=== PATIENT | female | born 1940 | race Caucasian/White ===

== ENCOUNTER 2024-10-04 10:43 | Emergency (ER) | payer MEDICARE, OTHER, SELFPAY ==
--- NOTE | 2024-10-04 10:44 | ED_ITS ---
HPI - Ear Problem General Chief complaint: Ear Stated complaint: Ears clogged Time Seen by Provider: 10/04/24 11:00 Source: patient, RN notes reviewed and old records reviewed Mode of arrival: ambulatory Limitations: no limitations History of Present Illness HPI Narrative: 84-year-old female was or referred to the [facility] for cerumen impaction or loss pieces of hearing aids in the right ear. Has had decreased hearing for long periods of time. Patient is not a very good historian. Unable to obtain medical history. Has been reports that they went to the hearing aid store and she was told she needed her right ear cleaned out. Related Data Home Medications ?Medication ?Instructions ?Recorded ?Confirmed ?Last Taken ?Type Unable to Obtain Home Medications 10/04/24 10/04/24 Unknown History Allergies Allergy/AdvReac Type Severity Reaction Status Date / Time No Known Allergies Allergy Verified 10/04/24 11:18 Review of Systems Review of Systems: All systems reviewed & are unremarkable except as noted in HPI and below Constitutional: Constitutional: Reports no additional constitutional complaints ENT: Reports as per HPI Cardiovascular: Cardiovascular: Reports no additional cardiovascular complaints, Denies chest pain and Denies dyspnea Respiratory: Respiratory: Reports no additional respiratory complaints, Denies chest congestion, Denies cough and Denies dyspnea Musculoskeletal: Musculoskeletal: Reports no additional musculoskeletal complaints Integumentary/Breasts: Skin/Breast: Reports system reviewed and no additional complaints, except as docu PMFSH Comments At the time of my signature, I reviewed and agree with the nursing past medical, surgical, social, and family history. There is no relevant family history pertinent to the patient complaint. Exam Const: General: cooperative, no acute distress, well developed, alert, anxious, ill appearing chronically and well nourished Nutritional Appearance: well nourished Orientation/consciousness: patient oriented x3 Limitations: no limitations HENMT: Head: normal to inspection Ears: external ears normal, TM normal on the left, Abnormal EAC present foreign body on the right; no otic discharge and unable to visualize TM on the right Mouth: Yes Normal oral and palatal mucosa present, Yes lip normal, Yes tongue normal and Yes moist mucous membranes Throat: posterior oropharynx normal, uvula midline and no uvular edema Eyes: General: appearance normal, both eyes and all related structures Alignment and Position: alignment normal Neck: Neck: normal visual inspection, full ROM, no lymphadenopathy and no meningeal signs Chest: Chest palpation & inspection: normal inspection of the chest Resp: Effort & Inspection: normal respiratory effort and able to speak in complete sentences Auscultation: clear to auscultation bilaterally, no crackles, no rales, no rhonchi and no wheezes Cardio: Rate: regular rate Skin: General skin exam: normal color and no rashes or lesions noted Neuro: General: patient oriented x3, moves all extremities and no meningeal signs Cognition (Neuro): normal cognition Speech: normal speech Extrem: General: normal to inspection, full ROM and capillary refill normal Psych: Appearance: grossly normal and well kempt Mental Status: mental status grossly normal Speech and movement: Normal speech and movement present and Clear speech present Affect: normal affect Attitude: cooperative Course Course Emergency Course: Procedure explained to patient in her has been. Verbal consent obtained. Area irrigated, used alligator forceps as well as a lighted curette to remove to rubber ends of a hearing aid as well as significant amount ear wax. Attempted additional irrigation, patient was not tolerating procedure well. Was unable to sit still Unable to remove the 3rd rubber and the hearing aid due to its location and unable to flush it out. Explained this to patient and . Discussed the importance of following up with ENT for further evaluation, Dr. Bedoya's name and number given. Patient appropriate for outpatient treatment with close follow Discharge instructions reviewed with patient, as well as provided in writing per nursing staff. The instructions also include specific and strict return/GO TO THE ER as well as f/u information. All questions have been answered, and the patient deny any further questions with discharge and discharge plan. Some parts of this dictation were generated by voice recognition software and may contain typographical and/or grammatical inaccuracies. Level of Care: Express Care Visit Vital Signs Vital signs: Vital Signs Temperature 98.0 F 10/04/24 10:58 Pulse Rate 65 10/04/24 10:58 Respiratory Rate 18 10/04/24 10:58 Blood Pressure 154/65 H 10/04/24 10:58 Pulse Oximetry 99 10/04/24 10:58 Oxygen Delivery Room Air 10/04/24 10:58 Temperature 98.0 F 10/04/24 10:58 Pulse Rate 65 10/04/24 10:58 Respiratory Rate 18 10/04/24 10:58 Blood Pressure 154/65 H 10/04/24 10:58 Pulse Oximetry 99 10/04/24 10:58 Oxygen Delivery Room Air 10/04/24 10:58 Reviewed Procedures FB Removal Ear Foreign Body #1: Foreign Body Removal Date: 10/04/24 Foreign Body Removal Time: 11:05 Location: ear canal (R) Foreign Body Suspected: other plastic TM intact pre-procedure: unable to visualize If Insect Suspected: ear canal instilled with other Foreign Body Removed: yes (2 of 3 removed) Foreign Body Removal Technique: forceps Patient Tolerated Procedure: other Complications: unable to tolerate Medical Decision Making MDM Narrative Medical decision making narrative: Patient presents for decreased hearing right ear. Three to have foreign body, irrigated, used alligator forceps and rated care it. Removed to piece of hearing aid, 3rd still in ear canal. Also removed a substantial amount of ear wax Patient appropriate for outpatient treatment with close follow-up Discharge instructions reviewed with patient, as well as provided in writing per nursing staff. The instructions also include specific and strict return/GO TO THE ER as well as f/u information. All questions have been answered, and the patient deny any further questions with discharge and discharge plan. Some parts of this dictation were generated by voice recognition software and may contain typographical and/or grammatical inaccuracies. Differential Diagnosis Differential Diagnosis: Foreign body, decreased hearing cerumen impaction Medical Records Medical records reviewed: Yes I reviewed the external patient's medical records. Vital Signs Vital Signs: Vital Signs Temperature 98.0 F 10/04/24 10:58 Pulse Rate 65 10/04/24 10:58 Respiratory Rate 18 10/04/24 10:58 Blood Pressure 154/65 H 10/04/24 10:58 Pulse Oximetry 99 10/04/24 10:58 Oxygen Delivery Room Air 10/04/24 10:58 Temperature 98.0 F 10/04/24 10:58 Pulse Rate 65 10/04/24 10:58 Respiratory Rate 18 10/04/24 10:58 Blood Pressure 154/65 H 10/04/24 10:58 Pulse Oximetry 99 10/04/24 10:58 Oxygen Delivery Room Air 10/04/24 10:58 Reviewed Lab Data Lab results reviewed: Yes I reviewed the patient's lab results. Labs: Reviewed Critical Care Time Critical Care Time Critical Care Time: No Discharge Plan Discharge Clinical Impression: Acute foreign body of right ear canal Patient Disposition: Home Condition: Stable Instructions: Antibiotic Form, Earache (ED) Additional Instructions: Please follow-up with your primary care provider for referral to ENT for removal of the 3rd piece of hearing aid from the right ear. We were unable to remove it in clinic today due to where it is located in the ear 2 of the parts were removed successfully Today your blood pressure was 154/65. Please follow-up with primary care provider within 2 weeks to have this rechecked Patient Language: Albanian Prescriptions: No Action Unable to Obtain Home Medications Follow-up/Referrals: Yayo Bedoya MD [Physician] - UNKNOWN,DOCTOR [Non-Staff] - Time of Disposition: 11:24
--- OUTSIDE RECORDS SUMMARY | 2024-10-04 10:54 | XMS_ITS | Data Portability ---
Author Organization [facility], Main Office Address [address] [place] [address] Care Team Providers Care Saw Operator Name Role Phone TATIANA MOSLEY Primary Care Provider Assessment Encounter Date Assessment Date Assessment LastModified by Organization Details LastModified Time 03/20/2019 03/20/2019 Ms. Cano is a 78-year-old female presents for neurosurgical clinic complaining of low back pain since 2013 after experiencing a fall with no lower extremity radicular pain, numbness or tingling. Dynamic flexion-extension film showed L4 on L5 grade 1 anterolisthesis however no signs of segmental instability with motion. MRI of the lumbar spine showed levoscoliosis with multilevel degenerative disc disease and disc protrusion extending into the canal worse at the level of L2-L3 ; however no signs of severe lumbar stenosis. Patient's main complaint is mechanical low back pain . Due to patient's extensive degenerative findings , patient would involve corrective spinal deformity surgery which would be invasive and high risk for patient based on her age. Patient should consider continuing conservative treatment including strengthening her core, physical therapy and pain management prior to considering any surgical intervention . Patient replied that at this time she is not interested in any invasive surgery . Patient will be continued be followed on a as needed basis. [email or web address] Not available 03/20/2019 21:15:58 Plan of Treatment Reminders Order Date Submit Date Provider Last Modified By Organization Details Last Modified Time Details Appointments None record ed. Lab None record ed. Referral None record ed. Procedures None record ed. Surgeries None record ed. Imaging None record ed. Medication Orders None record ed. Patient TargetsNo targets recorded. Patient Instructions Encounter Date Encounter Id Patient Instructions Last Modified By Organization Details Last Modified Time 03/20/2019 [id number] back care and preventing injuries: care instructions [email or web address] Not available 04/15/2019 11:22:02 getting back to normal after low back pain: care instructions [email or web address] Not available 04/15/2019 11:22:02 learning about relief for back pain [email or web address] Not available 04/15/2019 11:22:02 Reason for Referral None Reported. Results Created Date Observation Date Name Description Value Unit Range Abnormal Flag Note LastModifiedBy Organization Detail LastModifiedTime 03/06/20 19 02/24/2019 MRI, lumba r spine , w/o contr ast No observ ation record ed. BARCODE Not Available 2018 18:40:20 Result Notes None recorded. Problems Name Problem SNOMED Code Status Onset Date Resolution Date Notes Provider Name and Address Organization Details Recorded Time Hypertensive disorder 86886624 Active 2018 [facility] Gamez MD 9 15:13:04 Pain 31024531 Active 2018 [facility] Gamez MD 9 15:13:08 Scoliosis deformity of spine 983495101 Active 2018 [facility] Gamez MD 9 15:14:49 Osteoporosis 48499277 Active 2018 [facility] Gamez MD 9 15:16:12 Problem Notes None recorded. Procedures Surgical History Date Name Laterality Status Provider Name and Address Organization Details Recorded Time Hysterectomy completed Arpita Banks MD 03/20/2019 15:13:35 Imaging Results Imaging Date Name Status LastModified by Organiz ation Details LastModified Time 02/24/2019 MRI, lumbar spine, w/o contrast completed BARCODE Information not available 03/06/2019 18:40:20 Procedure Notes None recorded. Medical Equipment None Reported. Allergies No known drug allergies Medications Name Sig Start Date Stop Date Status Note LastModified by Organization Details LastModified Time triamcinolone acetonide 0.5 % topical cream active Not Available Not Availabl e Not Available lisinopril 20 mg tablet active Not Available Not Available Not Available hydrocodone 10 mg-acetaminophen 325 mg tablet active Not Available Not Availabl e Not Available tramadol 50 mg tablet active Not Available Not Available Not Available hydrochlorothiazide 25 mg tablet active Not Available Not Available Not Available duloxetine 20 mg capsule,delayed release active Not Available Not Available Not Available diclofenac 1 % topical gel active Not Available Not Available Not Available Prolia 60 mg/mL subcutaneous syringe active Not Available Not Available Not Available Fluzone High-Dose (PF) 180 mcg/0.5 mL intramuscular syringe active Not Available Not Available Not Available Fluzone High-Dose (PF) 180 mcg/0.5 mL intramuscular syringe active Not Available Not Available Not Available Vitals Date Recorded Body height Respiratory rate Body temperature Oxygen saturation Oxygen saturation in Arterial blood by Pulse oximetry Heart rate Body mass index (BMI) Body weight Systolic blood pressure Diastolic blood pressure Provider Name and Address Organization Details Last Updated DateTime 9 162.56 cm 20 /min 97.1 [degF] 98 % 98 % 91 /min 22.7 kg/m2 57887.1 9 g 145 mm[Hg] 95 mm[Hg] Arpita Banks MD 9 15:12:25 Social History Question Answer Notes LastModified by Organizat ion Details LastModified Time Tobacco Smoking Status Never Smoker [facility] Gamez MD 03/20/2019 15:11:06 What Is Your Level Of Alcohol Consumption? Occasional Information not available 03/20/2019 Are You Currently Employed? No Information not available 03/20/2019 Drugs Abused 0 Information not available 03/20/2019 Do You Or Have You Ever Used E-cigarettes Or Vape? Never Used Electronic Cigarettes Information not available 03/20/2019 What Is Your Occupation? Retired Information not available 03/20/2019 Live Alone Or With Others? With Others Information not available 03/20/2019 Primary Provider Tatiana Mosley Information not available 03/20/2019 Referring Provider Tatiana Mosley Information not available 03/20/2019 Pain Management Doctor Blair Salguero Information not available 03/20/2019 Do You Or Have You Ever Used Smokeless Tobacco? Never Used Smokeless Tobacco Information not available 03/20/2019 How Much Tobacco Do You Smoke? No Information not available 03/20/2019 Do You Use Any Illicit Or Recreational Drugs? No Information not available 03/20/2019 How Many Years Have You Smoked Tobacco? 0 Information not available 03/20/2019 Sex: Unknown Functional Status None recorded. Mental Status None recorded. Family History Nothing Reported. Medical History Condition Response Diabetes N Autoimmune disease N Bleeding Disorder N Arthritis Y Head Trauma/Injury N Cancer N Stroke N Asthma N COPD N Pacemaker N Epilepsy/Seizures N Hepatitis N Aneurysm N Liver Disease N Heart Disease N Heart Attack ([place]) N Ulcers N Fibromyalgia N Hypertension Y Problems with Anesthesia N Obstructive Sleep Apnea N Osteoporosis N Kidney Disease N Gynecological HistoryNo gynecological history recorded. Obstetrics History GPAL:G 0 P 0 0 0 0 Past Encounters Encounter ID Performer Location Encounter Start Date Encounter Closed Date Diagnosis/Indication Diagnosis SNOMED-CT Code Diagnosis ICD10 Code Diagnosis Note [id number] [address] [place] [address] [address] [place] [address] 03/20/2019 14:50:42 03/20/2019 16:42:54 Lumbar spondylolisthesis 4065658290 75508 M43.16 Lumbar spondylosis 33441 0009 M47.896 Low back pain 319606010 M54.5 Health Concerns Section Related Observation LastModified by Organization Detai ls LastModified Time None Recorded Concern Status LastModified by Organization Details LastModified Time None Recorded Advance Directives Directive None Recorded Payers Encounter Date Sequence Insurance Name Policy Number Policy Smith Covered Member ID Smith Member ID Guarantor Name 03/20/2019 1 [place]ICARE [place]: [employer] Joyce Cano [id number] Joyce Cano 03/20/2019 2 [employer] - FOR LIFE (SECONDARY TO MEDICARE) [id number] Joyce Cano [id number] Joyce Cano Notes Date Note Type Note Provider Name and Address Organization Details Recorded Time 9 text/html Jocelyn HPIReported bypatient.Location:lower back Onset:3 year(s) ago TraumaFall; fell in 2013 Neck:pain level 0/10 Armpain level 0/10 Low Backpain level 7/10; Dull/Aching Legpain level 0/10 Exacerbated By:Bending/Twisting/Lifting ; Prolonged Standing/Sitting (>30 minutes); Walking Past TreatmentsBed Rest; Home Excercise; NSAIDS (ie Ibuprofen, Naproxen); Muscle Relaxant Medications; Narcotic Medication (ie [place], Percocet, Codeine); Pain Cream; Spinal Injections; no recent pt Hand Dominance:Right Do you have any difficulty with:walkin - mildly limited 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 Shecomplainsof low back pain which [id number] after experiencing a fall. Patient was originally diagnosed with right hipbursitiswhich was treated withsteroid injection.Patientsubsequent ly developed low back painwhich has wax and waneand recently worsened in severity.On today's visitation she complainedof sharpconstant low back pain with no radicularnumbness tingling or pain in her extremities.Aggravating factors includewalking more than half a block.Alleviating factors include heat.Patient has attempted conservative treatmentwith Dr. Manzanohere she received 3 epiduralsteroid injections. Patient denies any alleviation of her discomfort.Patient also denies any physical therapytreatmentpatient denies any other associated symptoms including no numbness, tingling or bowel bladder dysfunction. Ndea Jenkins NP [address], [place], [address], [place] - Aureliano Banks MD 04/15/2019 11:22:05 OBGyn Episode No OBEpisode recorded.
--- OUTSIDE RECORDS SUMMARY | 2024-10-04 10:54 | XMS_ITS | Data Portability ---
Author Organization [facility] Address [address] [place] [address] Assessment No assessment recorded. Plan of Treatment Reminders Order Date Submit Date Provider Last Modified By Organization Details Last Modified Time Details Appointments None recorded. Lab None recorded. Referral None recorded. Procedures None recorded. Surgeries None recorded. Imaging US, kidney 2020 022 [facility], [address] [address], [place], [address], 2 12:17:23 CT, abdomen, w/wo contrast 2020 021 SHANNON [facility], [address] [address], [place], [address], 1 14:20:07 Medication Orders None recorded. Patient TargetsNo targets recorded. Patient InstructionsNo instructions recorded. Reason for Referral None Reported. Results Created Date Observation Date Name Description Value Unit Range Abnormal Flag Note LastModifiedBy Organization Detail LastModifiedTime 08/21/19 21 08/16/2020 CT, abdom en + pelvi s, w/ contr ast No observ ation record ed. BARCODE Not Available 2020 13:13:23 02/24/20 21 02/23/2021 CT, abdom en, w/wo contr ast [facility] [address] [facility], [address] [phone] PATIEN T: KIMBERLEY RIVERA 272 : 1940 Age: 80 yrs Dept: [id number] Sex: F ACC: [id number]: Verona Gross Pat Status : O Exam: CT Abdome n wo/w Contra st DATE: 2020 11:49 AM Acct No: Reason : Neopla sm of uncert ain behavi or of left kidney ___ FINAL REPORT CT ABDOME N WITH AND WITHOU T IV CONTRA ST DATE: 02/24/20 11:49 AM HISTOR Y: Neopla sm of uncert ain behavi or of left kidney TECHNI QUE: A CT scan of the abdome n is obtain ed prior to and after the uncomp licate d intrav enous inject ion of nonion ic contra st. COMPAR MARIAH: CT abdome n and pelvis 021 and 020. FINDIN GS: Visual ized heart size is normal . There is no pleura l effusi on. The visual ized lung bases are clear. The liver is normal in contou r. No suspic ious hepati c mass. Howeve r, the inferi or tip of segmen t of liver is not includ ed in the field- of-vie w of this scan. There is no calcif ied gallst one. No intrah epatic biliar y ductal dilata tion. Portal vein, superi or mesent kassy vein, and spleni c vein are patent . Spleen is normal in size and enhanc ement. Adrena l glands are normal . Pancre as is normal in enhanc ement. No duct dilata tion. The kidney s enhanc e normal ly symmet ricall y bilate rally. No renal calcul us or hydron ephros is. 8 mm high attenu ation suspec peyton cyst with hemorr nisreen at the upper pole of the left kidney at table positi on 104.5. There are severa l additi onal high attenu ation cysts with hemorr nisreen at the lower pole of the left kidney includ ing the 6 mm lesion at table is 174.5 which was identi fied on the prior CT as suspic ious for a solid mass. 1.1 cm cyst with hemorr nisreen at the lower pole left kidney at table positi on 169.5. Simple cyst at the latera l interp olar region of left kidney measur es 1.3 cm at table positi on 144.5. The visual ized bowel is nondil ated. No free air. Abdomi nal aorta is nonane urysma l. No adenop athy. There is no ascite s. The visual ized bony skelet on demons trates degene rative change s with slight listhe ses in the lumbar spine. Levosc oliosi s. Left flank batter y pack with spinal stimul ator wires enteri ng the thorac ic spinal canal. No suspic ious destru ctive osseou s lesion . No acute compre ssion fractu re. IMPRES SHELBY: 1. High attenu ation nonenh ancing cysts with hemorr nisreen at the left kidney . A 6 mm lesion corres ponds to the findin g on the prior CT abdome n and pelvis 021. Signed on 02/24/20 21 1:16 PM by Karol Meade M.D Report ed by:: KAROL MEADE M.D. Sept2020 13:16 [facility] [address] [facility] [address], [place], [address], 02/23/2021 17:57:31 03/08/20 22 03/08/2022 , [facility] [address] [facility], [address] [phone] PATIEN T: KIMBERLEY RIVERA 272 : 1940 Age: 81 yrs Dept: [id number] Sex: F ACC: [id number]: Verona Gross Pat Status : O Exam: US Renal Bilate ral DATE: 2021 04:43 PM Acct No: Reason : Cyst of kidney , acquir ed; Comple x renal cyst ___ FINAL REPORT ULTRAS OUND RETROP ERITON EUM KIDNEY S DATE: 022 HISTOR Y: Cyst of kidney , acquir ed; Comple x renal cyst TECHNI QUE: Ultras ound of the retrop eriton eum perfor med per the renal protoc ol. COMPAR MARIAH: None availa ble. FINDIN GS: RIGHT KIDNEY : Length : 9.1 cm Cortic al thickn ess: 1.1 cm Echoge nicity : Normal Mass: None Hydron ephros is: None Cysts: Stone: None LEFT KIDNEY : Length : 8.6 cm Cortic al thickn ess: 1.2 cm Echoge nicity : Normal Mass: None Hydron ephros is: None Cysts: 1.1 cm and 0.9 cm simple cyst involv ing the mid and lower portio n of the left kidney . Stone: None Bladde r: Normal IMPRES SHELBY: 1. Simple cysts in the left kidney otherw ise unrema rkable exam. Signed on 9:45 AM by Madison Patterson M.D. Report ed by:: MADISON PATTERSON M.D. [facility] 2021 09:45 [facility] [address] [facility] [address], [place], [address], 03/15/2022 13:50:23 Result Notes None recorded. Problems Name Problem SNOMED Code Status Onset Date Resolution Date Notes Provider Name and Address Organization Details Recorded Time Neoplasm of uncertain behavior of left kidney 23346170718639 5 Active 2020 Omar Gross MD [address] [facility],[address], [address] [place] [address] 09:56:35 Complex renal cyst Active 2020 Omar Gross MD [address] [place] [address],[address], [place], [address], [facility] 15:39:56 Problem Notes None recorded. Procedures Surgical History Date Name Laterality Status Provider Name and Address Organization Details Recorded Time 06/19/19 Most Recent Mammogram completed Loren Mayo [facility] 08/20/2020 09:18:49 total abdominal hysterectomy with bilateral salpingo-oophore ctomy completed Omar Gross MD [address] [place] [address],[address], [place], [address], [facility] 08/20/2020 09:33:38 Breast Implants completed Omar Gross MD [address] [place] [address],[address], [place], [place], [address] [place] [address] 08/20/2020 09:33:52 implantation of electronic stimulator of spine completed Omar Gross MD [address] [place] [address],[address], [place], [address] [place] [address], [facility] 08/20/2020 09:34:03 Breast Surgery (Lumpectomy, Biopsy, Implants) completed Marcelalevy Gann [facility] 03/18/2021 15:10:01 Hysterectomy completed Marcela Sanju[place] [facility] 03/18/2021 15:10:01 Back Surgery completed Marcela [place] [facility] 03/18/2021 15:10:01 Imaging Results Imaging Date Name Status LastModified by Organiz ation Details LastModified Time 08/16/2020 CT, abdomen + pelvis, w/ contrast completed BARCODE Information not available 08/20/2020 13:13:23 02/23/2021 CT, abdomen, w/wo contrast completed [facility] [address], [place], [address], 02/23/2021 17:57:31 03/08/2022 US, kidney completed [facility] [address], [place], [address], 03/15/2022 13:50:23 Procedure Notes None recorded. Medical Equipment None Reported. Allergies Allergen ID Allergen Name Allergen Category Reaction Reaction Severity Criticality Documentation Date Start Date Code Code System Note Provider Name and Address Organization Details Recorded Time 633631 fire ant environme nt itching Not available Not available 03/17/2022 79114 UNK Marcela Gann [facility] 2 15:27:55 089927 POLLEN EXTRACTS environme nt,medica tion Not available Not available Not available 03/17/2022 65932 6 RxNorm Marcela Gann [facility] 2 15:27:55 Medications Name Sig Start Date Stop Date Status Note LastModified by Organization Details LastModified Time compound drug active Not Available Not Available Not Available amoxicillin 500 mg capsule 08/20 completed Not Available Not Available Not Available methocarbam ol 500 mg tablet active Not Available Not Available Not Available acetic acid 2 % ear solution active Not Available Not Available Not Available triamcinolo ne acetonide 0.5 % topical cream 08/20 completed Not Available Not Available Not Available azithromyci n 250 mg tablet TAKE 2 TABLETS BY MOUTH ON DAY 1, THEN 1 TABLET DAILY ON DAYS 2 TO 5. active Not Available Not Available No t Available acetaminoph en 300 mg-codeine 30 mg tablet TAKE ONE (1) TABLET(S) BY MOUTH EVERY 6 HOURS NEEDED FOR PAIN. active Not Available Not Available No t Available chlorthalid one 25 mg tablet active Not Available Not Available Not Available hydrocodone 10 mg-acetamin ophen 325 mg tablet 08/20 completed Not Available Not Available Not Available tramadol 50 mg tablet active Not Available Not Available No t Available triamcinolo ne acetonide 0.1 % topical cream active Not Available Not Available Not Available oxycodone-a cetaminophe n 5 mg-325 mg tablet 03/18 completed Not Available Not Available Not Available metoclopram sang 5 mg tablet active Not Available Not Available Not Available dicyclomine 20 mg tablet TAKE ONE (1) TABLET(S) BY MOUTH TWICE A DAY FOR ABDOMINAL CRAMPING. 03/18 completed Not Available Not Available Not Available dexamethaso ne 4 mg tablet 03/18 completed Not Available Not Available Not Available lidocaine 5 % topical patch 08/20 completed Not Available Not Available Not Available gabapentin 300 mg capsule 03/17 completed Not Available Not Available Not Available methylpredn isolone 4 mg tablets in a dose pack 03/17 completed Not Available Not Available Not Available dexamethaso ne 0.5 mg tablet 03/18 completed Not Available Not Available Not Available celecoxib 100 mg capsule active Not Available Not Available Not Available ondansetron 4 mg disintegrat ing tablet DISSOLVE ONE (1) TABLET(S) BY MOUTH EVERY SIX HOURS NEEDED FOR NAUSEA/VO MITING. active Not Available Not Available No t Available escitalopra m 10 mg tablet active Not Available Not Available Not Available escitalopra m 20 mg tablet active Not Available Not Available Not Available cyclobenzap rine 5 mg tablet 08/20 completed Not Available Not Available Not Available rosuvastati n 20 mg tablet active Not Available Not Available Not Available rosuvastati n 25mg 08/20 completed Not Available Not Available Not Available Mintox Maximum Strength 400 mg-400 mg-40 mg/5 mL oral suspension active Not Available Not Available N ot Available diclofenac 1 % topical gel active Not Available Not Available Not Available Prolia 60 mg/mL subcutaneou s syringe active Not Available Not Available No t Available Narcan 4 mg/actuatio n nasal spray 03/17 completed Not Available Not Available Not Available Lagevrio 200 mg capsule (EUA) TAKE 2 BY MOUTH EVERY 12 HOURS FOR 5 DAYS active Not Available Not Available No t Available Vitals Date Recorded Body temperature Body height Body mass index (BMI) Body weight Heart rate Oxygen saturation Oxygen saturation in Arterial blood by Pulse oximetry Systolic blood pressure Diastolic blood pressure Provider Name and Address Organization Details Last Updated DateTime 1 97.7 [degF] 160.02 cm 23.9 kg/m2 79904.9 7 g 67 /min 99 % 99 % 144 mm[Hg] 72 mm[Hg] Loren Mayo [facility] 1 09:26:28 Date Recorded Body height Body mass index (BMI) Body weight Heart rate Oxygen saturation Oxygen saturation in Arterial blood by Pulse oximetry Systolic blood pressure Diastolic blood pressure Provider Name and Address Organization Details Last Updated DateTime 1 160.02 cm 23.7 kg/m2 24025.3 8 g 81 /min 98 % 98 % 134 mm[Hg] 70 mm[Hg] Marcela Gann [facility] 1 15:14:10 Date Recorded Body height Body mass index (BMI) Body weight Systolic blood pressure Diastolic blood pressure Provider Name and Address Organization Details Last Updated DateTime 03/17/2022 160.02 cm 22.7 kg/m2 06661.82 g 120 mm[Hg] 64 mm[Hg] Marcela Gann [facility] 2 15:30:27 Social History Question Answer Notes LastModified by Organizat ion Details LastModified Time Tobacco Smoking Status Former Smoker Loren [facility]aggie [facility]The [facility] 08/20/2020 09:19:40 Do You Have An Advance Directive? Yes Information not available 08/20/2020 What Is Your Level Of Alcohol Consumption? Occasional Information not available 08/20/2020 What Is Your Level Of Caffeine Consumption? Occasional Information not available 08/20/2020 How Much Tobacco Do You Chew? None Information not available 08/20/2020 Do You Or Have You Ever Used E-cigarettes Or Vape? Never Used Electronic Cigarettes Information not available 08/20/2020 When Did You Quit Smoking? 16+yearssincel tamy Information not available 03/18/2021 Does The Patient Have Fever OR Cough OR Shortness Of Breath? No Information not available 08/20/2020 In The Last 14 Days, Has The Patient Had Contact With A COVID-19 Positive Patient Or A COVID-19 Suspect Patient Awaiting Test Results? No Information not available 08/20/2020 If Pulse Oximetry Was Done: Is The Patient's Sp02 Less Than 93% On Room Air? No Information not available 08/20/2020 Does The Patient Have At Least TWO Of These Symptoms? Diarrhea, Chills, Muscle Pain, Repeated Shaking & Chills, Headache, Sore Throat, Or New Loss Of Taste/Smell No Information not available 08/20/2020 What Was The Date Of Your Most Recent Tobacco Screening? 03/17/2022 [email or web address] Information not available 03/17/2022 What Is Your Current Pack Years? 30ormorepackye ars [email or web address] Information not available 03/17/2022 What Is Your Relationship Status? Information not available 03/18/2021 At What Age Did You Start Smoking Tobacco? 20 [email or web address] Information not available 03/17/2022 Do You Or Have You Ever Used Smokeless Tobacco? Never Used Smokeless Tobacco Information not available 08/20/2020 How Much Tobacco Do You Smoke? 0.5 PPD [email or web address] Information not available 03/17/2022 Has Tobacco Cessation Counseling Been Provided? No [email or web address] Information not available 03/17/2022 How Many Years Have You Smoked Tobacco? 40 Information not available 08/20/2020 Do You Or Have You Ever Used Any Other Forms Of Tobacco Or Nicotine? No Information not available 03/18/2021 Sex: Unknown Functional Status Question Answer Note LastModified by Organizat ion Details LastModified Time Urinary incontinence assessment performed? Yes [email or web address] Information not available 03/17/2022 What is your exercise level? Occasional Information not available 08/20/2020 Mental Status None recorded. Family History Relationship Description Onset Age of this Age Resolved Age Notes LastModified by Organization Details LastModified Time Father Diabetes mellitus Not available 2020 09:32:11 Father Hypertensive disorder Not available 2020 09:32:23 Father Malignant neoplasm of skin [email or web address] Not available 2021 14:54:49 Mother Arthritis [email or web address] Not available 03/17/2022 14:54:50 Medical History Condition Response Urinary Problem Y High Blood Pressure (Hypertension) Y Arthritis Y Anxiety Y Back/Neck Pain Y Cancer (If yes, specify type) Y Gynecological History Statement/Question Response Most Recent Mammogram 06/19/2019 Date of LMP 06/19/1972 Obstetrics History GPAL:G 0 P 0 0 0 0 Past Encounters Encounter ID Performer Location Encounter Start Date Encounter Closed Date Diagnosis/Indication Diagnosis SNOMED-CT Code Diagnosis ICD10 Code Diagnosis Note [id number] Omar Gross MD [facility] [place] [address] [facility] [address] [place] [address] 08/20/2020 08:53:25 08/20/2020 10:05:05 Neoplasm of uncertain behavior of left kidney 7004352214 43593 D41.02 It is a very small lesion. 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 We discussed the options. Those options include observatio n versus partial nephrectom y versus ablation. Due to its tiny size, I would recommend observatio n for a little while. [id number] [facility] [address] [place] [address] 03/18/2021 15:08:23 03/18/2021 15:40:47 Complex renal cyst 9981475281 0760804 N28.1 The lesions appear to be more cystic. I believe we can do an ultrasound in a year. [id number] MD NANCY [facility] [place] [address],[facility] [address] [place] [address] 03/17/2022 14:54:48 03/17/2022 15:50:43 Complex renal cyst 7728728285 5471144 N28.1 Lesions appear to be cystic on the most recent ultrasound . These are benign. I think we can safely stop routine imaging Health Concerns Section Related Observation LastModified by Organization Detai ls LastModified Time None Recorded Concern Status LastModified by Organization Details LastModified Time None Recorded Advance Directives Directive Y: Payers Encounter Date Sequence Insurance Name Policy Number Policy Smith Covered Member ID Smith Member ID Guarantor Name 08/20/2020 1 [place] [employer] Joyce E Jerome [id number] Joyce Jerome 03/18/2021 1 [place] [employer] Joyce E Jerome [id number] Joyce Jerome 03/17/2022 1 [place] [employer] Joyce E Jerome [id number] Joyce Jerome 03/17/2022 2 [employer] - FOR LIFE (MEDICARE SUPPLEMENT) Joyce Cano [id number] Joyce Cano Notes Date Note Type Note Provider Name and Address Organization Details Recorded Time 08/20/2020 text/html She received her Covid vaccination. She developed abdominal pain and nausea. She went to the emergency room. A CT scan was performed. This showed a very small lesion on the left lower pole. CT scan was reviewed. There is an 8 mm mass on the left lower pole. She had a CT scan in February that is reported to be normal. Upon review of that study, the lesion appears to be present there. It is more difficult to see due to the contrast timing. Omar Gross MD [address] [place] [address],[address], [place], [address], [facility] 08/20/2020 09:57:52 03/18/2021 text/html Is a follow-up visit for renal lesion. She recently had a CT scan. The study was reviewed. She has multiple cysts. They appear to be hemorrhagic type cyst. She has not had flank pain or hematuria. Omar Gross MD [address] [place] [address],[address], [place], [address], [facility] 03/18/2021 15:41:03 03/17/2022 text/html Follow-up visit for renal cyst. She has been doing well. No flank pain or hematuria. No urinary tract infections. No incontinence. Ultrasound was reviewed. Benign cysts in the left kidney Omar Gross MD [address] [place] [address],[address], [place], [address], [facility] 03/17/2022 15:54:29 OBGyn Episode No OBEpisode recorded.
--- OUTSIDE RECORDS SUMMARY | 2024-10-04 10:55 | XMS_ITS | Clinical Summary ---
Author Organization [facility] Address [address] [place] [address] Care Team Providers Care Coffee Host Name Role Phone Jose Vergara MD Primary Care Provider [phone] Allergies No known active allergies Medications chlorthalidone (HYGROTEN) 25 MG tablet Take 1 tablet (25 mg total) by mouth daily. Active escitalopram (LEXAPRO) 20 MG tablet Take 1 tablet (20 mg total) by mouth daily. Active Kvpn-Yhoiemxmb-C en-Methyl Donaldo (MWRU-YYPND-XJLY JOE) 0.5-0.035-5-20 % Patch Active methocarbamol (ROBAXIN) 500 MG tablet Take 1 tablet (500 mg total) by mouth 4 (four) times daily. Active buPROPion XL (WELLBUTRIN XL) 150 MG 24 hr tablet Take 1 tablet (150 mg total) by mouth daily. Active Active Problems Problem Noted Date Diagnosed Date Myelopathy ([facility]) 07/18/2024 Depressive disorder 07/16/2024 Mixed hyperlipidemia 07/16/2024 Abnormal gait 07/08/2024 Degeneration of lumbar intervertebral disc 07/08 Impairment of balance 07/08/2024 Minimal cognitive impairment 07/08/2024 Recurrent falls 07/08/2024 Scoliosis deformity of spine 07/08/2024 Urinary incontinence 07/08/2024 Vertigo 07/08/2024 Encounters Date Type Department Care Team Description 08/29/2024 9:40 AM CDT Office Visit [facility] - [address], [address] [place] [address] Bebeto Osorio MD Follow Up (Discuss surgical options ) 08/29/2024 Travel 08/27/2024 [facility] [address] [facility], [address] [place] [address] Marilyn Knight, MARINE FISHERIES TECHNICIAN Radiology Results 08/21/2024 9:19 AM MILLINERY DEPARTMENT MANAGER - 08/21/2024 1:20 PM MILLINERY DEPARTMENT MANAGER Hospital Encounter [facility] [place] [address] Marilyn Knight, MARINE FISHERIES TECHNICIAN Discharge Disposition: Home or Self Care (Routine Discharge) 08/21/2024 Travel 08/16/2024 [facility] [address], [address] [place] [address] Marilyn Knight, MARINE FISHERIES TECHNICIAN Radiology Results (I called patient and spoke with her and herself. I relayed this information to them. Understanding was verbalized. ) 08/13/2024 8:11 AM MILLINERY DEPARTMENT MANAGER - 08/13/2024 11:59 PM MILLINERY DEPARTMENT MANAGER Hospital Encounter [facility] [address] Juaquin De Dios MD Discharge Disposition: Home or Self Care (Routine Discharge) 08/13/2024 8:11 AM MILLINERY DEPARTMENT MANAGER - 08/13/2024 3:00 PM MILLINERY DEPARTMENT MANAGER Hospital Encounter [facility] [place] [address] Marilyn Knight, MARINE FISHERIES TECHNICIAN Discharge Disposition: Home or Self Care (Routine Discharge) 08/13/2024 Travel 08/09/2024 Orders Only [facility] [place] [place] [address] Juaquin De Dios MD 07/30/2024 Pre-Procedure Call [facility] [place] [address] Juaquin De Dios MD Preprocedure Call 07/26/2024 [facility] [address], [address] [place] [address] Marilyn Knight, MARINE FISHERIES TECHNICIAN 07/18/2024 2:00 PM MILLINERY DEPARTMENT MANAGER [facility] [address], [address] [place] [address] Marilyn Knight, MARINE FISHERIES TECHNICIAN New Patient (Recurrent Falls ) 07/18/2024 Travel 07/16/2024 2:15 PM MILLINERY DEPARTMENT MANAGER Office Visit [facility] [address] [place] [address] Jose Vergara MD GrangerNicole barahona, PT Initial Evaluation 07/16/2024 Travel from Last 3 Months Social History Tobacco Use Types Packs/Day Years Used Date Smoking Tobacco: Never Smokeless Tobacco: Never Tobacco Cessation:Counseling Given: No Alcohol Use Standard Drinks/Week Comments Yes 0 (1 standard drink = 0.6 oz pur e alcohol) occasional PHQ-2 Answer Date Recorded Patient Health Questionnaire-2 Score 0 07/18/2024 Comments Unknown Sex and Gender Information Value Date Recorded Sex Assigned at Female 08/13/2024 8:06 AM MILLINERY DEPARTMENT MANAGER Legal Sex Female 9:13 AM MILLINERY DEPARTMENT MANAGER Gender Identity Not on file Sexual Orientation Not on file Last Filed Vital Signs Vital Sign Reading Time Taken Comments Blood Pressure 129/82 08/29/2024 9:38 AM CDT Pulse 66 08/29/2024 9:38 AM CDT Temperature 36.3 C (97.3 F) 08/29/2024 9:38 AM CDT Respiratory Rate 16 08/21/2024 11:3 0 AM MILLINERY DEPARTMENT MANAGER Oxygen Saturation 100% 08/29/2024 9:38 AM CDT Inhaled Oxygen Concentration - - Weight 50.2 kg (110 lb 11.2 oz) 08/29/2024 9:38 AM CDT Height 160 cm (5' 3 ) 08/29/2024 9:38 AM CDT Body Mass Index 19.61 08/29/2024 9:38 AM CDT Plan of Treatment Health Maintenance Due Date Last Done Comments DTaP, Tdap and Td Vaccines ( 1 - Tdap) 1961 Pneumococcal Vaccine: 50+ Ye ars (1 of 1 - PCV) 1992 Zoster Vaccines (1 of 2) 1992 Annual Medicare Wellness Visit 09/03/2007 Dexa Scan (General) 09/03/2007 RSV Immunization or 60+ Years (1 - 1-dose 75+ series) 2017 COVID-19 Vaccine ( - 2023-2 5 season) 2024 PHQ-2 (Physician [place]) Completed 07/18/2024 Meningococcal B Vaccine Aged Out No l onger eligible based on patient's age to complete this topic Meningococcal Vaccine Aged Out No shavon oracio eligible based on patient's age to complete this topic RSV Immunizations Under 20 Months Aged Out No longer eligible based on patient's age to complete this topic Medical Devices Implanted Type Area Payroll Accounting Specialist Device Identifier Shelf Expiration Date Model / Serial / Lot 2 Stimulator Lead Implant Implanted:Qty: 2 Lead Implant Spine Thoracic [employer] Description:LEAD MODELS MEDT KAYE SAHU DOES NOT KNOW LEAD INFO Stimulator Implant-07/21/19 Implanted:07/2022 (Quantity not on file) Stimulator Implant Back NEVRO MODEL [id number] / [id number] / Description:NO MRI DUE TO LE AD ADAPTERS- [facility] VERIFIED WITH ADELINA 07/22/24 2 Stim Ulator Lead Adapters Implanted:Qty: 2 Spine Thoracic SINDYRO [id number] / / Description:LEAD ADAPTERS AR E NOT MR CONDITIONAL - NO MRI Procedures Procedure Name Priority Date/Time Associated Diagnosis Comments CT CERV SPINE POST MYELO Routine 08/21/2024 10:56 AM MILLINERY DEPARTMENT MANAGER Myelopathy ([facility]) CT LUMB SPINE POST MYELO Routine 08/21/2024 10:56 AM MILLINERY DEPARTMENT MANAGER Myelopathy (CMS/HCC HHS/HCC) CT THOR SPINE POST MYELO Routine 08/21/2024 10:56 AM MILLINERY DEPARTMENT MANAGER Myelopathy (CMS/HCC HHS/HCC) IR MYELOGRAM ENTIRE SPINE Routine 08/21/2024 10:44 AM MILLINERY DEPARTMENT MANAGER Myelopathy (CMS/HCC HHS/HCC) IR LUMB PUNCTURE DIAGNOSTIC Routine 08/13/2024 11:06 AM MILLINERY DEPARTMENT MANAGER NPH (normal pressure hydrocephalus) (CMS/HCC HHS/HCC) PLATELET COUNT, AUTO Routine 08/13/2024 8:19 AM MILLINERY DEPARTMENT MANAGER Myelopathy (CMS/HCC HHS/HCC) PARTIAL THROMBOPLASTIN TIME,PTT Routine 08/13/2024 8:19 AM MILLINERY DEPARTMENT MANAGER Myelopathy (CMS/HCC HHS/HCC) PROTHROMBIN TIME, VENOUS Routine 08/13/2024 8:19 AM MILLINERY DEPARTMENT MANAGER Myelopathy (CMS/HCC HHS/HCC) from Last 3 Months Results * CT CERV SPINE POST MYELO (08/21/2024 10:56 AM MILLINERY DEPARTMENT MANAGER) Anatomical Region Laterality Modality Spine Computed Tomogra phy 08/26/2024 8:42 AM CDT Impressions 08/26/2024 8:47 AM CDT IMPRESSION: 1. Severe bilateral foraminal stenosis at C3/C4, C4/C5, C5/C6 and C6/C7. Moderate bilateral foraminal stenosis at C7/T1. 2. Mild central canal stenosis at C3/C4, C4/C5, C5/C6 and C6/C7. 3. Bilateral carotid artery calcification. Referred By: MARILYN KNIGHT Interpreted By: Alberto Miranda MD, 08/26/2024 8:42 AM Narrative 08/26/2024 8:47 AM CDT [facility] [address] [place], [place] [address] EXAMINATION:CT cervical myelogram with intrathecal contrast 08/21/2024 INDICATION:Myelopathy TECHNIQUE: Axial CT images of the cervical spine were acquired following the administration of 10 mL Isovue 300 contrast intrathecally. Sagittal coronal reformats were constructed. Radiation dose reduction techniques were used. COMPARISON: Head CT 06/29/2024 FINDINGS:There is contrast opacification of the cervical thecal sac. Cervical spine is in anatomic alignment with preservation of the vertebral body heights and disc spaces. The lateral masses of C1 and C2 are well aligned. The dens is intact. Axial condyles are intact. No acute fracture or dislocation. No focal lytic or blastic lesion. There is a 2 mm anterolisthesis at C4/C5. Moderate degenerative changes are noted at the anterior atlantoaxial joint space C2/C3: Negative C3/C4: Disc space narrowing, disc bulging, uncovertebral arthropathy and facet arthropathy causing mild central canal stenosis and severe bilateral neural foraminal stenosis. The thecal sac measures 7 mm C4/C5: Disc space narrowing, disc bulging, uncovertebral arthropathy and facet arthropathy causing mild central canal stenosis and severe bilateral neural foraminal stenosis. Thecal sac measures 8 mm. C5/C6: Disc space narrowing with small posterior disc/osteophyte complex, uncovertebral arthropathy and facet arthropathy causing mild central canal stenosis and severe bilateral foraminal stenosis. Thecal sac measures 8 mm. C6/C7: Disc space narrowing with small posterior disc/osteophyte complex, uncovertebral arthropathy and facet arthropathy causing mild central canal stenosis and severe bilateral foraminal stenosis. Thecal sac measures 8 mm C7/T1: Disc space narrowing, disc bulging, uncovertebral arthropathy and facet arthropathy causing slight effacement of ventral thecal sac and moderate bilateral foraminal stenosis. No prevertebral edema. No paraspinal mass or fluid collection. Calcification is noted near the carotid bifurcations. The thyroid gland is unremarkable. No acute abnormality within the visualized lung apices. Partially visualized intracranial contents are unremarkable. The visualized paranasal sinuses and mastoid air cells are clear. Procedure Note Alberto Miranda MD - 08/26/2024 [facility] [address] [place], [place] [address] EXAMINATION:CT cervical myelogram with intrathecal contrast 08/21/2024 INDICATION:Myelopathy TECHNIQUE: Axial CT images of the cervical spine were acquired followingthe administration of 10 mL Isovue 300 contrast intrathecally. Sagittalcoronal reformats were constructed. Radiation dose reduction techniqueswere used. COMPARISON: Head CT 06/29/2024 FINDINGS:There is contrast opacification of the cervical thecal sac.Cervical spine is in anatomic alignment with preservation of the vertebralbody heights and disc spaces. The lateral masses of C1 and C2 are wellaligned. The dens is intact. Axial condyles are intact. No acute fracture or dislocation. No focal lytic or blastic lesion.There is a 2 mm anterolisthesis at C4/C5. Moderate degenerative changes are noted at the anterior atlantoaxial jointspace C2/C3: Negative C3/C4: Disc space narrowing, disc bulging, uncovertebral arthropathy andfacet arthropathy causing mild central canal stenosis and severe bilateralneural foraminal stenosis. The thecal sac measures 7 mm C4/C5: Disc space narrowing, disc bulging, uncovertebral arthropathy andfacet arthropathy causing mild central canal stenosis and severe bilateralneural foraminal stenosis. Thecal sac measures 8 mm. C5/C6: Disc space narrowing with small posterior disc/osteophyte complex,uncovertebral arthropathy and facet arthropathy causing mild central canalstenosis and severe bilateral foraminal stenosis. Thecal sac measures 8mm. C6/C7: Disc space narrowing with small posterior disc/osteophyte complex,uncovertebral arthropathy and facet arthropathy causing mild central canalstenosis and severe bilateral foraminal stenosis. Thecal sac measures 8mm C7/T1: Disc space narrowing, disc bulging, uncovertebral arthropathy andfacet arthropathy causing slight effacement of ventral thecal sac andmoderate bilateral foraminal stenosis. No prevertebral edema. No paraspinal mass or fluid collection.Calcification is noted near the carotid bifurcations. The thyroid glandis unremarkable. No acute abnormality within the visualized lung apices.Partially visualized intracranial contents are unremarkable. Thevisualized paranasal sinuses and mastoid air cells are clear. IMPRESSION: 1. Severe bilateral foraminal stenosis at C3/C4, C4/C5, C5/C6 and C6/C7.Moderate bilateral foraminal stenosis at C7/T1. 2. Mild central canal stenosis at C3/C4, C4/C5, C5/C6 and C6/C7. 3. Bilateral carotid artery calcification. Referred By: MARILYN KNIGHT Interpreted By: Alberto Miranda MD, 08/26/2024 8:42 AM us Marilyn Knight MARINE FISHERIES TECHNICIAN CT Final Resu lt * CT LUMB SPINE POST MYELO (08/21/2024 10:56 AM MILLINERY DEPARTMENT MANAGER) Anatomical Region Laterality Modality Spine Computed Tomogra phy 08/26/2024 8:13 AM CDT Impressions 08/26/2024 8:47 AM CDT IMPRESSION: 1. 38 degrees of lumbar levoscoliosis. No acute osseous abnormality. 2. Severe neuroforaminal stenosis on the right at L1/L2, L2/L3 L3/L4. Moderate neural foraminal stenosis on the right at T12/L1. 3. Severe neuroforaminal stenosis on the left at L4/L5. Moderate neuroforaminal stenosis on the left at T12/L1 and L3/L4. 4. Mild central canal stenosis at T12/L1, L1/L2, L2/L3 and L3/L4. 5. Multiple indeterminate to hyperdense renal lesions, compatible with hemorrhagic or proteinaceous cysts. Complete characterization with a nonemergent renal ultrasound is recommended. Referred By: MARILYN KNIGHT Interpreted By: Alberto Miranda MD, 08/26/2024 8:13 AM Narrative 08/26/2024 8:47 AM CDT [facility] [address] [place], [place] [address] EXAMINATION:Lum[address] myelogram with intrathecal contrast 08/21/2024 INDICATION:Myelopathy TECHNIQUE: Axial CT images of the lumbar spine were acquired following the administration of 10 mL of Isovue-300 contrast intravenously. Sagittal and coronal reformats were constructed. Radiation dose reduction techniques were used. COMPARISON: None FINDINGS:Mineralization appears within lower limits of normal. There is 38 degrees of lumbar levoscoliosis. There is preservation of vertebral body heights and disc spaces. There is grade 1 anterolisthesis at L4/L5 measuring 4 mm Spinal stimulator leads enter the dorsal central canal at T10/T11 and T11/T12 and tracks cephalad. Conus terminates at the T12/L1 and is unremarkable contour and signal. Sacroiliac joint spaces are unremarkable. Calcification is noted throughout the abdominal aorta. There are multiple hyperdense renal lesions, largest of which is noted within the T12/L1: Disc space narrowing with the calcified the right paracentral disc extrusion causing mild central canal stenosis and effacement right lateral recess. The thecal sac measures 10 mm. Moderate bilateral foraminal stenosis due to disc space narrowing and foraminal disc/osteophyte complexes L1/L2: Disc space narrowing with calcified right paracentral disc extrusion causing mild central canal stenosis and effacement right lateral recess. The thecal sac measures 8 mm. There is severe right neural foraminal stenosis due to disc space narrowing, facet arthropathy and foraminal disc/osteophyte complex L2/L3: Disc space narrowing, disc bulging, facet arthropathy and foraminal disc/osteophyte complex causing mild central canal stenosis and severe right neural foraminal stenosis. The thecal sac measures 9 mm L3/4, disc space narrowing, disc bulging and facet arthropathy causing mild central canal stenosis, severe right neural foraminal stenosis and moderate left neural foraminal stenosis. The thecal sac measures 7 mm L4/L5: Disc space narrowing with grade 1 anterolisthesis, disc bulging, left foraminal disc extrusion and facet arthropathy causing slight effacement of ventral thecal sac, severe left neural foraminal stenosis and mild right neural foraminal stenosis. L5/S1: Disc space narrowing disc bulging and facet arthropathy causing mild central canal stenosis and mild bilateral foraminal stenosis Procedure Note Alberto Miranda MD - 08/26/2024 [facility] [place] [address] EXAMINATION:Lumbar CT myelogram with intrathecal contrast 08/21/2024 INDICATION:Myelopathy TECHNIQUE: Axial CT images of the lumbar spine were acquired following theadministration of 10 mL of Isovue-300 contrast intravenously. [place]itt[place] coronal reformats were constructed. Radiation dose reductiontechniques were used. COMPARISON: None FINDINGS:Mineralization appears within lower limits of normal. There is38 degrees of lumbar levoscoliosis. There is preservation of vertebralbody heights and disc spaces. There is grade 1 anterolisthesis at L4/W8dvatyxlyv 4 mm Spinal stimulator leads enter the dorsal central canal at T10/T11 andT11/T12 and tracks cephalad. Conus terminates at the T12/L1 and is unremarkable contour and signal.Sacroiliac joint spaces are unremarkable. Calcification is notedthroughout the abdominal aorta. There are multiple hyperdense renallesions, largest of which is noted within the T12/L1: Disc space narrowing with the calcified the right paracentral discextrusion causing mild central canal stenosis and effacement right lateralrecess. The thecal sac measures 10 mm. Moderate bilateral foraminalstenosis due to disc space narrowing and foraminal disc/osteophytecomplexes L1/L2: Disc space narrowing with calcified right paracentral discextrusion causing mild central canal stenosis and effacement right lateralrecess. The thecal sac measures 8 mm. There is severe right neuralforaminal stenosis due to disc space narrowing, facet arthropathy andforaminal disc/osteophyte complex L2/L3: Disc space narrowing, disc bulging, facet arthropathy and foraminaldisc/osteophyte complex causing mild central canal stenosis and severeright neural foraminal stenosis. The thecal sac measures 9 mm L3/4, disc space narrowing, disc bulging and facet arthropathy causingmild central canal stenosis, severe right neural foraminal stenosis andmoderate left neural foraminal stenosis. The thecal sac measures 7 mm L4/L5: Disc space narrowing with grade 1 anterolisthesis, disc bulging,left foraminal disc extrusion and facet arthropathy causing slighteffacement of ventral thecal sac, severe left neural foraminal stenosisand mild right neural foraminal stenosis. L5/S1: Disc space narrowing disc bulging and facet arthropathy causingmild central canal stenosis and mild bilateral foraminal stenosis IMPRESSION: 1. 38 degrees of lumbar levoscoliosis. No acute osseous abnormality. 2. Severe neuroforaminal stenosis on the right at L1/L2, L2/L3 L3/L4.Moderate neural foraminal stenosis on the right at T12/L1. 3. Severe neuroforaminal stenosis on the left at L4/L5. Moderateneuroforaminal stenosis on the left at T12/L1 and L3/L4. 4. Mild central canal stenosis at T12/L1, L1/L2, L2/L3 and L3/L4. 5. Multiple indeterminate to hyperdense renal lesions, compatible withhemorrhagic or proteinaceous cysts. Complete characterization with anonemergent renal ultrasound is recommended. Referred By: MARILYN KNIGHT Interpreted By: Alberto Miranda MD, 08/26/2024 8:13 AM us Marilyn Knight MARINE FISHERIES TECHNICIAN CT Final Resu lt * CT THOR SPINE POST MYELO (08/21/2024 10:56 AM MILLINERY DEPARTMENT MANAGER) Anatomical Region Laterality Modality Spine Computed Tomogra phy 08/26/2024 8:05 AM CDT Impressions 08/26/2024 8:47 AM CDT IMPRESSION: 1. 18 degrees of lower thoracic dextroscoliosis with moderate multilevel disc space narrowing. 2. Mild central canal stenosis at T2/3 and T12/L1 due to disc extrusions. 3. Spinal stimulator leads entering the dorsal central canal and traveling cephalad at the T10/T11 and T11/T12 levels. The leads terminate at the T7/T8 level. 4. Indeterminate hyperdense left renal lesions, compatible with the proteinaceous or hemorrhagic cyst. Further evaluation with nonemergent renal ultrasound is recommended. Referred By: MARILYN KNIGHT Interpreted By: Alberto Miranda MD, 08/26/2024 8:05 AM Narrative 08/26/2024 8:47 AM CDT [facility] [address] [place], [place] [address] EXAMINATION:Thoracic [address] myelogram with intrathecal contrast 08/21/2024 INDICATION: Myelopathy TECHNIQUE: Axial CT images of the thoracic spine were acquired in following the administration of 10 mL of Isovue-300 contrast intrathecally. Sagittal coronal reformats were constructed. Radiation dose reduction techniques were used. COMPARISON: None FINDINGS:There is 18 degrees of lower thoracic dextroscoliosis. There is preservation of vertebral body heights and disc spaces. No acute fracture or dislocation. There is a moderate multilevel disc space narrowing and endplate degenerative change. Spinal stimulator leads enter the dorsal central canal at the T10/T11 and T11/T12 level and travel cephalad to terminate at the T7/T8 level. There is contrast opacification of the thoracic thecal sac. The conus terminates at the T12/L1 level. The thoracic spinal cord is unremarkable in course caliber and contour. C7/T1: Disc space narrowing and facet arthropathy causing mild bilateral foraminal stenosis T1/T2: Disc space narrowing T2/T3: Disc space narrowing with the small midline disc extrusion causing mild central canal stenosis. The thecal sac measures 8 mm T3/T4: Disc space narrowing and facet arthropathy T4/T5: Disc space narrowing facet arthropathy T5/T6: Disc space narrowing T6/T7: Disc space narrowing and facet arthropathy T7/T8: Disc space narrowing and facet arthropathy causing mild bilateral neural foraminal stenosis. T8/T9: Disc space narrowing facet arthropathy causing mild bilateral foraminal stenosis. T9/T10: Disc space narrowing and facet arthropathy T10/T11: Disc space narrowing and facet nephropathy T11/T12: Disc space narrowing facet arthropathy T12/L1: Disc space narrowing with the mild central canal stenosis. The thecal sac measures 10 mm No paraspinal mass or fluid collection. Thoracic aorta is unremarkable in contour. There are few hypodense lesions noted within the left renal cortex, the largest of which measures up to 1.2 cm. Procedure Note Alberto Miranda MD - 08/26/2024 [facility] [address] [place], [place] [address] EXAMINATION:Thoracic [address] myelogram with intrathecal contrast 08/21/2024 INDICATION: Myelopathy TECHNIQUE: Axial CT images of the thoracic spine were acquired infollowing the administration of 10 mL of Isovue-300 contrastintrathecally. Sagittal coronal reformats were constructed. Radiationdose reduction techniques were used. COMPARISON: None FINDINGS:There is 18 degrees of lower thoracic dextroscoliosis. There ispreservation of vertebral body heights and disc spaces. No acute fractureor dislocation. There is a moderate multilevel disc space narrowing andendplate degenerative change. Spinal stimulator leads enter the dorsalcentral canal at the T10/T11 and T11/T12 level and travel cephalad toterminate at the T7/T8 level. There is contrast opacification of the thoracic thecal sac. The conusterminates at the T12/L1 level. The thoracic spinal cord is unremarkablein course caliber and contour. C7/T1: Disc space narrowing and facet arthropathy causing mild bilateralforaminal stenosis T1/T2: Disc space narrowing T2/T3: Disc space narrowing with the small midline disc extrusion causingmild central canal stenosis. The thecal sac measures 8 mm T3/T4: Disc space narrowing and facet arthropathy T4/T5: Disc space narrowing facet arthropathy T5/T6: Disc space narrowing T6/T7: Disc space narrowing and facet arthropathy T7/T8: Disc space narrowing and facet arthropathy causing mild bilateralneural foraminal stenosis. T8/T9: Disc space narrowing facet arthropathy causing mild bilateralforaminal stenosis. T9/T10: Disc space narrowing and facet arthropathy T10/T11: Disc space narrowing and facet nephropathy T11/T12: Disc space narrowing facet arthropathy T12/L1: Disc space narrowing with the mild central canal stenosis. Thethecal sac measures 10 mm No paraspinal mass or fluid collection. Thoracic aorta is unremarkable incontour. There are few hypodense lesions noted within the left renalcortex, the largest of which measures up to 1.2 cm. IMPRESSION: 1. 18 degrees of lower thoracic dextroscoliosis with moderate multileveldisc space narrowing. 2. Mild central canal stenosis at T2/3 and T12/L1 due to discextrusions. 3. Spinal stimulator leads entering the dorsal central canal andtraveling cephalad at the T10/T11 and T11/T12 levels. The leads terminateat the T7/T8 level. 4. Indeterminate hyperdense left renal lesions, compatible with theproteinaceous or hemorrhagic cyst. Further evaluation with nonemergentrenal ultrasound is recommended. Referred By: MARILYN KNIGHT Interpreted By: Alberto Miranda MD, 08/26/2024 8:05 AM us Marilyn Knight MARINE FISHERIES TECHNICIAN CT Final Resu lt * IR MYELOGRAM ENTIRE SPINE (08/21/2024 10:44 AM MILLINERY DEPARTMENT MANAGER) Anatomical Region Laterality Modality Spine Interventional R adiology, Radiographic Imaging 08/21/2024 10:3 4 AM MILLINERY DEPARTMENT MANAGER Impressions 08/21/2024 10:41 AM MILLINERY DEPARTMENT MANAGER IMPRESSION: 1. Technically successful, fluoroscopic guided whole spine myelogram with thecal sac access at the L3-4 level. 2. Post myelogram CT of the cervical, thoracic and lumbar spine to follow. Ordered By: MARILYN KNIGHT Interpreted By: Caleb Jones MD, 08/21/2024 10:34 AM Narrative 08/21/2024 10:41 AM MILLINERY DEPARTMENT MANAGER [address] [address] Procedure: IR cervical, thoracic and lumbar spine myelogram Indication: 83 female presenting for whole spine spine myelogram assessment of chronic back pain status post DCS 8 years ago x2 without improvement. Progressive gait disturbance and fall since January 2024. Negative workup for normal pressure hydrocephalus.. Comparison: Image guided lumbar puncture at 08/13/2024 Procedure technique: Informed verbal and written consent was obtained. The risks, alternatives, benefits to the procedure were explained to the patient. Patient expressed understanding and wished to proceed. Timeout was performed. Patient was placed prone on the fluoroscopy table. Initial fluoroscopy performed to identify the target level for needle access. The L3-4 interlaminar space was targeted. The skin was marked and the area prepped and draped in the usual sterile fashion. 1% lidocaine was administered for local anesthesia. A 22-gauge spinal needle was then advanced under fluoroscopic guidance into the thecal sac at the L2-L3 level. There was returned of clear CSF fluid. 10 mL Isovue-300 contrast was then injected and seen to flow away from the needle. The needle was removed and a Band-Aid placed. Table was tilted to allow contrast to diffuse throughout the spinal canal. The patient was positioned in a lateral decubitus position to assist with cephalad flow of contrast. The table was then returned to a level position and the patient was transported to CT for imaging. Patient tolerated procedure well. There were no immediate competitions. Barrel Roller: Dr. Jones Radiation dose air Kerma: 31.77 mGy; 6 fluoroscopy images recorded Procedure Note Caleb Jones MD - 08/21/[address] [address] Procedure: IR cervical, thoracic and lumbar spine myelogram Indication: 83 female presenting for whole spine spine myelogramassessment of chronic back pain status post DCS 8 years ago x2 withoutimprovement. Progressive gait disturbance and fall since January 2024.Negative workup for normal pressure hydrocephalus.. Comparison: Image guided lumbar puncture at 08/13/2024 Procedure technique: Informed verbal and written consent was obtained. Therisks, alternatives, benefits to the procedure were explained to thepatient. Patient expressed understanding and wished to proceed. Timeout was performed. Patient was placed prone on the fluoroscopy table.Initial fluoroscopy performed to identify the target level for needleaccess. The L3-4 interlaminar space was targeted. The skin was marked andthe area prepped and draped in the usual sterile fashion. 1% lidocaine was administered for local anesthesia. A 22-gauge spinalneedle was then advanced under fluoroscopic guidance into the thecal sacat the L2-L3 level. There was returned of clear CSF fluid. 10 mLIsovue-300 contrast was then injected and seen to flow away from theneedle. The needle was removed and a Band-Aid placed. Table was tilted toallow contrast to diffuse throughout the spinal canal. The patient was positioned in a lateral decubitus position to assist withcephalad flow of contrast. The table was then returned to a level positionand the patient was transported to CT for imaging. Patient tolerated procedure well. There were no immediate competitions. Barrel Roller: Dr. Jones Radiation dose air Kerma: 31.77 mGy; 6 fluoroscopy images recorded IMPRESSION: 1. Technically successful, fluoroscopic guided whole spine myelogram withthecal sac access at the L3-4 level. 2. Post myelogram CT of the cervical, thoracic and lumbar spine tofollow. Ordered By: MARILYN KNIGHT Interpreted By: Caleb Jones MD, 08/21/2024 10:34 AM Marilyn Knight MARINE FISHERIES TECHNICIAN INTERVENTIONAL RADIOLOGY F inal Result * IR LUMB PUNCTURE DIAGNOSTIC (08/13/2024 11:06 AM MILLINERY DEPARTMENT MANAGER) Anatomical Region Laterality Modality Spine Interventional R adiology, Radiographic Imaging, Radiographic Imaging 08/13/2024 3:37 PM MILLINERY DEPARTMENT MANAGER Impressions 08/13/2024 3:50 PM MILLINERY DEPARTMENT MANAGER =====IMPRESSION:===== 1. Successful lumbar puncture with removal of 25 mL of clear CSF. 2. Opening pressure 15 mmH2O. Ordered By: MARILYN KNIGHT Interpreted By: Andres Barrett MD, 08/13/2024 3:37 PM Narrative 08/13/2024 3:50 PM MILLINERY DEPARTMENT MANAGER [address] [address] EXAMINATION: Lumbar puncture EXAM DATE/TIME: 08/13/2024 9:54 AM REASON FOR EXAM: NPH, large volume drain with pre and post PT COMPARISON: CT head 06/29/2024. TECHNIQUE/FINDINGS: The procedure was explained to the patient in detail. Risks and benefits of the procedure were explained including but not limited to the risks of headache, bleeding, infection, and injury to surrounding structures. The patient agreed to the procedure and expressed verbal understanding of the risks. Under fluoroscopic guidance, the L3-L4 interlaminar space was localized, with the overlying skin prepped in the usual sterile fashion. Once local analgesia has been achieved by infiltration of 1% lidocaine solution, an 18 -gauge 3-1/2 inch spinal needle was advanced without difficulty into the thecal sac with prompt return of clear colorless CSF. A total of 25 mL cerebrospinal fluid were collected and distributed amongst several vials. Opening pressure was 15 mmH2O. The patient tolerated the procedure well. There were no immediate postprocedural complications. The patient's radiation exposure time was 0.7 minutes. Radiation dose 8.29 mGy. DAP 1.08 Gycm2. Procedure Note Andres Barrett MD - 08/13/[address] [address] EXAMINATION: Lumbar puncture EXAM DATE/TIME: 08/13/2024 9:54 AM REASON FOR EXAM: NPH, large volume drain with pre and post PT COMPARISON: CT head 06/29/2024. TECHNIQUE/FINDINGS: The procedure was explained to the patient in detail.Risks and benefits of the procedure were explained including but notlimited to the risks of headache, bleeding, infection, and injury tosurrounding structures. The patient agreed to the procedure and expressedverbal understanding of the risks. Under fluoroscopic guidance, the L3-L4 interlaminar space was localized,with the overlying skin prepped in the usual sterile fashion. Once localanalgesia has been achieved by infiltration of 1% lidocaine solution, an18 -gauge 3-1/2 inch spinal needle was advanced without difficulty intothe thecal sac with prompt return of clear colorless CSF. A total of 25 mLcerebrospinal fluid were collected and distributed amongst several vials.Opening pressure was 15 mmH2O. The patient tolerated the procedure well.There were no immediate postprocedural complications. The patient's radiation exposure time was 0.7 minutes. Radiation dose 8.29mGy. DAP 1.08 Gycm2. =====IMPRESSION:===== 1. Successful lumbar puncture with removal of 25 mL of clear CSF. 2. Opening pressure 15 mmH2O. Ordered By: MARILYN KNIGHT Interpreted By: Andres Barrett MD, 08/13/2024 3:37 PM Marilyn Knight MARINE FISHERIES TECHNICIAN INTERVENTIONAL RADIOLOGY F inal Result * PLATELET COUNT, AUTO (08/13/2024 8:19 AM MILLINERY DEPARTMENT MANAGER) PLT 328 130 - 400 x10'3/uL 08/13/2024 8:28 AM MILLINERY DEPARTMENT MANAGER [facility] MPV 10.0 9.3 - 12.2 FL 08/13/2024 8:28 AM MILLINERY DEPARTMENT MANAGER [facility] 08/13/2024 8:19 AM MILLINERY DEPARTMENT MANAGER Juaquin De Dios MD LABORATORY Final Res ult Performing Organization Address [facility]/ZIP Co de Phone Number [facility] [address] [place] [address], [place] [phone] * PTT, PARTIAL THROMBOPLASTIN TIME (08/13/2024 8:19 AM MILLINERY DEPARTMENT MANAGER) Pathologist [facility] PTT 28.8 25.1 - 36.5 SEC 08/13/2024 8:46 AM MILLINERY DEPARTMENT MANAGER [facility] 08/13/2024 8:19 AM MILLINERY DEPARTMENT MANAGER Juaquin De Dios MD LABORATORY Final Res ult [facility] [address] [place] [address], [place] [phone] * PROTIME/INR, VENOUS (08/13/2024 8:19 AM MILLINERY DEPARTMENT MANAGER) Pathologist [facility] PROTIME 10.5 10.2 - 12.9 SEC 08/13/2024 8:46 AM MILLINERY DEPARTMENT MANAGER [facility] INR 0.9 08/13/2024 8:46 AM MILLINERY DEPARTMENT MANAGER [facility] Comment: Recommended INR Therapeutic Goals: 2.0-3.0 Routine Therapy 2.5-3.5 Mechanical Prosthetic Valves (High Risk) 08/13/2024 8:19 AM MILLINERY DEPARTMENT MANAGER us Juaquin De Dios MD LABORATORY Final Res ult [facility] [address] [place] [address], from Last 3 Months Insurance [facility] MEDIC[facility] Care Teams Coffee Host Relationship Specialty Start Date End Date Jose Vergara MD [address] [facility] [address] [place] [address] PCP - General INTERNAL MEDICINE 08/13/24
--- OUTSIDE RECORDS SUMMARY | 2024-10-04 10:55 | XMS_ITS | Data Portability ---
Author Organization [place] - [facility], Diana RYAN Office Address [address] [facility] [address] [place] [address] Care Team Providers Care Open Hearth Furnace Laborer Name Role Phone LEVAR SALGUERO Referring Provider [phone] HIRA MOSLEY Primary Care Provider Assessment Encounter Date Assessment Date Assessment LastModified by Organization Details LastModified Time 10/11/2017 10/11/2017 1. Chronic low back pain 2. Lumbosacral spondylosis without myelopathy 3. Scoliosis X-rays are reviewed, showing scoliosis deformity, maintained sagittal balance, and no lytic or erosive changes. Bone density is reasonable. There is significant spondylosis in several areas. She is already doing yoga. I greatly endorsed this. She says Dr. Salguero wondered if I could create a little space for him to get in to do an injection. I explained that I would likely destabilize the spine, and this is not serving her well. In short, I do not have a good surgical option. This is in consideration of chronic illnesses, comorbidities, age, bone quality, and the extent of surgery that would be needed for a structural solution. Creating a little space for Dr. Salguero is also a reasonable question but not realistic or feasible. Alternatively, may be he could get an effective injection done through a transforaminal or caudal technique. Otherwise, neuro modulation may be an option. I have given her information about a community resource who is a therapeutic yoga expert. I left the follow-up open-ended, but can see her back at any time. All questions were answered and she voiced understanding and agreement with the plan. Not available 10/20/2017 10:24:15 Plan of Treatment Reminders Order Date Submit [...] Modified By Organization Details Last Modified Time 10/11/2017 [id number] low back arthritis: exercises farrukh Not available 10/16/2017 10:55:11 patient case to s/w John Yeh card to her farrukh Not available 10/11/2017 12:43:17 Reason for Referral None Reported. Results Created Date Observation Date Name Description Value Unit Range Abnormal Flag Note LastModifiedBy Organization Detail LastModifiedTime 10/12/19 18 bench assembly inspector [email or web address]? CMD=OP ENSTUD Y&SUID =1.3.6 .1.4.1 .94207 .2018. 4.25.7 .54.33 .01664 [email or web address] [employer] [address], [address], 10/11/2017 13:52:17 Result Notes None recorded. Problems No Known Problems Procedures Surgical History Date Name Laterality Status Provider Name and Address Organization Details Recorded Time Hysterectomy [place] [address] [facility],[address], [place], [address], [place] 10/11/2017 12:27:12 Imaging Results Imaging Date Name Status LastModified by Organizatio n Details LastModified Time 10/11/2017 bench assembly inspector completed [email or web address] [address] [place], [address], 10/11/2017 13:52:17 Procedure Notes None recorded. Medical Equipment None Reported. Allergies No known drug allergies Medications Name Sig Start Date Stop Date Status Note LastModified by Organization Details LastModified Time compound drug active Not Available Not Available Not Available lisinopril 20 mg tablet active Not Available Not Available No t Available tramadol 50 mg tablet active Not Available Not Available Not Available Mapap (acetaminophen ) 325 mg tablet active Not Available Not Available Not Available omeprazole 20 mg capsule,delaye d release active Not Available Not Available No t Available Restasis 0.05 % eye drops in a dropperette active Not Available Not Availabl e Not Available Prolia 60 mg/mL subcutaneous syringe active Not Available Not Available Not Available Triderm 0.5 % topical cream active Not Available Not Availabl e Not Available Vitals Date Recorded Body height Body mass index (BMI) Body weight Provider Name and Address Organization Details Last Updated DateTime 10/11/2017 162.56 cm 22.7 kg/m2 10329.19 [place] [address] [address], [place], [address], [facility], [place] 10/11/2017 12:24:15 Date Recorded Heart rate Systolic blood pressure Diastolic blood pressure Provider Name and Address Organization Details Last Updated DateTime 10/11/2017 90 /min 128 mm[Hg] 74 mm[Hg] Yessy Tracey [facility], [place] 10/11/2017 12:32:09 Social History Question Answer Notes LastModified by Organizat ion Details LastModified Time Tobacco Smoking [place] [address], [address], [place] 10/11/2017 12:26:54 What Is Your Level Of Alcohol Consumption? Occasional Information not available 10/11/2017 Marital Status Informatio n not available 10/11/2017 What Was The Date Of Your Most Recent Tobacco Screening? 10/11/2017 Information n ot available 01/10/2019 Sex: Unknown Functional Status None recorded. Mental Status None recorded. Family History Relationship Description Onset Age of this Age Resolved Age Notes LastModified by Organization Details LastModified Time Father Diabetes mellitus Not available 2017 12:24:40 Father Hypertensive disorder Not available 2017 12:24:47 Medical History Condition Response HIV or AIDS N Gout N High Blood Pressure Y Loss of bowel control N Bleeding Disorders N Glaucoma N Lung Disease N Depression N COPD N Thyroid Disorders N Pacemaker N Prostate Problems N Vascular Disease N Congestive Heart Failure N Gastrointestinal Disease N Alcoholism N Obesity N Arthritis N Cancer N Chemical Dependency N Stroke N Gynelogical Problems N Deaf / Hearing-Impaired N Orthopaedic Problems N High Cholesterol N Liver Disease N Fibromyalgia N Headaches N Ulcer N Kidney Disease N Hiatal Hernia N Malignant Hyperthermia N Claustrophobia N Scoliosis N Anxiety N Loss of bladder control N Irregular Heart Rhythm N Angina N Migraines N Reaction to Anesthetic N Anemia N Multiple Sclerosis N Urinary Problems N Osteopenia N Diabetes N Metal Implant/ Metallic Fragment(s) N Muscular Disorder N Seizures/Epilepsy N Heart Attack N Asthma N Lupus N Sleep Apnea N Hepatitis N Heart Disease N Respiratory Infections N Pulmonary Embolism N Osteoporosis N Gynecological HistoryNo gynecological history recorded. Obstetrics History GPAL:G 0 P 0 0 0 0 Past Encounters Encounter ID Performer Location Encounter Start Date Encounter Closed Date Diagnosis/Indication Diagnosis SNOMED-CT Code Diagnosis ICD10 Code Diagnosis Note [id number] Bria Dyson MD [facility] Office [address] [facility] [address] [place] [address] 10/11/2017 11:45:50 10/11/2017 13:18:41 Scoliosis deformity of spine 501296665 M41.9 Lumbosacra l spondylosis without myelopathy 83382195 M47.817 Chronic low back pain 27 4096157 M54.5 Health Concerns Section Related Observation LastModified by Organization Detai ls LastModified Time None Recorded Concern Status LastModified by Organization Details LastModified Time None Recorded Advance Directives Directive None Recorded Payers Encounter Date Sequence Insurance Name Policy Number Policy Smith Covered Member ID Smith Member ID Guarantor Name 10/11/2017 1 [place]ICARE [place]: [id number] Joyce Cano [id number] Joyce Cano 10/11/2017 2 [employer] - FOR LIFE (MEDICARE SUPPLEMENT) Joyce Cano [id number] Joyce Cano Notes Date Note Type Note Provider Name and Address Organization Details Recorded Time 10/11/2017 text/html Chief complaint: Low back pain This very pleasant 77-year-old describes 4-5 out of 10 severity low back pain, flaring rarely to 10 out of 10. There is a stabbing and aching quality at the low back, and the right buttock. There is an unrelated numbness at her right posterior arm. This is all been going on since 2013, getting worse in the last month. She attributes it to falling off of a chair in 2013. She has been through injections with Dr. Salguero, twice last year, which were equivocal and did not have lasting relief. She has been through therapy. She has been on tramadol. There is been no associated bowel or bladder dysfunction, fevers or chills, or falling down. The rest of the patient's health history, including past medical, family and social history, and a complete review of systems are reviewed, referencing the new patient intake sheet, which [place] [address] [facility],[address], [place], [address], [place] 10/20/2017 10:24:30 OBGyn Episode No OBEpisode recorded.
--- OUTSIDE RECORDS SUMMARY | 2024-10-04 10:55 | XMS_ITS | Data Portability ---
Author Organization [place] - ZELDA RYAN [facility], [facility] Address [address] [place] [address] Care Team Providers Care Iridologist Name Role Phone LUZ MARIA REYNA Spinal Orthopedic Surgeon BASHIR BULL JR Neurosurgeon [phone] Assessment Encounter Date Assessment Date Assessment LastModified by Organization Details LastModified Time 01/03/2022 01/03/2022 81 yo female presents with thoracic, right leg and hip pain. Pt describes pain as burning, throbbing and stabbing. Pain is exacerbated with activity. Pain is improved with heat. Pain affects ADL. Pt presents in office s/p bilateral L4-S1 lumbar RFA performed one 11/16/2021 and right SIJ on 11/30/2021 which pt states provided about 2 weeks relief although unsustained. Pain is debilitating and aggravating. Pt has previously undergone lumbar SATNAM's, SIJ injections, RFA's and hip injections - pt receives unsustained relief from injections. Pt continues to have significant pain mostly right lower extremities. Pain limits ROM and function. Pt states previous RFA done on 04/20/2021 did previously provide over 80% for over 6 months. Facet joints of the spine have joint capsules that are supplied by a branch of the posterior ramus of the spinal nerve. Percutaneous radiofrequency facet denervation, also known as radiofrequency facet joint rhizotomy or facet neurotomy, involves selective denervation using radiofrequency under fluoroscopic guidance. As a method of neurolysis, radiofrequency facet denervation has been shown to be a very safe procedure and can offer relief for many patients with mechanical LBP in whom organic pathology, most commonly a herniated lumbar disc, has been eliminated. According to the literature, it offers advantages over conventional neurolytic agents (e.g., phenol, alcohol, and hypertonic saline) because of its long lasting effects, the relative lack of discomfort, and its completely local action without any random diffusion of the neurolytic agent. Because there are no reliable clinical signs that confirm the diagnosis, successful relief of pain by injections of an anesthetic agent into the joints are necessary before proceeding with radiofrequency facet denervation. Results from many studies have shown that radiofrequency facet denervation results in significant (excellent or good) pain relief, reduced use of pain medication, increased [id number], and is associated with few complications. Success rate, however, depends on a careful selection of patients. Discussed with pt will repeat lumbar RFA for pt as it may provide further relief. [email or web address] Not available 01/03/2022 11:29:59 01/07/2022 01/07/2022 Patient will proceed with bilateral L4-S1 lumbar RFA Facet joints of the spine have joint capsules that are supplied by a branch of the posterior ramus of the spinal nerve. Percutaneous radiofrequency facet denervation, also known as radiofrequency facet joint rhizotomy or facet neurotomy, involves selective denervation using radiofrequency under fluoroscopic guidance. As a method of neurolysis, radiofrequency facet denervation has been shown to be a very safe procedure and can offer relief for many patients with mechanical LBP in whom organic pathology, most commonly a herniated lumbar disc, has been eliminated. According to the literature, it offers advantages over conventional neurolytic agents (e.g., phenol, alcohol, and hypertonic saline) because of its long lasting effects, the relative lack of discomfort, and its completely local action without any random diffusion of the neurolytic agent. Because there are no reliable clinical signs that confirm the diagnosis, successful relief of pain by injections of an anesthetic agent into the joints are necessary before proceeding with radiofrequency facet denervation. Results from many studies have shown that radiofrequency facet denervation results in significant (excellent or good) pain relief, reduced use of pain medication, increased [id number], and is associated with few complications. Success rate, however, depends on a careful selection of patients. [email or web address] Not available 01/12/2022 09:36:33 02/14/2022 02/14/2022 Patient is a 81-year-old female who I saw in the office today for follow-up regarding her chronic pain to her low back that goes into her right buttock. Patient reports that the RFA seems to have helped some of the axial low back pain but continues to have this pain in her right buttock and hip area that seems to be quite severe. Pain is a sharp shooting and burning type of pain that can be a 7/10 at its worst. Pain is periodic and worse with activity and improved with heat. Examination does reveal pain and tenderness to the right piriformis muscle. We will go ahead and proceed with a right piriformis injection here in the office today Will follow-up in 1 month MD was present in clinic today. [email or web address] Not available 02/16/2022 11:24:32 03/21/2022 03/21/2022 Patient is a 81-year-old female who I saw in the office today for follow-up from previous injection into her right buttock. We had performed an injection into the right piriformis muscle. Patient reports that she did get significant relief from that injection at least 60%. Patient reports that once bothering her right now is pain which seems to be into the right hip joint itself. Pain is shooting and burning and periodic and worse with activity. Pain can be a 7/10 at its worst. In the past we have performed injections of the left hip which did provide significant relief. 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 Patient reports that she is concerned because she is having a lot more pain all of a sudden she denies any trauma or injury. At this time we will go ahead and order an MRI of the right hip to rule out avascular necrosis We will also go ahead and proceed with a right intra-articular hip injection here in the office today Will follow-up in 1 month after the injection. MD was present in clinic today. [email or web address] Not available 03/21/2022 10:36:44 04/13/2022 04/13/2022 Patient is a 81-year-old female who I saw in the office today for follow-up regarding pain to her right hip. Patient did obtain a new MRI of the right hip and today's visit we will be going over that MRI to discuss possible treatment options. Pain continues to be periodic and worse with activity, and pain is described as a sharp, shooting, and burning type of pain that can be an 8/10 at its worst. MRI of the right hip shows new full-thickness tear of the gluteal medius muscle at the insertion of the trochanteric fossa. Go ahead and proceed with a right trochanteric bursa injection here in the office today Patient will then continue with physical therapy to help build strength around the right hip and to improve stability. Follow-up in 6 weeks was present in clinic today. [email or web address] Not available 04/13/2022 11:52:41 Plan of Treatment Reminders Order Date Submit Date Provider Last Modified By Organization Details Last Modified Time Details Appointments None recorded. Lab None recorded. Referral None recorded. Procedures None recorded. Surgeries None recorded. Imaging MRI, hip, w/o contrast 2021 022 [facility], [address], [place], [address], 09:00:42 Medication Orders None recorded. Patient TargetsNo targets recorded. Patient Instructions Encounter Date Encounter Id Patient Instructions Last Modified By Organization Details Last Modified Time 01/07/2022 [id number] Pt tolerated procedure well. Pt informed to call and go to ER with development of fever, increased pain, weakness, numbness, bowel or bladder incontinence or any other adverse side effects. Not available 01/07/2022 10:45:27 Reason for Referral None Reported. Results Created Date Observation Date Name Description Value Unit Range Abnormal Flag Note LastModifiedBy Organization Detail LastModifiedTime 04/11/2004/11/2022 MR femur , right [facility] [address] [facility], [id number] [phone] ANGEL T: KIMBERLEY RIVERA [address] : 1940 Age: 81 yrs Dept: [id number] Sex: F ACC: [id number]: Too Tang Pat Status : O Exam: MR Femur, Right DATE: 2021 11:19 AM Acct No: Reason : Unilat eral primar y osteoa rthrit is, right hip ___ FINAL REPORT MR LOWER EXTREM ITY WITHOU T IV CONTRA ST DATE: 2021 HISTOR Y: Unilat eral primar y osteoa rthrit is, right hip TECHNI QUE: MR examin ation of the right femur was perfor med withou t intrav enous contra st per the routin e protoc ol. COMPAR MARIAH: None availa ble. FINDIN GS: Marrow signal is unrema rkable and withou t abnorm al marrow replac ement. Muscul ature is normal . The right hip is evalua peyton separa tely on dedica peyton MRI. Small right knee joint effusi on. The visual ized neurov ascula r struct ures are normal . No subcut aneous fat abnorm ality. IMPRES SHELBY: Unrema rkable MRI of the right femur. Signed on 2021 12:40 PM by Natalia Gomez M.D. Report ed by:: NATALIA GOMEZ M.D. Octobe r 2021 12:40 [facility] [address], [place], [address], 04/15/2022 10:16:15 04/11/20 22 04/11/2022 MR hip - right [facility] [address] [facility], [address] [phone] PATIEN T: KIMBERLEY RIVERA E [address] : 1940 Age: 81 yrs Dept: [id number] Sex: F ACC: [id number]: Too Tang Status : O Exam: MR Hip - Right DATE: 2021 11:19 AM Acct No: Reason : Unilat eral primar y osteoa rthrit is, right hip ___ FINAL REPORT MR LOWER EXTREM ITY HIP WITHOU T IV CONTRA ST DATE: 2021 HISTOR Y: Unilat eral primar y osteoa rthrit is, right hip TECHNI QUE: MR examin ation of the right hip was perfor med withou t intrav enous contra st per the routin e protoc ol. COMPAR MARIAH: 07/21/19 15 FINDIN GS: Marrow signal is unrema rkable and withou t abnorm al marrow replac ement. Articu lar cartil age is intact . No joint effusi on. The acetab ular labrum is intact . Amount of fluid and inflam mation in the trocha nteric bursa and subglu teus medius bursa has improv ed. There is a new full-t hickne ss defect in the anteri or gluteu s medius insert ion at the latera l trocha nteric facet measur ing up to 2.1 cm cranio caudal ly. This is diffic ult to measur e in transv erse dimens ion but is 1 cm. Interv al atroph y of distal gluteu s medius just proxim al to this. Mild insert ional gluteu s minimu s tendin opathy . Iliops oas and proxim al hamstr ing tendon s are intact . Mild proxim al hamstr ing tendin opathy . IMPRES SHELBY: 1. Interv al develo pment of a small full-t hickne ss tear of the anteri or gluteu s medius insert ion at the latera l trocha nteric facet. 2. Improv ement in trocha nteric and subglu teus medius bursit is. Signed on 2021 12:47 PM by Natalia Gomez M.D. Report ed by:: NATALIA GOMEZ M.D. [facility] 2021 12:47 [facility] [address] [facility], [place], [address], 04/15/2022 10:16:15 04/11/20 22 04/11/2022 MRI, hip, w/o contr ast No observ ation record ed. [facility] [address], [place], [address], 04/18/2022 15:18:08 04/11/20 22 04/11/2022 MRI, hip, w/o contr ast No observ ation record ed. [email or web address] [facility] ([facility]) [address], [address], [place], [address], 04/18/2022 15:18:23 04/13/20 22 04/13/2022 MRI, hip, w/o contr ast No observ ation record ed. BARCODE Not Available 2021 13:54:53 Result Notes None recorded. Problems Name Problem SNOMED Code Status Onset Date Resolution Date Notes Provider Name and Address Organization Details Recorded Time Arthropath y of lumbar facet joint 067793565 Active 2020 REBECCA Tejeda MD [facility] 1 12:44:01 Lumbar radiculopa thy 885241775 Active 2020 REBECCA Tejeda MD [facility] 1 12:44:03 Lumbar spondylosi s 078848895 Active 2020 REBECCA Tejeda MD [facility] 1 12:44:04 Low back pain 516197966 Active 2020 REBECCA Tejeda MD [facility] 1 12:44:05 Hypertensi ve disorder 16125922 Completed 202004/20/2021 REBECCA Tinoco MD [facility] 1 09:40:47 Sacroiliac joint pain 525073656 Active 2021 REBECCA Molina MD [facility] 2 10:39:08 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 Procedures Surgical History Date Name Laterality Status Provider Name and Address Organization Details Recorded Time 04/13/20 22 Trochanteric Bursa Injection completed uRi RYAN [facility] 04/13/2022 13:23:57 03/21/20 22 Hip Injection completed Colt RYAN [facility] 03/21/2022 16:07:06 02/15/20 22 Piriformis Injection completed Colt RYAN [facility] 02/15/2022 16:45:52 01/08/20 22 Lumbar RFA completed Colt RYAN [facility] 01/11/2022 12:29:02 01/08/20 22 Sedation completed Colt RYAN [facility] 01/11/2022 12:32:12 12/01/19 22 Sacroiliac Joint Steroid Injection Under Fluoroscopy completed Jarrell RYAN [facility] 11/30/2021 09:20:58 11/17/19 22 Lumbar RFA completed Colt RYAN [facility] 11/17/2021 16:37:57 11/17/19 22 Sedation completed Colt RYAN [facility] 11/17/2021 16:56:20 10/08/19 22 Sacroiliac Joint Steroid Injection Under Fluoroscopy completed Colt RYAN [facility] 10/11/2021 17:45:35 08/09/19 22 Sacroiliac Joint Steroid Injection Under Fluoroscopy completed Colt RYAN [facility] 08/11/2021 11:26:21 06/01/20 21 Sacroiliac Joint Steroid Injection Under Fluoroscopy completed Blair Salguero MD [address], [place], [address], [place] REBECCA RYAN [facility] 06/02/2021 14:52:14 04/20/20 21 Lumbar Radiofrequency Ablation completed Blair Salguero MD [address], [place], [address], [place] REBECCA RYAN [facility] 04/23/2021 10:11:43 04/20/20 21 Sedation completed Blair Salguero MD [address], [place], [address], [place] REBECCA RYAN [facility] 04/23/2021 10:11:51 03/30/20 21 Lumbar Medial Branch Block Injection (Facet) completed Colt RYAN [facility] 03/30/2021 17:30:29 03/16/20 21 Lumbar Medial Branch Block Injection (Facet) completed Blair Salguero MD [address], [place], [address], [place] REBECCA RYAN [facility] 03/23/2021 11:41:06 02/27/20 21 Lumbar Transforaminal SATNAM INJ completed Colt RYAN [facility] 03/02/2021 11:10:54 01/20/20 21 Sacroiliac Joint Steroid Injection Under Fluoroscopy completed Colt RYAN [facility] 01/20/2021 12:36:15 12/19/19 21 Sacroiliac Joint Steroid Injection Under Fluoroscopy completed Suki RYAN [facility] 12/18/2020 10:43:53 12/02/19 21 Lumbar Transforaminal SATNAM INJ completed Blair Salguero MD [address], [place], [address], [place] REBECCA RYAN [facility] 12/03/2020 15:43:02 11/18/19 21 Lumbar Transforaminal SATNAM INJ completed Blair Salguero MD [address], [place], [address], [place] REBECCA RYAN [facility] 11/18/2020 12:58:26 10/27/19 21 Lumbar Transforaminal SATNAM INJ completed Colt RYAN [facility] 10/28/2020 11:02:25 07/20/19 21 Lumbar Transforaminal SATNAM INJ completed Blair Salguero MD [address], [place], [address], [place] REBECCA RYAN [facility] 07/21/2020 12:21:49 07/06/19 21 Lumbar Medial Branch Block Injection (Facet) completed Colt RYAN [facility] 07/06/2020 11:39:32 05/25/20 20 Sacroiliac Joint Steroid Injection Under Fluoroscopy completed Manolo RYAN [facility] 05/28/2020 12:43:43 05/07/20 20 Sacroiliac Joint Steroid Injection Under Fluoroscopy completed Colt RYAN [facility] 05/11/2020 10:58:07 04/09/20 18 Lumbar Transforaminal SATNAM INJ completed Linda RYAN [facility] 04/10/2018 10:04:21 09/22/19 18 Lumbar Transforaminal SATNAM INJ completed Zahraa RYAN [facility] 09/21/2017 16:55:27 02/03/20 17 Lumbar Transforaminal SATNAM INJ completed Malgorzata RYAN [facility] 02/02/2017 10:21:38 01/10/20 17 Lumbar Transforaminal SATNAM INJ completed Catherine RYAN [facility] 01/10/2017 13:17:50 12/27/19 17 Lumbar Transforaminal SATNAM INJ completed Artie RYAN [facility] 12/26/2016 18:27:44 Hysterectomy completed Hannah RYAN [facility] 12/26/2016 15:42:34 Imaging Results Imaging Date Name Status LastModified by Organiz ation Details LastModified Time 04/11/2022 MR femur, right completed [facility] [address], [place], [address], 04/15/2022 10:16:15 04/11/2022 MR hip - right completed [facility] [address], [place], [address], 04/15/2022 10:16:15 04/11/2022 MRI, hip, w/o contrast completed [email or web address] [facility] [address], [place], [address], 04/18/2022 15:18:08 04/11/2022 MRI, hip, w/o contrast completed [email or web address] [facility] ([facility]) [address], [address], [place], [address], 04/18/2022 15:18:23 04/13/2022 MRI, hip, w/o contrast completed [facility] Information not available 04/13/2022 13:54:53 Procedure Notes None recorded. Medical Equipment None Reported. Allergies No known drug allergies Medications Name Sig Start Date Stop Date Status Note LastModified by Organization Details LastModified Time compound drug active Not Available Not Available Not Available amoxicillin 500 mg capsule active Not Available Not Available Not Available methocarbamol 500 mg tablet active Not Available Not Availabl e Not Available acetic acid 2 % ear solution active Not Available Not Available Not Available triamcinolone acetonide 0.5 % topical cream active Not Available Not Available Not Available meloxicam 15 mg tablet active Not Available Not Available No t Available lisinopril 20 mg tablet active Not Available Not Available No t Available chlorthalidon e 25 mg tablet active Not Available Not Available Not Available hydrocodone 10 mg-acetaminop hen 325 mg tablet Take 1 tablet every day by oral route as needed for 5 days. active Not Available Not Available No t Available tramadol 50 mg tablet active Not Available Not Available No t Available oxycodone-mj taminophen 5 mg-325 mg tablet active Not Available Not Available Not Available dicyclomine 20 mg tablet TAKE ONE (1) TABLET(S) BY MOUTH TWICE A DAY FOR ABDOMINAL CRAMPING. active Not Available Not Available No t Available dexamethasone 4 mg tablet active Not Available Not Available Not Available lidocaine 5 % topical patch active Not Available Not Availabl e Not Available Mapap (acetaminophe n) 325 mg tablet active Not Available Not Available Not Available gabapentin 300 mg capsule active Not Available Not Available Not Available omeprazole 20 mg capsule,delay ed release active Not Available Not Available N ot Available methylprednis olone 4 mg tablets in a dose pack active Not Available Not Available No t Available dexamethasone 0.5 mg tablet active Not Available Not Availabl e Not Available celecoxib 100 mg capsule active Not Available Not Available N ot Available ondansetron 4 mg disintegratin g tablet DISSOLVE ONE (1) TABLET(S) BY MOUTH EVERY SIX HOURS NEEDED FOR NAUSEA. active Not Available Not Available No t Available escitalopram 10 mg tablet active Not Available Not Available Not Available escitalopram 20 mg tablet active Not Available Not Available Not Available cyclobenzapri ne 5 mg tablet active Not Available Not Available Not Available Restasis 0.05 % eye drops in a dropperette active Not Available Not Available Not Available rosuvastatin 20 mg tablet active Not Available Not Available Not Available duloxetine 20 mg capsule,delay ed release active Not Available Not Available N ot Available chlorhexidine gluconate 0.12 % mouthwash RINSE AND SPIT WITH 15 CC FOR 1 MINUTE BID FOR 1 WEEK active Not Available Not Available No t Available diclofenac 1 % topical gel active Not Available Not Availabl e Not Available Prolia 60 mg/mL subcutaneous syringe active Not Available Not Available Not Available Narcan 4 mg/actuation nasal spray active Not Available Not Available Not Available Fluzone High-Dose Quad (PF) 240 mcg/0.7 mL IM syringe ADM 0.7ML IM UTD active Not Available Not Available No t Available Vitals Date Recorded Body height Heart rate Systolic blood pressure Diastolic blood pressure Provider Name and Address Organization Details Last Updated DateTime 01/03/2022 160.02 cm 84 /min 119 mm[Hg] 90 mm[Hg] Suki STEEN MD [facility] 01/03/2022 10:59:10 Date Recorded Body height Heart rate Pain severity - 0-10 verbal numeric rating [Score] - Reported Systolic blood pressure Diastolic blood pressure Provider Name and Address Organization Details Last Updated DateTime 01/07/2022 160.02 cm 57 /min 4 133 mm[Hg] 71 mm[Hg] Yi RYAN [facility] 10:45:37 Date Recorded Body height Heart rate Systolic blood pressure Diastolic blood pressure Provider Name and Address Organization Details Last Updated DateTime 02/14/2022 160.02 cm 74 /min 155 mm[Hg] 86 mm[Hg] Suki RYAN [facility] 02/14/2022 12:17:15 Date Recorded Body height Heart rate Systolic blood pressure Diastolic blood pressure Provider Name and Address Organization Details Last Updated DateTime 03/21/2022 160.02 cm 82 /min 130 mm[Hg] 67 mm[Hg] Suki RYAN [facility] 03/21/2022 09:58:28 Date Recorded Body height Heart rate Systolic blood pressure Diastolic blood pressure Provider Name and Address Organization Details Last Updated DateTime 04/13/2022 160.02 cm 78 /min 135 mm[Hg] 79 mm[Hg] Suki RYAN [facility] 04/13/2022 11:10:37 Social History Question Answer Notes LastModified by Organizat ion Details LastModified Time Tobacco Smoking Status Never Smoker Not Available [email or web address] 04/21/2020 03:36:23 What Is Your Level Of Alcohol Consumption? None Information not available 04/20/2021 Illicit Drug Usage No Information not available 12/26/2016 Tobacco Usage No Information not available 12/26/2016 Alcohol Usage Yes Information not available 12/26/2016 Do You Have Any Children? Yes Information not available 12/26/2016 Are You ? No Information not available 12/26/2016 What Was The Date Of Your Most Recent Tobacco Screening? 04/09/2018 [id number] Information not available 04/21/2020 How Much Tobacco Do You Smoke? No [id number] Information not available 04/21/2020 Sex: Unknown Functional Status None recorded. Mental Status None recorded. Family History Relationship Description Onset Age of this Age Resolved Age Notes LastModified by Organization Details LastModified Time Father Diabetes mellitus gmontantes Not available 12/26 15:41:08 Father Arthritis gmontantes Not availa ble 12/26/2016 15:41:18 Father Hypertensive disorder gmontantes Not available 12/26 15:41:30 Father Gout gmontantes Not available 12/26/2016 15:41:46 Mother Arthritis gmontantes Not availa ble 12/26/2016 15:41:18 Medical History Condition Response High Blood Pressure Y Lung Disease N Arthritis Y Epilepsy/Seizure Disorder Problems N Sexual Difficulties N Fibromyalgia N Cancer, what type? N Weight Loss N Kidney Problems N Thyroid Problems N Heart Disease/Heart Attack N GOUT N Diabetes N Bowel or Bladder Problems N Asthma N Stomach Problems, GI Problems N Anemia/blood disorders N Gynecological HistoryNo gynecological history recorded. Obstetrics History GPAL:G 0 P 0 0 0 0 Past Encounters Encounter ID Performer Location Encounter Start Date Encounter Closed Date Diagnosis/Indication Diagnosis SNOMED-CT Code Diagnosis ICD10 Code Diagnosis Note [id number] MD Darrel Aguilar [facility] [address] [place] [address] 12/26/2016 15:28:47 12/26/2016 17:28:38 Lumbar radiculopathy 378301432 M54.16 Low back pain 483823773 M54.5 [id number] Blair Salguero MD [employer] [address] [place] [address] 01/09/2017 13:56:52 01/09/2017 14:38:36 Radicular pain 82714381 M54.16 Low back pain 611298899 M54.5 Lumbar radiculopathy 128 331865 M54.16 Displaceme nt of lumbar intervertebral disc without myelopathy 39527282 M51.26 Lumbar spondylosis 69857 0009 M47.816 [id number] Blair Salguero MD [employer] [address] [place] [address] 02/02/2017 09:03:31 02/02/2017 10:03:44 Radicular pain 20724434 M54.16 Low back pain 368247829 M54.5 Lumbar radiculopathy 128 443441 M54.16 [id number] Blair Salguero MD [employer] [address] [place] [address] 09/21/2017 10:15:56 09/21/2017 12:24:03 Lumbar radiculopathy 385590399 M54.16 Low back pain 701605455 M54.5 Lumbar spondylosis 51782 0009 M47.816 Displaceme nt of lumbar intervertebral disc without myelopathy 73273728 M51.26 [id number] Blair Salguero MD [facility] [address] [place] [address] 04/09/2018 15:39:34 04/09/2018 17:06:35 Lumbar radiculopathy 757196698 M54.16 Displaceme nt of lumbar intervertebral disc without myelopathy 89206537 M51.26 Lumbar spondylosis 67029 0009 M47.816 Low back pain 219592947 M54.5 [id number] Blair Salguero MD [facility] [address] [place] [address] 05/07/2020 15:40:42 05/07/2020 16:57:30 Sacroiliac joint pain 434670067 M53.3 Inflammati on of sacroiliac joint 94922121 M46.1 Sacroiliac disorder 2027 58212 M25.9 [id number] Alcicishnita Tang [facility] [address] [place] [address] 05/21/2020 16:46:13 05/21/2020 17:59:05 Low back pain 995573932 M54.5 Lumbar radiculopathy 128 674694 M54.16 Pain in ri ght sacroiliac joint 0541380476 1847449 M53.3 Pain in le ft sacroiliac joint 0643947236 6943194 M53.3 [id number] Alcicishmin Clyde [facility] [address] [place] [address] 05/25/2020 14:31:08 05/25/2020 16:01:56 Inflammation of sacroiliac joint 31889741 M46.1 Sacroiliac joint pain 20 8333611 M53.3 Sacral back pain 7987549 3 M54.5 [id number] Alhashmin Clyde [facility] [address] [place] [address] 06/08/2020 14:55:46 06/08/2020 16:30:26 Lumbar radiculopathy 200224959 M54.16 Lumbar spondylosis 40027 0009 M47.896 Facet joint pain 4129015 05 M25.50 Low back pain 164668726 M54.5 Arthropath y of lumbar facet joint 572857525 M46.96 Sacral back pain 6009594 3 M54.5 Inflammati on of sacroiliac joint 45560778 M46.1 [id number] Blair Salguero MD [facility] [address] [place] [address] 07/06/2020 10:14:38 07/06/2020 11:45:02 Lumbar spondylosis 509217490 M47.816 Arthropath y of lumbar facet joint 383294623 M46.96 Low back pain 962566203 M54.5 [id number] Blair Salguero MD [facility] [address] [place] [address] 07/20/2020 11:59:12 07/20/2020 13:36:02 Radicular pain 01605673 M54.16 Lumbosacra l radiculitis 50955438 M54.17 Low back pain 261339213 M54.5 [id number] Archana Tang [facility] [address] [place] [address] 08/07/2020 12:20:55 08/07/2020 13:08:23 Low back pain 998308683 M54.5 Lumbar spondylosis 72355 0009 M47.896 Lumbar radiculopathy 128 643391 M54.16 Arthropath y of lumbar facet joint 715023373 M46.96 [id number] Blair Salguero MD [facility] [address] [place] [address] 10/26/2020 11:07:40 10/26/2020 13:17:54 Low back pain 794008259 M54.5 Lumbar radiculopathy 128 052350 M54.16 Lumbar spondylosis 25855 0009 M47.896 [id number] Blair Salguero MD [facility] [address] [place] [address] 11/17/2020 14:10:23 11/17/2020 14:58:55 Arthropathy of lumbar facet joint 912079048 M46.96 Low back pain 073198452 M54.5 Lumbar radiculopathy 128 203806 M54.16 Lumbar spondylosis 09837 0009 M47.896 [id number] Blair Salguero MD [facility] [address] [place] [address] 12/01/2020 14:25:45 12/01/2020 15:53:19 Low back pain 177526688 M54.5 Lumbar spondylosis 62636 0009 M47.896 Lumbar radiculopathy 128 788287 M54.16 [id number] Archana Tang [facility] [address] [place] [address] 12/17/2020 11:41:44 12/17/2020 12:57:34 Arthropathy of lumbar facet joint 272635481 M46.96 Low back pain 783955633 M54.5 Lumbar radiculopathy 128 399414 M54.16 Lumbar spondylosis 86127 0009 M47.896 Pain of le ft hip joint 9441597956 10747 M25.552 [id number] Archana Tang [facility] [address] [place] [address] 12/18/2020 09:58:52 12/18/2020 10:21:03 Hip pain 15604776 M25.551 M25.552 M79.18 Pain in le ft sacroiliac joint 0058881489 8367449 M53.3 Sacral back pain 2531269 3 M54.5 Sacroiliac joint pain 20 4516274 M53.3 [id number] Archana Tang [facility] [address] [place] [address] 01/19/2021 09:11:59 01/19/2021 10:46:57 Pain of left hip joint 9131450534 46923 M25.552 Pain in le ft sacroiliac joint 0204903821 3192168 M53.3 Sacral back pain 8403735 3 M54.5 Sacroiliac joint pain 20 4024529 M53.3 [id number] Archana Tang [facility] [address] [place] [address] 02/19/2021 09:08:16 02/19/2021 09:46:11 Arthropathy of lumbar facet joint 763821332 M46.96 Low back pain 323434372 M54.5 Lumbar radiculopathy 128 863682 M54.16 Pain in ri ght hip joint 7541741613 14577 M25.551 Pain of le ft hip joint 0662502379 09762 M25.552 Lumbar spondylosis 45943 0009 M47.896 [id number] Blair Salguero MD [facility] [address] [place] [address] 02/26/2021 12:47:40 02/26/2021 14:04:41 Radicular pain 23854708 M54.16 Lumbosacra l radiculitis 70063245 M54.17 Low back pain 110402858 M54.5 [id number] Archana Tang [facility] [address] [place] [address] 03/04/2021 13:51:20 03/04/2021 14:26:34 Low back pain 120389643 M54.5 Lumbar spondylosis 61685 0009 M47.896 Arthropath y of lumbar facet joint 163519742 M46.96 Lumbar fac et joint pain 676478623 M54.5 [id number] Blair Salguero MD [facility] [address] [place] [address] 03/16/2021 09:17:13 03/16/2021 10:40:29 Lumbar spondylosis 731115763 M47.816 Arthropath y of lumbar facet joint 797836654 M46.96 Low back pain 456281408 M54.5 [id number] Blair Salguero MD [facility] [address] [place] [address] 03/30/2021 09:37:22 03/30/2021 10:41:24 Lumbar spondylosis 425720643 M47.816 Facet joint pain 4083267 05 M25.50 Low back pain 510637885 M54.59 Arthropath y of lumbar facet joint 084866490 M46.96 [id number] Blair Salguero MD [facility] [address] [place] [address] 04/20/2021 09:24:00 04/20/2021 10:20:23 Lumbar spondylosis 960214863 M47.816 Arthropath y of lumbar facet joint 752659773 M46.86 Low back pain 352638004 M54.59 Generalize d anxiety disorder 91109649 F41.1 [id number] Toonita Tang [facility] [address] [place] [address] 05/25/2021 12:03:40 05/25/2021 13:40:52 Arthropathy of lumbar facet joint 146978671 M46.86 Low back pain 036751252 M54.59 Lumbar radiculopathy 128 455875 M54.16 Lumbar spondylosis 97773 0009 M47.816 [id number] Blair Salguero MD [facility] [address] [place] [address] 06/01/2021 09:59:51 06/01/2021 10:55:09 Inflammation of sacroiliac joint 79742966 M46.1 Sacroiliac joint pain 20 0547869 M53.3 Sacral back pain 6494455 3 M54.59 [id number] Chayito Lito [facility] [address] [place] [address] 06/29/2021 10:39:11 06/29/2021 13:00:39 Low back pain 820976962 M54.59 Lumbar spondylosis 31952 0009 M47.816 Arthropath y of lumbar facet joint 195008534 M46.86 [id number] Blair Salguero MD [facility] [address] [place] [address] 08/09/2021 10:15:13 08/09/2021 11:05:05 Sacroiliac joint pain 262710745 M53.3 Inflammati on of sacroiliac joint 73219313 M46.1 Sacral back pain 6046584 3 M54.50 [id number] Archana Tang [facility] [address] [place] [address] 08/30/2021 12:16:16 08/30/2021 13:09:31 Arthropathy of lumbar facet joint 076911516 M46.86 Inflammati on of sacroiliac joint 93799446 M46.1 Low back pain 208377104 M54.59 Lumbar radiculopathy 128 510419 M54.16 Lumbar spondylosis 01045 0009 M47.816 Sacroiliac joint pain 20 0909290 M53.3 [id number] Chayito Morse [facility] [address] [place] [address] 09/27/2021 10:29:34 09/27/2021 11:11:35 Low back pain 418982231 M54.59 Lumbar spondylosis 63107 0009 M47.816 Sacral back pain 6483029 3 M54.50 Inflammati on of sacroiliac joint 65662798 M46.1 [id number] Archana Tang [facility] [address] [place] [address] 10/07/2021 09:01:00 10/07/2021 09:30:59 Inflammation of sacroiliac joint 16606050 M46.1 Sacroiliac joint pain 20 4641512 M53.3 Sacral back pain 2918222 3 M54.59 Pain in ri ght sacroiliac joint 5059161168 2366281 M53.3 [id number] Archana Tang [facility] [address] [place] [address] 11/05/2021 10:22:21 11/05/2021 11:25:04 Low back pain 958190917 M54.59 Lumbar spondylosis 16192 0009 M47.816 Arthropath y of lumbar facet joint 382709672 M46.86 Lumbar fac et joint pain 527543308 M54.50 [id number] Blair Salguero MD [facility] [address] [place] [address] 11/16/2021 10:03:47 11/16/2021 12:01:14 Lumbar spondylosis 784777775 M47.816 Arthropath y of lumbar facet joint 086982279 M46.96 Low back pain 006940429 M54.59 Facet joint pain 0226894 05 M25.50 [id number] Alhashmin Clyde [facility] [address] [place] [address] Inflammation of sacroiliac joint 31612430 M46.1 Sacroiliac joint pain 20 6061147 M53.3 Sacral back pain 8600992 3 M54.59 Pain in ri ght sacroiliac joint 7726514615 4645124 M53.3 [id number] Blair Salguero MD [facility] [address] [place] [address] 01/03/2022 10:47:30 01/03/2022 11:43:26 Lumbar spondylosis 773678657 M47.816 Facet joint pain 5384522 05 M25.50 Low back pain 087402426 M54.59 Arthropath y of lumbar facet joint 953859804 M46.96 [id number] Blair Salguero MD [employer] [address] [place] [address] 01/07/2022 10:20:27 01/07/2022 11:25:27 Lumbar spondylosis 451799409 M47.816 Arthropath y of lumbar facet joint 701885910 M46.96 Low back pain 981021619 M54.59 Facet joint pain 0858071 05 M25.50 [id number] Archana Ro[facility] [address] [place] [address] 02/14/2022 11:06:55 02/14/2022 12:57:54 Right-sided piriformis syndrome 0384292000 64829 M54.31 Low back pain 095792790 M54.59 Lumbar spondylosis 70668 0009 M47.816 [id number] Archana Beal [address] [place] [address] 03/21/2022 09:45:39 03/21/2022 11:15:11 Pain in right hip joint 0037207283 42905 M25.551 Osteoarthr itis of right hip joint 4794121055 34394 M16.11 Enthesopat hy of right hip 2277868036 0775882 M76.891 Low back pain 437067955 M54.59 [id number] Archana Tang [address] [facility] [address] [place] [address] 04/13/2022 10:51:23 04/13/2022 12:22:35 Pain in right hip joint 6527714081 75259 M25.551 Trochanter ic bursitis of right hip 5600099166 59778 M70.61 Tendinitis of right gluteal tendon 4798073656 92114 M76.01 Health Concerns Section Related Observation LastModified by Organization Detai ls LastModified Time None Recorded Concern Status LastModified by Organization Details LastModified Time None Recorded Advance Directives Directive None Recorded Payers Encounter Date Sequence Insurance Name Policy Number Policy Smith Covered Member ID Smith Member ID Guarantor Name 01/03/2022 1 [place] [employer] Joyce Caon [id number] Joyce Cano 01/03/2022 2 WPS - FOR LIFE (MEDICARE SUPPLEMENT) Alberto Cano [id number] Joyce Cano 02/14/2022 1 [place] [employer] Joyce Cano [id number] Joyce E Jerome 02/14/2022 2 WPS - FOR LIFE (MEDICARE SUPPLEMENT) Alberto Caon [id number] Joyce E Jerome 03/21/2022 1 [place] [employer] Joyce E Jerome [id number] Joyce E Jerome 03/21/2022 2 WPS - FOR LIFE (MEDICARE SUPPLEMENT) Alberto Cano [id number] Joyce E Jerome 04/13/2022 1 [place] [employer] Joyce E Jerome [id number] Joyce E Jerome 04/13/2022 2 WPS - FOR LIFE (MEDICARE SUPPLEMENT) Alberto Cano [id number] Joyce E Jerome Notes Date Note Type Note Provider Name and Address Organization Details Recorded Time 2 text/html Follow-up QuestionnaireReported bypatient.Location:upper back;leg right;right hip(s) Pain Nature:burning; throbbing; stabbing Pain score in the past wk?:10/10 worst Enjoyment of life interference pain score?:8/10 complete interference General activity interference pain score?:8/10 complete interference Pain is:recurring from time to time (periodic); Random Pain is worse with:activity Pain is improved with:heat Previous PT:none The following are affected by your pain?activities of daily living Any medical or medication changes since last visit?none Blair Salguero MD [address] [place] [address],[address], [place], [address], [facility]DA STEEN MD [facility] 01/05/2022 15:22:13 2 text/html Follow-up QuestionnaireReported bypatient.Location:lower back;right hip(s) Pain Nature:sharp; shooting; burning Pain score in the past wk?:7/10 worst Enjoyment of life interference pain score?:6/10 complete interference General activity interference pain score?:6/10 complete interference Pain is:recurring from time to time (periodic) Procedure(s) performedlumbar RFA; 60% Relief Pain is worse with:activity Pain is improved with:heat Previous PT:none The following are affected by your pain?mood;social interactions;activities of daily living Any medical or medication changes since last visit?none REBECCA Tejeda MD [facility] 02/16/2022 11:24:39 2 text/html Follow-up QuestionnaireReported bypatient.Location:leg right;right hip(s) Pain Nature:shooting; burning Pain score in the past wk?:7/10 worst Enjoyment of life interference pain score?:8/10 complete interference General activity interference pain score?:8/10 complete interference Pain is:recurring from time to time (periodic) Pain is worse with:activity Pain is improved with:rest Previous PT:none The following are affected by your pain?social interactions;work;activiti es of daily living Any medical or medication changes since last visit?none REBECCA Tejeda MD [facility] 03/22/2022 08:41:25 2 text/html Follow-up QuestionnaireReported bypatient.Location:right hip(s) Pain Nature:sharp; shooting; burning Pain score in the past wk?:8/10 worst Enjoyment of life interference pain score?:4/10 complete interference General activity interference pain score?:3/10 complete interference Pain is:recurring from time to time (periodic) Procedure(s) [id number]% Relief Pain is worse with:activity Pain is improved with:heat Previous PT:none The following are affected by your pain?activities of daily living Any medical or medication changes since last visit?none REBECCA Tejeda MD [facility] 04/14/2022 09:08:28 OBGyn Episode No OBEpisode recorded.
--- OUTSIDE RECORDS SUMMARY | 2024-10-04 10:55 | XMS_ITS | Data Portability ---
Author Organization [facility], [facility] [place] [address] [place] [address] Assessment No assessment recorded. Plan of Treatment [...] Modified By Organization Details Last Modified Time 03/14/2018 [id number] high blood pressure: care instructions lor Not available 03/15/2018 08:31:05 hammer toe: care instructions lor Not available 03/14/2018 18:18:17 1. Discussed the clinical and x-ray findings 2. Discussed different types of shoes that she may use, brands and names of shoes were provided to the patient. I also recommended toe gel and bunion gel sleeves and she opted to purchase these on [employer]. Informational educational handout provided to her on hammer toes and bunions. We discussed using wide shoes and padding and once this fails consider seeing Dr. Alberto Cagle for surgical consultation. Return to see me on a p.r.n. basis. lor Not available 03/15/2018 08:31:04 Reason for Referral None Reported. Procedures Surgical History Date Name Laterality Status Provider Name and Address Organization Details Recorded Time 03/14/20 18 Xray, Foot, Sabino, 3V completed Marta Guerra [facility] 03/14/2018 11:33:55 Hysterectomy completed Heike Godinez [facility] 03/14/2018 13:08:47 Breast completed Heike Godinez [facility] 03/14/2018 13:09:06 Imaging Results None recorded. Procedure Notes None recorded. Medical Equipment None [...] Not Available Not Availabl e Not Available diclofenac 1 % topical gel active Not Available Not Available Not Available Prolia 60 mg/mL subcutaneous syringe active Not Available Not Available Not Available Triderm 0.5 % topical cream active Not Available Not Availabl e Not Available Vitals Date Recorded Body height Body mass index (BMI) Body weight Heart rate Systolic blood pressure Diastolic blood pressure Provider Name and Address Organization Details Last Updated DateTime 8 162.56 cm 22.1 kg/m2 41738.4 2 g 77 /min 136 mm[Hg] 81 mm[Hg] Heike Godinez [facility] 8 13:06:42 Social History Question Answer Notes LastModified by Organizat ion Details LastModified Time Tobacco Smoking Status Former Smoker Heike niño [facility] 03/14/2018 13:07:30 Do You Drink Alcohol? Social Information not available 03/14/2018 Drug Use Currently TRAMADOL 50MG PRN Information not available 03/14/2018 Number Of Children 2 ADAPOTED Information not available 03/14/2018 Marital Status Information not available 03/14/2018 What Was The Date Of Your Most Recent Tobacco Screening? 03/14/2018 Information not available 01/11/2019 Sex: Unknown Functional Status None recorded. Mental Status None recorded. Family History Relationship Description Onset Age of this Age Resolved Age Notes LastModified by Organization Details LastModified Time Father Diabetes mellitus Not available 2017 13:07:08 Father Heart disease Not available 2017 13:07:16 Father Hypertensive disorder Not available 2017 13:07:22 Medical History Condition Response Pancreatitis N HIV or AIDS N Gout N Thyroid Disease N Atrial Fibrillation N Prostate Disease N Stroke CVA N Irregular Heartbeat N Alzheimer's or Significant Memory Loss N Emphysema/COPD N Cubital tunnel release N Depression N Pneumonia N Pacemaker/Defibrillator N Coronary Heart Disease N High Blood Pressure/Hypertension N Congestive Heart Failure N Under the Care of a Counter Tacker N Cystic Fibrosis N Cancer N Stroke N Hypoglycemia N Rotator cuff injury N Polio N Bleeding Ulcers N High Cholesterol N Muscular Dystrophy N Hemophilia/Bleeding Disorder N Rheumatoid Arthritis N Fibromyalgia N Liver Failure N Hiatal Hernia N Kidney Disease N HIV N Osteoarthritis N Acid Reflux N Adverse Reaction to Anesthesia N Colitis N Downs Syndrome N Chemotherapy N MRSA Infection N Esophageal Varices N Blood Clots (phlebitis) N Anemia N Psychiatric Disorder N Home Oxygen N Carpal tunnel release N Ulcers N Bladder Problems N Stomach Ulcers N Diabetes N NO PAST MEDICAL PROBLEMS N Seizures/Epilepsy N Sickle Cell N Have you been or are you being seen by a communications clerk? N Angina/Chest Pain/Heart Attack N Heart Attack N Asthma N Dental Disease N Epilepsy/Seizures N Jaundice N Sleep Apnea N Mitral Valve Prolapse N Hepatitis N Cirrhosis N Have you ever had an adverse reaction to anesthesia? N Heart Disease N Bronchitis N Gallbladder Problems N Osteoporosis N Gynecological HistoryNo gynecological history recorded. Obstetrics History GPAL:G 0 P 0 0 0 0 Past Encounters Encounter ID Performer Location Encounter Start Date Encounter Closed Date Diagnosis/Indication Diagnosis SNOMED-CT Code Diagnosis ICD10 Code Diagnosis Note [id number] Chayito Velasquez DPM [facility] [address] [facility] [address] [place] [address] 03/14/2018 11:17:37 03/14/2018 13:38:42 Hallux valgus 363714708 M20.11 M20.12 Hammer toe 123851708 M20 .41 M20.42 Health Concerns Section Related Observation LastModified by Organization Detai ls LastModified Time None Recorded Concern Status LastModified by Organization Details LastModified Time None Recorded Advance Directives Directive None Recorded Payers Encounter Date Sequence Insurance Name Policy Number Policy Smith Covered Member ID Smith Member ID Guarantor Name 03/14/2018 1 [place] [employer] Joyce Cano [id number] Joyce Cano 03/14/2018 2 WPS - FOR LIFE (MEDICARE SUPPLEMENT) Joyce Cano [id number] Joyce Cano Notes Date Note Type Note Provider Name and Address Organization Details Recorded Time 03/14/2018 text/html This pleasant female presents to the clinic today complaining of bunion and hammertoe pain. She is here today to obtain more information about nonsurgical and surgical treatment options. She is having difficulty finding any shoes that fit. She denies any recent trauma to the bunions and hammertoes but did have recent trauma to her foot and has her x-ray report with her today. She had a toe fracture but today this is not painful or problematic today. Chayito Velasquez DPM [address] [facility] [address], [place], [address], [facility] 03/15/2018 08:31:38 OBGyn Episode No OBEpisode recorded.
[2024-10-04 10:58] VITALS: BP 154/65; PULSE 65; RESP 18; TEMP 36.7; O2SAT 99
== END 2024-10-04 11:30 | disposition home or self-care (01) ==
PROVIDERS: Emergency Provider Nurse Practitioner
DX: T16.1XXA Foreign body in right ear, initial encounter (principal); W44.9XXA Unspecified foreign body entering into or through a natural orifice, initial encounter; I10 Essential (primary) hypertension; E78.00 Pure hypercholesterolemia, unspecified; M19.90 Unspecified osteoarthritis, unspecified site
CPT/HCPCS: 69200; 99212; A9270; G0463

== ENCOUNTER 2024-10-13 11:15 | Emergency (ER) | payer MEDICARE, OTHER, SELFPAY ==
--- NOTE | ~2024-10-13 | XR_ITS ---
EXAMINATION: XR wrist LT min 3V DATE: 10/13/2024 11:46 INDICATION: Fall 2 weeks prior TECHNIQUE: Posteroanterior, ulnar deviation, oblique, and lateral views of the left wrist were obtain ed. COMPARISON: none FINDINGS: There is a subtle transverse fracture of the left radial diaphysis mild buckling along the dorsal cor darby with 1 degree dorsal tilt of the distal articular surface. No evident intra-articular extension o f the fracture. No other fractures identified. Severe osteoarthritis at the triscaphe and first carpa l metacarpal joints. 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 Mild o steoarthritis of the distal radioulnar, wrist, midcarpal and the first and second metacarpophalangeal joints. Chronic erosions versus degenerative cystic change at the ulnar styloid process. IMPRESSION: 1. Mild dorsal impaction of a nondisplaced transverse fracture at the distal left radial metaphyseal region 2. 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 Reviewed, dictated and finalized at location A. IMPRESSION: 1. Mild dorsal impaction of a nondisplaced transverse fracture at the distal le ft radial metaphyseal region 2. 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
--- OUTSIDE RECORDS SUMMARY | 2024-10-13 11:19 | XMS_ITS | Data Portability ---
Author Organization REBECCA - Aureliano Robertson, Main Office Address [address] [place] [address] Care Team Providers Care Geodesy Teacher Name Role Phone TATIANA MOSLEY Primary Care [...] be followed on a as needed basis. [email or web address] Not available 03/20/2019 21:15:58 Plan of Treatment [...] By Organization Details Last Modified Time 03/20/2019 [id number] back care and preventing injuries: care instructions [...] Address Organization Details Recorded Time Hypertensive disorder 81337663 Active 2018 REBECCA Gamez MD 9 15:13:04 Pain 07618825 Active 2018 REBECCA Gamez MD 9 15:13:08 Scoliosis deformity of spine 007696786 Active 2018 REBECCA Gamez MD 9 15:14:49 Osteoporosis 26158101 Active 2018 REBECCA Gamez MD 9 15:16:12 [...] % 98 % 91 /min 22.7 kg/m2 55423.1 9 g 145 mm[Hg] 95 mm[Hg] Arpita [...] History Nothing Reported. Medical History Condition Response Head Trauma/Injury N COPD N Pacemaker N Obstructive Sleep Apnea N Problems with Anesthesia N Autoimmune disease N Arthritis Y Cancer N Stroke N Liver Disease N Fibromyalgia N Kidney Disease N Heart Attack ([place]) N Ulcers N Diabetes N Bleeding Disorder N Asthma N Epilepsy/Seizures N Hepatitis N Aneurysm N Heart Disease N Hypertension Y Osteoporosis N Gynecological HistoryNo gynecological history recorded. Obstetrics History GPAL:G 0 P 0 0 0 0 Past Encounters Encounter ID Performer Location Encounter Start Date Encounter Closed Date Diagnosis/Indication Diagnosis SNOMED-CT Code Diagnosis ICD10 Code Diagnosis Note [id number] [facility] [address] [place] [address] [address] [place] [address] 03/20/2019 14:50:42 03/20/2019 16:42:54 Lumbar spondylolisthesis 5861152093 81539 M43.16 Lumbar spondylosis 35207 0009 M47.896 Low back pain 774324780 M54.5 Health Concerns Section Related Observation LastModified by Organization Detai ls LastModified Time None Recorded Concern Status LastModified by Organization Details LastModified Time None Recorded Advance Directives Directive None Recorded Payers Encounter Date Sequence Insurance Name Policy Number Policy Smith Covered Member ID Smith Member ID Guarantor Name 03/20/2019 1 [place] [employer] Joyce Cano [id number] Joyce Cano 03/20/2019 2 WPS - FOR LIFE (SECONDARY TO MEDICARE) [id number] Joyce Cano [id number] Joyce Cano Notes Date Note Type Note [...] Naproxen); Muscle Relaxant Medications; Narcotic Medication (ie Frederick, Percocet, Codeine); Pain Cream; Spinal Injections; no recent pt Hand Dominance:Right Do you have any difficulty with:walkin - mildly limited 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 Shecomplainsof low back pain which [email or web address] after experiencing a fall. Patient was originally [...] no numbness, tingling or bowel bladder dysfunction. Neda Jenkins NP [address], [place], [address], [place] - Aureliano Banks MD 04/15/2019 11:22:05 OBGyn Episode No OBEpisode recorded.
--- OUTSIDE RECORDS SUMMARY | 2024-10-13 11:19 | XMS_ITS | Data Portability ---
Author Organization [facility] Swan, [facility], [facility] Address [address] [place] [address] Care Team Providers Care Payroll Services Analyst Name Role Phone [facility] Primary Care Provider Assessment Encounter Date Assessment Date Assessment LastModified by Organization Details LastModified Time 05/17/2022 05/17/2022 Patient is a 81-year-old female who I saw in the office today for follow-up regarding her pain to her low back. Patient reports that she continues to have pain that is severe in her low back that radiates down into her bilateral legs. Patient reports that the last injection which was in her trochanteric bursa was helpful but lasted a few weeks but that the pain returned. Patient describes her pain as a shooting burning and tearing type of pain that is random and worse with exercise and activity. This is greatly reduced her quality of life and activity levels. Pain can be an 8/10 at its worst. At this time we have exhausted a lot of the conservative measures. She has tried numerous epidural steroid injections, RFA, SI joint injections, and that she also has a Medtronic SCS that was placed almost 7 years ago now. Patient reports that the Medtronic SCS unit is not helping and has not been helpful being for quite a long time now. At this time we did discuss possible other treatment options and at this time we discussed trialing a new SCS unit that has updated technology. The Nevro 10,000 Hz SCS unit has been shown to help with nonsurgical back pain as well as pain that radiates down into her bilateral legs. Patient has seen a surgeon and at this time surgery is not an option for her. We will go ahead and put in for approval for trial for Nevro SCS lumbar unit We will get patient scheduled for trial as soon as she is approved We will also go ahead and put a referral in for a psych mario BENTLEY was available [email or web address] Not available 05/17/2022 22:00:02 06/21/2022 06/21/2022 Procedure abandoned [email or web address] Not available 06/22/2022 16:29:35 06/30/2022 06/30/2022 81 yo female presents with lumbar spine and bilateral hip pain. Pt describes pain as electric and throbbing. Pain is exacerbated with exercise and activity. Pain is improved with rest. Pain affects ADL. Will contact Dr. Weaver regarding possible options of proceeding with a lumbar Nevro trial by using pt current leads in lumbar spine. Pt was going to change lumbar SCS to Nevro from [employer]. During previous visit - and attempt was made to proceed with lumbar SCS Nevro trial. There were complications when inserting leads. F/u 1 week telemed to discuss talk with Dr. Weaver. [email or web address] Not available 07/06/2022 14:46:39 07/07/2022 07/07/2022 81 yo female presents with lumbar spine pain. Pt describes pain as dull, aching and throbbing. Pain is exacerbated with exercise and activity. Pain is improved with rest and heat. Pain affects ADL. Pt presents s/p trying to get into Dr. Weaver for evaluation for battery swap from Nevro to Medtronic. Pt has a consult scheduled with Dr. Owen RYAN and will be evaluated for battery swap/replacement . Plan of treatment was discussed with pt. Patient aware of alternatives and expressed understanding of goals of treatment. Patient was advised to resume normal activities as tolerated. Patient was also advised against bed rest since it will only worsen the symptoms. F/u 1 month. [email or web address] Not available 07/08/2022 11:38:50 08/01/2022 08/01/2022 Patient is a 81-year-old female who I saw in the office today for follow-up from her recent Nevro SCS permanent implant. Patient is 2 weeks postop from permanent placement with Dr. Resendiz. Patient reports that she is doing quite well and that her pain is very well controlled definitely is a lot less than before the spinal cord stimulator was placed. Patient when she walked in and was just at a very minimal low-dose that they start all patients out on. Romel from [facility] is here today to do a full reprogramming and to get her set up. Patient is doing quite well and is healed from the surgery. Incision sites look clean dry and intact and there were no signs of infection. Currently pain is constant and a 4/10 at its worst. Pain is described as a burning, dull, aching type of pain that is worse with exercise and activity. Patient reports that her activity levels are already increased she is able to do things that she was unable to do before. Patient reports that she does still have some pain but she is able to actually do the activities such as gardening which she loves. Patient advised to continue staying active and continue working on strengthening muscles in her back and core. Patient will follow-up with Lisa on a regular basis to ensure that the stimulator is being programmed and is being useful for her. We will follow back up with the patient in 1 month MD was available for questions. Plan was discussed and agreed upon. [email or web address] Not available 08/01/2022 16:35:58 Plan of Treatment Reminders Order Date Submit [...] Modified By Organization Details Last Modified Time 07/07/2022 7647 A {{5 10* 15 20 30} } minute encounter was conducted via telemedicine. The encounter was HIPAA compliant. Governor [place] approved [place] [employer]'s request to temporarily suspend [place] Occupation Code 111.005(a)-(b) and Title 22, Chapter 174.6(a)(2)-(3). The suspension is in affect since August 30, 2019 due to COVID-19. The patient gave Blair Mcginnis MD, [facility] verbal consent prior to starting the video conferencing call. [email or web address] Not available 07/07/2022 15:29:28 Reason for Referral None Reported. Results Created Date Observation Date Name Description Value Unit Range Abnormal Flag Note LastModifiedBy Organization Detail LastModifiedTime 06/15/2006/14/2022 MRI, thora cic spine , w/o contr ast No observ ation record ed. [email or web address] [address], [place], [address], 07/12/2022 15:39:30 06/16/20 22 MRI, lumba r spine , w/o contr ast No observ ation record ed. [facility] [place] [address], [place], [address], 06/16/2022 17:35:03 Result Notes None recorded. Problems Name Problem SNOMED Code Status Onset Date Resolution Date Notes Provider Name and Address Organization Details Recorded Time Low back pain 696108894 Active 2021 MAXIME CORDOBA NP [address], [place], [address], REBECCA MCGINNIS M.D., [facility] 2 10:37:00 Pain of right hip joint 6370006362778 02 Active 2021 MAXIME CORDOBA NP [address], [place], [address], REBECCA MCGINNIS M.D., [facility] 2 10:37:05 Trochanteri c bursitis of right hip 1914487015507 00 Active 2021 MAXIME CORDOBA NP [address], [place], [address], REBECCA MCGINNIS M.D., [facility] 2 10:37:07 Tendinitis of right gluteal tendon 5235162188832 02 Active 2021 MAXIME CORDOBA NP [address], [place], [address], REBECCA MCGINNIS M.D., [facility] 2 10:37:08 Problem Notes None recorded. Procedures Surgical History Date Name Laterality Status Provider Name and Address Organization Details Recorded Time 3 SCS Trial - Lumbar completed Manolo MCGINNIS M.D., [facility] 06/22/2022 16:29:24 3 Sedation completed Colt MCGINNIS M.D., [facility] 06/22/2022 11:11:52 Imaging Results Imaging Date Name Status LastModified by Organiz ation Details LastModified Time 06/14/2022 MRI, thoracic spine, w/o contrast [place] [id number] [facility] [address], [place], [address], 07/12/2022 15:39:30 06/16/2022 MRI, lumbar spine, w/o contrast completed [facility] [address], [place], [address], 06/16/2022 17:35:03 Procedure Notes None recorded. Medical Equipment None Reported. Allergies No known drug allergies Medications Name Sig Start Date Stop Date Status Note LastModified by Organization Details LastModified Time methocarbamol 500 mg tablet active Not Available Not Availabl e Not Available acetic acid 2 % ear solution active Not Available Not Available Not Available azithromycin 250 mg tablet TAKE 2 TABLETS BY MOUTH ON DAY 1, THEN 1 TABLET DAILY ON DAYS 2 TO 5. active Not Available Not Available No t Available acetaminophen 300 mg-codeine 30 mg tablet TAKE ONE (1) TABLET(S ) BY MOUTH EVERY 6 HOURS NEEDED FOR PAIN. active Not Available Not Available No t Available chlorthalidone 25 mg tablet active Not Available Not Available Not Available tramadol 50 mg tablet active Not Available Not Available Not Available celecoxib 100 mg capsule active Not Available Not Available N ot Available escitalopram 10 mg tablet active Not Available Not Available No t Available escitalopram 20 mg tablet active Not Available Not Available No t Available rosuvastatin 20 mg tablet active Not [...] and Address Organization Details Last Updated DateTime 3 160.02 cm 22.7 kg/m2 06774.8 2 g 64 /min 176 mm[Hg] 88 mm[Hg] Edgar Polo M.D., [facility] 3 13:49:43 Date Recorded Body height Body mass index (BMI) Body weight Heart rate Systolic blood pressure Diastolic blood pressure Provider Name and Address Organization Details Last Updated DateTime 3 160.02 cm 22.5 kg/m2 84397.2 3 g 78 /min 149 mm[Hg] 80 mm[Hg] Edgar Palmer REBECCA MCGINNIS M.D., [facility] 3 15:24:38 Date Recorded Body height Body mass index (BMI) Body weight Systolic blood pressure Diastolic blood pressure Provider Name and Address Organization Details Last Updated DateTime 08/01/2022 160.02 cm 21.3 kg/m2 23124.08 g 142 mm[Hg] 93 mm[Hg] Baldomero Diehl REBECCA MCGINNIS M.D., [facility] 3 15:43:31 Date Recorded Body height Body mass index (BMI) Body weight Heart rate Systolic blood pressure Diastolic blood pressure Provider Name and Address Organization Details Last Updated DateTime 2 160.02 cm 23 kg/m2 46837.0 1 g 65 /min 141 mm[Hg] 79 mm[Hg] Suki Bonner REBECCA MCGINNIS M.D., [facility] 2 11:53:22 Social History None recorded. Functional Status None recorded. Mental Status None recorded. Family History Nothing Reported. Medical History No medical history recorded. Gynecological HistoryNo gynecological history recorded. Obstetrics History GPAL:G 0 P 0 0 0 0 Past Encounters Encounter ID Performer Location Encounter Start Date Encounter Closed Date Diagnosis/Indication Diagnosis SNOMED-CT Code Diagnosis ICD10 Code Diagnosis Note [id number] Roya Beal [id number] [address] [facility] [address] [place] [address] 04/21/2022 10:09:12 05/09/2022 14:01:30 Low back pain 408317773 M54.59 Pain of ri ght hip joint 4785745788 90681 M25.551 Trochanter ic bursitis of right hip 0154564523 42259 M70.61 Tendinitis of right gluteal tendon 2058694291 04348 M76.01 [id number] Archana Almeida [address] [place] [address] 05/17/2022 11:39:50 05/17/2022 12:42:58 Chronic pain syndrome 669866013 G89.4 Lumbar spondylosis 19446 0009 M47.896 Lumbar radiculopathy 128 811210 M54.16 Spinal isaac nosis of lumbar region 09242960 M48.062 [id number] MD Drew Aguilar [address] [place] [address] 06/21/2022 13:35:48 06/21/2022 16:12:41 Low back pain 820740274 M54.50 Lumbar spondylosis 15998 0009 M47.896 Chronic pain syndrome 37 1045148 G89.4 [id number] Blair Mcginnis MD [place] [address] [place] [address] 06/30/2022 14:58:48 06/30/2022 15:58:41 Lumbar radiculopathy 306911010 M54.16 Lumbar spondylosis 17554 0009 M47.26 Neuropathic pain 4289299 09 M79.2 Low back pain 973396959 M54.59 Chronic pain syndrome 37 4612777 G89.4 [id number] Blair Mcginnis MD [place] [address] [place] [address] 07/07/2022 14:00:59 07/07/2022 15:23:06 Chronic pain syndrome 562773319 G89.4 Lumbar radiculopathy 128 716712 M54.16 Low back pain 630085596 M54.59 Lumbar spondylosis 24013 0009 M47.26 [id number] Alhashmin Murji [place] [address] [place] [address] 08/01/2022 15:28:07 08/01/2022 16:44:28 Low back pain 196886578 M54.59 Pain of ri ght hip joint 9673416066 68505 M25.551 Tendinitis of right gluteal tendon 8181093464 58184 M76.01 Trochanter ic bursitis of right hip 4440741986 17640 M70.61 Chronic pain syndrome 37 8539901 G89.4 Health Concerns Section Related Observation LastModified by Organization Detai ls LastModified Time None Recorded Concern Status LastModified by Organization Details LastModified Time None Recorded Advance Directives Directive None Recorded Payers Encounter Date Sequence Insurance Name Policy Number Policy Smith Covered Member ID Smith Member ID Guarantor Name 05/17/2022 2 WPS - FOR LIFE (MEDICARE SUPPLEMENT) Alberto Cano [id number] Joyce E Jerome 05/17/2022 1 [place] [employer] Joyce E Jerome [id number] Joyce E Jerome 06/21/2022 2 WPS - FOR LIFE (MEDICARE SUPPLEMENT) Alberto Cano [id number] Joyce E Jerome 06/21/2022 1 [place] [employer] Joyce E Jerome [id number] Joyce E Jerome 06/30/2022 2 WPS - FOR LIFE (MEDICARE SUPPLEMENT) Alberto Cano [id number] Joyce E Jerome 06/30/2022 1 [place] [employer] Joyce E Jerome [id number] Joyce E Jerome 07/07/2022 2 WPS - FOR LIFE (MEDICARE SUPPLEMENT) Alberto Cano [id number] Joyce E Jerome 07/07/2022 1 [place] [employer] Joyce E Jerome [id number] Joyce E Jerome 08/01/2022 2 WPS - FOR LIFE (MEDICARE SUPPLEMENT) Alberto Cano [id number] Joyce E Jerome 08/01/2022 1 [place] [employer] Joyce E Jerome [id number] Joyce E Jerome Notes Date Note Type Note Provider Name and Address Organization Details Recorded Time 2 text/html Follow-up QuestionnaireReported bypatient.Location:[place] leg(s) Pain Natureshooting; burning; tearing Pain Score in Last Week?8/10 worst Pain is:random Pain is worse with:exercise/ activity Pain is Improved with:heat The Following are Affected by Your Pain:mood; social interactions; activities of daily living Bowel/Bladder Changes?no changes Previous PT:none Relief with Injections % Ratin% Any Medical or Medication Changes since Last Visit:none REBECCA Tejeda M.D., [facility] 05/17/2022 22:02:12 3 text/html Follow-up QuestionnaireReported bypatient.Location:[place] lower back; bilateral hip(s) Pain Natureelectric; throbbing Pain Score in Last Week?6/10 worst Pain is:constant; 10 years Pain is worse with:exercise/ activity Pain is Improved with:rest The Following are Affected by Your Pain:activities of daily living On a scale of 1-10, how much does your pain interfere with your enjoyment of life?10 On a scale of 1-10, how much does your pain interfere with your general activity?10 Bowel/Bladder Changes?no changes Previous PT:none Any Medical or Medication Changes since Last Visit:none Blair Mcginnis MD [address], [place], [address], REBECCA MCGINNIS M.D., [facility] 07/06/2022 14:46:56 3 text/html Follow-up QuestionnaireReported bypatient.Location:[place] lower back Pain Naturedull; aching; throbbing Pain Score in Last Week?610 worst Pain is:periodic Pain is worse with:exercise/ activity Pain is Improved with:rest; heat The Following are Affected by Your Pain:activities of daily living On a scale of 1-10, how much does your pain interfere with your enjoyment of life?6 On a scale of 1-10, how much does your pain interfere with your general activity?6 Bowel/Bladder Changes?no changes Previous PT:none Any Medical or Medication Changes since Last Visit:none Blair Mcginnis MD [address], [place], [address], REBECCA MCGINNIS M.D., [facility] 07/08/2022 11:39:18 3 text/html Follow-up QuestionnaireReported bypatient.Location:[place] lower back; right hip(s) Pain Natureburning; dull; aching Pain Score in Last Week?4/10 worst Pain is:constant Pain is worse with:exercise/ activity Pain is Improved with:rest; heat The Following are Affected by Your Pain:mood; activities of daily living On a scale of 1-10, how much does your pain interfere with your enjoyment of life?4 On a scale of 1-10, how much does your pain interfere with your general activity?5 Bowel/Bladder Changes?no changes Previous PT:none Any Medical or Medication Changes since Last Visit:none REBECCA Tejeda M.D., [facility] 08/01/2022 16:36:13 OBGyn Episode No OBEpisode recorded.
--- OUTSIDE RECORDS SUMMARY | 2024-10-13 11:20 | XMS_ITS | Data Portability ---
Author Organization [facility] Address [address] [place] [address] Assessment No assessment recorded. Plan of Treatment Reminders Order Date Submit Date Provider Last Modified By Organization Details Last Modified Time Details Appointments None recorded. Lab None recorded. Referral None recorded. Procedures None recorded. Surgeries None recorded. Imaging US, kidney 2020 022 [facility], [address] [address], [place], [address], 2 12:17:23 CT, abdomen, w/wo contrast 2020 021 SHANNON [facility], [address] [address], [place], [address], 1 14:20:07 Medication Orders None recorded. Patient [...] 02/23/2021 CT, abdom en, w/wo contr ast [facility] [place] [facility] [address] [facility], [address] [phone] PATIEN T: KIMBERLEY RIVERA 272 : 1940 Age: 80 yrs Dept: [id number] Sex: F ACC: [id number]: Verona Gross Pat [...] ed by:: KAROL MEADE M.D. Sept2020 13:16 [facility] [address] [facility] [address], [place], [address], 02/23/2021 17:57:31 03/08/20 22 03/08/2022 , [facility] [place] [facility] [address] [facility], [address] [phone] PATIEN T: KIMBERLEY RIVERA [birth year] : 1940 Age: 81 yrs Dept: [id number] Sex: F ACC: [id number]: Verona Gross Pat [...] M.D. Report ed by:: MADISON PATTERSON M.D. [facility] 2021 09:45 [facility] [address] [facility] [address], [place], [address], 03/15/2022 13:50:23 Result Notes None recorded. 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 Procedures Surgical History Date Name Laterality Status Provider Name and Address Organization Details Recorded Time 06/19/19 Most Recent Mammogram completed [facility] 08/20/2020 09:18:49 total abdominal hysterectomy with bilateral salpingo-oophore ctomy completed Omar Gross MD [address] [place] [address],[address], [place], [address], [facility] 08/20/2020 09:33:38 Breast Implants completed Omar Gross MD [address] [place] [address],[address], [place], [place], [address] [place] [address] 08/20/2020 09:33:52 implantation of electronic stimulator of spine completed Omar Gross MD [address] [place] [address],[address], [place], [place], [address] [place] [address], [facility] 08/20/2020 09:34:03 Breast Surgery (Lumpectomy, Biopsy, Implants) [facility] 03/18/2021 15:10:01 Hysterectomy completed Marcela Sanjuanita [facility] 03/18/2021 15:10:01 Back Surgery completed Marcela [place] [facility] 03/18/2021 15:10:01 Imaging Results Imaging Date Name Status LastModified by Organiz ation Details LastModified Time 08/16/2020 CT, abdomen + pelvis, w/ contrast completed BAR[facility] Information not available 08/20/2020 13:13:23 02/23/2021 CT, abdomen, w/wo contrast completed [facility] [address], [place], [address], 02/23/2021 17:57:31 03/08/2022 US, kidney completed [facility] [address], [place], [address], 03/15/2022 13:50:23 Procedure Notes None recorded. Medical Equipment None Reported. Allergies Allergen ID Allergen Name Allergen Category Reaction Reaction Severity Criticality Documentation Date Start Date Code Code System Note Provider Name and Address Organization Details Recorded Time 356005 fire ant environme nt itching Not available Not available 03/17/2022 96341 UNK Marcela [facility] 2 15:27:55 796075 POLLEN EXTRACTS environme nt,medica tion Not available Not available Not available 03/17/2022 66019 6 RxNorm Marcela [facility] 2 15:27:55 Medications Name Sig Start Date [...] 1 97.7 [degF] 160.02 cm 23.9 kg/m2 82996.9 7 g 67 /min 99 % 99 % 144 mm[Hg] 72 mm[Hg] [facility] 1 09:26:28 Date Recorded Body height Body mass index (BMI) Body weight Heart rate Oxygen saturation Oxygen saturation in Arterial blood by Pulse oximetry Systolic blood pressure Diastolic blood pressure Provider Name and Address Organization Details Last Updated DateTime 1 160.02 cm 23.7 kg/m2 39845.3 8 g 81 /min 98 % 98 % 134 mm[Hg] 70 mm[Hg] Marcela [facility] 1 15:14:10 Date Recorded Body height Body mass index (BMI) Body weight Systolic blood pressure Diastolic blood pressure Provider Name and Address Organization Details Last Updated DateTime 03/17/2022 160.02 cm 22.7 kg/m2 18684.82 g 120 mm[Hg] 64 mm[Hg] Marcela [facility] 2 15:30:27 Social History Question Answer Notes LastModified by Organizat ion Details LastModified Time Tobacco Smoking Status [facility] 08/20/2020 09:19:40 Do You Have An Advance [...] available 03/17/2022 14:54:50 Medical History Condition Response High Blood Pressure (Hypertension) Y Anxiety Y Back/Neck Pain Y Arthritis Y Cancer (If yes, specify type) Y Urinary Problem Y Gynecological History Statement/Question Response Most Recent Mammogram 06/19/2019 Date of LMP 06/19/1972 Obstetrics History GPAL:G 0 P 0 0 0 0 Past Encounters Encounter ID Performer Location Encounter Start Date Encounter Closed Date Diagnosis/Indication Diagnosis SNOMED-CT Code Diagnosis ICD10 Code Diagnosis Note [id number] Omar Gross MD [facility] [place] [address] [facility] ,[address] [place] [address] 08/20/2020 08:53:25 08/20/2020 10:05:05 Neoplasm of uncertain behavior of left kidney [id number] 77854 D41.02 It is a very small lesion. 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 We discussed the options. Those options include observatio n versus partial nephrectom y versus ablation. Due to its tiny size, I would recommend observatio n for a little while. [id number] [facility] [address] [place] [address] 03/18/2021 15:08:23 03/18/2021 15:40:47 Complex renal cyst [id number] 9008509 N28.1 The lesions appear to be more cystic. I believe we can do an ultrasound in a year. [id number] MD NANCY [facility] [place] [address],[facility] [address] [place] [address] 03/17/2022 14:54:48 03/17/2022 15:50:43 Complex renal cyst [id number] 9809098 N28.1 Lesions appear to be cystic on [...] [place] [employer] Joyce E Jerome [id number] Joyce Jerome 03/18/2021 1 [place] [employer] Joyce E Jerome [id number] Joyce Jerome 03/17/2022 1 [place] [employer] Joyce E Jerome [id number] Joyce Jerome 03/17/2022 2 WPS - FOR LIFE (MEDICARE SUPPLEMENT) Joyce Cano [id number] Joyce Cano Notes Date Note Type Note [...] to the contrast timing. Omar Gross MD [address] [place] [address],[address], [place], [address], [facility] 08/20/2020 09:57:52 03/18/2021 text/html Is a follow-up visit for renal lesion. She recently had a CT scan. The study was reviewed. She has multiple cysts. They appear to be hemorrhagic type cyst. She has not had flank pain or hematuria. Omar Gross MD [address] [place] [address],[address], [place], [address], [facility] 03/18/2021 15:41:03 03/17/2022 text/html Follow-up visit for renal cyst. She has been doing well. No flank pain or hematuria. No urinary tract infections. No incontinence. Ultrasound was reviewed. Benign cysts in the left kidney Omar Gross MD [address] [place] [address],[address], [place], [address], [facility] 03/17/2022 15:54:29 OBGyn Episode No OBEpisode recorded.
--- OUTSIDE RECORDS SUMMARY | 2024-10-13 11:20 | XMS_ITS | Clinical Summary ---
Author Organization [facility] Address [address] [place] [address] Care Team Providers Care Parish Visitor Name Role Phone Jose Vergara MD Primary Care Provider [phone] Allergies No known active allergies Medications chlorthalidone (HYGROTEN) 25 MG tablet Take 1 tablet (25 mg total) by mouth daily. Active escitalopram (LEXAPRO) 20 MG tablet Take 1 tablet (20 mg total) by mouth daily. Active Ueah-Cspampmem-T en-Methyl Donaldo (ELPF-MLMCK-XOBR JOE) 0.5-0.035-5-20 % Patch Active methocarbamol (ROBAXIN) 500 MG tablet Take 1 tablet (500 mg total) by mouth 4 (four) times daily. Active buPROPion XL (WELLBUTRIN XL) 150 MG 24 hr tablet Take 1 tablet (150 mg total) by mouth daily. Active Active Problems Problem Noted Date Diagnosed Date Myelopathy ([facility]) 07/18/2024 Depressive disorder 07/16/2024 Mixed hyperlipidemia 07/16/2024 Abnormal gait 07/08/2024 Degeneration of lumbar intervertebral disc 07/08 Impairment of balance 07/08/2024 Minimal cognitive impairment 07/08/2024 Recurrent falls 07/08/2024 Scoliosis deformity of spine 07/08/2024 Urinary incontinence 07/08/2024 Vertigo 07/08/2024 Encounters Date Type Department Care Team Description 08/29/2024 9:40 AM CDT Office Visit [facility] Multispecialty Care - [address], [address] [place] [address] Bebeto Osorio MD Follow Up (Discuss surgical options ) 08/29/2024 Travel 08/27/2024 [facility] [address] [facility], [address] [place] [address] Marilyn Knight, TUNNEL KILN OPERATOR Radiology Results 08/21/2024 9:19 AM RAG SORTER - 08/21/2024 1:20 PM RAG SORTER Hospital Encounter [facility] [place] [address] Marilyn Knight, TUNNEL KILN OPERATOR Discharge Disposition: Home or Self Care (Routine Discharge) 08/21/2024 Travel 08/16/2024 [facility]phone [facility] [address], [address] [place] [address] Marilyn Knight, TUNNEL KILN OPERATOR Radiology Results (I called patient and spoke with her and herself. I relayed this information to them. Understanding was verbalized. ) 08/13/2024 8:11 AM RAG SORTER - 08/13/2024 11:59 PM RAG SORTER Hospital Encounter [facility] [address] Juaquin De Dios MD Discharge Disposition: Home or Self Care (Routine Discharge) 08/13/2024 8:11 AM RAG SORTER - 08/13/2024 3:00 PM RAG SORTER Hospital Encounter [facility] [place] [address] Marilyn Knight, TUNNEL KILN OPERATOR Discharge Disposition: Home or Self Care (Routine Discharge) 08/13/2024 Travel 08/09/2024 Orders Only [facility] [place] [address] Juaquin De Dios MD 07/30/2024 Pre-Procedure Call [facility] [place] [address] Juaquin De Dios MD Preprocedure Call 07/26/2024 [facility] [address], [address] [place] [address] Marilyn Knight, TUNNEL KILN OPERATOR 07/18/2024 2:00 PM RAG SORTER [facility] [address], [address] [place] [address] Marilyn Knight, TUNNEL KILN OPERATOR New Patient (Recurrent Falls ) 07/18/2024 Travel 07/16/2024 2:15 PM RAG SORTER Office Visit [facility] [address] [place] [address] Jose Vergara MD GrangerNicole barahona, PT Initial [...] Sex Assigned at Female 08/13/2024 8:06 AM RAG SORTER Legal Sex Female 9:13 AM RAG SORTER Gender Identity Not on file Sexual Orientation Not on file Last Filed Vital Signs Vital Sign Reading Time Taken Comments Blood Pressure 129/82 08/29/2024 9:38 AM CDT Pulse 66 08/29/2024 9:38 AM CDT Temperature 36.3 C (97.3 F) 08/29/2024 9:38 AM CDT Respiratory Rate 16 08/21/2024 11:3 0 AM RAG SORTER Oxygen Saturation 100% 08/29/2024 9:38 AM CDT [...] - 2023-2 5 season) 2024 PHQ-2 (Physician Skipwith) Completed 07/18/2024 Meningococcal B Vaccine Aged Out No l onger eligible based on patient's age to complete this topic Meningococcal Vaccine Aged Out No shavon oracio eligible based on patient's age to complete this topic RSV Immunizations Under 20 Months Aged Out No longer eligible based on patient's age to complete this topic Medical Devices Implanted Type Area Value Stream Coach Device Identifier Shelf Expiration Date Model / Serial / Lot 2 Stimulator Lead Implant Implanted:Qty: 2 Lead Implant Spine Thoracic [employer] Description:LEAD MODELS MEDT KAYE SAHU DOES NOT KNOW LEAD INFO Stimulator Implant-07/21/19 Implanted:07/2022 (Quantity not on file) Stimulator Implant Back NEVRO MODEL [id number] / [id number] / Description:NO MRI DUE TO LE AD ADAPTERS- [employer]MG VERIFIED WITH ADELINA 07/22/24 2 Stim Ulator Lead Adapters Implanted:Qty: 2 Spine Thoracic SINDYRO [id number] / / Description:LEAD ADAPTERS AR E NOT MR CONDITIONAL - NO MRI Procedures Procedure Name Priority Date/Time Associated Diagnosis Comments CT CERV SPINE POST MYELO Routine 08/21/2024 10:56 AM RAG SORTER Myelopathy ([facility]) CT LUMB SPINE POST MYELO Routine 08/21/2024 10:56 AM RAG SORTER Myelopathy (CMS/HCC HHS/HCC) CT THOR SPINE POST MYELO Routine 08/21/2024 10:56 AM RAG SORTER Myelopathy (CMS/HCC HHS/HCC) IR MYELOGRAM ENTIRE SPINE Routine 08/21/2024 10:44 AM RAG SORTER Myelopathy (CMS/HCC HHS/HCC) IR LUMB PUNCTURE DIAGNOSTIC Routine 08/13/2024 11:06 AM RAG SORTER NPH (normal pressure hydrocephalus) (CMS/HCC HHS/HCC) PLATELET COUNT, AUTO Routine 08/13/2024 8:19 AM RAG SORTER Myelopathy (CMS/HCC HHS/HCC) PARTIAL THROMBOPLASTIN TIME,PTT Routine 08/13/2024 8:19 AM RAG SORTER Myelopathy (CMS/HCC HHS/HCC) PROTHROMBIN TIME, VENOUS Routine 08/13/2024 8:19 AM RAG SORTER Myelopathy (CMS/HCC HHS/HCC) from Last 3 Months Results * CT CERV SPINE POST MYELO (08/21/2024 10:56 AM RAG SORTER) Anatomical Region Laterality Modality Spine Computed Tomogra [...] 8:42 AM Narrative 08/26/2024 8:47 AM CDT [facility] [address] [place], [place] [address] EXAMINATION:CT cervical myelogram with intrathecal contrast 08/21/2024 [...] Procedure Note Alberto Miranda MD - 08/26/2024 [facility] [address] [place], [place] [address] EXAMINATION:CT cervical myelogram with intrathecal contrast 08/21/2024 [...] MD, 08/26/2024 8:42 AM us Marilyn Knight TUNNEL KILN OPERATOR CT Final Resu lt * CT LUMB SPINE POST MYELO (08/21/2024 10:56 AM RAG SORTER) Anatomical Region Laterality Modality Spine Computed Tomogra [...] 8:13 AM Narrative 08/26/2024 8:47 AM CDT [facility] [address] [place], [place] [address] EXAMINATION:Lumbar CT myelogram with intrathecal contrast 08/21/2024 [...] Procedure Note Alberto Miranda MD - 08/26/2024 [facility] [address] EXAMINATION:Lumbar CT myelogram with intrathecal contrast 08/21/2024 [...] spaces. There is grade 1 anterolisthesis at L4/G5eeoxworlh 4 mm Spinal stimulator leads enter the [...] MD, 08/26/2024 8:13 AM us Marilyn Knight TUNNEL KILN OPERATOR CT Final Resu lt * CT THOR SPINE POST MYELO (08/21/2024 10:56 AM RAG SORTER) Anatomical Region Laterality Modality Spine Computed Tomogra [...] 8:05 AM Narrative 08/26/2024 8:47 AM CDT [facility] [address] [place], [place] [address] EXAMINATION:Thoracic CT myelogram with intrathecal contrast 08/21/2024 [...] Procedure Note Alberto Miranda MD - 08/26/2024 [facility] [address] [place], [place] [address] EXAMINATION:Thoracic CT myelogram with intrathecal contrast 08/21/2024 [...] MD, 08/26/2024 8:05 AM us Marilyn Knight TUNNEL KILN OPERATOR CT Final Resu lt * IR MYELOGRAM ENTIRE SPINE (08/21/2024 10:44 AM RAG SORTER) Anatomical Region Laterality Modality Spine Interventional R adiology, Radiographic Imaging 08/21/2024 10:3 4 AM RAG SORTER Impressions 08/21/2024 10:41 AM RAG SORTER IMPRESSION: 1. Technically successful, fluoroscopic guided whole spine myelogram with thecal sac access at the L3-4 level. 2. Post myelogram CT of the cervical, thoracic and lumbar spine to follow. Ordered By: MARILYN KNIGHT Interpreted By: Caleb Jones MD, 08/21/2024 10:34 AM Narrative 08/21/2024 10:41 AM RAG SORTER [address] [address] Procedure: IR cervical, thoracic and lumbar spine [...] procedure well. There were no immediate competitions. Press Catcher: Dr. Jones Radiation dose air Kerma: 31.77 mGy; 6 fluoroscopy images recorded Procedure Note Caleb Jones MD - 08/21/[address] [address] Procedure: IR cervical, thoracic and lumbar spine [...] procedure well. There were no immediate competitions. Press Catcher: Dr. Jones Radiation dose air Kerma: 31.77 mGy; 6 fluoroscopy images recorded IMPRESSION: 1. Technically successful, fluoroscopic guided whole spine myelogram withthecal sac access at the L3-4 [address] Post myel[address] CT of the cervical, thoracic and lumbar spine tofollow. Ordered By: MARILYN KNIGHT Interpreted By: Caleb Jones MD, 08/21/2024 10:34 AM Marilyn Knight TUNNEL KILN OPERATOR INTERVENTIONAL RADIOLOGY F inal Result * IR LUMB PUNCTURE DIAGNOSTIC (08/13/2024 11:06 AM RAG SORTER) Anatomical Region Laterality Modality Spine Interventional R adiology, Radiographic Imaging, Radiographic Imaging 08/13/2024 3:37 PM RAG SORTER Impressions 08/13/2024 3:50 PM RAG SORTER =====IMPRESSION:===== 1. Successful lumbar puncture with removal of 25 mL of clear CSF. 2. Opening pressure 15 mmH2O. Ordered By: MARILYN KNIGHT Interpreted By: Andres Barrett MD, 08/13/2024 3:37 PM Narrative 08/13/2024 3:50 PM RAG SORTER [address] [address] EXAMINATION: Lumbar puncture EXAM DATE/TIME: 08/13/2024 9:54 [...] Procedure Note Andres Barrett MD - 08/13/[address] [address] EXAMINATION: Lumbar puncture EXAM DATE/TIME: 08/13/2024 9:54 [...] Barrett MD, 08/13/2024 3:37 PM Marilyn Knight TUNNEL KILN OPERATOR INTERVENTIONAL RADIOLOGY F inal Result * PLATELET COUNT, AUTO (08/13/2024 8:19 AM RAG SORTER) PLT 328 130 - 400 x10'3/uL 08/13/2024 8:28 AM RAG SORTER [facility] MPV 10.0 9.3 - 12.2 FL 08/13/2024 8:28 AM RAG SORTER [facility] 08/13/2024 8:19 AM RAG SORTER Juaquin De Dios MD LABORATORY Final Res ult Performing Organization Address [facility]/ZIP Co de Phone Number [facility] [address] [place] [address], [place] [phone] * PTT, PARTIAL THROMBOPLASTIN TIME (08/13/2024 8:19 AM RAG SORTER) Pathologist [facility] PTT 28.8 25.1 - 36.5 SEC 08/13/2024 8:46 AM RAG SORTER [facility] 08/13/2024 8:19 AM RAG SORTER Juaquin De Dios MD LABORATORY Final Res ult [facility] [address] [place] [address], [place] [phone] * PROTIME/INR, VENOUS (08/13/2024 8:19 AM RAG SORTER) Pathologist [facility] PROTIME 10.5 10.2 - 12.9 SEC 08/13/2024 8:46 AM RAG SORTER [facility] INR 0.9 08/13/2024 8:46 AM RAG SORTER [facility] Comment: Recommended INR Therapeutic Goals: 2.0-3.0 Routine Therapy 2.5-3.5 Mechanical Prosthetic Valves (High Risk) 08/13/2024 8:19 AM RAG SORTER us Juaquin De Dios MD LABORATORY Final Res ult [facility] [address] [place] [address], from Last 3 Months Insurance [facility] MEDICARE Care Teams Parish Visitor Relationship Specialty Start Date End Date Jose Vergara MD [address] [facility] [address] [place] [address] PCP - General INTERNAL MEDICINE 08/13/24
--- OUTSIDE RECORDS SUMMARY | 2024-10-13 11:20 | XMS_ITS | Data Portability ---
Author Organization [place] - [facility], [facility] Address [address] [facility] [address] [place] [address] Assessment No assessment recorded. Plan of Treatment Reminders Order Date Submit Date Provider Last Modified By Organization Details Last Modified Time Details Appointments Follow Up 15 2024 10:30A M Jose Vergara MD Not available Not available Not available Lab CBC w/ auto diff 2024 025 SHANNON Not available 07/12/2024 10:10:36 CMP, serum or plasma 2024 025 SHANNON Not available 07/12/2024 10:10:36 vitamin D, 25-hydrox y, total, serum 2024 025 SHANNON Not available 07/12/2024 10:10:38 lipid panel, serum 2024 025 SHANNON Not available 07/17/2024 04:03:13 HbA1c (hemoglob in A1c), blood 2024 025 SHANNON Not available 07/12/2024 10:10:39 urinalysi s, complete 2024 025 SHANNON Not available 07/17/2024 04:03:13 urinalysi s complete, reflex culture 2024 025 SHANNON Not available 07/17/2024 04:03:13 lipid panel, serum 2024 025 SHANNON Not available 07/12/2024 10:10:35 TSH, serum or plasma 2024 025 SHANNON Not available 07/12/2024 10:10:37 vitamin B12 + folate, serum or blood 2024 025 SHANNON Not available 07/12/2024 10:10:38 RPR (rapid plasma reagin), serum 2024 025 SHANNON Not available 07/12/2024 10:10:[address] referral 2024 025 HONEY Stark MD, [address] [facility], [address], [place], [address], 10/02/2024 12:45:24 neurologi serena surgeon referral 2024 025 SHANNON Osorio MD, [address] [facility], [address], [place], [address], 09/11/2024 15:41:[address] referral 2024 025 SHANNON Stark MD, [address] [facility], [address], [place], [address], 09/11/2024 15:40:06 physical therapist referral [address] (Outpatient Physical Therapy/Work Conditioning) , [address] [facility], [place], [address], 08/14/2024 15:00:02 occupatio nal therapist referral 2024 025 [facility] Outpatient [facility] Therapy, [address], [address], [place], [address], 07/16/2024 04:03:53 Procedures None recorded. Surgeries None recorded. Imaging None recorded. Medication Orders methocarb sri 750 mg tablet 2024 025 SHANNON [facility], [address] [place] [address], [address], 10/02/2024 12:33:16 tramadol 50 mg tablet 2024 025 [facility], [address] [place] [address], [address], 10/02/2024 12:33:17 methocarb sri 500 mg tablet 2024 025 [place] [address] 7 [facility], [address] [place] [address], [address], 10/02/2024 12:33:31 Wellbutri n XL 150 mg 24 hr tablet, extended release 2024 025 [facility], [address] [place] [address], [address], 08/14/2024 15:37:15 escitalop karen 20 mg tablet 2024 025 [facility], [address] [place] [address], [address], 07/17/2024 17:41:48 Patient TargetsNo targets recorded. Patient Instructions Encounter Date Encounter Id Patient Instructions Last Modified By Organization Details Last Modified Time 07/09/2024 [id number] Stress Incontinence: Care Instructions [email or web address] Not available 07/09/2024 18:19:39 I spent a total of _46 minutes (excluding separately reportable procedure time ) in care of this patient. [email or web address] Not available 07/09/2024 18:19:56 07/17/2024 [id number] Stress Incontinence: Care Instructions [email or web address] Not available 07/17/2024 17:41:43 learning about mood disorders [email or web address] Not available 07/17/2024 17:41:43 08/14/2024 [id number] Stress Incontinence: Care Instructions [email or web address] Not available 08/14/2024 15:37:11 learning about mood disorders [email or web address] Not available 08/14/2024 15:37:11 I spent a total of _32 minutes (excluding separately reportable procedure time ) in care of this patient. [email or web address] Not available 08/14/2024 15:36:02 10/02/2024 [id number] Stress Incontinence: Care Instructions [email or web address] Not available 10/02/2024 12:33:14 learning about mood disorders [email or web address] Not available 10/02/2024 12:33:14 I spent a total of ___37___ minutes (excluding separately reportable procedure time ) in care of this patient. [email or web address] Not available 10/02/2024 12:31:46 Reason for Referral Neurological Surgeon Referra l for Recurrent falls Referring Physician: Jose Vergara, Internal Medicine, Encounter Date: 07/09/2024 Physical Therapist Referral for Impairment of balance Referring Physician: Jose Vergara Internal Medicine, Encounter Date: 07/09/2024 Occupational Therapist Refer ral for Impairment of balance Referring Physician: Jose Vergara Internal Medicine, Encounter Date: 07/09/2024 Neurologist Referral for Rec urrent falls Referring Physician: Jose Vergara Internal Medicine, Encounter Date: 07/09/2024 Neurologist Referral for Min imal cognitive impairment Referring Physician: Jose Vergara Internal Medicine, Encounter Date: 10/02/2024 Results Created Date Observation Date Name Description Value Unit Range Abnormal Flag Note LastModifiedBy Organization Detail LastModifiedTime 07/11/1907/12/2024 LIPID PANEL , STAND JEAN-CLAUDE cholesterol, total 215 mg/dL <200 high Not Available [facility] [address] [place], [address], 07/12/2024 10:10:35 07/11/19 25 07/12/2024 LIPID PANEL , STAND JEAN-CLAUDE HDL cholesterol 73 mg/dL > or = 50 normal Not Available [facility] [address] [place], [address], 07/12/2024 10:10:35 07/11/19 25 07/12/2024 LIPID PANEL , STAND JEAN-CLAUDE triglyceride s 78 mg/dL <150 normal Not Available [facility] [address] [place], [address], 07/12/2024 10:10:35 07/11/19 25 07/12/2024 LIPID PANEL , STAND JEAN-CLAUDE LDL-choleste rol 125 mg/dL _(serena c) high Refer ence range : <100 Destini able range <100 mg/dL for prima ry preve ntion ; <70 mg/dL for patie nts with CHD or diabe tic patie nts with > or = 2 CHD risk facto rs. LDL-C is now calcu lated using the Ana Maria n-Hop kins calcu nikhil n, which is a valid ated novel metho d walter graves accur acy than the Fried saji equat ion in the estim ation of LDL-C . Ana Maria mascorro SS et al. ESTELLA. 2013; 310(1 9): 2061- 2068 (http ://ed ucati on.Qu Mariajose eTruck. com/f aq/FA Q164) Not Available [facility] [address] [address], [place], [address], 07/12/2024 10:10:35 07/11/19 25 07/12/2024 LIPID PANEL , STAND JEAN-CLAUDE chol/HDLC ratio 2.9 (calc ) <5.0 normal Not Available [facility] [address] [place], [address], 07/12/2024 10:10:35 07/11/19 25 07/12/2024 LIPID PANEL , STAND JEAN-CLAUDE non HDL cholesterol 142 mg/dL _(serena c) <130 high For patie nts with diabe emiliano plus 1 major ASCVD risk facto r, treat ing to a non-H DL-C goal of <100 mg/dL (LDL- C of <70 mg/dL ) is consi dered a thera peuti c optio n. Not Available [facility] [address] [place], [address], 07/12/2024 10:10:35 07/11/19 25 07/12/2024 COMPR EHENS REGULO METAB OLIC PANEL glucose 94 mg/dL 65-99 normal Fasti ng refer ence inter saundra Not Available [address], [address], 07/12/2024 10:10:36 07/11/19 25 07/12/2024 COMPR EHENS REGULO METAB OLIC PANEL urea nitrogen (BUN) 34 mg/dL 7-25 high Not Available [address], [address], 07/12/2024 10:10:36 07/11/19 25 07/12/2024 COMPR EHENS REGULO METAB OLIC PANEL creatinine 1.29 mg/dL 0.60-0 .95 high Not Available [address], [address], 07/12/2024 10:10:36 07/11/19 25 07/12/2024 COMPR EHENS REGULO METAB OLIC PANEL eGFR 42 mL/mi n/1.7 3m2 > or = 60 low Not Available [address], [address], 07/12/2024 10:10:36 07/11/19 25 07/12/2024 COMPR EHENS REGULO METAB OLIC PANEL BUN/creatini ne ratio 26 (calc ) 6-22 high Not Available [address], [address], 07/12/2024 10:10:36 07/11/19 25 07/12/2024 COMPR EHENS REGULO METAB OLIC PANEL sodium 135 mmol/ L 135-14 6 normal Not Available [address], [address], 07/12/2024 10:10:36 07/11/19 25 07/12/2024 COMPR EHENS REGULO METAB OLIC PANEL potassium 3.6 mmol/ L 3.5-5. 3 normal Not Available [facility] [place] [address] [place], [address], 07/12/2024 10:10:36 07/11/19 25 07/12/2024 COMPR EHENS REGULO METAB OLIC PANEL chloride 96 mmol/ L 98-110 low Not Available [address] [place] [address] [place], [address], 07/12/2024 10:10:36 07/11/19 25 07/12/2024 COMPR EHENS REGULO METAB OLIC PANEL carbon dioxide 30 mmol/ L 20-32 normal Not Available [address], [address], 07/12/2024 10:10:36 07/11/19 25 07/12/2024 COMPR EHENS REGULO METAB OLIC PANEL calcium 10.4 mg/dL 8.6-10 .4 normal Not Available [address] [place], [address], 07/12/2024 10:10:36 07/11/19 25 07/12/2024 COMPR EHENS REGULO METAB OLIC PANEL protein, total 6.9 g/dL 6.1-8. 1 normal Not Available [address], [address], 07/12/2024 10:10:36 07/11/19 25 07/12/2024 COMPR EHENS REGULO METAB OLIC PANEL albumin 4.6 g/dL 3.6-5. 1 normal Not Available [facility] [place] [address] [place], [address], 07/12/2024 10:10:36 07/11/19 25 07/12/2024 COMPR EHENS REGULO METAB OLIC PANEL globulin 2.3 g/dL_ (calc ) 1.9-3. 7 normal Not Available [address] [place], [address], 07/12/2024 10:10:36 07/11/19 25 07/12/2024 COMPR EHENS REGULO METAB OLIC PANEL albumin/glob ulin ratio 2.0 (calc ) 1.0-2. 5 normal Not Available [address], [address], 07/12/2024 10:10:36 07/11/19 25 07/12/2024 COMPR EHENS REGULO METAB OLIC PANEL bilirubin, total 0.3 mg/dL 0.2-1. 2 normal Not Available [address], [address], 07/12/2024 10:10:36 07/11/19 25 07/12/2024 COMPR EHENS REGULO METAB OLIC PANEL alkaline phosphatase 53 U/L 37-153 normal Not Available [address], [address], 07/12/2024 10:10:36 07/11/19 25 07/12/2024 COMPR EHENS REGULO METAB OLIC PANEL AST 13 U/L 10-35 normal Not Available [address], [address], 07/12/2024 10:10:36 07/11/19 25 07/12/2024 COMPR EHENS REGULO METAB OLIC PANEL ALT 8 U/L 6-29 normal Not Available [address], [address], 07/12/2024 10:10:36 07/11/19 25 07/12/2024 CBC (INCL UDES DIFF/ PLT) white blood cell count 8.6 thous and/u L 3.8-10 .8 normal Not Available [address], [address], 07/12/2024 10:10:36 07/11/19 25 07/12/2024 CBC (INCL UDES DIFF/ PLT) red blood cell count 4.29 ever on/uL 3.80-5 .10 normal Not Available [address], [address], 07/12/2024 10:10:36 07/11/1907/12/2024 CBC (INCL UDES DIFF/ PLT) hemoglobin 11.2 g/dL 11.7-1 5.5 low Not Available [facility] [address], [address], 07/12/2024 10:10:36 07/11/1907/12/2024 CBC (INCL UDES DIFF/ PLT) hematocrit 36.0 % 35.0-4 5.0 normal Not Available [address], [address], 07/12/2024 10:10:36 07/11/1907/12/2024 CBC (INCL UDES DIFF/ PLT) MCV 83.9 fL 80.0-1 00.0 normal Not Available [address], [address], 07/12/2024 10:10:36 07/11/1907/12/2024 CBC (INCL UDES DIFF/ PLT) MCH 26.1 pg 27.0-3 3.0 low Not Available [address], [address], 07/12/2024 10:10:36 07/11/1907/12/2024 CBC (INCL UDES DIFF/ PLT) MCHC 31.1 g/dL 32.0-3 6.0 low For adult s, a sligh t decre ase in the calcu lated MCHC value (in the range of 30 to 32 g/dL) is most likel y not clini ron signi nikita t; deepthi er, it shoul d be inter prete d with cauti on in corre latio n with other red cell julian eters and the patie nt's clini serena condi tion. Not Available [facility] - [address], [address], 07/12/2024 10:10:36 07/11/19 25 07/12/2024 CBC (INCL UDES DIFF/ PLT) RDW 14.1 % 11.0-1 5.0 normal Not Available [address], [address], 07/12/2024 10:10:36 07/11/19 25 07/12/2024 CBC (INCL UDES DIFF/ PLT) platelet count 386 thous and/u L 140-40 0 normal Not Available [facility] [address], [address], 07/12/2024 10:10:36 07/11/19 25 07/12/2024 CBC (INCL UDES DIFF/ PLT) MPV 10.9 fL 7.5-12 .5 normal Not Available [address], [address], 07/12/2024 10:10:36 07/11/19 25 07/12/2024 CBC (INCL UDES DIFF/ PLT) absolute neutrophils 4782 cells /uL 1500-7 800 normal Not Available [address], [address], 07/12/2024 10:10:36 07/11/19 25 07/12/2024 CBC (INCL UDES DIFF/ PLT) absolute lymphocytes 1901 cells /uL 850-39 00 normal Not Available [address], [address], 07/12/2024 10:10:36 07/11/19 25 07/12/2024 CBC (INCL UDES DIFF/ PLT) absolute monocytes 783 cells /uL 200-95 0 normal Not Available [facility] [address], [address], 07/12/2024 10:10:36 07/11/19 25 07/12/2024 CBC (INCL UDES DIFF/ PLT) absolute eosinophils 1041 cells /uL 15-500 high Not Available [address], [address], 07/12/2024 10:10:36 07/11/19 25 07/12/2024 CBC (INCL UDES DIFF/ PLT) absolute basophils 95 cells /uL 0-200 normal Not Available [address], [address], 07/12/2024 10:10:36 07/11/19 25 07/12/2024 CBC (INCL UDES DIFF/ PLT) neutrophils 55.6 % normal Not Available [address], [address], 07/12/2024 10:10:36 07/11/19 25 07/12/2024 CBC (INCL UDES DIFF/ PLT) lymphocytes 22.1 % normal Not Available [address], [address], 07/12/2024 10:10:36 07/11/19 25 07/12/2024 CBC (INCL UDES DIFF/ PLT) monocytes 9.1 % normal Not Available [address], [address], 07/12/2024 10:10:36 07/11/19 25 07/12/2024 CBC (INCL UDES DIFF/ PLT) eosinophils 12.1 % normal Not Available [facility] [address], [address], 07/12/2024 10:10:36 07/11/19 25 07/12/2024 CBC (INCL UDES DIFF/ PLT) basophils 1.1 % normal Not Available [address], [address], 07/12/2024 10:10:36 07/11/19 25 07/12/2024 TSH TSH 1.24 mIU/L 0.40-4 .50 normal Not Available [address] [address] [place], [address], 07/12/2024 10:10:37 07/11/19 25 07/12/2024 VITAM IN B12/F OLATE , SERUM PANEL vitamin B12 975 pg/mL 200-11 00 normal Not Available [address] [address] [place], [address], 07/12/2024 10:10:38 07/11/19 25 07/12/2024 VITAM IN B12/F OLATE , SERUM PANEL folate, serum 11.8 NG/mL normal Refer ence Range Low: <3.4 Borde rline : 3.4-5 .4 Bertha l: >5.4 Not Available [address] [address] [place], [address], 07/12/2024 10:10:38 07/11/19 25 07/12/2024 VITAM IN D,25- OH,TO DONNA,I A vitamin D,25-oh,tota l,ia 52 NG/mL 30-100 normal Vitam in D Statu s 25-OH Vitam in D: Defic iency : <20 ng/mL Insuf ficie ncy: 20 - 29 ng/mL Optim al: > or = 30 ng/mL For 25-OH Vitam in D testi ng on patie nts on D2-orr pplem entat ion and patie nts for whom quant itati on of D2 and D3 fract ions is requi red, the [facility](TM ) 25-OH VIT D, (D2,D 3), LC/MS /MS is recom adelina d: order code 21596 (anthony ents >2yrs ). See Note 1 Note 1 For addit ional infor laura cordova refer to http: //kaylee Jaquez stDia gnost ics.c om/fa q/FAQ 199 (This link is being provi ded for infor digna puente/ tere sumner purpo ses only. ) Not Available [address] [address] [place], [address], 07/12/2024 10:10:38 07/11/19 25 07/12/2024 HEMOG LOBIN A1C hemoglobin A1C 5.8 %_of_ total _HGB <5.7 high For someo ne witho ut known diabe emiliano, a hemog lobin A1c value betwe en 5.7% and 6.4% is consi stent with predi abete s and shoul d be confi rmed with a follo w-up test. For someo ne with known diabe emiliano, a value <7% indic ates that their diabe emiliano is well contr olled . A1c targe ts shoul d be indiv idual ized based on durat ion of diabe emiliano, age, comor bid condi tions , and other consi derat ions. This assay resul t is consi stent with an incre ased risk of diabe emiliano. Curre ntly, no conse nsus exist s regar alexandre use of hemog lobin A1c for diagn osis of diabe emiliano for child dayana. Not Available [facility] [address] [place], [place] [address], [address], 07/12/2024 10:10:39 07/11/19 25 07/12/2024 RPR, BLANCA RITAL W/REF L TITER RPR, premarital w/refl titer NON-RE ACTIVE non-re active normal Not Available [facility] [address] [place], [address], 07/12/2024 10:10:39 08/13/19 25 08/13/2024 lumba r punct ure (PROC ) No observ ation record ed. [address], [address], 08/14/2024 15:16:44 08/22/19 25 08/21/2024 RF, myelo gram, spine No observ ation record ed. [address], [place], [address], 10/02/2024 12:08:55 08/27/19 25 08/26/2024 CT, cervi serena spine , post- myelo gram No observ ation record ed. [address] [facility], [place], [address], 10/02/2024 12:08:55 08/27/19 25 08/26/2024 CT, thora cic spine , post- myelo gram No observ ation record ed. [address]: Pulmonology 1 [place], [address], 10/02/2024 12:08:55 08/27/19 25 08/26/2024 CT, lumba r spine , post- myelo gram No observ ation record ed. [address] [facility], [place], [address], 10/02/2024 12:08:55 Result Notes None recorded. Problems Name Problem SNOMED Code Status Onset Date Resolution Date Notes Provider Name and Address Organization Details Recorded Time Impairmen t of balance 667720555 Active 2024 Jose Vergara MD [address] [facility] [address], [place], [address], [facility] 5 18:14:33 Recurrent falls 339026075 Active 2024 Jose Vergara MD [address], [facility], [address], [facility] 5 18:14:40 Abnormal gait 49519466 Active 2024 Jose Vergara MD [address] [facility], [place], [address], [facility] 5 18:16:19 Degenerat ion of lumbar intervert ebral disc 40823923 Active 2024 Jose Vergara MD [address] [facility] [address], [place], [address], [facility] 5 18:16:26 Scoliosis deformity of spine 252421173 Active 2024 Jose Vergara MD [address] [facility] [address], [place], [address], [facility] 5 18:17:10 Urinary incontine nce 550640201 Active 2024 Jose Vergara MD [address] [facility] [address], [place], [address], [facility] 5 18:18:33 Minimal cognitive impairmen t 316767424 Active 2024 Jose Vergara MD [address] [facility] [address], [place], [address], [facility] 5 18:18:40 Vertigo 749765385 Active 2024 Jose Vergara MD [address] [facility] [address], [place], [address], [facility] 5 18:19:44 Depressiv e disorder 03423749 Active 2024 Jose Vergara MD [address] [facility] [address], [place], [address], [facility] 5 17:37:32 Mixed hyperlipi demia 675377760 Active 2024 Jose Vergara MD [address] [facility] [address], [place], [address], [facility] 5 17:40:40 Spinal cord disease 55286069 Completed 202407/18/2024 Caty Woody [facility] 5 11:39:41 Unsteady when walking 57306247 Active 2024 Caty Ecanaya [facility] 5 11:46:37 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, [place], [address], [facility] 5 13:16:02 Cyst of kidney 419371566 Active 2024 Jose Vergara MD [address] 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, [place], [address], [facility] 5 13:19:37 Foreign body in ear 24599996 Active 2024 Brionna Dall [facility] 5 11:29:20 Impacted cerumen of bilateral ears 512643428353 9108 Active 2024 Brionna Dall [facility] 5 11:30:14 Problem Notes None recorded. Procedures Surgical History Date Name Laterality Status Provider Name and Address Organization Details Recorded Time 06/19/18 70 Breast [facility] w/implt [facility] 07/09/2024 17:10:23 06/19/18 65 Hysterectomy completed [facility] 07/09/2024 17:10:57 Imaging Results Imaging Date Name Status LastModified by Organiz ation Details LastModified Time 08/13/2024 lumbar puncture (PROC) completed [address], [place], [address], 08/14/2024 15:16:44 08/21/2024 RF, myelogram, spine completed [address], [place], [address], 10/02/2024 12:08:55 08/26/2024 CT, cervical spine, post-myelogra m completed [address] 1 [place], [address], 10/02/2024 12:08:55 08/26/2024 CT, thoracic spine, post-myelogra m completed [address]: Pulmonology 1 [place], [address], 10/02/2024 12:08:55 08/26/2024 CT, lumbar spine, post-myelogra m completed [address], [address], 10/02/2024 12:08:55 Procedure Notes None recorded. Medical Equipment None Reported. Allergies Allergen ID Allergen Name Allergen Category Reaction Reaction Severity Criticality Documentation Date Start Date Code Code System Note Provider Name and Address Organization Details Recorded Time 2584 No known allergy (situatio n) Not available Not available Not available Not available 10/02/2024 81888 6003 SNOMED Caty niño [facility] 11:39:22 Medications Name Sig Start Date Stop Date Status Note LastModified by Organization Details LastModified Time methocarbam ol 500 mg tablet Take 500 mg 4 times a day by oral route. 10/02 completed Not Available Not Available Not Available chlorthalid one 25 mg tablet 25 mg by oral route. active Not Available Not Available No t Available tramadol 50 mg tablet Take 1 tablet every day by oral route as needed. 2024 active Not Available Not Available Not Avai lable methocarbam ol 750 mg tablet Take 1 tablet every 6 hours by oral route as needed. 2024 active Not Available Not Available Not Avai lable escitalopra m 10 mg tablet Take 1 tablet every day by oral route. 07/17 completed Not Available Not Available Not Available escitalopra m 20 mg tablet 20 mg by oral route. active Not Available Not Available No t Available Wellbutrin XL 150 mg 24 hr tablet, extended release Take 1 tablet every day by oral route. 2024 active Not Available Not Available Not Avai lable triamcinolo ne active Not Available Not Available Not Available diclofenac 1 % topical gel APPLY 2 GRAMS TO THE AFFECTED AREA(S) BY TOPICAL ROUTE 4 TIMES PER DAY active Not Available Not Available No t Available denosumab active Not Available Not Paola ilable Not Available lidocaine 0.5 %-me.salicy l 20 %-capsai 0.035 %-menth 5 % topical patch active Not Available Not Available Not Available L.E.T.(lido jarad-epine phrine-tetr acaine) 4 %-0.05 %-0.5 % topical soln active Not Available Not Available Not Available Vitals Date Recorded Body temperature Body height Body mass index (BMI) Body weight Heart rate Respiratory rate Oxygen saturation Oxygen saturation in Arterial blood by Pulse oximetry Systolic blood pressure Diastolic blood pressure Provider Name and Address Organization Details Last Updated DateTime 5 98.4 [degF] 160.02 cm 18.1 kg/m2 62265.4 2 g 106 /min 18 /min 96 % 96 % 130 mm[Hg] 70 mm[Hg] Caty Woody [facility] 5 16:53:31 Date Recorded Body height Body mass index (BMI) Body weight Body temperature Heart rate Respiratory rate Oxygen saturation Oxygen saturation in Arterial blood by Pulse oximetry Systolic blood pressure Diastolic blood pressure Provider Name and Address Organization Details Last Updated DateTime 5 160.02 cm 18.4 kg/m2 87290.6 1 g 96.7 [degF] 57 /min 15 /min 97 % 97 % 157 mm[Hg] 85 mm[Hg] Brionna Myers [facility] 5 15:09:14 Date Recorded Body height Body temperature Body mass index (BMI) Body weight Heart rate Respiratory rate Oxygen saturation Oxygen saturation in Arterial blood by Pulse oximetry Systolic blood pressure Diastolic blood pressure Provider Name and Address Organization Details Last Updated DateTime 5 160.02 cm 97.4 [degF] 18.8 kg/m2 42968.7 9 g 84 /min 18 /min 97 % 97 % 142 mm[Hg] 70 mm[Hg] Caty Woody [facility] 5 11:38:59 Social History None recorded. Functional Status None recorded. Mental Status None recorded. Family History Nothing Reported Notes:father-hypertension, d iabetes, Medical History No medical history recorded. Gynecological HistoryNo gynecological history recorded. Obstetrics History GPAL:G 0 P 0 0 0 0 Past Encounters Encounter ID Performer Location Encounter Start Date Encounter Closed Date Diagnosis/Indication Diagnosis SNOMED-CT Code Diagnosis ICD10 Code Diagnosis Note [id number] Jose Vergara MD [facility] [address] [facility] [address] [place] [address] 07/09/2024 15:40:34 07/09/2024 18:24:06 Impairment of balance 118122905 R26.89 suspect related to peripheral neuropathy ,recent ct head reportedHa s hydrocepha elise howeverThe results are not available for reviewWe will refer to neurologyA lso will refeer to physical therapy and occupation al therapy Recurrent falls 79005306 2 R29.6 Rukhsana PTOTNeurol ogy referralCh [facility] Abnormal gait 64452588 R 26.9 Likely due to peripheral neuropathy or related to chronic back pain/lumba r spinal stenosis Degenerati on of lumbar intervertebral disc 60440965 M51.369 Diagnoses of chronic back pain related to lumbar degenerati ve disc diseease and scoliosisS een pain management in the pastStatus post back stimulator a few yearss ago which they are not sure if it is functional Scoliosis deformity of spine 385284929 M41.9 Noted scoliosis of the spine Adult heal th examination 526501602 Z00.00 diet and physical activity reviewedva ccines and screening tests reviewedme dication reviewed Hyperlipid emia screening 318847861 Z13.220 Check lipid panel Urinary incontinence 165 595528 R32 On and off urinary incontinen ceHistory of use of oxybutynin which did nnot help Minimal co gnitive impairment 179228251 R41.89 Noted mild cognitive impairment on evaluation Check vitamin B112 and folate check RPRNeurolo gy referralWi th hydrocepha elise will also need to rule out normal Pressure hydrocepha lusParticu larly with history of fallsNeuro logy referral Vertigo 368821684 R42 On and off vertigo reportedCT head with hydrocepha elise will get reports [id number] Jose Vergara MD [facility] [address] [facility] [address] [place] [address] 07/17/2024 16:29:36 07/17/2024 17:43:27 Depressive disorder 54296448 F32.A ongoing And worseningS he has been on escitalopr am for a whileNo SI or HIDiscusse d options with the patientWil l increase citalopram to 20 mg daily.She is agreeable with the plan. Impairment of balance 38 6758051 R26.89 suspect related to peripheral neuropathy ,recent ct head reportedHa s hydrocepha elise howeverThe results are not available for reviewRefe rred to neurologyI n going to see tomorrowAl so will refeer to physical therapy and occupation al therapyWe will need to get record of CT headShe is seeing physical therapy now Recurrent falls 77802639 2 R29.6 Ordered PTOTNeurol ogy referralRP R negative vitamin B12 and folate negative Abnormal gait 72183681 R 26.9 Likely due to peripheral neuropathy or related to chronic back pain/lumba r spinal stenosis Degenerati on of lumbar intervertebral disc 48069757 M51.369 Diagnoses of chronic back pain related to lumbar degenerati ve disc diseease and scoliosisS een pain management in the pastStatus post back stimulator a few yearss ago which they are not sure if it is functional Scoliosis deformity of spine 991846245 M41.9 Noted scoliosis of the spine Urinary incontinence 165 843595 R32 On and off urinary incontinen ceHistory of use of oxybutynin which did nnot help Minimal co gnitive impairment 163347852 R41.89 Noted mild cognitive impairment on evaluation Normal vitamin B112 and folate RPRNegativ eNeurology referralWi th hydrocepha elise will also need to rule out normal Pressure hydrocepha lusParticu larly with history of fallsNeuro logy referral Vertigo 827007621 R42 On and off vertigo reportedCT head with hydrocepha elise will get reports Mixed hyperlipidemia 267 181047 E78.2 Lipid profiile with LDL 125 [id number] Jose Vergara MD [facility] [address] [facility] [address] [place] [address] 08/14/2024 14:37:17 08/14/2024 15:39:35 Depressive disorder 16118404 F32.A ongoing And worseningS he has been on escitalopr am for a whileNo SI or HIincrease d escitalopr am to 20 mg daily: not helpingnow she want to try wellbutrin .will lower escitalopr am 10 mg daily x one week then stopthen will start wellbutrin 150 mg daily Impairment of balance 38 2064000 R26.89 suspect related to peripheral neuropathy ,recent ct head reportedHa s hydrocepha elise howeverThe results are not available for reviewRefe rred to neurosurge ry: seen and underwent LP tap.physic al therapy currently on holdWe will need to get record of CT headct myelogram also planned Recurrent falls 44266284 2 R29.6 Ordered PTOTNeurol ogy referralRP R negative vitamin B12 and folate negative Abnormal gait 82068346 R 26.9 Likely due to peripheral neuropathy or related to chronic back pain/lumba r spinal stenosispo ssible NPH related as well.lumba r puncture drain performed 07/2024 Degenerati on of lumbar intervertebral disc 84667861 M51.369 Diagnoses of chronic back pain related to lumbar degenerati ve disc diseease and scoliosisS een pain management in the pastStatus post back stimulator a few yearss ago which they are not sure if it is functional add methoarbam ol prn for back pain Scoliosis deformity of spine 609272396 M41.9 Noted scoliosis of the spine Mixed hyperlipidemia 267 881018 E78.2 Lipid profiile with LDL 125 Urinary incontinence 165 451575 R32 On and off urinary incontinen ceHistory of use of oxybutynin which did not help Minimal co gnitive impairment 514471558 R41.89 Noted mild cognitive impairment on evaluation Normal vitamin B112 and folate RPR NegativeNe urology referralWi th hydrocepha elise will also need to rule out normal Pressure hydrocepha elise Particular ly with history of fallsNeuro logy referral Vertigo 995490049 R42 On and off vertigo reportedCT head with hydrocepha elise will get reports [id number] Jose Vergara MD [facility] [address] [facility] [address] [place] [address] 10/02/2024 11:14:31 10/02/2024 12:38:11 Depressive disorder 70318992 F32.A ongoing And worseningS he has been on escitalopr am for a whileNo SI or HIincrease d escitalopr am to 20 mg daily: not helpingnow she want to try wellbutrin .will lower escitalopr am 10 mg daily x one week then stopstarte d on wellbutrin 150 mg dailybette r Impairment of balance 38 9433281 R26.89 suspect related to peripheral neuropathy ,recent ct head reportedHa s hydrocepha elise howeverThe results are not available for reviewRefe rred to neurosurge ry: seen and underwent LP tap.physic al therapy currently on holdWe will need to get record of CT headct myelogram reviewed Recurrent falls 03622334 2 R29.6 Ordered PTOTNeurol ogy referralRP R negative vitamin B12 and folate negativect myelogram Abnormal gait 05269085 R 26.9 Likely due to peripheral neuropathy or related to chronic back pain/lumba r spinal stenosispo ssible NPH related as well.lumba r puncture drain performed 07/2024 Degenerati on of lumbar intervertebral disc 47561031 M51.369 Diagnoses of chronic back pain related to lumbar degenerati ve disc diseease and scoliosisS een pain management in the pastStatus post back stimulator a few yearss ago which they are not sure if it is functional ct lumbar myelogram: levoscolio sis. severe neuroformi anl stenosis L1-L4. mdoerate neuroformi nal stenosis. severe on left at L4/L5. mild central canal stenosis.a dd methocarba mol prn for back painwill add tramadol prn for severe pain. discussed pain control and options of treatment Scoliosis deformity of spine 803767978 M41.9 Noted scoliosis of the spine Mixed hyperlipidemia 267 763125 E78.2 Lipid profiile with LDL 125 Urinary incontinence 165 140783 R32 On and off urinary incontinen ceHistory of use of oxybutynin which did not help Minimal co gnitive impairment 937987299 R41.89 Noted mild cognitive impairment on evaluation Normal vitamin B112 and folate RPR NegativeNe urology referralWi th hydrocepha elise will also need to rule out normal Pressure hydrocepha elise Particular ly with history of fallsNeuro logy referral Vertigo 663360320 R42 On and off vertigo reportedCT head with hydrocepha elise will get reports Stenosis o f spinal canal due to intervertebral disc 192524392 M99.59 ct cervical myelogram 09/10 reviewed. disc space narrowing at multiple levels. severe bilateral foraminal stenosis Cyst of kidney 394455845 N28.1 ct with multiple indetermin ate to hyperdense renal lesions, compatible with hemorrhagi c or proteinace ous cyst noted. 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 32521912 M51.34 ct myelogram with mdoerate multilevel disc space narrowing Health Concerns Section Related Observation LastModified by Organization Detai ls LastModified Time None Recorded Concern Status LastModified by Organization Details LastModified Time None Recorded Advance Directives Directive None Recorded Payers Encounter Date Sequence Insurance Name Policy Number Policy Smith Covered Member ID Smith Member ID Guarantor Name 07/09/2024 1 [place] Joyce Cano [id number] Joyce Blairbrick 07/09/2024 2 FOR LIFE () Alberto Cano [id number] Joyce Caon 07/17/2024 1 [place] Joyce Cano [id number] Joyce Jerome 07/17/2024 2 FOR LIFE () Alberto Cano [id number] Joyce Blairbrick 08/14/2024 1 [place] Joyce Blairbrick [id number] Joyce Jerome 08/14/2024 2 FOR LIFE () Alberto Cano [id number] Joyce Cano 10/02/2024 1 [place] Joyce Blairbrick [id number] Joyce Jerome 10/02/2024 2 FOR LIFE () Alberto Cano [id number] Joyce Cano Notes Date Note Type Note Provider Name and Address Organization Details Recorded Time 5 text/html Pt here to establish care. She is a retired nurse. Pt and recently relocated from [facility]. Pt c/o of being dizzy, unstable gait, brain fog x 6 months. Pt states she had 2 CT scans done-05/2024 in [facility] which is reported to have hydrocephalus and 06/29/2024 [facility] ER DX: no hydrocephalus present per ED provider however records are not availalbe. she has had recurrent falls over past few months and worsening. she moved to where her family is which includes her daughter and grand kids. she denies No chest pain, shortness of breath, nausea or vomiting. Pt does have a walker to use for ambulation. Pt would like a referral to neuro surgeon Dr. Irene Osorio. Jose Vergara MD [address] [facility] [address], [place], [address], [facility] 07/10/2024 14:55:34 5 text/html TELEVISIT TEMPLATEReported bypatient.Notes:I performed this visit using real-time telehealth tools, including a live audio and video connection between my location and the patient's location.Prior to initiating the services, I obtained the patient's informed verbal consent to perform this visit using the telehealth tools and answered all the questions the patient had about the telehealth interaction.Originating Site (patient's location): HomeDistant Site (provider's location): [facility] Exam information for clinical team: Physical exam, if recorded, is based on patient reported information or obtained through peripheral. Total time spent on medical discussion: 31 minutes The patient is here for follow up. sheIs feeling depressed. She is having Crying episodesParticularly in the evening. She has been on escitalopram which she takes regularly. She denies any suicidal or homicidal ideations. Jose Vergara MD [address] [facility] [address], [place], [address], [facility] 07/17/2024 17:42:08 5 text/html Patient is here for lab review. BP is high in office today. Patient had a spinal tap procedure at [facility] yesterday and states her BP was high there as well. No SOB, chest pain, dizziness, fever, nausea or diarrhea. she is also getting a ct myelogram planned. her physical therapy is on hold currently pending these tests. Jose Vergara MD [address] [facility] [address], [place], [address], [facility] 08/14/2024 18:00:32 5 text/html Pt here for follow up. C/O pt fell when standing up from recliner chair. Lost balance, fell forward hit right side of face on 's recliner. Pt would like an order for 3 pong cane. Unsteady gait, shuffles feet. No chest pain, shortness of breath, nausea or vomiting. Fair appetite. will call neurologists for appt. Jose Vergara MD [address] [facility] [address], [place], [address], [facility] 10/02/2024 13:22:01 OBGyn Episode No OBEpisode recorded.
--- OUTSIDE RECORDS SUMMARY | 2024-10-13 11:20 | XMS_ITS | Data Portability ---
Author Organization [facility], [facility] Address [address] [place] [address] Assessment No assessment recorded. Plan of Treatment [...] By Organization Details Last Modified Time 03/14/2018 [id number] high blood pressure: care instructions lor Not available 03/15/2018 08:31:05 hammer toe: care instructions lor Not available 03/14/2018 18:18:17 1. Discussed the clinical and x-ray findings 2. Discussed different types of shoes that she may use, brands and names of shoes were provided to the patient. I also recommended toe gel and bunion gel sleeves and she opted to purchase these on [employer]. Informational educational handout provided to her on [...] Xray, Foot, Sabino, 3V completed Marta Guerra [facility] 03/14/2018 11:33:55 Hysterectomy completed Heike Godinez [facility] 03/14/2018 13:08:47 Breast completed Heike Godinez [facility] 03/14/2018 13:09:06 Imaging Results None recorded. [...] Updated DateTime 8 162.56 cm 22.1 kg/m2 53315.4 2 g 77 /min 136 mm[Hg] 81 mm[Hg] Heike Godinez [facility] 8 13:06:42 Social History Question Answer Notes LastModified by Organizat ion Details LastModified Time Tobacco Smoking Status Former Smoker Heike niño [facility] 03/14/2018 13:07:30 Do You Drink Alcohol? [...] N Thyroid Disease N Atrial Fibrillation N Stroke CVA N Prostate Disease N Irregular Heartbeat N Alzheimer's or Significant Memory Loss N Emphysema/COPD N Cubital tunnel release N Depression N Pneumonia N Pacemaker/Defibrillator N Coronary Heart Disease N High Blood Pressure/Hypertension N Congestive Heart Failure N Under the Care of a Painter Apprentice N Cystic Fibrosis N Cancer N Stroke N Hypoglycemia N Rotator cuff injury N Polio N Bleeding Ulcers N High Cholesterol N Muscular Dystrophy N Hemophilia/Bleeding Disorder N Rheumatoid Arthritis N Fibromyalgia N Liver Failure N Kidney Disease N Hiatal Hernia N HIV N Osteoarthritis N Colitis N Adverse Reaction to Anesthesia N Acid Reflux N Downs Syndrome N Chemotherapy N MRSA Infection N Esophageal Varices N Blood Clots (phlebitis) N Anemia N Psychiatric Disorder N Home Oxygen N Carpal tunnel release N Ulcers N Bladder Problems N Stomach Ulcers N Diabetes N NO PAST MEDICAL PROBLEMS N Seizures/Epilepsy N Sickle Cell N Have you been or are you being seen by a roof shingler? N Angina/Chest Pain/Heart Attack N Heart Attack N Dental Disease N Asthma N Epilepsy/Seizures N Sleep Apnea N Jaundice N Mitral Valve Prolapse N Hepatitis N Have you ever had an adverse reaction to anesthesia? N Cirrhosis N Heart Disease N Bronchitis N Gallbladder Problems N Osteoporosis N Gynecological HistoryNo gynecological history recorded. Obstetrics History GPAL:G 0 P 0 0 0 0 Past Encounters Encounter ID Performer Location Encounter Start Date Encounter Closed Date Diagnosis/Indication Diagnosis SNOMED-CT Code Diagnosis ICD10 Code Diagnosis Note [id number] Chayito Velasquez DPM [facility] [address] [facility] [address] [place] [address] 03/14/2018 11:17:37 03/14/2018 13:38:42 Hallux valgus 666124578 M20.11 M20.12 Hammer toe 933353665 M20 .41 M20.42 Health Concerns Section Related Observation LastModified by Organization Detai ls LastModified Time None Recorded Concern Status LastModified by Organization Details LastModified Time None Recorded Advance Directives Directive None Recorded Payers Encounter Date Sequence Insurance Name Policy Number Policy Smith Covered Member ID Smith Member ID Guarantor Name 03/14/2018 1 MEDIC[place]: [employer] Joyce Cano [id number] Joyce Cano 03/14/2018 2 WPS - FOR LIFE (MEDICARE SUPPLEMENT) Joyce Cano [id number] Joyce Cano Notes Date Note Type Note [...] or problematic today. Chayito Velasquez DPM [address] [facility] [address], [place], [address], [facility] 03/15/2018 08:31:38 OBGyn Episode No OBEpisode recorded.
--- OUTSIDE RECORDS SUMMARY | 2024-10-13 11:20 | XMS_ITS | Data Portability ---
Author Organization [place] - [facility], Diana RYAN Office Address [address] [facility] [address] [place] [address] Care Team Providers Care Golf Course Patroller Name Role Phone LEVAR SALGUERO Referring Provider HIRA MOSLEY Primary Care Provider Assessment Encounter [...] By Organization Details Last Modified Time 10/11/2017 [id number] low back arthritis: exercises farrukh Not available 10/16/2017 10:55:11 patient case to s/w John Yeh card to her farrukh Not available 10/11/2017 12:43:17 Reason for Referral None Reported. Results Created Date Observation Date Name Description Value Unit Range Abnormal Flag Note LastModifiedBy Organization Detail LastModifiedTime 10/12/19 18 respiratory medicine physician [email or web address] [email or web address] tegrat ionPro cessor .[email or web address]? CMD=OP ENSTUD Y&SUID =1.3.6 .1.4.1 .04013 .2018. 4.25.7 .54.33 .09840 [email or web address] [facility] [address], [address], 10/11/2017 13:52:17 Result Notes None recorded. Problems No Known Problems Procedures Surgical History Date Name Laterality Status Provider Name and Address Organization Details Recorded Time Hysterectomy [place] [address] [facility], [place], [address], [place] 10/11/2017 12:27:12 Imaging Results Imaging Date Name Status LastModified by Organizatio n Details LastModified Time 10/11/2017 respiratory medicine physician completed [email or web address] [address], [place], [address], 10/11/2017 13:52:17 Procedure Notes None recorded. Medical [...] Updated DateTime 10/11/2017 162.56 cm 22.7 kg/m2 49475.19 [place] [address] [address], [place], [address], [facility], [place] 10/11/2017 12:24:15 Date Recorded Heart rate Systolic blood pressure Diastolic blood pressure Provider Name and Address Organization Details Last Updated DateTime 10/11/2017 90 /min 128 mm[Hg] 74 mm[Hg] Yessy Tracey [facility], [place] 10/11/2017 12:32:09 Social History Question Answer Notes LastModified by Organizat ion Details LastModified Time Tobacco Smoking [place] [address] [address], [place], [address], [place] 10/11/2017 12:26:54 What Is Your Level Of [...] of bowel control N Bleeding Disorders N COPD N Depression N Lung Disease N Glaucoma N Thyroid Disorders N Pacemaker N Prostate Problems N Vascular Disease N Congestive Heart Failure N Gastrointestinal Disease N Alcoholism N Obesity N Arthritis N Cancer N Chemical Dependency N Stroke N Gynelogical Problems N Deaf / Hearing-Impaired N Orthopaedic Problems N High Cholesterol N Liver Disease N Headaches N Fibromyalgia N Ulcer N Hiatal Hernia N Kidney Disease N Malignant Hyperthermia N Claustrophobia N Scoliosis [...] SNOMED-CT Code Diagnosis ICD10 Code Diagnosis Note [id number] Bria Dyson MD [facility] [address] [facility] [address] [place] [address] 10/11/2017 11:45:50 10/11/2017 13:18:41 Scoliosis deformity of spine 630198295 M41.9 Lumbosacra l spondylosis without myelopathy 03107060 M47.817 Chronic low back pain 27 7245079 M54.5 Health Concerns Section Related Observation LastModified by Organization Detai ls LastModified Time None Recorded Concern Status LastModified by Organization Details LastModified Time None Recorded Advance Directives Directive None Recorded Payers Encounter Date Sequence Insurance Name Policy Number Policy Smith Covered Member ID Smith Member ID Guarantor Name 10/11/2017 1 [place] [email or web address] Joyce Cano [id number] Joyce Cano 10/11/2017 2 WPS - FOR LIFE (MEDICARE SUPPLEMENT) Joyce Cano [id number] Joyce Cano Notes Date Note Type Note [...] [place] [address] [facility],[address], [place], [address], [place] 10/20/2017 10:24:30 OBGyn Episode No OBEpisode recorded.
--- OUTSIDE RECORDS SUMMARY | 2024-10-13 11:21 | XMS_ITS | Data Portability ---
Author Organization [place] - ZELDA STEEN MD [place] [facility], [facility] Address [address] [place] [address] Care Team Providers Care Mammography Tech Name Role Phone LUZ MARIA REYNA Spinal Orthopedic Surgeon BASHIR BULL JR Neurosurgeon Assessment Encounter Date Assessment Date Assessment LastModified [...] relief, reduced use of pain medication, increased [id number], and is associated with few complications. Success rate, however, depends on a careful selection of patients. Discussed with pt will repeat lumbar RFA for pt as it may provide further relief. [email or web address] Not available 01/03/2022 11:29:59 01/07/2022 01/07/2022 Patient [...] relief, reduced use of pain medication, increased [id number], and is associated with few complications. Success [...] Imaging MRI, hip, w/o contrast 2021 022 [facility], [address], [place], [address], 09:00:42 Medication Orders None recorded. Patient TargetsNo targets recorded. Patient Instructions Encounter Date Encounter Id Patient Instructions Last Modified By Organization Details Last Modified Time 01/07/2022 [id number] Pt tolerated procedure well. Pt informed to call and go to ER with development of fever, increased pain, weakness, numbness, bowel or bladder incontinence or any other adverse side effects. [email or web address] Not available 01/07/2022 10:45:27 Reason for Referral None Reported. Results Created Date Observation Date Name Description Value Unit Range Abnormal Flag Note LastModifiedBy Organization Detail LastModifiedTime 04/11/2004/11/2022 MR femur , right [facility] Imagin [facility] [address] [facility], [id number] [phone] ANGEL T: KIMBERLEY RIVERA 272 : 1940 Age: 81 yrs Dept: [id number] Sex: F ACC: [id number]: Too Tang Pat [...] NATALIA GOMEZ M.D. Octobe r 2021 12:40 [facility] [address], [place], [address], 04/15/2022 10:16:15 04/11/20 22 04/11/2022 MR hip - right [facility] [address] [facility], [address] [phone] PATIEN T: KIMBERLEY RIVERA E 272 : 1940 Age: 81 yrs Dept: [id number] Sex: F ACC: [id number]: Too Tang Status [...] M.D. Report ed by:: NATALIA GOMEZ M.D. [facility] 2021 12:47 [facility] [address] [facility], [place], [address], 04/15/2022 10:16:15 04/11/20 22 04/11/2022 MRI, hip, w/o contr ast No observ ation record ed. [email or web address] [facility] [address], [place], [address], 04/18/2022 15:18:08 04/11/20 22 04/11/2022 MRI, hip, w/o contr ast No observ ation record ed. [email or web address] [facility] Imging Ctr ([facility]) [address], [address], [place], [address], 04/18/2022 15:18:23 04/13/20 22 04/13/2022 MRI, hip, w/o contr ast No observ ation record ed. BARCODE Not Available 2021 13:54:53 Result Notes None recorded. Problems Name Problem SNOMED Code Status Onset Date Resolution Date Notes Provider Name and Address Organization Details Recorded Time Arthropath y of lumbar facet joint 974434878 Active 2020 REBECCA Tejeda MD [facility] 1 12:44:01 Lumbar radiculopa thy 782867371 Active 2020 REBECCA Tejeda MD [facility] 1 12:44:03 Lumbar spondylosi s 902671269 Active 2020 REBECCA Tejeda MD [facility] 1 12:44:04 Low back pain 811574974 Active 2020 REBECCA Tejeda MD [facility] 1 12:44:05 Hypertensi ve disorder 18836199 Completed 202004/20/2021 REBECCA Tinoco MD [facility] 1 09:40:47 Pain of sacroiliac joint 916881523 Active 2021 REBECCA Molina MD [facility] 2 10:39:08 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 Procedures Surgical History Date Name Laterality Status Provider Name and Address Organization Details Recorded Time 04/13/20 22 Trochanteric Bursa Injection completed Rui RYAN [facility] 04/13/2022 13:23:57 03/21/20 22 Hip Injection completed Colt RYAN [facility] 03/21/2022 16:07:06 02/15/20 22 Piriformis Injection completed Colt RYAN [facility] 02/15/2022 16:45:52 01/08/20 22 Lumbar RFA completed Colt RYAN [facility] 01/11/2022 12:29:02 01/08/20 22 Sedation completed Colt RYAN [facility] 01/11/2022 12:32:12 12/01/19 22 Sacroiliac Joint Steroid Injection Under Fluoroscopy completed Jarrell RYAN [facility] 11/30/2021 09:20:58 11/17/19 22 Lumbar RFA completed Colt RYAN [facility] 11/17/2021 16:37:57 11/17/19 22 Sedation completed Colt RYAN [facility] 11/17/2021 16:56:20 10/08/19 22 Sacroiliac Joint Steroid Injection Under Fluoroscopy completed Colt RYAN [facility] 10/11/2021 17:45:35 08/09/19 22 Sacroiliac Joint Steroid Injection Under Fluoroscopy completed Colt RYAN [facility] 08/11/2021 11:26:21 06/01/20 21 Sacroiliac Joint Steroid Injection Under Fluoroscopy completed Blair Salguero MD [address], [address], [place], [address], [place] REBECCA RYAN [facility] 06/02/2021 14:52:14 04/20/20 21 Lumbar Radiofrequency Ablation completed Blair Salguero MD [address], [address], [place], [address], [place] REBECCA RYAN [facility] 04/23/2021 10:11:43 04/20/20 21 Sedation completed Blair Salguero MD [address], [address], [place], [address], [place] Gretchen RYAN [facility] 04/23/2021 10:11:51 03/30/20 21 Lumbar Medial Branch Block Injection (Facet) completed Colt RYAN [facility] 03/30/2021 17:30:29 03/16/20 21 Lumbar Medial Branch Block Injection (Facet) completed Blair Salguero MD [address], [address], [place], [address], [place] REBECCA RYAN [facility] 03/23/2021 11:41:06 02/27/20 21 Lumbar Transforaminal SATNAM INJ completed Colt RYAN [facility] 03/02/2021 11:10:54 01/20/20 21 Sacroiliac Joint Steroid Injection Under Fluoroscopy completed Colt RYAN [facility] 01/20/2021 12:36:15 12/19/19 21 Sacroiliac Joint Steroid Injection Under Fluoroscopy completed Suki RYAN [facility] 12/18/2020 10:43:53 12/02/19 21 Lumbar Transforaminal SATNAM INJ completed Blair Salguero MD [address], [address], [place], [address], [place] REBECCA RYAN [facility] 12/03/2020 15:43:02 11/18/19 21 Lumbar Transforaminal SATNAM INJ completed Blair Salguero MD [address], [address], [place], [address], [place] REBECCA RYAN [facility] 11/18/2020 12:58:26 10/27/19 21 Lumbar Transforaminal SATNAM INJ completed Colt RYAN [facility] 10/28/2020 11:02:25 07/20/19 21 Lumbar Transforaminal SATNAM INJ completed Blair Salguero MD [address], [address], [place], [address], [place] REBECCA RYAN [facility] 07/21/2020 12:21:49 07/06/19 21 Lumbar Medial Branch Block Injection (Facet) completed Colt RYAN [facility] 07/06/2020 11:39:32 05/25/20 20 Sacroiliac Joint Steroid Injection Under Fluoroscopy completed Manolo RYAN [facility] 05/28/2020 12:43:43 05/07/20 20 Sacroiliac Joint Steroid Injection Under Fluoroscopy completed Colt RYAN [facility] 05/11/2020 10:58:07 04/09/20 18 Lumbar Transforaminal SATNAM INJ completed Linda R[facility]AN [facility] 04/10/2018 10:04:21 09/22/19 18 Lumbar Transforaminal SATNAM INJ completed Zahraa RYAN [facility] 09/21/2017 16:55:27 02/03/20 17 Lumbar Transforaminal SATNAM INJ completed Malgorzata RYAN [facility] 02/02/2017 10:21:38 01/10/20 17 Lumbar Transforaminal SATNAM INJ completed Catherine RYAN [facility] 01/10/2017 13:17:50 12/27/19 17 Lumbar Transforaminal SATNAM INJ completed Artie RYAN [facility] 12/26/2016 18:27:44 Hysterectomy completed Hannah RYAN [facility] 12/26/2016 15:42:34 Imaging Results Imaging Date Name Status LastModified by Organiz ation Details LastModified Time 04/11/2022 MR femur, right completed [facility] [address], [place], [address], 04/15/2022 10:16:15 04/11/2022 MR hip - right completed [facility] [address], [place], [address], 04/15/2022 10:16:15 04/11/2022 MRI, hip, w/o contrast completed [email or web address] [facility] [address], [place], [address], 04/18/2022 15:18:08 04/11/2022 MRI, hip, w/o contrast completed [email or web address] [facility] ([facility]) [address], [address], [place], [address], 04/18/2022 15:18:23 04/13/2022 MRI, hip, w/o contrast [...] mm[Hg] 90 mm[Hg] Suki STEEN MD [place] [facility] 01/03/2022 10:59:10 Date Recorded Body height Heart rate Pain severity - 0-10 verbal numeric rating [Score] - Reported Systolic blood pressure Diastolic blood pressure Provider Name and Address Organization Details Last Updated DateTime 01/07/2022 160.02 cm 57 /min 4 133 mm[Hg] 71 mm[Hg] Yi RYAN [facility] 10:45:37 Date Recorded Body height Heart rate Systolic blood pressure Diastolic blood pressure Provider Name and Address Organization Details Last Updated DateTime 02/14/2022 160.02 cm 74 /min 155 mm[Hg] 86 mm[Hg] Suki RYAN [facility] 02/14/2022 12:17:15 Date Recorded Body height Heart rate Systolic blood pressure Diastolic blood pressure Provider Name and Address Organization Details Last Updated DateTime 03/21/2022 160.02 cm 82 /min 130 mm[Hg] 67 mm[Hg] Suki RYAN [facility] 03/21/2022 09:58:28 Date Recorded Body height Heart rate Systolic blood pressure Diastolic blood pressure Provider Name and Address Organization Details Last Updated DateTime 04/13/2022 160.02 cm 78 /min 135 mm[Hg] 79 mm[Hg] Suki RYAN [facility] 04/13/2022 11:10:37 Social History Question Answer Notes LastModified by Organizat ion Details LastModified Time Tobacco Smoking Status Never [facility]oker Not Available [facility] 04/21/2020 03:36:23 What Is Your Level Of Alcohol Consumption? None [email or web address] Information not available 04/20/2021 Illicit Drug Usage No Information not available 12/26/2016 Tobacco Usage No Information not available 12/26/2016 Alcohol Usage Yes Information not available 12/26/2016 Do You Have Any Children? Yes Information not available 12/26/2016 Are You ? No Information not available 12/26/2016 What Was The Date Of Your Most Recent Tobacco Screening? 04/09/2018 [id number] Information not available 04/21/2020 How Much Tobacco Do You Smoke? No [id number] Information not available 04/21/2020 Sex: Unknown Functional [...] ble 12/26/2016 15:41:18 Medical History Condition Response Diabetes N Weight Loss N High Blood Pressure Y Bowel or Bladder Problems N Arthritis Y Kidney Problems N Thyroid Problems N Sexual Difficulties N Epilepsy/Seizure Disorder Problems N Asthma N Lung Disease N Heart Disease/Heart Attack N Stomach Problems, GI Problems N GOUT N Fibromyalgia N Cancer, what type? N Anemia/blood disorders N Gynecological HistoryNo gynecological history recorded. Obstetrics History GPAL:G 0 P 0 0 0 0 Past Encounters Encounter ID Performer Location Encounter Start Date Encounter Closed Date Diagnosis/Indication Diagnosis SNOMED-CT Code Diagnosis ICD10 Code Diagnosis Note [id number] MD Darrel Aguilar [facility] [address] [place] [address] 12/26/2016 15:28:47 12/26/2016 17:28:38 Lumbar radiculopathy 230257055 M54.16 Low back pain 370815765 M54.5 [id number] MD Darrel Aguilar [facility] [address] [place] [address] 01/09/2017 13:56:52 01/09/2017 14:38:36 Radicular pain 36553874 M54.16 Low back pain 312259182 M54.5 Lumbar radiculopathy 128 854868 M54.16 Displaceme nt of lumbar intervertebral disc without myelopathy 04376755 M51.26 Lumbar spondylosis 89227 0009 M47.816 [id number] Blair Salguero MD [facility] [address] [place] [address] 02/02/2017 09:03:31 02/02/2017 10:03:44 Radicular pain 60538134 M54.16 Low back pain 990140183 M54.5 Lumbar radiculopathy 128 356859 M54.16 [id number] Blair Salguero MD [facility] [address] [place] [address] 09/21/2017 10:15:56 09/21/2017 12:24:03 Lumbar radiculopathy 935913305 M54.16 Low back pain 820841876 M54.5 Lumbar spondylosis 14224 0009 M47.816 Displaceme nt of lumbar intervertebral disc without myelopathy 99695220 M51.26 [id number] Blair Salguero MD [facility] [address] [place] [address] 04/09/2018 15:39:34 04/09/2018 17:06:35 Lumbar radiculopathy 484570930 M54.16 Displaceme nt of lumbar intervertebral disc without myelopathy 72849671 M51.26 Lumbar spondylosis 20930 0009 M47.816 Low back pain 088409024 M54.5 [id number] Blair Salguero MD [facility] 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 [place] [address] 05/21/2020 16:46:13 05/21/2020 17:59:05 Low back pain 279131988 M54.5 Lumbar radiculopathy 128 263138 M54.16 Pain in ri ght sacroiliac joint 5159817174 2229747 M53.3 Pain in le ft sacroiliac joint 9626251584 5070339 M53.3 [id number] Aladore Tang [facility] [address] [place] [address] 05/25/2020 14:31:08 05/25/2020 16:01:56 Inflammation of sacroiliac joint 80289765 M46.1 Pain of sa croiliac joint 478300306 M53.3 Sacral back pain 8288073 3 M54.5 [id number] Archana Tang [facility] 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 [place] [address] 07/06/2020 10:14:38 07/06/2020 11:45:02 Lumbar spondylosis 660591242 M47.816 Arthropath y of lumbar facet joint 091559526 M46.96 Low back pain 713537078 M54.5 [id number] Blair Salguero MD [facility] [address] [place] [address] 07/20/2020 11:59:12 07/20/2020 13:36:02 Radicular pain 34887283 M54.16 Lumbosacra l radiculitis 71414058 M54.17 Low back pain 561579612 M54.5 [id number] Archana Tang [facility] [address] [place] [address] 08/07/2020 12:20:55 08/07/2020 13:08:23 Low back pain 527463691 M54.5 Lumbar spondylosis 14566 0009 M47.896 Lumbar radiculopathy 128 565306 M54.16 Arthropath y of lumbar facet joint 699002631 M46.96 [id number] Blair Salguero MD [facility] [address] [place] [address] 10/26/2020 11:07:40 10/26/2020 13:17:54 Low back pain 865739822 M54.5 Lumbar radiculopathy 128 484820 M54.16 Lumbar spondylosis 28597 0009 M47.896 [id number] Blair Salguero MD [facility] [address] [place] [address] 11/17/2020 14:10:23 11/17/2020 14:58:55 Arthropathy of lumbar facet joint 005631626 M46.96 Low back pain 203601416 M54.5 Lumbar radiculopathy 128 360873 M54.16 Lumbar spondylosis 77590 0009 M47.896 [id number] Blair Salguero MD [facility] [address] [place] [address] 12/01/2020 14:25:45 12/01/2020 15:53:19 Low back pain 397628260 M54.5 Lumbar spondylosis 13691 0009 M47.896 Lumbar radiculopathy 128 266083 M54.16 [id number] Aladore Tang [facility] [address] [place] [address] 12/17/2020 11:41:44 12/17/2020 12:57:34 Arthropathy of lumbar facet joint 263869198 M46.96 Low back pain 293711678 M54.5 Lumbar radiculopathy 128 885203 M54.16 Lumbar spondylosis 89906 0009 M47.896 Pain of le ft hip joint 6684254908 82317 M25.552 [id number] Aladore Tang [facility] [address] [place] [address] 12/18/2020 09:58:52 12/18/2020 10:21:03 Pain of hip region 95904784 M25.551 M25.552 M79.18 Pain in le ft sacroiliac joint 4157331630 6213359 M53.3 Sacral back pain 9535058 3 M54.5 Pain of sa croiliac joint 337072790 M53.3 [id number] Aladore Tang [facility] [address] [place] [address] 01/19/2021 09:11:59 01/19/2021 10:46:57 Pain of left hip joint 8702686038 12668 M25.552 Pain in le ft sacroiliac joint 8348122917 1641329 M53.3 Sacral back pain 7765233 3 M54.5 Pain of sa croiliac joint 006467026 M53.3 [id number] Archana Tang [facility] [address] [place] [address] 02/19/2021 09:08:16 02/19/2021 09:46:11 Arthropathy of lumbar facet joint 336189459 M46.96 Low back pain 008521790 M54.5 Lumbar radiculopathy 128 828437 M54.16 Pain of ri ght hip joint 1887142185 22777 M25.551 Pain of le ft hip joint 7568455757 04912 M25.552 Lumbar spondylosis 39806 0009 M47.896 [id number] Blair Salguero MD [facility] [address] [place] [address] 02/26/2021 12:47:40 02/26/2021 14:04:41 Radicular pain 88177115 M54.16 Lumbosacra l radiculitis 90359113 M54.17 Low back pain 007330371 M54.5 [id number] Archana Tang [facility] [address] [place] [address] 03/04/2021 13:51:20 03/04/2021 14:26:34 Low back pain 921578460 M54.5 Lumbar spondylosis 17297 0009 M47.896 Arthropath y of lumbar facet joint 393464489 M46.96 Lumbar fac et joint pain 074745744 M54.5 [id number] Blair Salguero MD [facility] [address] [place] [address] 03/16/2021 09:17:13 03/16/2021 10:40:29 Lumbar spondylosis 716632291 M47.816 Arthropath y of lumbar facet joint 485833149 M46.96 Low back pain 108828616 M54.5 [id number] Blair Salguero MD [facility] [address] [place] [address] 03/30/2021 09:37:22 03/30/2021 10:41:24 Lumbar spondylosis 161638100 M47.816 Pain of facet joint 2473 88143 M25.50 Low back pain 196580418 M54.59 Arthropath y of lumbar facet joint 465490205 M46.96 [id number] Blair Salguero MD [facility] [address] [place] [address] 04/20/2021 09:24:00 04/20/2021 10:20:23 Lumbar spondylosis 019605261 M47.816 Arthropath y of lumbar facet joint 831711297 M46.86 Low back pain 895478632 M54.59 Generalize d anxiety disorder 48953053 F41.1 [id number] Archana Tang [facility] [address] [place] [address] 05/25/2021 12:03:40 05/25/2021 13:40:52 Arthropathy of lumbar facet joint 882966598 M46.86 Low back pain 330190486 M54.59 Lumbar radiculopathy 128 445081 M54.16 Lumbar spondylosis 83575 0009 M47.816 [id number] Blair Salguero MD [facility] [address] [place] [address] 06/01/2021 09:59:51 06/01/2021 10:55:09 Inflammation of sacroiliac joint 72668757 M46.1 Pain of sa croiliac joint 005929750 M53.3 Sacral back pain 4248360 3 M54.59 [id number] Chayito Lito [facility] [address] [place] [address] 06/29/2021 10:39:11 06/29/2021 13:00:39 Low back pain 037163912 M54.59 Lumbar spondylosis 91291 0009 M47.816 Arthropath y of lumbar facet joint 426837456 M46.86 [id number] Blair Salguero MD [facility] [address] [place] [address] 08/09/2021 10:15:13 08/09/2021 11:05:05 Pain of sacroiliac joint 608960514 M53.3 Inflammati on of sacroiliac joint 90638137 M46.1 Sacral back pain 8600781 3 M54.50 [id number] Archana Tang [facility] 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 [place] [address] 10/07/2021 09:01:00 10/07/2021 09:30:59 Inflammation of sacroiliac joint 68358982 M46.1 Pain of sa croiliac joint 136939177 M53.3 Sacral back pain 9553043 3 M54.59 Pain in ri ght sacroiliac joint 6031939768 1369701 M53.3 [id number] Archana Tang [facility] [address] [place] [address] 11/05/2021 10:22:21 11/05/2021 11:25:04 Low back pain 820891391 M54.59 Lumbar spondylosis 95358 0009 M47.816 Arthropath y of lumbar facet joint 641836105 M46.86 Lumbar fac et joint pain 132052667 M54.50 [id number] Blair Salguero MD [facility] [address] [place] [address] 11/16/2021 10:03:47 11/16/2021 12:01:14 Lumbar spondylosis 252996738 M47.816 Arthropath y of lumbar facet joint 826109229 M46.96 Low back pain 289802130 M54.59 Pain of facet joint 2473 53043 M25.50 [id number] Archana Tang [facility] [address] [place] [address] Inflammation of sacroiliac joint 88330149 M46.1 Pain of sa croiliac joint 017917417 M53.3 Sacral back pain 2839710 3 M54.59 Pain in ri ght sacroiliac joint 1831843321 1389078 M53.3 [id number] Blair Salguero MD [facility] [address] [place] [address] 01/03/2022 10:47:30 01/03/2022 11:43:26 Lumbar spondylosis 840080439 M47.816 Pain of facet joint 2473 42733 M25.50 Low back pain 041055598 M54.59 Arthropath y of lumbar facet joint 889470468 M46.96 [id number] Blair Salguero MD [facility] [address] [place] [address] 01/07/2022 10:20:27 01/07/2022 11:25:27 Lumbar spondylosis 744275535 M47.816 Arthropath y of lumbar facet joint 942061374 M46.96 Low back pain 822285014 M54.59 Pain of facet joint 2473 46695 M25.50 [id number] Archana Rojo [facility] [address] [place] [address] 02/14/2022 11:06:55 02/14/2022 12:57:54 Right-sided piriformis syndrome 7289612585 19184 M54.31 Low back pain 055233651 M54.59 Lumbar spondylosis 01170 0009 M47.816 [id number] Archana Rojo [facility] [address] [place] [address] 03/21/2022 09:45:39 03/21/2022 11:15:11 Pain of right hip joint [id number] 41526 M25.551 Osteoarthr itis of right hip joint [id number] 50597 M16.11 Enthesopat hy of right hip [id number] 8537040 M76.891 Low back pain [id number] M54.59 [id number] Archana Tang [facility] [address] [facility] [address] [place] [address] 04/13/2022 10:51:23 04/13/2022 12:22:35 Pain of right hip joint [id number] 87134 M25.551 Trochanter ic bursitis of right hip 8521126920 52198 M70.61 Tendinitis of right gluteal tendon [id number] 35923 M76.01 Health Concerns Section Related Observation LastModified by Organization Detai ls LastModified Time None Recorded Concern Status LastModified by Organization Details LastModified Time None Recorded Advance Directives Directive None Recorded Payers Encounter Date Sequence Insurance Name Policy Number Policy Smith Covered Member ID Smith Member ID Guarantor Name 01/03/2022 1 [place] [employer] Joyce Cano [id number] Joyce Cano 01/03/2022 2 WPS - FOR LIFE (MEDICARE SUPPLEMENT) Alberto Cano [id number] Joyce Cano 02/14/2022 1 [place] [employer] Joyce Cano [id number] Joyce E Jerome 02/14/2022 2 WPS - FOR LIFE (MEDICARE SUPPLEMENT) Alberto Cano [id number] Joyce E Jerome 03/21/2022 1 [place] [employer] Joyce E Jerome [id number] Joyce E Jerome 03/21/2022 2 [employer]PS - FOR LIFE (MEDICARE SUPPLEMENT) Alberto Cano [id number] Joyce E Jerome 04/13/2022 1 [place] [employer] Joyce E Jerome [id number] Joyce E Jerome 04/13/2022 2 [employer]PS - FOR LIFE (MEDICARE SUPPLEMENT) Alberto Cano [id number] Joyce E Jerome Notes Date Note Type [...] changes since last visit?none Blair Salguero MD [address] [facility], [address], [place], [address], [place] - ZELDA STEEN MD [place] [facility] 01/05/2022 15:22:13 2 text/html Follow-up [...] changes since last visit?none REBECCA Tejeda MD [facility] 02/16/2022 11:24:39 2 text/html Follow-up [...] changes since last visit?none REBECCA Tejeda MD [facility] 03/22/2022 08:41:25 2 text/html Follow-up QuestionnaireReported bypatient.Location:right hip(s) Pain Nature:sharp; shooting; burning Pain score in the past wk?:8/10 worst Enjoyment of life interference pain score?:4/10 complete interference General activity interference pain score?:3/10 complete interference Pain is:recurring from time to time (periodic) Procedure(s) % Relief Pain is worse with:activity Pain is improved with:heat Previous PT:none The following are affected by your pain?activities of daily living Any medical or medication changes since last visit?none REBECCA Tejeda MD [facility] 04/14/2022 09:08:28 OBGyn Episode No OBEpisode recorded.
--- NOTE | 2024-10-13 11:29 | ED.GENADULT ---
HPI - General Adult General Chief complaint: Extremity Injury, Upper Stated complaint: fall/wrist pain Time Seen by Provider: 10/13/24 11:29 Source: patient Mode of arrival: ambulatory Limitations: no limitations History of Present Illness HPI narrative: 84-year-old female patient presents to the [facility] with complaints of left wrist pain. Patient states that she fell getting out of the shower about 2 weeks ago. Patient states she has been trying to treat the wrist pain with an [id number] splints and taking some tramadol medication that she had at home. Patient states that it has been 2 weeks but she continues to have pain. Patient states immobilizing it does help with the pain significantly. Patient denies hitting her head or loss of consciousness at the time of the fall. Related Data Home Medications ?Medication ?Instructions ?Recorded ?Confirmed ?Last Taken ?Type hydrochlorothiazide 25 mg tablet 25 mg PO DAILY 10/13/24 Unknown History methocarbamol 500 mg tablet 500 mg PO HS 10/13/24 Unknown History tramadol 50 mg tablet 25 mg PO ONCE 10/13/24 Unknown History Allergies Allergy/AdvReac Type Severity Reaction Status Date / Time No Known Allergies Allergy Verified 10/13/24 11:30 Review of Systems Review of Systems: CONSTITUTIONAL: Denies fever, chills, or sweats. EYES: Denies visual changes, redness, or discharge. ENT: Denies rhinorrhea, congestion, sore throat, or otalgia. CARDIOVASCULAR: Denies chest pain, palpitations, or edema. RESPIRATORY: Denies cough or dyspnea. GASTROINTESTINAL: Denies abdominal pain, nausea, vomiting, or diarrhea. GENITOURINARY: Denies dysuria or hematuria. SKIN: Denies rash or itching. MUSCULOSKELETAL: Denies back pain, joint pain, or myalgia. Positive left wrist pain NEUROLOGIC: Denies headache, numbness, or weakness. PSYCHIATRIC: Denies anxiety or depression. [facility] Past Medical History Medical History (Updated 10/13/24 @ 12:06 by BAR Obando) Hard of hearing Comments At the time of my signature I agree with nursing past medical history, surgical, social, and family history. There is no relevant family history pertinent to the presenting complaint. Exam Narrative: GENERAL: Well-appearing, well-nourished, and in no acute distress. HEAD: Normocephalic, atraumatic. EYES: PERRLA and EOMI. ENT: Nares clear, no rhinorrhea or epistaxis. Mucous membranes moist. NECK: Supple. No lymphadenopathy CHEST: Clear to auscultation. No respiratory distress. HEART: Regular rate and rhythm. No murmur heard. Normal peripheral pulses. ABDOMEN: Soft, nontender, nondistended, normal active bowel sounds. EXTREMITIES: the L wrist is without obvious asymmetry or deformity when compared to the R wrist. No surface trauma, open wounds, swelling, or obvious deformity. No overlying erythema or warmth. No bony crepitus. patient does have area of tenderness on palpation to the radial side of the left wrist. No scaphoid fullness , positive tenderness to direct palpation or axial load. pain with flex/extension and withulnar/radial deviation. Motor/sensory function of ulnar, radial, median nerves intact. Ulnar and radial pulses intact. SKIN: Warm, dry, no rash. NEURO: No focal deficits. Alert and oriented x3. Course Course Level of Care: Express Care Visit Vital Signs Vital signs: Vital Signs Temperature 36.6 C 10/13/24 11:30 Pulse Rate 103 H 10/13/24 11:30 Respiratory Rate 18 10/13/24 11:30 Blood Pressure 152/70 H 10/13/24 11:30 Pulse Oximetry 100 10/13/24 11:30 Oxygen Delivery Room Air 10/13/24 11:30 Temperature 36.6 C 10/13/24 11:30 Pulse Rate 103 H 10/13/24 11:30 Respiratory Rate 18 10/13/24 11:30 Blood Pressure 152/70 H 10/13/24 11:30 Pulse Oximetry 100 10/13/24 11:30 Oxygen Delivery Room Air 10/13/24 11:30 Vital signs reviewed. The patient has been informed that they may have pre-hypertension or Hypertension based on a BP reading in the department. I recommend that the patient call the primary care provider listed on their discharge instructions or a physician of their choice this week to arrange follow up for further evaluation of possible pre-hypertension or Hypertension Medical Decision Making MDM Narrative Medical decision making narrative: notified patient that the x-ray does show a mild dorsal impaction of a nondisplaced transverse fracture at the distal left radial metaphyseal region. Discussed with patient we will put her in an OCL since the immobilization does help with the pain and patient is not consistently wearing her brace and continues to manipulate the wrist even during exam. Discussed with patient that we will have her follow up with orthopedic surgeon to ensure that this is healing properly and she can continue taking [id number] Tylenol for pain. Patient verbalized understanding of this denies any other questions or concerns at this time. Differential Diagnosis Differential Diagnosis: Differential diagnosis: Fracture, ligament injury, scaphoid fracture, sprains, tendinitis, carpal tunnel syndrome, DeQuervain's tenosynovitis Vital Signs Vital Signs: Vital Signs Temperature 36.6 C 10/13/24 11:30 Pulse Rate 103 H 10/13/24 11:30 Respiratory Rate 18 10/13/24 11:30 Blood Pressure 152/70 H 10/13/24 11:30 Pulse Oximetry 100 10/13/24 11:30 Oxygen Delivery Room Air 10/13/24 11:30 Temperature 36.6 C 10/13/24 11:30 Pulse Rate 103 H 10/13/24 11:30 Respiratory Rate 18 10/13/24 11:30 Blood Pressure 152/70 H 10/13/24 11:30 Pulse Oximetry 100 10/13/24 11:30 Oxygen Delivery Room Air 10/13/24 11:30 Imaging Data Radiologist's impression: [place] [address] XRay Report Signed Patient: Joyce Cano : 1940 MR#: [id number] Age: 84 Acct:[id number] Loc: [facility] ADM Date: 10/13/24Attending Dr: Ordering Physician: Clementina Rose APRN Date of Service: 10/13/24 Procedure(s): XR wrist LT min 3V Accession Number(s): [id number] cc: Jose Vergara; Clementina Rose APRN~ EXAMINATION: XR wrist LT min 3V DATE: 10/13/2024 11:46 INDICATION: Fall 2 weeks prior TECHNIQUE: Posteroanterior, ulnar deviation, oblique, and lateral views of the left wrist were obtained. COMPARISON: none FINDINGS: There is a subtle transverse fracture of the left radial diaphysis mild buckling along the dorsal cortex with 1 degree dorsal tilt of the distal articular surface. No evident intra-articular extension of the fracture. No other fractures identified. 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 Mild osteoarthritis of the distal radioulnar, wrist, midcarpal and the first and second metacarpophalangeal joints. Chronic erosions versus degenerative cystic change at the ulnar styloid process. IMPRESSION: 1. Mild dorsal impaction of a nondisplaced transverse fracture at the distal left radial metaphyseal region 2. 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 Reviewed, dictated and finalized at location A. Critical Care Time Critical Care Time Critical Care Time: No Discharge Plan Discharge Clinical Impression: Closed fracture of left wrist Patient Disposition: Home Condition: Stable Instructions: Antibiotic Form, Wrist Fracture in Adults (ED) Additional Instructions: Avoid weight bearing until the pain subsides. Ice to the area 20-30 minutes 4-6 times a day Elevate above heart orthopedic OCL as directed for comfort until follow-up with orthopedic surgeon Tylenol for lesser pain Ibuprofen regularly for the next 2-3 days for the inflammation please call orthopedic surgeon on Monday to schedule a follow-up appointment. Condition worsens with numbness, tingling, decrease sensation with weakness to seek ER. Patient Language: [place] Prescriptions: No Action methocarbamol 500 mg tablet 500 mg PO HS hydrochlorothiazide 25 mg tablet 25 mg PO DAILY tramadol 50 mg tablet 25 mg PO ONCE Follow-up/Referrals: Jose Vergara [Other] Adalberto Cervantes MD [Physician] - Time of Disposition: 12:04
[2024-10-13 11:30] VITALS: BP 152/70; PULSE 103; RESP 18; TEMP 36.6; O2SAT 100
== END 2024-10-13 12:20 | disposition home or self-care (01) ==
PROVIDERS: Emergency Provider Nurse Practitioner Family
DX: S52.502A Unspecified fracture of the lower end of left radius, initial encounter for closed fracture (principal); W19.XXXA Unspecified fall, initial encounter
CPT/HCPCS: 29125; 73110; 99214; A4565; G0463

== ENCOUNTER 2024-11-10 10:13 | Emergency (ER) | payer MEDICARE, OTHER, SELFPAY ==
--- OUTSIDE RECORDS SUMMARY | 2024-11-10 10:15 | XMS_ITS | Data Portability ---
Author Organization [place] [facility] [place] [place] Address [address] [facility] [address] [place] [address] Assessment No assessment recorded. Plan of Treatment [...] 025 SHANNON Not available 07/12/2024 10:10:40 Referral physical therapist referral 2024 025 [facility] (Outpatient Physical Therapy/Work Conditioning) , [address], [place], [address], 11/05/2024 04:07:[address] referral 2024 025 [email or web address] Hudson Stark MD, [address], [address], [place], [address], 10/29/2024 17:48:[address] referral 2024 025 SHANNON Stark MD, [address], [address], [place], [address], 10/30/2024 04:04:00 neurologi serena surgeon referral 2024 025 SHANNON Osorio MD, [address], [address], [place], [address], 09/11/2024 15:41:[address] referral 2024 025 SHANNON Satrk MD, [address], [address], [place], [address], 09/11/2024 15:40:06 physical therapist referral 2024 025 [email or web address] [facility] (Outpatient Physical Therapy/Work Conditioning) , [address], [place], [address], 08/14/2024 15:00:02 occupatio nal therapist referral 2024 025 [facility]patient [facility] Therapy, [address] [facility] [address], [place], [address], 07/16/2024 04:03:53 Procedures None recorded. Surgeries None recorded. Imaging None recorded. Medication Orders methocarb sri 750 mg tablet 2024 025 [facility], [address] [place] [address], [address], 10/02/2024 12:33:16 tramadol 50 mg tablet 2024 025 [facility], [address] [place] [address], [address], 10/02/2024 12:33:17 methocarb sri 500 mg tablet [email or web address] [place] [address], [address] [place] [address], [address], 10/30/2024 10:31:58 Wellbutri n XL 150 mg 24 hr tablet, extended release 2024 025 [facility], [address] [place] [address], [address], 08/14/2024 15:37:15 escitalop karen 20 mg tablet 2024 025 [facility], [address] [place] [address], [address], 07/17/2024 17:41:48 Patient TargetsNo targets recorded. Patient Instructions Encounter Date Encounter Id Patient Instructions Last Modified By Organization Details Last Modified Time 07/09/2024 [id number] Stress Incontinence: Care Instructions Not available 07/09/2024 18:19:39 I spent a total of _46 minutes (excluding separately reportable procedure time ) in care of this patient. [email or web address] Not available 07/09/2024 18:19:56 07/17/2024 [id number] Stress Incontinence: Care Instructions [email or web address] Not available 07/17/2024 17:41:43 learning about mood disorders [email or web address] Not available 07/17/2024 17:41:43 08/14/2024 [id number] Stress Incontinence: Care Instructions [email or web address] Not available 08/14/2024 15:37:11 learning about mood disorders [email or web address] Not available 08/14/2024 15:37:11 I spent a total of _32 minutes (excluding separately reportable procedure time ) in care of this patient. [email or web address] Not available 08/14/2024 15:36:02 10/02/2024 [id number] Stress Incontinence: Care Instructions [email or web address] Not available 10/02/2024 12:33:14 learning about mood disorders [email or web address] Not available 10/02/2024 12:33:14 I spent a total of ___37___ minutes (excluding separately reportable procedure time ) in care of this patient. [email or web address] Not available 10/02/2024 12:31:46 10/29/2024 [id number] Stress Incontinence: Care Instructions [email or web address] Not available 10/29/2024 17:46:44 learning about mood disorders [email or web address] Not available 10/29/2024 17:46:44 I spent a total of __35____ minutes (excluding separately reportable procedure time ) in care of this patient. [email or web address] Not available 10/29/2024 18:39:34 Reason for Referral Neurological Surgeon Referra l for Recurrent falls Referring Physician: Jose Vergara, Internal Medicine, Encounter Date: 07/09/2024 Physical Therapist Referral for Impairment of balance Referring Physician: Jose Vergara, Internal Medicine, Encounter Date: 07/09/2024 Occupational Therapist Refer ral for Impairment of balance Referring Physician: Jose Vergara, Internal Medicine, Encounter Date: 07/09/2024 Neurologist Referral for Rec urrent falls Referring Physician: Jose Vergara, Internal Medicine, Encounter Date: 07/09/2024 Neurologist Referral for Min imal cognitive impairment Referring Physician: Jose Vergara Internal Medicine, Encounter Date: 10/02/2024 Neurologist Referral for Min imal cognitive impairment Referring Physician: Jose Vergara Internal Medicine, Encounter Date: 10/29/2024 Physical Therapist Referral for Impairment of balance Referring Physician: Jose Vergara Internal Medicine, Encounter Date: 10/29/2024 Results Created Date Observation Date Name Description Value Unit Range Abnormal Flag Note LastModifiedBy Organization Detail LastModifiedTime 07/11/1907/12/2024 LIPID PANEL , STAND JEAN-CLAUDE cholesterol, total 215 mg/dL <200 high Not Available [address] [address] [place], [address], 07/12/2024 10:10:35 07/11/19 25 07/12/2024 LIPID PANEL , STAND JEAN-CLAUDE HDL cholesterol 73 mg/dL > or = 50 normal Not Available [facility] [address] [address] [place], [address], 07/12/2024 10:10:35 07/11/19 25 07/12/2024 LIPID PANEL , STAND JEAN-CLAUDE triglyceride s 78 mg/dL <150 normal Not Available [facility] [address] [address] [place], [address], 07/12/2024 10:10:35 07/11/1907/12/2024 LIPID PANEL , STAND JEAN-CLAUDE LDL-choleste rol 125 mg/dL _(serena c) high Refer ence range : <100 Destini able range <100 mg/dL for prima ry preve ntion ; <70 mg/dL for patie nts with CHD or diabe tic patie nts with > or = 2 CHD risk facto rs. LDL-C is now calcu lated using the Ana Maria n-Hop kins yayou nikhil n, which is a valid ated novel papitoo wes woods r accur acy than the Fried saji equat ion in the estim ation of LDL-C . Ana Maria n SS et al. ESTELLA. 2013; 310(1 0): 2061- 2068 (http ://ed ucati on.Kukunu Mariajose [employer]eps[employer]. com/f aq/FA Q164) Not Available [address] [address] [place], [address], 07/12/2024 10:10:35 07/11/19 25 07/12/2024 LIPID PANEL , STAND JEAN-CLAUDE chol/HDLC ratio 2.9 (calc ) <5.0 normal Not Available [address], [address], 07/12/2024 10:10:35 07/11/1907/12/2024 LIPID PANEL , STAND JEAN-CLAUDE non HDL cholesterol 142 mg/dL _(serena c) <130 high For patie nts with diabe emiliano plus 1 major ASCVD risk facto r, treat ing to a non-H DL-C goal of <100 mg/dL (LDL- C of <70 mg/dL ) is consi dered a thera penisha c optio n. Not Available [address], [address], 07/12/2024 10:10:35 07/11/19 25 07/12/2024 COMPR EHENS REGULO METAB OLIC PANEL glucose 94 mg/dL 65-99 normal Fasti ng refer ence inter saundra Not Available [facility] [address] [address] [place], [address], 07/12/2024 10:10:36 07/11/19 25 07/12/2024 COMPR EHENS REGULO METAB OLIC PANEL urea nitrogen (BUN) 34 mg/dL 7-25 high Not Available [address], [address], 07/12/2024 10:10:36 07/11/19 25 07/12/2024 COMPR EHENS REGULO METAB OLIC PANEL creatinine 1.29 mg/dL 0.60-0 .95 high Not Available [address], [address], 07/12/2024 10:10:36 07/11/19 25 07/12/2024 COMPR EHENS REGULO METAB OLIC PANEL eGFR 42 mL/mi n/1.7 3m2 > or = 60 low Not Available [address], [address], 07/12/2024 10:10:36 07/11/19 25 07/12/2024 COMPR EHENS REGULO METAB OLIC PANEL BUN/creatini ne ratio 26 (calc ) 6-22 high Not Available [address], [address], 07/12/2024 10:10:36 07/11/19 25 07/12/2024 COMPR EHENS REGULO METAB OLIC PANEL sodium 135 mmol/ L 135-14 6 normal Not Available [address], [address], 07/12/2024 10:10:36 07/11/19 25 07/12/2024 COMPR EHENS REGULO METAB OLIC PANEL potassium 3.6 mmol/ L 3.5-5. 3 normal Not Available [address], [address], 07/12/2024 10:10:36 07/11/19 25 07/12/2024 COMPR EHENS REGULO METAB OLIC PANEL chloride 96 mmol/ L 98-110 low Not Available [address], [address], 07/12/2024 10:10:36 07/11/19 25 07/12/2024 COMPR EHENS REGULO METAB OLIC PANEL carbon dioxide 30 mmol/ L 20-32 normal Not Available [address], [address], 07/12/2024 10:10:36 07/11/19 25 07/12/2024 COMPR EHENS REGULO METAB OLIC PANEL calcium 10.4 mg/dL 8.6-10 .4 normal Not Available [address], [address], 07/12/2024 10:10:36 07/11/19 25 07/12/2024 COMPR EHENS REGULO METAB OLIC PANEL protein, total 6.9 g/dL 6.1-8. 1 normal Not Available [address], [address], 07/12/2024 10:10:36 07/11/19 25 07/12/2024 COMPR EHENS REGULO METAB OLIC PANEL albumin 4.6 g/dL 3.6-5. 1 normal Not Available [address], [address], 07/12/2024 10:10:36 07/11/19 25 07/12/2024 COMPR EHENS REGULO METAB OLIC PANEL globulin 2.3 g/dL_ (calc ) 1.9-3. 7 normal Not Available [address], [address], 07/12/2024 10:10:36 07/11/19 25 07/12/2024 COMPR EHENS REGULO METAB OLIC PANEL albumin/glob ulin ratio 2.0 (calc ) 1.0-2. 5 normal Not Available [address], [address], 07/12/2024 10:10:36 07/11/19 25 07/12/2024 COMPR EHENS REGULO METAB OLIC PANEL bilirubin, total 0.3 mg/dL 0.2-1. 2 normal Not Available [address], [address], 07/12/2024 10:10:36 07/11/19 25 07/12/2024 COMPR EHENS REGULO METAB OLIC PANEL alkaline phosphatase 53 U/L 37-153 normal Not Available [facility] [email or web address] [address], [address], 07/12/2024 10:10:36 07/11/19 25 07/12/2024 COMPR EHENS REGULO METAB OLIC PANEL AST 13 U/L 10-35 normal Not Available [address], [address], 07/12/2024 10:10:36 07/11/19 25 07/12/2024 COMPR EHENS REGULO METAB OLIC PANEL ALT 8 U/L 6-29 normal Not Available [address], [address], 07/12/2024 10:10:36 07/11/19 25 07/12/2024 CBC (INCL UDES DIFF/ PLT) white blood cell count 8.6 thous and/u L 3.8-10 .8 normal Not Available [address], [address], 07/12/2024 10:10:36 07/11/19 25 07/12/2024 CBC (INCL UDES DIFF/ PLT) red blood cell count 4.29 ever on/uL 3.80-5 .10 normal Not Available [address], [address], 07/12/2024 10:10:36 07/11/19 25 07/12/2024 CBC (INCL UDES DIFF/ PLT) hemoglobin 11.2 g/dL 11.7-1 5.5 low Not Available [facility] [address], [address], 07/12/2024 10:10:36 07/11/19 25 07/12/2024 CBC (INCL UDES DIFF/ PLT) hematocrit 36.0 % 35.0-4 5.0 normal Not Available [address] [place], [address], 07/12/2024 10:10:36 07/11/1907/12/2024 CBC (INCL UDES DIFF/ PLT) MCV 83.9 fL 80.0-1 00.0 normal Not Available [address], [address], 07/12/2024 10:10:36 07/11/1907/12/2024 CBC (INCL UDES DIFF/ PLT) MCH 26.1 pg 27.0-3 3.0 low Not Available [facility] [address], [address], 07/12/2024 10:10:36 07/11/1907/12/2024 CBC (INCL UDES DIFF/ PLT) MCHC 31.1 g/dL 32.0-3 6.0 low For adult s, a sligh t decre ase in the calcu lated MCHC value (in the range of 30 to 32 g/dL) is most likel y not clini ron signi fican t; deepthi er, it shoul d be inter prete d with [facility] with other red cell julian eters and the patie nt's clini serena condi tion. Not Available [address], [address], 07/12/2024 10:10:36 07/11/1907/12/2024 CBC (INCL UDES DIFF/ PLT) RDW 14.1 % 11.0-1 5.0 normal Not Available [facility] [address], [address], 07/12/2024 10:10:36 07/11/1907/12/2024 CBC (INCL UDES DIFF/ PLT) platelet count 386 thous and/u L 140-40 0 normal Not Available [facility] [address], [address], 07/12/2024 10:10:36 07/11/19 25 07/12/2024 CBC (INCL UDES DIFF/ PLT) MPV 10.9 fL 7.5-12 .5 normal Not Available [address], [address], 07/12/2024 10:10:36 07/11/19 25 07/12/2024 CBC (INCL UDES DIFF/ PLT) absolute neutrophils 4782 cells /uL 1500-7 800 normal Not Available [address], [address], 07/12/2024 10:10:36 07/11/19 25 07/12/2024 CBC (INCL UDES DIFF/ PLT) absolute lymphocytes 1901 cells /uL 850-39 00 normal Not Available [address], [address], 07/12/2024 10:10:36 07/11/19 25 07/12/2024 CBC (INCL UDES DIFF/ PLT) absolute monocytes 783 cells /uL 200-95 0 normal Not Available [address], [address], 07/12/2024 10:10:36 07/11/19 25 07/12/2024 CBC (INCL UDES DIFF/ PLT) absolute eosinophils 1041 cells /uL 15-500 high Not Available [address], [address], 07/12/2024 10:10:36 07/11/19 25 07/12/2024 CBC (INCL UDES DIFF/ PLT) absolute basophils 95 cells /uL 0-200 normal Not Available [address], [address], 07/12/2024 10:10:36 07/11/19 25 07/12/2024 CBC (INCL UDES DIFF/ PLT) neutrophils 55.6 % normal Not Available [address], [address], 07/12/2024 10:10:36 07/11/19 25 07/12/2024 CBC (INCL UDES DIFF/ PLT) lymphocytes 22.1 % normal Not Available [address], [address], 07/12/2024 10:10:36 07/11/19 25 07/12/2024 CBC (INCL UDES DIFF/ PLT) monocytes 9.1 % normal Not Available [address], [address], 07/12/2024 10:10:36 07/11/19 25 07/12/2024 CBC (INCL UDES DIFF/ PLT) eosinophils 12.1 % normal Not Available [address], [address], 07/12/2024 10:10:36 07/11/19 25 07/12/2024 CBC (INCL UDES DIFF/ PLT) basophils 1.1 % normal Not Available [address], [address], 07/12/2024 10:10:36 07/11/19 25 07/12/2024 TSH TSH 1.24 mIU/L 0.40-4 .50 normal Not Available [address], [address], 07/12/2024 10:10:37 07/11/19 25 07/12/2024 VITAM IN B12/F OLATE , SERUM PANEL vitamin B12 975 pg/mL 200-11 00 normal Not Available [address], [address], 07/12/2024 10:10:38 07/11/19 25 07/12/2024 VITAM IN B12/F OLATE , SERUM PANEL folate, serum 11.8 NG/mL normal Refer ence Range Low: <3.4 Borde rline : 3.4-5 .4 Bertha l: >5.4 Not Available [facility] [address] [place], [address], 07/12/2024 10:10:38 07/11/19 25 07/12/2024 VITAM IN [...] /MS is recom adelina d: order code 91646 (anthony ents >2yrs ). See Note 1 Note 1 For addit ional infor laura cordova e refer to http: //[facility] fawn Jaquez stDia gnost ics.c om/fa q/FAQ 199 (This link is being provi ded for infor digna puente/ tere sumner purpo ses only. ) Not Available [facility] [address] , [place], [address], 07/12/2024 10:10:38 07/11/19 25 07/12/2024 HEMOG LOBIN [...] Curre ntly, no conse nsus exist s polina schroeder use of hemog lobin A1c for diagn osis of diabe emiliano for child dayana. Not Available [facility] [address] [place], [address], 07/12/2024 10:10:39 07/11/19 25 07/12/2024 RPR, BLANCA RITAL W/REF L TITER RPR, premarital w/refl titer NON-RE ACTIVE non-re active normal Not Available [facility] [place] [address] [place], [address], 07/12/2024 10:10:39 08/13/19 25 08/13/2024 lumba r punct ure (PROC ) No observ ation record ed. [address], [address], 08/14/2024 15:16:44 08/22/19 25 08/21/2024 RF, myelo gram, spine No observ ation record ed. [address], [address], 10/02/2024 12:08:55 08/27/19 25 08/26/2024 CT, cervi serena spine , post- myelo gram No observ ation record ed. [address], [address], 10/02/2024 12:08:55 08/27/19 25 08/26/2024 CT, thora cic spine , post- myelo gram No observ ation record ed. [address]: Pulmonology [address] [place] [address], [address], 10/02/2024 12:08:55 08/27/19 25 08/26/2024 CT, lumba r spine , post- myelo gram No observ ation record ed. [email or web address] [facility] [address] [facility], [place], [address], 10/02/2024 12:08:55 Result Notes None recorded. Problems Name Problem SNOMED Code Status Onset Date Resolution Date Notes Provider Name and Address Organization Details Recorded Time Impairmen t of balance 867636879 Active 2024 Jose Vergara MD [address] [facility] [address], [place], [address], [facility] 5 18:14:33 Recurrent falls 981313654 Active 2024 Jose Vergara MD [address] [facility] [address], [place], [address], [facility] 5 18:14:40 Abnormal gait 15639079 Active 2024 Jose Vergara MD [address] [facility] [address], [place], [address], [facility] 5 18:16:19 Degenerat ion of lumbar intervert ebral disc 18499715 Active 2024 Jose Vergara MD [address] [facility] [address], [place], [address], [facility] 5 18:16:26 Scoliosis deformity of spine 842970527 Active 2024 Jose Vergara MD [address] [facility] [address], [place], [address] , [facility] 5 18:17:10 Urinary incontine nce 514954413 Active 2024 Jose Vergara MD [address] [facility] [address], [place], [address], [facility] 5 18:18:33 Minimal cognitive impairmen t 214995104 Active 2024 Jose Vergara MD [address] [facility] [address], [place], [address], [facility] 5 18:18:40 Vertigo 547852370 Active 2024 Jose Vergara MD [address], [place], [address], [facility] 5 18:19:44 Depressiv e disorder 95641937 Active 2024 [facility] 5 15:55:10 Mixed hyperlipi demia 874825819 Active 2024 Jose Vergara MD [address], [place], [address], [facility] 5 17:40:40 Spinal cord disease 58074387 Completed 202407/18/2024 [facility] 5 16:33:01 Unsteady when walking 51731563 Active 2024 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 Procedures Surgical History Date Name Laterality Status Provider Name and Address Organization Details Recorded Time 06/19/18 70 Breast augmentation w/implt completed [facility] 07/09/2024 17:10:23 06/19/18 65 Hysterectomy completed [facility] 07/09/2024 17:10:57 Imaging Results Imaging Date Name Status LastModified by Organiz ation Details LastModified Time 08/13/2024 lumbar puncture (PROC) completed [address], [address], 08/14/2024 15:16:44 08/21/2024 RF, myelogram, spine completed [address], [address], 10/02/2024 12:08:55 08/26/2024 CT, cervical spine, post-myelogra m completed [address], [address], 10/02/2024 12:08:55 08/26/2024 CT, thoracic spine, post-myelogra m completed [address]: Pulmonology [address] [place] [address], [address], 10/02/2024 12:08:55 08/26/2024 CT, lumbar spine, post-myelogra m completed [email or web address] [facility] [address] [facility], [place], [address], 10/02/2024 12:08:55 Procedure Notes None recorded. Medical Equipment None Reported. Allergies Allergen ID Allergen Name Allergen Category Reaction Reaction Severity Criticality Documentation Date Start Date Code Code System Note Provider Name and Address Organization Details Recorded Time 2584 No known allergy (situatio n) Not available Not available Not available Not available 10/02/2024 [address]65[address] 6003 SNOMED Caty Bong [facility] 11:39:22 Medications Name Sig Start Date Stop Date Status Note LastModified by Organization Details LastModified Time methocarbam ol 500 mg tablet Take 500 mg 4 times a day by oral route. 10/30 completed Not Available Not Available Not Available [...] Not Available Not Available No t Available bupropion HCl XL 150 mg 24 hr tablet, extended release 150 mg by oral route. active Not Available Not Available No t Available duloxetine 30 mg capsule,del ayed release Take 1 capsule every day by oral route for 90 days. 2024 active Not Available Not Available Not [...] 5 98.4 [degF] 160.02 cm 18.1 kg/m2 82123.4 2 g 106 /min 18 /min 96 % 96 % 130 mm[Hg] 70 mm[Hg] [facility] 5 16:53:31 Date Recorded Body height Body mass index (BMI) Body weight Body temperature Heart rate Respiratory rate Oxygen saturation Oxygen saturation in Arterial blood by Pulse oximetry Systolic blood pressure Diastolic blood pressure Provider Name and Address Organization Details Last Updated DateTime 5 160.02 cm 18.4 kg/m2 43926.6 1 g 96.7 [degF] 57 /min 15 /min 97 % 97 % 157 mm[Hg] 85 mm[Hg] [facility] 15:09[facility]14 Date Recorded Body height Body temperature Body mass index (BMI) Body weight Heart rate Respiratory rate Oxygen saturation Oxygen saturation in Arterial blood by Pulse oximetry Systolic blood pressure Diastolic blood pressure Provider Name and Address Organization Details Last Updated DateTime 5 160.02 cm 97.4 [degF] 18.8 kg/m2 85969.7 9 g 84 /min 18 /min 97 % 97 % 142 mm[Hg] 70 mm[Hg] [facility] 5 11:38:59 Date Recorded Body height Body temperature Body mass index (BMI) Body weight Heart rate Respiratory rate Oxygen saturation Oxygen saturation in Arterial blood by Pulse oximetry Systolic blood pressure Diastolic blood pressure Provider Name and Address Organization Details Last Updated DateTime 5 160.02 cm 97.6 [degF] 19.3 kg/m2 35407.5 7 g 98 /min 18 /min 98 % 98 % 140 mm[Hg] 84 mm[Hg] [facility] 5 16:32:17 Social History None recorded. Functional Status None recorded. Mental Status None recorded. Family History Nothing Reported Notes:father-hypertension, d iabetes, Medical History No medical history recorded. Gynecological HistoryNo gynecological history recorded. Obstetrics History GPAL:G 0 P 0 0 0 0 Past Encounters Encounter ID Performer Location Encounter Start Date Encounter Closed Date Diagnosis/Indication Diagnosis SNOMED-CT Code Diagnosis ICD10 Code Diagnosis Note [id number] Jose Vergara MD [facility] [place] [address] [place] [address] 07/09/2024 15:40:34 07/09/2024 18:24:06 Impairment of balance 317811077 R26.89 suspect related to peripheral neuropathy ,recent ct head reportedHa s hydrocepha elise howeverThe results are not available for reviewWe will refer to neurologyA lso will refeer to physical therapy and occupation al therapy Recurrent falls 11989676 2 R29.6 Rukhsana PTOTNeurol ogy referralCh [facility] Abnormal gait 05103175 R 26.9 Likely due to peripheral neuropathy or related to chronic back pain/lumba r spinal stenosis Degenerati on of lumbar intervertebral disc 85986953 M51.369 Diagnoses of chronic back pain related to lumbar degenerati ve disc diseease and scoliosisS een pain management in the pastStatus post back stimulator a few yearss ago which they are not sure if it is functional Scoliosis deformity of spine 927968938 M41.9 Noted scoliosis of the spine Adult heal th examination 564725598 Z00.00 diet and physical activity reviewedva ccines and screening tests reviewedme dication reviewed Hyperlipid emia screening 463845582 Z13.220 Check lipid panel Urinary incontinence 165 612045 R32 On and off urinary incontinen ceHistory of use of oxybutynin which did nnot help Minimal co gnitive impairment 992402579 R41.89 Noted mild cognitive impairment on evaluation Check vitamin B112 and folate check RPRNeurolo gy referralWi th hydrocepha elise will also need to rule out normal Pressure hydrocepha lusParticu larly with history of fallsNeuro logy referral Vertigo 924739782 R42 On and off vertigo reportedCT head with hydrocepha elise will get reports [id number] Jose Vergara MD [facility] [place] [address] [place] [address] 07/17/2024 16:29:36 07/17/2024 17:43:27 Depressive disorder 73323083 F32.A ongoing And worseningS he has been on escitalopr am for a whileNo SI or HIDiscusse d options with the patientWil l increase citalopram to 20 mg daily.She is agreeable with the plan. Impairment of balance 38 5538592 R26.89 suspect related to peripheral neuropathy ,recent ct head reportedHa s hydrocepha elise howeverThe results are not available for reviewRefe rred to neurologyI n going to see tomorrowAl so will refeer to physical therapy and occupation al therapyWe will need to get record of CT headShe is seeing physical therapy now Recurrent falls [id number] 2 R29.6 Ordered PTOTNeurol ogy referralRP R negative vitamin B12 and folate negative Abnormal gait 87548185 R 26.9 Likely due to peripheral neuropathy or related to chronic back pain/lumba r spinal stenosis Degenerati on of lumbar intervertebral disc 36994738 M51.369 Diagnoses of chronic back pain related to lumbar degenerati ve disc diseease and scoliosisS een pain management in the pastStatus post back stimulator a few yearss ago which they are not sure if it is functional Scoliosis deformity of spine 036975288 M41.9 Noted scoliosis of the spine Urinary incontinence 165 457749 R32 On and off urinary incontinen ceHistory of use of oxybutynin which did nnot help Minimal co gnitive impairment 840592504 R41.89 Noted mild cognitive impairment on evaluation Normal vitamin B112 and folate RPRNegativ eNeurology referralWi th hydrocepha elise will also need to rule out normal Pressure hydrocepha lusParticu larly with history of fallsNeuro logy referral Vertigo [id number] R42 On and off vertigo reportedCT head with hydrocepha elise will get reports Mixed hyperlipidemia 267 030139 E78.2 Lipid profiile with LDL 125 [id number] Jose Vergara MD [facility], [place] [address] [place] [address] 08/14/2024 14:37:17 08/14/2024 15:39:35 Depressive disorder [id number] F32.A ongoing And worseningS he has been on escitalopr am for a whileNo SI or HIincrease d escitalopr am to 20 mg daily: not helpingnow she want to try wellbutrin .will lower escitalopr am 10 mg daily x one week then stopthen will start wellbutrin 150 mg daily Impairment of balance 38 1558413 R26.89 suspect related to peripheral neuropathy ,recent ct head reportedHa s hydrocepha elise howeverThe results are not available for reviewRefe rred to neurosurge ry: seen and underwent LP tap.physic al therapy currently on holdWe will need to get record of CT headct myelogram also planned Recurrent falls [id number] 2 R29.6 Ordered PTOTNeurol ogy referralRP R negative vitamin B12 and folate negative Abnormal gait 01217072 R 26.9 Likely due to peripheral neuropathy or related to chronic back pain/lumba r spinal stenosispo ssible NPH related as well.lumba r puncture drain performed 07/2024 Degenerati on of lumbar intervertebral disc 90199287 M51.369 Diagnoses of chronic back pain related to lumbar degenerati ve disc diseease and scoliosisS een pain management in the pastStatus post back stimulator a few yearss ago which they are not sure if it is functional add methoarbam ol prn for back pain Scoliosis deformity of spine 921705164 M41.9 Noted scoliosis of the spine Mixed hyperlipidemia 267 723186 E78.2 Lipid profiile with LDL 125 Urinary incontinence 165 958187 R32 On and off urinary incontinen ceHistory of use of oxybutynin which did not help Minimal co gnitive impairment 976573115 R41.89 Noted mild cognitive impairment on evaluation Normal vitamin B112 and folate RPR NegativeNe urology referralWi th hydrocepha elise will also need to rule out normal Pressure hydrocepha elise Particular ly with history of fallsNeuro logy referral Vertigo 990932003 R42 On and off vertigo reportedCT head with hydrocepha elise will get reports [id number] Jose Vergara MD [facility], [place] [address] [place] [address] 10/02/2024 11:14:31 10/02/2024 12:38:11 Depressive disorder 31327475 F32.A ongoing And worseningS he has been on escitalopr am for a whileNo SI or HIincrease d escitalopr am to 20 mg daily: not helpingnow she want to try wellbutrin .will lower escitalopr am 10 mg daily x one week then stopstarte d on wellbutrin 150 mg dailybette r Impairment of balance 38 2243311 R26.89 suspect related to peripheral neuropathy ,recent ct head reportedHa s hydrocepha elise howeverThe results are not available for reviewRefe rred to neurosurge ry: seen and underwent LP tap.physic al therapy currently on holdWe will need to get record of CT headct myelogram reviewed Recurrent falls [id number] 2 R29.6 Ordered PTOTNeurol ogy referralRP R negative vitamin B12 and folate negativect myelogram Abnormal gait 78764863 R 26.9 Likely due to peripheral neuropathy or related to chronic back pain/lumba r spinal stenosispo ssible NPH related as well.lumba r puncture drain performed 07/2024 Degenerati on of lumbar intervertebral disc 94177625 M51.369 Diagnoses of chronic back pain related [...] options of treatment Scoliosis deformity of spine 342118496 M41.9 Noted scoliosis of the spine Mixed hyperlipidemia 267 316148 E78.2 Lipid profiile with LDL 125 Urinary incontinence 165 070121 R32 On and off urinary incontinen ceHistory of use of oxybutynin which did not help Minimal co gnitive impairment 741513871 R41.89 Noted mild cognitive impairment on evaluation Normal vitamin B112 and folate RPR NegativeNe urology referralWi th hydrocepha elise will also need to rule out normal Pressure hydrocepha elise Particular ly with history of fallsNeuro logy referral Vertigo 098621140 R42 On and off vertigo reportedCT head with hydrocepha elise will get reports 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 disc space narrowing at multiple levels. severe bilateral foraminal stenosis Cyst of kidney 743905754 N28.1 ct with multiple indetermin ate to hyperdense renal lesions, compatible with hemorrhagi c or proteinace ous cyst noted. 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 severe neuroformi anl stenosis L1-L4. mdoerate neuroformi nal stenosis. severe on left at L4/L5. mild central canal stenosis.a dded methocarba mol prn for back paincontin ue tramadol prn for severe pain. discussed pain control and options of treatment Depressive disorder 1614 4770 F32.A ongoing And worseningS he has been on escitalopr am for a whileNo SI or HIincrease d escitalopr am to 20 mg daily: not helpingnow she want to try wellbutrin .will lower escitalopr am 10 mg daily x one week then stopstarte d on wellbutrin 150 mg dailybette r Impairment of balance 38 2305071 R26.89 suspect related to peripheral neuropathy ,recent ct head reportedHa s hydrocepha elise howeverThe results are not available for reviewRefe rred to neurosurge ry: seen and underwent LP tap.physic al therapy currently on holdct myelogram reviewedth is is worsening. will send referral to physical therapy.ne urology evaluation next month scheduled 12/11 Recurrent falls [id number] 2 R29.6 Ordered PTOTNeurol ogy referralRP R negative vitamin B12 and folate negativect myelogram reviewed Abnormal gait 31690118 R 26.9 Likely due to peripheral neuropathy or related to chronic back pain/lumba r spinal stenosispo ssible NPH related as well.lumba r puncture drain performed 07/2024susp ected lumbar myelopathy Scoliosis deformity of spine 768287179 M41.9 Noted scoliosis of the spine Mixed hyperlipidemia 267 495847 E78.2 Lipid profiile with LDL 125 Urinary incontinence 165 570807 R32 On and off urinary incontinen ceHistory of use of oxybutynin which did not help Minimal co gnitive impairment 411890661 R41.89 Noted mild cognitive impairment on evaluation Normal vitamin B112 and folate RPR NegativeNe urology referralWi th hydrocepha elise will also need to rule out normal Pressure hydrocepha elise Particular ly with history of fallsNeuro logy referral now scheduled for 11/28/2024 Vertigo 714124430 R42 On and off vertigo reportedCT head with hydrocepha elise will get reports 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 disc space narrowing at multiple levels. severe bilateral foraminal stenosis Cyst of kidney 421940619 N28.1 ct with multiple indetermin ate to hyperdense renal lesions, compatible with hemorrhagi c or proteinace ous cyst noted. 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 11005327 M51.34 ct myelogram with moderate multilevel disc space narrowing Health Concerns Section Related Observation LastModified by Organization Detai ls LastModified Time None Recorded Concern Status LastModified by Organization Details LastModified Time None Recorded Advance Directives Directive None Recorded Payers Encounter Date Sequence Insurance Name Policy Number Policy Smith Covered Member ID Smith Member ID Guarantor Name 07/09/2024 1 [place] Joyce Cano [id number] Joyce Cano 07/09/2024 2 FOR LIFE () Alberto Cano [id number] Joyce Cano 07/17/2024 1 [place] Joyce Cano [id number] Joyce Cano 07/17/2024 2 FOR LIFE () Alberto Cano [id number] Joyce Cano 08/14/2024 1 [place] Joyce Cano [id number] Joyce Cano 08/14/2024 2 FOR LIFE () Alberto Cano [id number] Joyce Cano 10/02/2024 1 [place] Joyce Cano [id number] Joyce Cano 10/02/2024 2 FOR LIFE () Alberto Cano [id number] Joyce Cano 10/29/2024 1 [place] Joyce Cano [id number] Joyce Cano 10/29/2024 2 FOR LIFE () Alberto Cano [id number] Joyce Cano Notes Date Note Type Note Provider Name and Address Organization Details Recorded Time 5 text/html Pt here to establish care. She is a retired nurse. Pt and recently relocated from [facility]. Pt c/o of being dizzy, unstable gait, brain fog x 6 months. Pt states she had 2 CT scans done-05/2024 in [facility] which is reported to have hydrocephalus and 06/29/2024 [facility] ER DX: no hydrocephalus present per ED [...] to neuro surgeon Dr. Irene Osorio. Jose Vegrara MD [address], [place], [address], [facility] 07/10/2024 14:55:34 5 text/html TELEVISIT TEMPLATEReported bypatient.Notes:I [...] She denies any suicidal or homicidal ideations. MD Colten Coker[address] [facility] [address], [place], [address], [facility] 07/17/2024 17:42:08 5 text/html Patient is here for lab review. BP is high in office today. Patient had a spinal tap procedure at [facility] yesterday and states her BP was high there as well. No SOB, chest pain, dizziness, fever, nausea or diarrhea. she is also getting a ct myelogram planned. her physical therapy is on hold currently pending these tests. MD Seth Coker [address] [facility] [address], [place], [address], [facility] 08/14/2024 18:00:32 5 text/html Pt here for follow up. C/O pt fell when standing up from recliner chair. Lost balance, fell forward hit right side of face on 's recliner. Pt would like an order for 3 pong cane. Unsteady gait, shuffles feet. No chest pain, shortness of breath, nausea or vomiting. Fair appetite. will call neurologists for appt. MD Seth [address] [facility] [address], [place], [address], [facility] 10/02/2024 13:22:01 5 text/html Pt here for sick visit. Pt and states her gait has worsen in the last month. She is now forgetting to picker feet and move forward. On Monday, and his son was assisting pt to bedroom when she had difficulty responding to command to lift foot up. Pt has appt with neurology 11/27/2024. Denies headaches, dizziness, nauseated, vomiting. Jose Vergara MD [address], [place], [address], [facility] 10/29/2024 18:39:44 OBGyn Episode No OBEpisode recorded.
--- OUTSIDE RECORDS SUMMARY | 2024-11-10 10:15 | XMS_ITS | Data Portability ---
Author Organization [place] - ZELDA STEEN MD [facility], [facility] Address [address] [address] [place] [address] Care Team Providers Care [place] Or [place] Guide Name Role Phone LUZ MARIA REYNA Spinal [...] relief, reduced use of pain medication, increased [id number], and is associated with few complications. Success rate, however, depends on a careful selection of patients. Discussed with pt will repeat lumbar RFA for pt as it may provide further relief. [email or web address] Not available 01/03/2022 11:29:59 01/07/2022 01/07/2022 Patient [...] relief, reduced use of pain medication, increased [id number], and is associated with few complications. Success [...] Imaging MRI, hip, w/o contrast 2021 022 [facility], [address], [place], [address], 09:00:42 Medication Orders None recorded. Patient TargetsNo targets recorded. Patient Instructions Encounter Date Encounter Id Patient Instructions Last Modified By Organization Details Last Modified Time 01/07/2022 [id number] Pt tolerated procedure well. Pt informed to call and go to ER with development of fever, increased pain, weakness, numbness, bowel or bladder incontinence or any other adverse side effects. [email or web address] Not available 01/07/2022 10:45:27 Reason for Referral None Reported. Results Created Date Observation Date Name Description Value Unit Range Abnormal Flag Note LastModifiedBy Organization Detail LastModifiedTime 04/11/2004/11/2022 MR femur , right [facility] Radiol ogy [facility] [address] [facility], [id number] [phone] ANGEL T: KIMBERLEY RIVERA [address] : 1940 Age: 81 yrs Dept: [id number] Sex: F ACC: [id number]: Too Tang Pat [...] NATALIA GOMEZ M.D. Octobe r 2021 12:40 [facility] [address] [facility] [address], [place], [address], 04/15/2022 10:16:15 04/11/20 22 04/11/2022 MR hip - right [facility] Radiol [facility]gy [facility] [address] [facility], [address] [phone] PATIEN T: KIMBERLEY RIVERA E 272 : 1940 Age: 81 yrs Dept: [id number] Sex: F ACC: [id number]: Too Tang Status [...] M.D. Report ed by:: NATALIA GOMEZ M.D. [facility] 2021 12:47 [facility] [address] [facility] [address], [place], [address], 04/15/2022 10:16:15 04/11/20 22 04/11/2022 MRI, hip, w/o contr ast No observ ation record ed. [email or web address] [facility] [address], [place], [address], 04/18/2022 15:18:08 04/11/20 22 04/11/2022 MRI, hip, w/o contr ast No observ ation record ed. [email or web address] [facility] Radiology [facility] [address], [address], [place], [address], 04/18/2022 15:18:23 04/13/20 22 04/13/2022 MRI, hip, w/o contr ast No observ ation record ed. BARCODE Not Available 2021 13:54:53 Result Notes None recorded. Problems Name Problem SNOMED Code Status Onset Date Resolution Date Notes Provider Name and Address Organization Details Recorded Time Arthropath y of lumbar facet joint 074818060 Active 2020 REBECCA Tejeda MD [facility] 1 12:44:01 Lumbar radiculopa thy 905649408 Active 2020 REBECCA Tejeda MD [facility] 1 12:44:03 Lumbar spondylosi s 337795884 Active 2020 REBECCA Tejeda MD [facility] 1 12:44:04 Low back pain 973281292 Active 2020 REBECCA Tejeda MD [facility] 1 12:44:05 Hypertensi ve disorder 03963228 Completed 202004/20/2021 REBECCA Tinoco MD [facility] 1 09:40:47 Pain of sacroiliac joint 933886107 Active 2021 REBECCA Molina MD [facility] 2 10:39:08 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 Procedures Surgical History Date Name Laterality Status Provider Name and Address Organization Details Recorded Time 04/13/20 22 Trochanteric Bursa Injection completed Rui RYAN [facility] 04/13/2022 13:23:57 03/21/20 22 Hip Injection completed Colt RYAN [facility] 03/21/2022 16:07:06 02/15/20 22 Piriformis Injection completed Colt RYAN [facility] 02/15/2022 16:45:52 01/08/20 22 Lumbar RFA completed Colt RYAN [facility] 01/11/2022 12:29:02 01/08/20 22 Sedation completed Colt RYAN [facility] 01/11/2022 12:32:12 12/01/19 22 Sacroiliac Joint Steroid Injection Under Fluoroscopy completed Jarrell RYAN [facility] 11/30/2021 09:20:58 11/17/19 22 Lumbar RFA completed Colt RYAN [facility] 11/17/2021 16:37:57 11/17/19 22 Sedation completed Colt RYAN [facility] 11/17/2021 16:56:20 10/08/19 22 Sacroiliac Joint Steroid Injection Under Fluoroscopy completed Colt RYAN [facility] 10/11/2021 17:45:35 08/09/19 22 Sacroiliac Joint Steroid Injection Under Fluoroscopy completed Colt RYAN [facility] 08/11/2021 11:26:21 06/01/20 21 Sacroiliac Joint Steroid Injection Under Fluoroscopy completed Blair Salguero MD [address], [address], [place], [address], [place] REBECCA RYAN [facility] 06/02/2021 14:52:14 04/20/20 21 Lumbar Radiofrequency Ablation completed Blair Salguero MD [address], [address], [place], [address], [place] REBECCA RYAN [facility] 04/23/2021 10:11:43 04/20/20 21 Sedation completed Blair Salguero MD [address], [address], [place], [address], [place] Gretchen RYAN [facility] 04/23/2021 10:11:51 03/30/20 21 Lumbar Medial Branch Block Injection (Facet) completed Colt RYAN [facility] 03/30/2021 17:30:29 03/16/20 21 Lumbar Medial Branch Block Injection (Facet) completed Blair Salguero MD [address], [address], [place], [address], [place] REBECCA RYAN [facility] 03/23/2021 11:41:06 02/27/20 21 Lumbar Transforaminal SATNAM INJ completed Colt RYAN [facility] 03/02/2021 11:10:54 01/20/20 21 Sacroiliac Joint Steroid Injection Under Fluoroscopy completed Colt RYAN [facility] 01/20/2021 12:36:15 12/19/19 21 Sacroiliac Joint Steroid Injection Under Fluoroscopy completed Suki RYAN [facility] 12/18/2020 10:43:53 12/02/19 21 Lumbar Transforaminal SATNAM INJ completed Blair Salguero MD [address], [address], [place], [address], [place] REBECCA R[facility]AN [facility] 12/03/2020 15:43:02 11/18/19 21 Lumbar Transforaminal SATNAM INJ completed Blair Salguero MD [address], [address], [place], [address], [place] REBECCA R[facility]AN [facility] 11/18/2020 12:58:26 10/27/19 21 Lumbar Transforaminal SATNAM INJ completed Colt RYAN [facility] 10/28/2020 11:02:25 07/20/19 21 Lumbar Transforaminal SATNAM INJ completed Blair Salguero MD [address], [address], [place], [address], [place] REBECCA RYAN [facility] 07/21/2020 12:21:49 07/06/19 21 Lumbar Medial Branch Block Injection (Facet) completed Colt RYAN [facility] 07/06/2020 11:39:32 05/25/20 20 Sacroiliac Joint Steroid Injection Under Fluoroscopy completed Manolo RYAN [facility] 05/28/2020 12:43:43 05/07/20 20 Sacroiliac Joint Steroid Injection Under Fluoroscopy completed Colt RYAN [facility] 05/11/2020 10:58:07 04/09/20 18 Lumbar Transforaminal SATNAM INJ completed Linda RYAN [facility] 04/10/2018 10:04:21 09/22/19 18 Lumbar Transforaminal SATNAM INJ completed Zahraa RYAN [facility] 09/21/2017 16:55:27 02/03/20 17 Lumbar Transforaminal SATNAM INJ completed Malgorzata RYAN [facility] 02/02/2017 10:21:38 01/10/20 17 Lumbar Transforaminal SATNAM INJ completed Catherine RYAN [facility] 01/10/2017 13:17:50 12/27/19 17 Lumbar Transforaminal SATNAM INJ completed Artie RYAN [facility] 12/26/2016 18:27:44 Hysterectomy completed Hannah RYAN [facility] 12/26/2016 15:42:34 Imaging Results None recorded. Procedure Notes None [...] Not Available Not Available Fluzone High-Dose Quad 2020-21 (PF) 240 mcg/0.7 mL IM syringe ADM 0.7ML IM UTD active Not Available Not Available No t Available Vitals Date Recorded Body height Heart rate Systolic And Diastolic Provider Name and Address Organization Details Last Updated DateTime 01/03/2022 160.02 cm 84 /min 119/90 mm[Hg] Suki RYAN [facility] 01/03/2022 10:59:10 Date Recorded Body height Heart rate Systolic And Diastolic Provider Name and Address Organization Details Last Updated DateTime 01/07/2022 160.02 cm 57 /min 133/71 mm[Hg] Yi RYAN [facility] 01/07/2022 10:45:37 Date Recorded Body height Heart rate Systolic And Diastolic Provider Name and Address Organization Details Last Updated DateTime 02/14/2022 160.02 cm 74 /min 155/86 mm[Hg] Suki RYAN [facility] 02/14/2022 12:17:15 Date Recorded Body height Heart rate Systolic And Diastolic Provider Name and Address Organization Details Last Updated DateTime 03/21/2022 160.02 cm 82 /min 130/67 mm[Hg] Suki RYAN [facility] 03/21/2022 09:58:28 Date Recorded Body height Heart rate Systolic And Diastolic Provider Name and Address Organization Details Last Updated DateTime 04/13/2022 160.02 cm 78 /min 135/79 mm[Hg] Suki R[facility]AN [facility] 04/13/2022 11:10:37 Social History Question Answer Notes LastModified by Organizat ion Details LastModified Time Tobacco Smoking Status Never [facility]oker Not Available [facility] 04/21/2020 03:36:23 Illicit Drug Usage No Information not available 12/26/2016 Tobacco Usage No Information not available 12/26/2016 Alcohol Usage Yes Information not available 12/26/2016 Do You Have Any Children? Yes Information not available 12/26/2016 Are You ? No Information not available 12/26/2016 What Was The Date Of Your Most Recent Tobacco Screening? 04/09/2018 [id number] Information not available 04/21/2020 How Much Tobacco Do You Smoke? No [id number] Information not available 04/21/2020 Sex: Unknown Functional Status Question Answer Note LastModified by Organization D etails LastModified Time What is your level of alcohol consumption? None Information not available 04/20/2021 Mental Status None recorded. Family History Relationship [...] History Condition Response High Blood Pressure Y Arthritis Y Sexual Difficulties N Fibromyalgia N Cancer, what type? N Weight Loss N Bowel or Bladder Problems N Asthma N Stomach Problems, GI Problems N Lung Disease N Epilepsy/Seizure Disorder Problems N Kidney Problems N Thyroid Problems N Heart Disease/Heart Attack N GOUT N Diabetes N Anemia/blood disorders N Gynecological HistoryNo gynecological history recorded. Obstetrics History GPAL:G 0 P 0 0 0 0 Past Encounters Encounter ID Performer Location Encounter Start Date Encounter Closed Date Diagnosis/Indication Diagnosis SNOMED-CT Code Diagnosis ICD10 Code Diagnosis Note [id number] MD Darrel Aguilar [address] [place] [address] 12/26/2016 15:28:47 12/26/2016 17:28:38 Lumbar radiculopathy 597333677 M54.16 Low back pain 173537218 M54.5 [id number] MD Darrel Aguilar [address] [place] [address] 01/09/2017 13:56:52 01/09/2017 14:38:36 Radicular pain 63494016 M54.16 Low back pain 375171929 M54.5 Lumbar radiculopathy 128 527350 M54.16 Displaceme nt of lumbar intervertebral disc without myelopathy 74928589 M51.26 Lumbar spondylosis 35776 0009 M47.816 [id number] Blair Salguero MD [facility] [address] [place] [address] 02/02/2017 09:03:31 02/02/2017 10:03:44 Radicular pain 77386740 M54.16 Low back pain 337040410 M54.5 Lumbar radiculopathy 128 997695 M54.16 [id number] Blair Salguero MD [facility] [address] [place] [address] 09/21/2017 10:15:56 09/21/2017 12:24:03 Lumbar radiculopathy 640987437 M54.16 Low back pain 557996235 M54.5 Lumbar spondylosis 60779 0009 M47.816 Displaceme nt of lumbar intervertebral disc without myelopathy 27043397 M51.26 [id number] Blair Salguero MD [facility] [address] [place] [address] 04/09/2018 15:39:34 04/09/2018 17:06:35 Lumbar radiculopathy 204773620 M54.16 Displaceme nt of lumbar intervertebral disc without myelopathy 52315557 M51.26 Lumbar spondylosis 54868 0009 M47.816 Low back pain 034289489 M54.5 [id number] SHELBY KATZ [facility] 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 [place] [address] 05/21/2020 16:46:13 05/21/2020 17:59:05 Low back pain 128785166 M54.5 Lumbar radiculopathy 128 967629 M54.16 Pain in ri ght sacroiliac joint 7372626742 0991871 M53.3 Pain in le ft sacroiliac joint 2091592533 1273833 M53.3 [id number] SHELBY KATZ [facility] [address] [place] [address] 05/25/2020 14:31:08 05/25/2020 16:01:56 Inflammation of sacroiliac joint 56609025 M46.1 Pain of sa croiliac joint 643162601 M53.3 Sacral back pain 9923060 3 M54.5 [id number] SHELBY KATZ [facility] 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 [place] [address] 07/06/2020 10:14:38 07/06/2020 11:45:02 Lumbar spondylosis 819284253 M47.816 Arthropath y of lumbar facet joint 505285688 M46.96 Low back pain 721033119 M54.5 [id number] Blair Salguero MD [facility] [address] [place] [address] 07/20/2020 11:59:12 07/20/2020 13:36:02 Radicular pain 08920281 M54.16 Lumbosacra l radiculitis 71764013 M54.17 Low back pain 132514961 M54.5 [id number] SHELBY KATZ [facility] [address] [place] [address] 08/07/2020 12:20:55 08/07/2020 13:08:23 Low back pain 313164711 M54.5 Lumbar spondylosis 66250 0009 M47.896 Lumbar radiculopathy 128 317057 M54.16 Arthropath y of lumbar facet joint 716539147 M46.96 [id number] Blair Salguero MD [facility] [address] [place] [address] 10/26/2020 11:07:40 10/26/2020 13:17:54 Low back pain 204121661 M54.5 Lumbar radiculopathy 128 487499 M54.16 Lumbar spondylosis 17786 0009 M47.896 [id number] Blair Salguero MD [facility] [address] [address] 11/17/2020 14:10:23 11/17/2020 14:58:55 Arthropathy of lumbar facet joint 339405013 M46.96 Low back pain 292966013 M54.5 Lumbar radiculopathy 128 030719 M54.16 Lumbar spondylosis 88272 0009 M47.896 [id number] Blair Salguero MD [facility] [address] [address] 12/01/2020 14:25:45 12/01/2020 15:53:19 Low back pain 668453677 M54.5 Lumbar spondylosis 08818 0009 M47.896 Lumbar radiculopathy 128 092993 M54.16 [id number] Blair Salguero MD [facility] [address] [address] 12/17/2020 11:41:44 12/17/2020 12:57:34 Arthropathy of lumbar facet joint 076065751 M46.96 Low back pain 366763933 M54.5 Lumbar radiculopathy 128 316501 M54.16 Lumbar spondylosis 89879 0009 M47.896 Pain of le ft hip joint 6170358353 54735 M25.552 [id number] MD Darrel Aguilar [address] [address] 12/18/2020 09:58:52 12/18/2020 10:21:03 Pain of hip region 30938907 M25.551 M25.552 M79.18 Pain in le ft sacroiliac joint 0935444680 9356317 M53.3 Sacral back pain 8620912 3 M54.5 Pain of sa croiliac joint 850251072 M53.3 [id number] MD Darrel Aguilar [address] [address] 01/19/2021 09:11:59 01/19/2021 10:46:57 Pain of left hip joint 5072865166 82523 M25.552 Pain in le ft sacroiliac joint 7434327934 6122459 M53.3 Sacral back pain 8433540 3 M54.5 Pain of sa croiliac joint 536038636 M53.3 [id number] MD Darrel Aguilar [address] [address] 02/19/2021 09:08:16 02/19/2021 09:46:11 Arthropathy of lumbar facet joint 766208151 M46.96 Low back pain 446157982 M54.5 Lumbar radiculopathy 128 M54.16 Pain of ri ght hip joint 2513222628 89432 M25.551 Pain of le ft hip joint 7305673027 50709 M25.552 Lumbar spondylosis 62843 0009 M47.896 [id number] MD Darrel Aguilar [address] [address] 02/26/2021 12:47:40 02/26/2021 14:04:41 Radicular pain 42497711 M54.16 Lumbosacra l radiculitis 93818579 M54.17 Low back pain 462056527 M54.5 [id number] Blair Salguero MD [facility] [address] [place] [address] 03/04/2021 13:51:20 03/04/2021 14:26:34 Low back pain 757515308 M54.5 Lumbar spondylosis 49839 0009 M47.896 Arthropath y of lumbar facet joint 973074986 M46.96 Lumbar fac et joint pain 023991910 M54.5 [id number] Blair Salguero MD [facility] [address] [place] [address] 03/16/2021 09:17:13 03/16/2021 10:40:29 Lumbar spondylosis 704673707 M47.816 Arthropath y of lumbar facet joint 495444033 M46.96 Low back pain 302710824 M54.5 [id number] Blair Salguero MD [facility] [address] [place] [address] 03/30/2021 09:37:22 03/30/2021 10:41:24 Lumbar spondylosis 838784714 M47.816 Pain of facet joint 2473 88362 M25.50 Low back pain 389753603 M54.59 Arthropath y of lumbar facet joint 219682651 M46.96 [id number] Blair Salguero MD [facility] [address] [place] [address] 04/20/2021 09:24:00 04/20/2021 10:20:23 Lumbar spondylosis 597378051 M47.816 Arthropath y of lumbar facet joint 595672651 M46.86 Low back pain 525104521 M54.59 Generalize d anxiety disorder 42967134 F41.1 [id number] Blair Salguero MD [facility] [address] [place] [address] 05/25/2021 12:03:40 05/25/2021 13:40:52 Arthropathy of lumbar facet joint 399821356 M46.86 Low back pain 833440400 M54.59 Lumbar radiculopathy 128 089742 M54.16 Lumbar spondylosis 89028 0009 M47.816 [id number] Blair Salguero MD [facility] [address] [place] [address] 06/01/2021 09:59:51 06/01/2021 10:55:09 Inflammation of sacroiliac joint 03016651 M46.1 Pain of sa croiliac joint 692426551 M53.3 Sacral back pain 0771157 3 M54.59 [id number] Blair Salguero MD [facility] [address] [place] [address] 06/29/2021 10:39:11 06/29/2021 13:00:39 Low back pain 471925137 M54.59 Lumbar spondylosis 64531 0009 M47.816 Arthropath y of lumbar facet joint 734898415 M46.86 [id number] lBair Salguero MD [facility] 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 [place] [address] 10/07/2021 09:01:00 10/07/2021 09:30:59 Inflammation of sacroiliac joint 51398991 M46.1 Pain of sa croiliac joint 500574399 M53.3 Sacral back pain 1617632 3 M54.59 Pain in ri ght sacroiliac joint 3133701003 7514395 M53.3 [id number] Blair Salguero MD [facility] [address] [place] [address] 11/05/2021 10:22:21 11/05/2021 11:25:04 Low back pain 199642937 M54.59 Lumbar spondylosis 83652 0009 M47.816 Arthropath y of lumbar facet joint 298175335 M46.86 Lumbar fac et joint pain 064556628 M54.50 [id number] Blair Salguero MD [facility] [address] [place] [address] 11/16/2021 10:03:47 11/16/2021 12:01:14 Lumbar spondylosis 285897368 M47.816 Arthropath y of lumbar facet joint 847478776 M46.96 Low back pain 511389997 M54.59 Pain of facet joint 2473 10080 M25.50 [id number] Blair Salguero MD [facility] [address] [place] [address] Inflammation of sacroiliac joint 29387172 M46.1 Pain of sa croiliac joint 900006103 M53.3 Sacral back pain 5895667 3 M54.59 Pain in ri ght sacroiliac joint 0418061030 6887170 M53.3 [id number] Blair Salguero MD [facility] [address] [place] [address] 01/03/2022 10:47:30 01/03/2022 11:43:26 Lumbar spondylosis 968019296 M47.816 Pain of facet joint 2473 31707 M25.50 Low back pain 294546949 M54.59 Arthropath y of lumbar facet joint 903515333 M46.96 [id number] Blair Salguero MD [facility] [address] [place] [address] 01/07/2022 10:20:27 01/07/2022 11:25:27 Lumbar spondylosis 935749791 M47.816 Arthropath y of lumbar facet joint 025327755 M46.96 Low back pain 823499923 M54.59 Pain of facet joint 2473 78030 M25.50 [id number] Blair Salguero MD [facility] [address] [place] [address] 02/14/2022 11:06:55 02/14/2022 12:57:54 Right-sided piriformis syndrome 8903092277 15487 M54.31 Low back pain 650517245 M54.59 Lumbar spondylosis 92939 0009 M47.816 [id number] Blair Salguero MD [facility] [address] [place] [address] 03/21/2022 09:45:39 03/21/2022 11:15:11 Pain of right hip joint [id number] 43172 M25.551 Osteoarthr itis of right hip joint [id number] 92572 M16.11 Enthesopat hy of right hip [id number] [id number] M76.891 Low back pain [id number] M54.59 [id number] Blair Salguero MD Main Office [address] [facility] [place] [address] 04/13/2022 10:51:23 04/13/2022 12:22:35 Pain of right hip joint [id number] 48755 M25.551 Trochanter ic bursitis of right hip [id number] 42233 M70.61 Tendinitis of right gluteal tendon [id number] 79951 M76.01 Health Concerns Section Related Observation LastModified by Organization Detai ls LastModified Time None Recorded Concern Status LastModified by Organization Details LastModified Time None Recorded Advance Directives Directive None Recorded Payers Encounter Date Sequence Insurance Name Policy Number Policy Smith Covered Member ID Smith Member ID Guarantor Name 01/03/2022 1 [place] Joyce Clifford Jerome [id number] Joyce E Jerome 01/03/2022 2 WPS - FOR LIFE (MEDICARE SUPPLEMENT) Alberto Cano [id number] Joyce E Jerome 02/14/2022 1 [place] Joyce E Jerome [id number] Joyce E Jerome 02/14/2022 2 WPS - FOR LIFE (MEDICARE SUPPLEMENT) Alberto Cano [id number] Joyce E Jerome 03/21/2022 1 [place] Joyce E Jerome [id number] Joyce E Jerome 03/21/2022 2 WPS - FOR LIFE (MEDICARE SUPPLEMENT) Alberto Cano [id number] Joyce E Jerome 04/13/2022 1 [place] Joyce E Jerome [id number] Joyce E Jerome 04/13/2022 2 WPS - FOR LIFE (MEDICARE SUPPLEMENT) Alberto Cano [id number] Joyce Blairbrick Notes Date Note Type Note Provider Name and Address Organization Details Recorded Time text/html Follow-up QuestionnaireReported bypatient.Location:upper back;leg right;right hip(s) [...] since last visit?none Blair Salguero MD [address], [place], [address], REBECCA RYAN [facility] 01/05/2022 15:22:13 2 [...] changes since last visit?none REBECCA Tejeda MD [facility] 02/16/2022 11:24:39 2 [...] changes since last visit?none REBECCA Tejeda MD [facility] 03/22/2022 08:41:25 2 text/html Follow-up QuestionnaireReported bypatient.Location:right hip(s) Pain Nature:sharp; shooting; burning Pain score in the past wk?:8/10 worst Enjoyment of life interference pain score?:4/10 complete interference General activity interference pain score?:3/10 complete interference Pain is:recurring from time to time (periodic) Procedure(s) [id number]% Relief Pain is worse with:activity Pain is improved with:heat Previous PT:none The following are affected by your pain?activities of daily living Any medical or medication changes since last visit?none REBECCA Tejeda MD [facility] 04/14/2022 09:08:28 OBGyn Episode No OBEpisode recorded.
--- OUTSIDE RECORDS SUMMARY | 2024-11-10 10:15 | XMS_ITS | Data Portability ---
Author Organization REBECCA Swan, [facility], [email or web address] Address [address] [place] [address] Care Team Providers Care Ballast Cleaning Operator Name Role Phone [facility] Primary Care Provider Assessment Encounter Date Assessment [...] available 05/17/2022 22:00:02 06/21/2022 06/21/2022 Procedure abandoned [email or web address] Not available 06/22/2022 16:29:35 06/30/2022 06/30/2022 81 [...] to change lumbar SCS to Nevro from [employer]. During previous visit - and attempt was made to proceed with lumbar SCS Nevro trial. There were complications when inserting leads. F/u 1 week telemed to discuss talk with Dr. Weaver. [email or web address] Not available 07/06/2022 14:46:39 07/07/2022 07/07/2022 81 [...] only worsen the symptoms. F/u 1 month. [email or web address] Not available 07/08/2022 11:38:50 08/01/2022 08/01/2022 Patient [...] start all patients out on. Romel from [facility] is here today to do [...] encounter was HIPAA compliant. Governor [place] approved [place] [employer]'s request to temporarily suspend [place] Occupation Code 111.005(a)-(b) and Title 22, Chapter 174.6(a)(2)-(3). The suspension is in affect since August 30, 2019 due to COVID-19. The patient gave Blair Salguero MD, [facility] verbal consent prior to starting the video conferencing call. [email or web address] Not available 07/07/2022 15:29:28 Reason for Referral None Reported. Results Created Date Observation Date Name Description Value Unit Range Abnormal Flag Note LastModifiedBy Organization Detail LastModifiedTime 06/15/2006/14/2022 MRI, thora cic spine , w/o contr ast No observ ation record ed. [email or web address] [address], [place], [address], 07/12/2022 15:39:30 06/16/20 22 MRI, lumba r spine , w/o contr ast No observ ation record ed. [facility] [place] [address], [place], [address], 06/16/2022 17:35:03 Result Notes None recorded. Problems Name Problem SNOMED Code Status Onset Date Resolution Date Notes Provider Name and Address Organization Details Recorded Time Low back pain 852678526 Active 2021 MAXIME CORDOBA NP [address], [place], [address], REBECCA SALGUERO M.D., [facility] 2 10:37:00 Pain of right hip joint 2069575324202 02 Active 2021 MAXIME CORDOBA NP [address], [place], [address], REBECCA SALGUERO M.D., [facility] 2 10:37:05 Trochanteri c bursitis of right hip 5878408831472 00 Active 2021 MAXIME CORDOBA NP [address], [place], [address], REBECCA SALGUERO M.D., [facility] 2 10:37:07 Tendinitis of right gluteal tendon 8415688579210 02 Active 2021 MAXIME CORDOBA NP [address], [place], [address], REBECCA SALGUERO M.D., [facility] 2 10:37:08 Problem Notes None recorded. Procedures Surgical History Date Name Laterality Status Provider Name and Address Organization Details Recorded Time 3 SCS Trial - Lumbar completed Manolo SALGUERO M.D., [facility] 06/22/2022 16:29:24 3 Sedation completed Colt SALGUERO M.D., [facility] 06/22/2022 11:11:52 Imaging Results Imaging Date Name Status LastModified by Organiz ation Details LastModified Time 06/14/2022 MRI, thoracic spine, w/o contrast [place] [address] [facility] [address], [place], [address], 07/12/2022 15:39:30 06/16/2022 MRI, lumbar spine, w/o contrast completed [facility] [address], [place], [address], 06/16/2022 17:35:03 Procedure Notes None recorded. Medical [...] Updated DateTime 3 160.02 cm 22.7 kg/m2 44908.8 2 g 64 /min 176 mm[Hg] 88 mm[Hg] Edgar Polo M.D., [facility] 3 13:49:43 Date Recorded Body height Body mass index (BMI) Body weight Heart rate Systolic blood pressure Diastolic blood pressure Provider Name and Address Organization Details Last Updated DateTime 3 160.02 cm 22.5 kg/m2 73677.2 3 g 78 /min 149 mm[Hg] 80 mm[Hg] Edgar Palmer REBECCA SALGUERO M.D., [facility] 3 15:24:38 Date Recorded Body height Body mass index (BMI) Body weight Systolic blood pressure Diastolic blood pressure Provider Name and Address Organization Details Last Updated DateTime 08/01/2022 160.02 cm 21.3 kg/m2 40655.08 g 142 mm[Hg] 93 mm[Hg] Baldomero Diehl REBECCA SALGUERO M.D., [facility] 3 15:43:31 Date Recorded Body height Body mass index (BMI) Body weight Heart rate Systolic blood pressure Diastolic blood pressure Provider Name and Address Organization Details Last Updated DateTime 2 160.02 cm 23 kg/m2 24420.0 1 g 65 /min 141 mm[Hg] 79 mm[Hg] Suki Bonner REBECCA SALGUERO M.D., [facility] 2 11:53:22 Social History None recorded. Functional Status None recorded. Mental Status None recorded. Family History Nothing Reported. Medical History No medical history recorded. Gynecological HistoryNo gynecological history recorded. Obstetrics History GPAL:G 0 P 0 0 0 0 Past Encounters Encounter ID Performer Location Encounter Start Date Encounter Closed Date Diagnosis/Indication Diagnosis SNOMED-CT Code Diagnosis ICD10 Code Diagnosis Note [id number] MD Fernie Aguilar [address] [facility] [address] [place] [address] 04/21/2022 10:09:12 05/09/2022 14:01:30 Low back pain 969253983 M54.59 Pain of ri ght hip joint 2625038716 88996 M25.551 Trochanter ic bursitis of right hip 6349280197 83904 M70.61 Tendinitis of right gluteal tendon 4184794560 42932 M76.01 [id number] MD Declan Aguilar [address] [facility] [address] [place] [address] 05/17/2022 11:39:50 05/17/2022 12:42:58 Chronic pain syndrome 144787421 G89.4 Lumbar spondylosis 99169 0009 M47.896 Lumbar radiculopathy 128 019859 M54.16 Spinal isaac nosis of lumbar region 76914332 M48.062 [id number] MD Drew Aguilar [address] [place] [address] 06/21/2022 13:35:48 06/21/2022 16:12:41 Low back pain 325081205 M54.50 Lumbar spondylosis 91971 0009 M47.896 Chronic pain syndrome 37 3022867 G89.4 [id number] MD Declan Aguilar [address] [facility] [place] [address] 06/30/2022 14:58:48 06/30/2022 15:58:41 Lumbar radiculopathy 718295653 M54.16 Lumbar spondylosis 47668 0009 M47.26 Neuropathic pain 9692370 09 M79.2 Low back pain 946849361 M54.59 Chronic pain syndrome 37 3086122 G89.4 [id number] MD Darrel Aguilar [address] [place] [address] 07/07/2022 14:00:59 07/07/2022 15:23:06 Chronic pain syndrome 403248865 G89.4 Lumbar radiculopathy 128 106877 M54.16 Low back pain 281511203 M54.59 Lumbar spondylosis 69435 0009 M47.26 [id number] MD Darrel Aguilar [address] [place] [address] 08/01/2022 15:28:07 08/01/2022 16:44:28 Low back pain 118014297 M54.59 Pain of ri ght hip joint 8300156586 41573 M25.551 Tendinitis of right gluteal tendon 5710319532 03394 M76.01 Trochanter ic bursitis of right hip 9383343304 48890 M70.61 Chronic pain syndrome 37 5141536 G89.4 Health Concerns Section Related Observation LastModified by Organization Detai ls LastModified Time None Recorded Concern Status LastModified by Organization Details LastModified Time None Recorded Advance Directives Directive None Recorded Payers Encounter Date Sequence Insurance Name Policy Number Policy Smith Covered Member ID Smith Member ID Guarantor Name 05/17/2022 2 WPS - FOR LIFE (MEDICARE SUPPLEMENT) Alberto Cano [id number] Joyce E Jerome 05/17/2022 1 [place] Joyce E Jerome [id number] Joyce E Jerome 06/21/2022 2 WPS - FOR LIFE (MEDICARE SUPPLEMENT) Alberto Cano [id number] Joyce E Jerome 06/21/2022 1 [place] Joyce E Jerome [id number] Joyce E Jerome 06/30/2022 2 WPS - FOR LIFE (MEDICARE SUPPLEMENT) Alberto Cano [id number] Joyce E Jerome 06/30/2022 1 [place] Joyce E Jerome [id number] Joyce E Jerome 07/07/2022 2 WPS - FOR LIFE (MEDICARE SUPPLEMENT) Alberto Cano [id number] Joyce E Jerome 07/07/2022 1 [place] Joyce E Jerome [id number] Joyce E Jerome 08/01/2022 2 WPS - FOR LIFE (MEDICARE SUPPLEMENT) Alberto Cano [id number] Joyce E Jerome 08/01/2022 1 [place] Joyce E Jerome [id number] Joyce E Jerome Notes Date Note Type [...] Changes since Last Visit:none REBECCA Tejeda M.D., [facility] 05/17/2022 22:02:12 3 text/html Follow-up QuestionnaireReported [...] or Medication Changes since Last Visit:none Blair Salguero MD [address], [place], [address], REBECCA SALGUERO M.D., [facility] 07/06/2022 14:46:56 3 text/html Follow-up QuestionnaireReported bypatient.Location:bilater al lower back Pain Naturedull; aching; throbbing Pain Score in Last Week?6/10 worst Pain is:periodic Pain is worse with:exercise/ [...] or Medication Changes since Last Visit:none Blair Salguero MD [address], [place], [address], REBECCA SALGUERO M.D., [facility] 07/08/2022 11:39:18 3 text/html Follow-up QuestionnaireReported [...] Changes since Last Visit:none REBECCA Tejeda M.D., [facility] 08/01/2022 16:36:13 OBGyn Episode No OBEpisode recorded.
--- OUTSIDE RECORDS SUMMARY | 2024-11-10 10:15 | XMS_ITS | Data Portability ---
Author Organization REBECCA - Aureliano Robertson, Main Office Address [address] [place] [address] Care Team Providers Care Security Installation Technician Name Role Phone TATIANA MOSLEY Primary Care [...] be followed on a as needed basis. [email or web address] Not available 03/20/2019 21:15:58 Plan of Treatment [...] By Organization Details Last Modified Time 03/20/2019 [id number] back care and preventing injuries: care instructions [...] Address Organization Details Recorded Time Hypertensive disorder 82065711 Active 2018 REBECCA Gamez MD 9 15:13:04 Pain 90025262 Active 2018 REBECCA Gamez MD 9 15:13:08 Scoliosis deformity of spine 075553513 Active 2018 REBECCA Gamez MD 9 15:14:49 Osteoporosis 37794357 Active 2018 REBECCA Gamez MD 9 15:16:12 Problem Notes None recorded. Procedures Surgical History Date Name Laterality Status Provider Name and Address Organization Details Recorded Time Hysterectomy completed Arpita Banks MD 03/20/2019 15:13:35 Imaging Results None recorded. Procedure Notes None [...] Body mass index (BMI) Body weight Systolic And Diastolic Provider Name and Address Organization Details Last Updated DateTime 9 162.56 cm 20 /min 97.1 [degF] 98 % 98 % 91 /min 22.7 kg/m2 68923.1 9 g 145/95 mm[Hg] Arpita Banks MD 9 15:12:25 Social History Question Answer Notes LastModified by Organizat ion Details LastModified Time Tobacco Smoking Status Never Smoker REBECCA Gamez MD 03/20/2019 15:11:06 Drugs Abused 0 Information not available 03/20/2019 Live Alone Or With Others? With Others Information not available 03/20/2019 Primary Provider Tatiana Mosley Information not available 03/20/2019 Referring Provider Tatiana Mosley Information not available 03/20/2019 Pain Management Doctor Blair Salguero Information not available 03/20/2019 How Much Tobacco Do You Smoke? No Information not available 03/20/2019 How Many Years Have You Smoked Tobacco? 0 Information not available 03/20/2019 Sex: Unknown Functional Status Question Answer Note LastModified by Organizat ion Details LastModified Time Do you use any illicit or recreational drugs? No Information not available 03/20/2019 What is your level of alcohol consumption? Occasional Information not available 03/20/2019 Do you or have you ever used smokeless tobacco? Never used smokeless tobacco Information not available 03/20/2019 Are you currently employed? No Information not available 03/20/2019 What is your occupation? retired Information not available 03/20/2019 Do you or have you ever used e-cigarettes or vape? Never used electronic cigarettes Information not available 03/20/2019 Mental Status None recorded. Family History Nothing Reported. Medical History Condition Response Head Trauma/Injury N COPD N Obstructive Sleep Apnea N Autoimmune disease N Arthritis Y Cancer N Stroke N Fibromyalgia N Kidney Disease N Ulcers N Bleeding Disorder N Asthma N Hepatitis N Pacemaker N Problems with Anesthesia N Liver Disease N Heart Attack (IA) N Diabetes N Epilepsy/Seizures N Aneurysm N Heart Disease N Hypertension Y Osteoporosis N Gynecological HistoryNo gynecological history recorded. Obstetrics History GPAL:G 0 P 0 0 0 0 Past Encounters Encounter ID Performer Location Encounter Start Date Encounter Closed Date Diagnosis/Indication Diagnosis SNOMED-CT Code Diagnosis ICD10 Code Diagnosis Note [id number] [facility] [address] [place] [address] [address] [place] [address] 03/20/2019 14:50:42 03/20/2019 16:42:54 Lumbar spondylolisthesis 5073614415 86014 M43.16 Lumbar spondylosis 12469 0009 M47.896 Low back pain 961104503 M54.5 Health Concerns Section Related Observation LastModified by Organization Detai ls LastModified Time None Recorded Concern Status LastModified by Organization Details LastModified Time None Recorded Advance Directives Directive None Recorded Payers Encounter Date Sequence Insurance Name Policy Number Policy Smith Covered Member ID Smith Member ID Guarantor Name 03/20/2019 1 [place] Joyce Cano [id number] Joyce Cano 03/20/2019 2 WPS - FOR LIFE (SECONDARY TO MEDICARE) [id number] Joyce Cano [id number] Joyce Cano Notes Date Note Type Note [...] Naproxen); Muscle Relaxant Medications; Narcotic Medication (ie Kimberly, Percocet, Codeine); Pain Cream; Spinal Injections; no recent pt Hand Dominance:Right Do you have any difficulty with:walkin - mildly limited 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 Shecomplainsof low back pain which [email or web address] after experiencing a fall. Patient was originally [...] or bowel bladder dysfunction. Neda Jenkins NP [address], [place], [address], [place] - Aureliano Banks MD 04/15/2019 11:22:05 OBGyn Episode No OBEpisode recorded.
--- OUTSIDE RECORDS SUMMARY | 2024-11-10 10:16 | XMS_ITS ---
Author Organization [facility] Johan morse Billing Info Address [address] [place] [address] Care Team Providers Care Administrative Medical Director Name Role Phone JOSE ALFREDO HORTON [phone] Encounters Encounter Location Date Provider Diagnosis [id number] [address] [place] [address] 10/30/2023 JOSE ALFREDO HORTON Plan Of Treatment No Information Progress Notes * DOLORES BLANTONOB:[birth year] (83 yo F)Acc No.[id number]:10/30/2023 Patient: YUSUF VALENZUELAJORIE :1940 A ge:83 Y S ex:Female Address:[address] [place], [address] * true * Date: Generated for Printi ng/Faxing/eTransmitting on: 0 11/10/2024 10:16 AM CDT
--- OUTSIDE RECORDS SUMMARY | 2024-11-10 10:16 | XMS_ITS | Data Portability ---
Author Organization [facility] Address [address] [place] [address] Assessment No assessment recorded. Plan of Treatment Reminders Order Date Submit Date Provider Last Modified By Organization Details Last Modified Time Details Appointments None recorded. Lab None recorded. Referral None recorded. Procedures None recorded. Surgeries None recorded. Imaging US, kidney 2020 022 [facility], [address] [address], [place], [address], 2 12:17:23 CT, abdomen, w/wo contrast 2020 021 [facility], [address] [address], [place], [address], 1 14:20:07 Medication Orders None recorded. Patient [...] 02/23/2021 CT, abdom en, w/wo contr ast [facility] [address] [facility], [address] [phone] PATIEN T: KIMBERLEY RIVERA 272 : 1940 Age: 80 yrs Dept: [id number] Sex: F ACC: [id number]: Verona Gross Pat [...] ed by:: KAROL MEADE M.D. Sept2020 13:16 [facility] Radiology [address] [facility] [address], [place], [address], 02/23/2021 17:57:31 03/08/20 22 03/08/2022 , [facility] y [facility] [address] [facility], [address] [phone] PATIEN T: KIMBERLEY RIVERA 272 : 1940 Age: 81 yrs Dept: [id number] Sex: F ACC: [id number]: Verona Gross Pat [...] M.D. Report ed by:: MADISON PATTERSON M.D. [facility] 2021 09:45 [facility] Radiology [address] [facility] [address], [place], [address], 03/15/2022 13:50:23 Result Notes None recorded. 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 Procedures Surgical History Date Name Laterality Status Provider Name and Address Organization Details Recorded Time 06/19/19 Most Recent Mammogram completed Lorenkayleigh [facility] 08/20/2020 09:18:49 total abdominal hysterectomy with bilateral salpingo-oophore ctomy completed Omar Gross MD [address] [place] [address],[address], [place], [place], [address] [place] [address] 08/20/2020 09:33:38 Breast Implants completed Omar Gross MD [address] [place] [address],[address], [place], [address] [place] [address] 08/20/2020 09:33:52 implantation of electronic stimulator of spine completed Omar Gross MD [address] [place] [address],[facility] [address], [place], [address] [place] [address] 08/20/2020 09:34:03 Breast Surgery (Lumpectomy, Biopsy, Implants) completed Marcela [facility]juan[facility] 03/18/2021 15:10:01 Hysterectomy completed Marcela Norlina [facility] 03/18/2021 15:10:01 Back Surgery completed Marcela Norlina [facility] 03/18/2021 15:10:01 Imaging Results None recorded. Procedure Notes None recorded. Medical Equipment None Reported. Allergies Allergen ID Allergen Name Allergen Category Reaction Reaction Severity Criticality Documentation Date Start Date Code Code System Note Provider Name and Address Organization Details Recorded Time 135587 fire ant environme nt itching Not available Not available 03/17/2022 33352 UNK [facility] 15:27:55 769899 POLLEN EXTRACTS environme nt,medica tion Not available Not available Not available 03/17/2022 97022 6 RxNorm [facility] 15:27:55 Medications Name Sig Start Date [...] in Arterial blood by Pulse oximetry Systolic And Diastolic Provider Name and Address Organization Details Last Updated DateTime 1 97.7 [degF] 160.02 cm 23.9 kg/m2 20321.9 7 g 67 /min 99 % 99 % 144/72 mm[Hg] Loren [facility] 09:26:28 Date Recorded Body height Body mass index (BMI) Body weight Systolic And Diastolic Provider Name and Address Organization Details Last Updated DateTime 03/17/2022 160.02 cm 22.7 kg/m2 65694.82 g 120/64 mm[Hg] Marcela Gann [facility] 03/17/2022 15:30:27 Date Recorded Body height Body mass index (BMI) Body weight Heart rate Oxygen saturation Oxygen saturation in Arterial blood by Pulse oximetry Systolic And Diastolic Provider Name and Address Organization Details Last Updated DateTime 1 160.02 cm 23.7 kg/m2 78002.3 8 g 81 /min 98 % 98 % 134/70 mm[Hg] Marcela Gann [facility] 15:14:10 Social History Question Answer Notes LastModified by Organizat ion Details LastModified Time Tobacco Smoking Status Former Smoker Loren Mayo [facility] 08/20/2020 09:19:40 Do You Have An Advance Directive? Yes Information not available 08/20/2020 What Is Your Level Of Caffeine Consumption? Occasional Information not available 08/20/2020 How Much Tobacco Do You Chew? None Information not available 08/20/2020 When Did You [...] Tobacco? 18 [email or web address] Information not available 03/17/2022 How Much Tobacco Do You Smoke? 0.5 PPD [email or web address] Information not available 03/17/2022 Has Tobacco Cessation Counseling Been Provided? No [email or web address] Information not available 03/17/2022 How Many Years Have You Smoked Tobacco? 40 Information not available 08/20/2020 Sex: Unknown Functional Status Question Answer Note LastModified by Organizat ion Details LastModified Time Do you or have you ever used any other forms of tobacco or nicotine? No Information not available 03/18/2021 What is your level of alcohol consumption? Occasional Information not available 08/20/2020 Do you or have you ever used smokeless tobacco? Never used smokeless tobacco Information not available 08/20/2020 Urinary incontinence assessment performed? Yes [email or web address] Information not available 03/17/2022 Do you or have you ever used e-cigarettes or vape? Never used electronic cigarettes Information not available 08/20/2020 What is your exercise level? Occasional Information [...] SNOMED-CT Code Diagnosis ICD10 Code Diagnosis Note [id number] MD Jessica Frank [address] [place],[facility] [address] [place] [address] 08/20/2020 08:53:25 08/20/2020 10:05:05 Neoplasm of uncertain behavior of left kidney 9506391647 50874 D41.02 It is a very small lesion. 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 We discussed the options. Those options include observatio n versus partial nephrectom y versus ablation. Due to its tiny size, I would recommend observatio n for a little while. [id number] MD Jessica Frank [address] [place],[address] [address] 03/18/2021 15:08:23 03/18/2021 15:40:47 Complex renal cyst [id number] 7976344 N28.1 The lesions appear to be more cystic. I believe we can do an ultrasound in a year. [id number] Omar Gross MD [facility] [place] [address] [facility],[address] [place] [address] 03/17/2022 14:54:48 03/17/2022 15:50:43 Complex renal cyst 9639570644 2096051 N28.1 Lesions appear to be cystic on [...] Smith Member ID Guarantor Name 08/20/2020 1 [place] Joyce Cano [id number] Joyce Blairbrick 03/18/2021 1 [place] Joyce E Jerome [id number] Joyce Blairbrick 03/17/2022 1 [place] Joyce Bessick [id number] Joyce Blairbrick 03/17/2022 2 WPS - FOR LIFE (MEDICARE SUPPLEMENT) Joyce Cano [id number] Joyce Cano Notes Date Note Type Note [...] to the contrast timing. Omar Gross MD [address] [place] [address],[address], [place], [address], [facility] 08/20/2020 09:57:52 03/18/2021 text/html Is a follow-up visit for renal lesion. She recently had a CT scan. The study was reviewed. She has multiple cysts. They appear to be hemorrhagic type cyst. She has not had flank pain or hematuria. Omar Gross MD [address] [place] [address],[address], [place], [address], [facility] 03/18/2021 15:41:03 03/17/2022 text/html Follow-up visit for renal cyst. She has been doing well. No flank pain or hematuria. No urinary tract infections. No incontinence. Ultrasound was reviewed. Benign cysts in the left kidney Omar Gross MD [address] [place] [address],[address], [place], [address], [facility] 03/17/2022 15:54:29 OBGyn Episode No OBEpisode recorded.
--- OUTSIDE RECORDS SUMMARY | 2024-11-10 10:16 | XMS_ITS | Data Portability ---
Author Organization [facility], [facility] Address [address] [place] [address] Assessment No assessment recorded. Plan of Treatment [...] By Organization Details Last Modified Time 03/14/2018 [id number] high blood pressure: care instructions lor Not available 03/15/2018 08:31:05 hammer toe: care instructions lor Not available 03/14/2018 18:18:17 1. Discussed the clinical and x-ray findings 2. Discussed different types of shoes that she may use, brands and names of shoes were provided to the patient. I also recommended toe gel and bunion gel sleeves and she opted to purchase these on [employer]. Informational educational handout provided to her on [...] Xray, Foot, Sabino, 3V completed Marta Guerra [facility] 03/14/2018 11:33:55 Hysterectomy completed Heike Godinez [facility] 03/14/2018 13:08:47 Breast completed Heike Godinez [facility] 03/14/2018 13:09:06 Imaging Results None [...] Updated DateTime 8 162.56 cm 22.1 kg/m2 86928.4 2 g 77 /min 136 mm[Hg] 81 mm[Hg] Heike Godinez [facility] 8 13:06:42 Social History Question Answer Notes LastModified by Organizat ion Details LastModified Time Tobacco Smoking Status Former Smoker Heike niño [facility] 03/14/2018 13:07:30 Do You Drink [...] N HIV or AIDS N Gout N Atrial Fibrillation N Thyroid Disease N Prostate Disease N Stroke CVA N Irregular Heartbeat N Alzheimer's or Significant Memory Loss N Emphysema/COPD N Cubital tunnel release N Depression N Pneumonia N Pacemaker/Defibrillator N Coronary Heart Disease N High Blood Pressure/Hypertension N Congestive Heart Failure N Under the Care of a Driver Guard N Cystic Fibrosis N Cancer N Stroke [...] or are you being seen by a jailer/training officer? N Angina/Chest Pain/Heart Attack N Heart Attack [...] SNOMED-CT Code Diagnosis ICD10 Code Diagnosis Note [id number] Chayito Velasquez DPM [place] [facility] [address] [facility], [facility] [address] [place] [address] 03/14/2018 11:17:37 03/14/2018 13:38:42 Hallux valgus 060845348 M20.11 M20.12 Hammer toe 916477837 M20 .41 M20.42 Health Concerns Section Related Observation LastModified by Organization Detai ls LastModified Time None Recorded Concern Status LastModified by Organization Details LastModified Time None Recorded Advance Directives Directive None Recorded Payers Insurance Date Sequence Insurance Name Policy Number Policy Smith Covered Member ID Smith Member ID Guarantor Name 03/14/2018 2 [facility] Joyce Bhatia [id number] Joyce Cano 01/29/2019 1 [place] Cano [id number] Joyce Cano 01/29/2019 2 WPS - FOR LIFE (MEDICARE SUPPLEMENT) Joyce Cano [id number] Joyce Cano Notes Date Note Type Note [...] is not painful or problematic today. Chayito Velasquez, FLOR [address] [facility] [address], [place], [address], [facility] 03/15/2018 08:31:38 OBGyn Episode No OBEpisode recorded.
--- OUTSIDE RECORDS SUMMARY | 2024-11-10 10:16 | XMS_ITS ---
Author Organization [facility] Johan morse Billing Info Address [address] [place], [place] [address] Care Team Providers Care Trim And Burr Operator Name Role Phone BASHIR GIMENEZ Unavailable [phone] REASON FOR VISIT Refill Request Medications Medication SIG (Take, Route, Fr equency, Duration) Notes Start Date End Date Status Tramadol HCl 50 MG 1 tablet as needed O rally four times a day for 10 days 12/13/2023 Active Encounters Encounter Location Date Provider Diagnosis [id number] [address] [facility] [address] [place] [address] 12/13/2023 BASHIR GIMENEZ Plan Of Treatment Medication Medication Name Sig Start Date Stop Date Notes Tramadol HCl 50 MG 1 tablet as needed O rally four times a day for 10 days 12/13/2023 Progress Notes * FRANNY YUSUFRAHEELOB:[birth year] (83 yo F)Acc No.[id number]:12/13/2023 Patient: YUSUF VALENZUELAJORIE :1940 A ge:83 Y S ex:Female Address:[address] [place] [address], [address] * Refills Refill Tramadol HCl Tablet, 50 MG, Orally, 40 Tablet, 1 tablet as needed, four times a day, 10 days, Refills=0 * true * Date: Generated for Printi ng/Faxing/eTransmitting on: 0 11/10/2024 10:15 AM CDT
--- OUTSIDE RECORDS SUMMARY | 2024-11-10 10:16 | XMS_ITS | Data Portability ---
Author Organization MD - [facility], Diana RYAN Office Address [address] [facility] [address] [place] [address] Care Team Providers Care Fur Remodeler Name Role Phone LEVAR SALGUERO Referring Provider HIRA MOSLEY Primary Care Provider [phone] Assessment Encounter Date Assessment Date Assessment LastModified [...] By Organization Details Last Modified Time 10/11/2017 [id number] low back arthritis: exercises farrukh Not available 10/16/2017 10:55:11 patient case to s/w John Yeh card to her farrukh Not available 10/11/2017 12:43:17 Reason for Referral None Reported. Results Created Date Observation Date Name Description Value Unit Range Abnormal Flag Note LastModifiedBy Organization Detail LastModifiedTime 10/12/19 18 collection systems modeler http:/ [email or web address]. spinal doc.co m/opal web/In tegrat ionPro cessor .aspx? CMD=OP ENSTUD Y&SUID =1.3.6 .1.4.1 .18592 .2018. 4.25.7 .54.33 .75709 mmina4 [employer] [address], [place], [address], 10/11/2017 13:52:17 Result Notes None recorded. Problems No Known Problems Procedures Surgical History Date Name Laterality Status Provider Name and Address Organization Details Recorded Time Hysterectomy [place] [address] [facility],[address], [place], [address], [place], [place] 10/11/2017 12:27:12 Imaging Results None recorded. Procedure Notes None [...] Updated DateTime 10/11/2017 162.56 cm 22.7 kg/m2 29658.19 [place] [address] [address] [facility],[address], [place], [address], [facility] [place] 10/11/2017 12:24:15 Date Recorded Heart rate Systolic And Diastolic Provider Name and Address Organization Details Last Updated DateTime 10/11/2017 90 /min 128/74 mm[Hg] Yessy Tracey [facility], [place] 10/11/2017 12:32:09 Social History Question Answer Notes LastModified by Organizat ion Details LastModified Time Tobacco Smoking [place] [address] [address] [facility],[address], [place], [address], [facility], [place] 10/11/2017 12:26:54 Marital Status Informatio n not available 10/11/2017 What Was The Date Of Your Most Recent Tobacco Screening? 10/11/2017 Information n ot available 01/10/2019 Sex: Unknown Functional Status Question Answer Note LastModified by Organizat ion Details LastModified Time What is your level of alcohol consumption? Occasional Information not available 10/11/2017 Mental Status None recorded. Family History Relationship [...] SNOMED-CT Code Diagnosis ICD10 Code Diagnosis Note [id number] Bria Dyson MD [facility] Office [address] [facility] [address] [place] [address] 10/11/2017 11:45:50 10/11/2017 13:18:41 Scoliosis deformity of spine 012621641 M41.9 Lumbosacra l spondylosis without myelopathy 18786091 M47.817 Chronic low back pain 27 9137470 M54.5 Health Concerns Section Related Observation LastModified by Organization Detai ls LastModified Time None Recorded Concern Status LastModified by Organization Details LastModified Time None Recorded Advance Directives Directive None Recorded Payers Insurance Date Sequence Insurance Name Policy Number Policy Smith Covered Member ID Smith Member ID Guarantor Name 10/06/2017 1 [place] Joyce Cano [id number] Joyce Cano 10/24/2017 2 WPS - FOR LIFE (MEDICARE SUPPLEMENT) Joyce Cano [id number] Joyce Cano Notes Date Note Type Note [...] [place] [address] [facility],[address], [place], [address], [facility], [place] 10/20/2017 10:24:30 OBGyn Episode No OBEpisode recorded.
--- OUTSIDE RECORDS SUMMARY | 2024-11-10 10:17 | XMS_ITS ---
Author Organization [facility] Billing Info Address [address] [place] [id number] Care Team Providers Care Systems Program Manager Name Role Phone JOSE ALFREDO HORTON Unavailable [phone] Allergies No Known Allergies REASON FOR VISIT Lumbar spondylosis Medications Medication SIG (Take, Route, Fr equency, Duration) Notes Start Date End Date Status Cymbalta 30 MG Oral for 30 Days Active Hydrochlorothiazide Active Lexapro 20 MG 1 tablet Orally Once a day Active Tramadol HCl 50 MG 1 tablet as needed O rally four times a day for 10 days 10/30/2023 Active Vitamin B12 Active Social History Tobacco Use: Social History Observation Description Date Details (start date - stop date) Never Smoker NA - NA Tobacco Status: Question Answer Notes Patient is a never smoker Problems Problem Type SNOMED Code ICD Code Onset Dates Problem Status W/U Status Risk Notes Problem [id number] Other spondylosis with radiculopathy, lumbar region (M47.26) Active confirmed Vital Signs Height 61 in 12/06/2023 Weight 110 lbs 12/06/2023 BMI 20.78 kg/m2 12/06/2023 Blood pressure systolic 136 mm Hg 12/06/19 24 Blood pressure diastolic 68 mm Hg 024 Heart Rate 62 /min 12/06/2023 Encounters Encounter Location Date Provider Diagnosis [id number] [address] [place] [address] 12/06/2023 JOSE ALFREDO HORTON Chronic pain syndrom e G89.4 ; Other spondylosis with radiculopathy, lumbar region M47.26 ; Pain in right hip M25.551 and Pain in left hip M25.552 Assessments Encounter Date Diagnosis (ICD Code) Assessment Notes Treatment Notes Treatment Clinical Notes Section Notes 12/06/2023 Chronic pain syndrome (ICD-10 - G89.4) I independently interpreted patient's imaging today: CT bilateral hips show mild osteoarthritis bilaterally. There are Nondisplaced subacute insufficiency fractures of the right superior pubic ramus and right parasymphysis pubis. This corresponds with her history of fall. CT lumbar spine shows multilevel spondylosis and scoliosis that is mildly progressed since last imaging. There is no large disc herniation or acute lumbar fracture. 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 There are Nondisplaced subacute insufficiency fractures of the right superior pubic ramus and right parasymphysis pubis. This corresponds with her history of fall. CT lumbar spine shows multilevel spondylosis and scoliosis that is mildly progressed since last imaging. There is no large disc herniation or acute lumbar fracture. 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 There are Nondisplaced subacute insufficiency fractures of the right superior pubic ramus and right parasymphysis pubis. This corresponds with her history of fall. CT lumbar spine shows multilevel spondylosis and scoliosis that is mildly progressed since last imaging. There is no large disc herniation or acute lumbar fracture. 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 There are Nondisplaced subacute insufficiency fractures of the right superior pubic ramus and right parasymphysis pubis. This corresponds with her history of fall. CT lumbar spine shows multilevel spondylosis and scoliosis that is mildly progressed since last imaging. There is no large disc herniation or acute lumbar fracture. 12/06/2023 Other We discussed the patient's imaging, symptoms, and history in detail today. I am recommending referrals to physical therapy and pain management. She is moving to [place], and will not be able to follow-up here. She will look into conservative treatment when she gets to [place]. She understands she can call us at any time for further questions or concerns or to fax her records. All questions were answered. 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 There are Nondisplaced subacute insufficiency fractures of the right superior pubic ramus and right parasymphysis pubis. This corresponds with her history of fall. CT lumbar spine shows multilevel spondylosis and scoliosis that is mildly progressed since last imaging. There is no large disc herniation or acute lumbar fracture. Plan Of Treatment Treatment Notes Assessment Notes Other We discussed the sukhjinder perez's imaging, symptoms, and history in detail today. I am recommending referrals to physical therapy and pain management. She is moving to [place], and will not be able to follow-up here. She will look into conservative treatment when she gets to [place]. She understands she can call us at any time for further questions or concerns or to fax her records. All questions were answered. Next Appt Details Follow Up: prn, Reason: Progress Notes * DOLORES BLANTONOB:[birth year] (83 yo F)Acc No.[id number]:12/06/2023 PROGRESS NOTE Patient: FERMIN VALENZUELA Provider: Carlos HORTON PA-C :1940 A ge:83 Y S ex:Female Date:12/06/2023 C #:[id number] Address:[address] [place], [place] [id number] Subjective: * Chief Complaints: * L umbar spondylosis * HPI: P atient History: The patient is an 83-year-old female with chronic pain syndrome. She states she suffered severe right trochanter bursitis following a fall from a chair in 2013. She states this is where all my symptoms are from. She has a hx of a Medtronic SCS placed outside in 2019 and a microdiscectomy/decompression in 2020. Her SCS generator was then converted to Nevro in 2022. Therefore, she is not MRI compatible. She presented with w orsening low back pain and bilateral radiation into the buttocks and B hip pain. Her pain is worse at the end of the day after extended activities. S he denies any conservative treatment to include physical therapy or pain management recently. We ordered updated imaging at our last appointment and she is here today for review. * ROS: A ll systems reviewed and found negative unless otherwise stated in HPI. * Medical History: * Surgical History: d iskectomy oblation of nerves x2 insertion of pain stimulator-medtronic nevro battery * Hospitalization/Major Diagno stic Procedure: s nava above * Family History: N o Family History documented.. * Social History: A lcohol Use P atient d oes not use alcohol. T obacco Status P atient is a never smoker. * Medications: T akingCymbalta 30 MG Capsule Delayed Release Particles Oral Hydrochlorothiazide Lexapro 20 MG Tablet 1 tablet Orally Once a day Tramadol HCl 50 MG Tablet 1 tablet as needed Orally four times a day Vitamin B12 Medication List reviewed and reconciled with the patientTaking Cymbalta 30 MG Capsule Delayed Release Particles Oral Taking Hydrochlorothiazide Taking Lexapro 20 MG Tablet 1 tablet Orally Once a day Taking Tramadol HCl 50 MG Tablet 1 tablet as needed Orally four times a day Taking Vitamin B12 Medication List reviewed and reconciled with the patient * Allergies: N .K.A.no[Allergies Verified] Objective: * Vitals: H t: 61 in, Ht-cm: 154.94 cm, Wt: 110 lbs, Wt-k.9 kg, BMI:20.78, Weight Change: -2 lbs, Body Surface Area: 1.46, BP:136/68, HR:62. * Examination: G eneral Examination: C onstitutional: A lert, NAD, pleasant, well developed and well nourished, cooperative . ? Derm/Integumentary: n ormal, no rash. HEENT: u nremarkable. Neck: s upple, no lymphadenopathy. Respiratory: S ymmetrical expansion. Cardiovascular: D istally perfused, distal pulses palpable, no edema. ? Gastrointestinal: N o distention, non-tender. Musculoskeletal: n ormal, non tender, normal strength and tone, normal alignment. ROM of L spine is normal but causes tightness Cranial Nerves: P EERL, EOMI, face symmetrical, hearing intact Motor Strength: Upper extremities Right 5/5 DT, Tri, Bi, WE, client services vice president Left 5/5 DT, Tri, Bi, WE, client services vice president ? Lower extremities Right 5/5 HF, KE, DF, EHL, KF, PF Left 5/5 HF, KE, DF, EHL, KF, PF ? Sensation: SILT Reflexes: DTR 2+ normal Pathologic reflexes: Absent Babinski, Graham's and clonus Gait: Steady, independent. Pain Maneuvers: Negative Spurling sign, negative Facet loading test, negative SLR. ? Psych: a ffect normal, insight and judgement normal. Assessment: * Assessment: 1. C hronic pain syndrome - G89.4 (Primary) 2 . O ther spondylosis with radiculopathy, lumbar region - M47.26 3 . P ain in right hip - M25.551 4 . 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 There are Nondisplaced subacute insufficiency fractures of the right superior pubic ramus and right parasymphysis pubis. This corresponds with her history of fall. CT lumbar spine shows multilevel spondylosis and scoliosis that is mildly progressed since last imaging. There is no large disc herniation or acute lumbar fracture. Plan: * Treatment: * Procedure Codes: * Preventive Medicine: Quality Measures: F all Risk Assessment: D ate of Screening Completed: 0 12/06/2023, I ncreased Fall Risk Factors: N o fall risk factors, H istory Falls in Past Year: N o falls in the past year. H igh Blood Pressure screening and follow up: I ntervention Order Y es, F ollow Up for BP reading with PCP/Alternative Provider F ollow-up 2 weeks (finding) , L ifestyle Recommendation H ypertension education (procedure) . * Follow Up: p rn * Care Plan Details* * Sign off status: Completed true * Provider: Carlos HORTON PA-C Date: 0 12/06/2023 Generated for Jose Angel vitale/Xavier/Nayelyitting on: 0 11/10/2024 10:16 AM CDT History and Physical Notes * HPI (History of Present Illness) Category Sub-Category Detail Notes Category Not es Patient History The patient is an 83-year-old female with chronic pain syndrome. She states she suffered severe right trochanter bursitis following a fall from a chair in 2013. She states this is where all my symptoms are from. She has a hx of a Medtronic SCS placed outside in 2019 and a microdiscectomy/decompression in 2020. Her SCS generator was then converted to Nevro in 2022. Therefore, she is not MRI compatible. She presented with worsening low back pain and bilateral radiation into the buttocks and B hip pain. Her pain is worse at the end of the day after extended activities. She denies any conservative treatment to include physical therapy or pain management recently. We ordered updated imaging at our last appointment and she is here today for review. Examination Category Sub-Category Detail Notes Category Not es General Examination Constitutional: Alert, NAD, pleasant, well developed and well nourished, cooperative . Derm/Integumentary: normal, no rash. HEENT: unremarkable. Neck: supple, no lymphadenopathy. Respiratory: Symmetrical expansion. Cardiovascular: Distally perfused, distal pulses palpable, no edema. Gastrointestinal: No distention, non-tender. Musculoskeletal: normal, non tender, normal strength and tone, normal alignment. ROM of L spine is normal but causes tightness Cranial Nerves: PEERL, EOMI, face symmetrical, hearing intact Motor Strength: Upper extremities Right 5/5 DT, Tri, Bi, WE, client services vice president Left 5/5 DT, Tri, Bi, WE, client services vice president Lower extremities Right 5/5 HF, KE, DF, EHL, KF, PF Left 5/5 HF, KE, DF, EHL, KF, PF Sensation: SILT Reflexes: DTR 2+ normal Pathologic reflexes: Absent Babinski, Graham's and clonus Gait: Steady, independent. Pain Maneuvers: Negative Spurling sign, negative Facet loading test, negative SLR. Psych: affect normal, insight and judgement normal
--- OUTSIDE RECORDS SUMMARY | 2024-11-10 10:17 | XMS_ITS | Patient Health Record ---
Author Organization [facility] Billing Info Address [address] [place] [address] Care Team Providers Care Disk Recoater Name Role Phone BASHIR GIMENEZ Unavailable [phone] JOSE ALFREDO HORTON Unavailable [phone] Allergies No Known Allergies Results Component Value Reference Range Notes CT- Lower Extremity - Right (26240)(STRIC-XEXTLWR) Reviewed date:11/28/2023 09:34:52 AM Interpretation: Performing Lab: Notes/Report: [facility] [address] [facility], [id number] PATIENT: FERMIN BLANTON : 1940 Age: 83 yrs Dept: [id number] Sex: F ACC: [id number] REQUESTING DR: Bashir Gimenez Status: O Exam: CT Lower Extremity - Right DATE: 11/21/2023 03:00 PM Acct No: Reason: Pain in right hip;Pain in left hip;Chronic pain syndrome FINAL REPORT CT Lower Extremity - Right DATE: 11/21/2023 HISTORY: Pain in right hip;Pain in left hip;Chronic pain syndrome TECHNIQUE: CT examination of the right was performed without intravenous contrast per the routine protocol. COMPARISON: 04/11/2022 right hip MRI FINDINGS: There is linear sclerosis in the lateral aspect of the right superior pubic ramus just anterior to the acetabulum and linear sclerosis in the right parasymphysis pubis consistent with nondisplaced subacute insufficiency fracture. No other fracture identified. There is no CT evidence of avascular necrosis. There is minimal right hip osteoarthritis. No significant joint or bursal fluid collection identified. There is atrophy of the gluteus minimus muscle. Right hip musculature is otherwise unremarkable. Visible portions of the right hamstring origin and sciatic nerve have an unremarkable CT appearance. No significant abnormality identified in the visible portions of the pelvis. IMPRESSION: 1. Nondisplaced subacute insufficiency fractures of the right superior pubic ramus and right parasymphysis pubis. 2. Minimal right hip osteoarthritis. Signed on 11/22/2023 9:18 AM by Sofya Cuenca M.D. Reported by:: SOFYA CUENCA M.D. November 22, 2023 09:18 [facility] [address] [facility], [address] PATIENT: FERMIN BLANTON : 1940 Age: 83 yrs Dept: [id number] Sex: F ACC: [id number] REQUESTING DR: Bashir Shepherd Status: O Exam: CT Lower Extremity - Right DATE: 11/21/2023 03: 00 PM Acct No: Reason: Pain in righ t hip;Pain in left hip;Chronic pain syndrome FINAL REPORT CT Lower Extremity - Right DATE: 11/21/2023 HISTORY: Pain in rig ht hip;Pain in left hip;Chronic pain syndrome TECHNIQUE: CT examin ation of the right was performed without intravenous contrast per the michael martinez protocol. COMPARISON: 04/11/20 right hip MRI FINDINGS: There is linear scle rosis in the lateral aspect of the right superior pubic ramus just anterior to the acetabulum and linear sclerosis in the right parasymphysis pubis consistent with nondisplaced subacute insufficiency fracture. No other fracture id entified. There is no CT evidence of avascular necrosis. There is minimal rig ht hip osteoarthritis. No significant joint or bursal fluid collection identifie d. There is atrophy of the gluteus minimus muscle. Right hip musculature is other rivera unremarkable. Visible portions of the right hamstring origin and sciatic n erve have an unremarkable CT appearance. No significant abnormality identifi ed in the visible portions of the pelvis. IMPRESSION: 1. Nondisplaced suba cute insufficiency fractures of the right superior pubic ramus and right para symphysis pubis. 2. Minimal right hip osteoarthritis. Signed on 11/22/2023 9 :18 AM by Sofya Cuenca M.D. Reported by:: SOFYA RYDER M.D. November 22, 2023 09:18 CT- Lumbar Spine (64879)(STR IC-XLUM) Reviewed date:11/28/2023 09:34:11 AM Interpretation: Performing Lab: Notes/Report: [facility] [address] [facility], [id number] PATIENT: FERMIN BLANTON : 1940 Age: 83 yrs Dept: [id number] Sex: F ACC: [id number] REQUESTING DR: Bashir Gimenez Status: O Exam: CT Lumbar Spine DATE: 11/21/2023 02:55 PM Acct No: Reason: Chronic pain syndrome FINAL REPORT CT LUMBAR SPINE WITHOUT IV CONTRAST DATE: 11/21/2023 2:55 PM HISTORY: Chronic pain syndrome TECHNIQUE: CT examination of the lumbar spine was performed without intravenous contrast per the routine protocol. COMPARISON: MRI 06/14/2022 FINDINGS: Severe, 47 degrees of levoscoliosis centered at L2. Partially visualized spinal cord stimulation device. No lumbar fracture or dislocation. No lytic or blastic bone lesion. L1-L2: Endplate osteophytosis generates severe right neuroforaminal narrowing. L2-L3: Endplate osteophytosis generates mild right neuroforaminal narrowing. L3-L4: Disc bulge with ligamentum flavum thickening and facet hypertrophy generate moderate to severe spinal canal and right neuroforaminal narrowing. Mild left neuroforaminal narrowing. L4-L5: Endplate osteophytosis. Prominent osteophyte in the left lateral recess. Severe facet hypertrophy. Overall there is severe left/mild to moderate right neuroforaminal narrowing and mild spinal canal stenosis with focal advanced left lateral recess narrowing. L5-S1: Disc bulge and facet hypertrophy results in mild to moderate left/mild right neuroforaminal narrowing. Atherosclerotic vascular calcifications. IMPRESSION: 1. No acute lumbar spine injury. 2. Chronic severe degenerative spondylosis and dextroscoliosis, as above, mildly progressed when comparison is made to 2021. Signed on 11/22/2023 2:06 PM by Rk Weiss M.D. Reported by:: RK WEISS M.D. November 22, 2023 14:06 [facility] [address] [facility], [id number] PATIENT: FERMIN BLANTON : 1940 Age: 83 yrs Dept: [id number] Sex: F ACC: [id number] REQUESTING DR: Bashir Shepherd Status: O Exam: CT Lumbar Spine DATE: 11/21/2023 02: 55 PM Acct No: Reason: Chronic pain syndrome FINAL REPORT CT LUMBAR SPINE WITH OUT IV CONTRAST DATE: 11/21/2023 2:55 PM HISTORY: Chronic pain syndrome TECHNIQUE: CT examin ation of the lumbar spine was performed without intravenous contrast per the michael martinez protocol. COMPARISON: MRI 06/14/2022 FINDINGS: Severe, 47 degrees o f levoscoliosis centered at L2. Partially visualized spinal cord stimulation device. No lumbar fracture o r dislocation. No lytic or blastic bone lesion. L1-L2: Endplate oste ophytosis generates severe right neuroforaminal narrowing. L2-L3: Endplate oste ophytosis generates mild right neuroforaminal narrowing. L3-L4: Disc bulge wi th ligamentum flavum thickening and facet hypertrophy generate moderate to severe spinal canal and right neuroforaminal narrowing. Mild left neuroforam inal narrowing. L4-L5: Endplate oste ophytosis. Prominent osteophyte in the left lateral recess. Severe facet hypertr ophy. Overall there is severe left/mild to moderate right neuroforaminal narro wing and mild spinal canal stenosis with focal advanced left lateral recess narrowing. L5-S1: Disc bulge an d facet hypertrophy results in mild to moderate left/mild right neuroforaminal narrowing. Atherosclerotic vasc ular calcifications. IMPRESSION: 1. No acute lumbar spine injury. 2. Chronic severe de generative spondylosis and dextroscoliosis, as above, mildly progressed wh en comparison is made to 2021. Signed on 11/22/2023 2 :06 PM by Rk Weiss M.D. Reported by:: RK CORONEL M.D. November 22, 2023 14:06 CT- Lower Extremity - Left ( 51505)(STRIC-XEXTLWL) Reviewed date:11/28/2023 09:36:22 AM Interpretation: Performing Lab: Notes/Report: [facility] [address] [facility], [id number] PATIENT: FERMIN BLANTON : 1940 Age: 83 yrs Dept: [id number] Sex: F ACC: [id number] REQUESTING DR: Bashir Gimenez Status: O Exam: CT Lower Extremity - Left DATE: 11/21/2023 03:00 PM Acct No: Reason: Pain in right hip;Pain in left hip;Chronic pain syndrome FINAL REPORT CT Lower Extremity - Left DATE: 11/21/2023 HISTORY: Pain in right hip;Pain in left hip;Chronic pain syndrome TECHNIQUE: CT examination of the left hip was performed without intravenous contrast per the routine protocol. COMPARISON: None available. FINDINGS: There is mild left hip osteoarthritis with small subcortical cyst in the anterosuperior acetabulum. No significant joint or bursal effusion identified. There is no CT evidence of acute fracture, stress fracture, or avascular necrosis. There is atrophy of the gluteus minimus muscle belly. Left hip musculature is otherwise normal. Visible portions of the left hamstring origin and sciatic nerve have an unremarkable CT appearance. No significant abnormality identified in the visible portions of the pelvis. IMPRESSION: 1. Mild left hip osteoarthritis. Signed on 11/22/2023 9:08 AM by Sofya Cuenca M.D. Reported by:: SOFYA CUENCA M.D. November 22, 2023 09:08 [facility] [address] [facility], [address] PATIENT: FERMIN BLANTON : 1940 Age: 83 yrs Dept: [id number] Sex: F ACC: [id number] REQUESTING DR: Bashir Shepherd Status: O Exam: CT Lower Extremity - Left DATE: 11/21/2023 03: 00 PM Acct No: Reason: Pain in righ t hip;Pain in left hip;Chronic pain syndrome FINAL REPORT CT Lower Extremity - Left DATE: 11/21/2023 HISTORY: Pain in rig ht hip;Pain in left hip;Chronic pain syndrome TECHNIQUE: CT examin ation of the left hip was performed without intravenous contrast per the rou juan protocol. COMPARISON: None available. FINDINGS: There is mild left h ip osteoarthritis with small subcortical cyst in the anterosuperior aceta bulum. No significant joint or bursal effusion identified. There is no CT evide nce of acute fracture, stress fracture, or avascular necrosis. There is a trophy of the gluteus minimus muscle belly. Left hip musculature is other rivera normal. Visible portions of the left hamstring origin and sciatic nerve bolanos ve an unremarkable CT appearance. No significant abnormality identified in the vi sible portions of the pelvis. IMPRESSION: 1. Mild left hip osteoarthritis. Signed on 11/22/2023 9 :08 AM by Sofya Cuenca M.D. Reported by:: GEORGINA IBRAHIM, SOFYA Ludwig M.D. November 22, 2023 09:08 Reason For Referral No Information Medications Medication SIG (Take, Route, Fr equency, Duration) Notes Start Date End Date Status Tramadol HCl 50 MG 1 tablet as needed O rally four times a day for 10 days 12/13/2023 Active Cymbalta 30 MG Oral for 30 Days Active Hydrochlorothiazide Active Lexapro 20 MG 1 tablet Orally Once a day Active Vitamin B12 Active Immunizations Vaccine Route Administration Date Status Comme nts FLU (Past vaccine of unknown type) Unknown 10/18/2023 A dministered PNEUMOCOCCAL (Past vaccine o f unknown type) Unknown 10/18/2023 Administered Social History Tobacco Use: Social History Observation Description Date Details (start date - stop date) Never Smoker NA - NA Tobacco Status: Question Answer Notes Patient is a never smoker Problems Problem Type SNOMED Code ICD Code Onset Dates Problem Status W/U Status Risk Notes Problem 927971036 Chronic pain syndrome (G89.4) Active confirmed Problem 11956077 Pain in right hi p (M25.551) Active confirmed Problem 32221489 Pain in left hip (M25.552) Active confirmed Problem 303272381 Other spondylosi s with radiculopathy, lumbar region (M47.26) Active confirmed Problem 047049556 Lumbar radiculopathy (M54.16) Active confirmed Problem 810857906 Lumbar back pain (M54.50) Active confirmed Vital Signs Heart Rate 62 /min 12/06/2023 Blood pressure diastolic 68 mm Hg 12/06/2023 Height 61 in 12/06/2023 Blood pressure systolic 136 mm Hg 12/06/2023 Weight 110 lbs 12/06/2023 BMI 20.78 kg/m2 12/06/2023 Encounters Encounter Location Date Provider Diagnosis [id number] [address] [place] [address] 12/13/2023 BASHIR GIMENEZ [id number] [address] [place] [address] 12/06/2023 JOSE ALFREDO CLIFFORD Chronic pain syndrom e G89.4 ; Other [...] and pain management. She is moving to [place], and will not be able to follow-up here. She will look into conservative treatment when she gets to [place]. She understands she can call us at [...] or acute lumbar fracture. Plan Of Treatment Pending Test Test Name Order Date CT- Lumbar Spine (47384)(STRIC-XLUM) CT- HIP BILAT W/O CONTRAST (45448) 10/29 Insurance Providers Payer Name Payer Address Payer Phone Subscriber Number Group Number Insured Name Patient Relationship to Insured Coverage Start Date Coverage End Date MEDICARE [place] PART B [address] [facility] [id number] FERMIN BLANTON Self - patient is the insured 8 FOR LIFE ALL [facility] [address] [place], [place] [id number] ARASH BLANTON Spouse - patient is the spouse of the insured 8 Medical (General) History Medical History History ICD Code Hypertension Surgical History Surgery Date(Month/Year) diskectomy oblation of nerves x2 insertion of pain stimulator-medtronic nevro battery Hospitalization History Reason Date(Month/Year) same above
[2024-11-10 10:22] VITALS: BP 153/84; PULSE 83; RESP 18; TEMP 36.8; O2SAT 99
--- NOTE | 2024-11-10 10:36 | ED.GENADULT ---
HPI - General Adult General Chief complaint: Recheck/Abnormal Lab/Rx Stated complaint: med refill History of Present Illness HPI narrative: Joyce Cano is a an 84-year-old female who presents today to get her medication refilled with her family. States that she needs a refill of her bupropion XL 150 mg until she can follow-up with her PCP this week. She denies any other acute concerns are complaints Related Data Home Medications ?Medication ?Instructions ?Recorded ?Confirmed ?Last Taken ?Type hydrochlorothiazide 25 mg tablet 25 mg PO DAILY 10/13/24 11/08/24 Unknown History methocarbamol 500 mg tablet 500 mg PO HS 10/13/24 11/08/24 Unknown History tramadol 50 mg tablet 25 mg PO ONCE 10/13/24 11/08/24 Unknown History bupropion HCl 150 mg 24 hr tablet, mg PO 11/10/24 Unknown History extended release Allergies Allergy/AdvReac Type Severity Reaction Status Date / Time No Known Allergies Allergy Verified 11/10/24 10:23 Review of Systems Review of Systems: All systems reviewed & are unremarkable except as noted in HPI and below PMFSH Past Medical History Medical History Left wrist injury Hard of hearing Family History Family History Unknown Arthritis Skin cancer Social History Social History Social History: 1 cup coffee a day Smoking status: Former smoker Alcohol intake: never Occupation/Education: retired Additional occupation/education comments: rn Exam Narrative: GENERAL: Well-appearing, well-nourished, and in no acute distress. HEAD: Normocephalic, atraumatic. EYES: PERRLA and EOMI. ENT: Nares clear, no rhinorrhea or epistaxis. Mucous membranes moist. NECK: Supple. No adenopathy or masses. No carotid bruits or JVD CHEST: Clear to auscultation. No respiratory distress. No wheezes rales or rhonchi HEART: Regular rate and rhythm. EXTREMITIES: Normal range of motion. SKIN: Warm, dry, no rash. NEURO: No focal deficits. Alert and oriented x3. PSYCH: Normal mood and affect. Course Course Level of Care: Express Care Visit Vital Signs Vital signs: Vital Signs Temperature 36.8 C 11/10/24 10:22 Pulse Rate 83 11/10/24 10:22 Respiratory Rate 18 11/10/24 10:22 Blood Pressure 153/84 H 11/10/24 10:22 Pulse Oximetry 99 11/10/24 10:22 Oxygen Delivery Room Air 11/10/24 10:22 Temperature 36.8 C 11/10/24 10:22 Pulse Rate 83 11/10/24 10:22 Respiratory Rate 18 11/10/24 10:22 Blood Pressure 153/84 H 11/10/24 10:22 Pulse Oximetry 99 11/10/24 10:22 Oxygen Delivery Room Air 11/10/24 10:22 Medical Decision Making MDM Narrative Medical decision making narrative: 84 y/o here for medication refill. Patient is hemodynamically stable without any acute complaints. Reviewed the records and essential medications were prescribed for the patient. Pulse oximetry interpretation: Not hypoxic DISPOSITION: Discharged home in stable condition. Medical Records Medical records reviewed: Yes I reviewed the external patient's medical records. Vital Signs Vital Signs: Vital Signs Temperature 36.8 C 11/10/24 10:22 Pulse Rate 83 11/10/24 10:22 Respiratory Rate 18 11/10/24 10:22 Blood Pressure 153/84 H 11/10/24 10:22 Pulse Oximetry 99 11/10/24 10:22 Oxygen Delivery Room Air 11/10/24 10:22 Temperature 36.8 C 11/10/24 10:22 Pulse Rate 83 11/10/24 10:22 Respiratory Rate 18 11/10/24 10:22 Blood Pressure 153/84 H 11/10/24 10:22 Pulse Oximetry 99 11/10/24 10:22 Oxygen Delivery Room Air 11/10/24 10:22 Vitals reviewed by md Discharge Plan Discharge Clinical Impression: Medication refill Patient Disposition: Home Condition: Stable Instructions: Antibiotic Form Additional Instructions: Continue your prescribed medications as ordered Follow up with your PCP this week for formal refill Patient Language: Grenadian Prescriptions: New bupropion HCl [Wellbutrin XL] 150 mg tablet extended release 24 hr 150 mg PO QAM Qty: 14 0RF No Action bupropion HCl 150 mg tablet extended release 24 hr PO methocarbamol 500 mg tablet 500 mg PO HS hydrochlorothiazide 25 mg tablet 25 mg PO DAILY tramadol 50 mg tablet 25 mg PO ONCE Follow-up/Referrals: Jose Vergara MD [Primary Care Provider] -
== END 2024-11-10 10:43 | disposition home or self-care (01) ==
PROVIDERS: Emergency Provider Nurse Practitioner Family; PCP Internal Medicine
DX: Z76.0 Encounter for issue of repeat prescription (principal); Z87.891 Personal history of nicotine dependence
CPT/HCPCS: 99211; 99213; G0463

== ENCOUNTER 2024-12-01 14:31 | Emergency (ER) | payer MEDICARE, OTHER, SELFPAY ==
--- NOTE | ~2024-12-01 | XR_ITS ---
HISTORY: injury/pain unspecified area COMPARISON: None TECHNIQUE: 4 views of the right wrist were performed. FINDINGS: No acute fracture is identified. The carpal arcs are crowded. Significant degenerative disease within the first carpometacarpal joint space Significant radiocarpal joint space narrowing with sclerosis of the distal radius is present. Trace negative ulnar variance is detected. Bone mineralization is age-appropriate. No significant soft tissue swelling is noted. No radiopaque foreign body is identified. 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
--- OUTSIDE RECORDS SUMMARY | 2024-12-01 14:34 | XMS_ITS ---
Author Organization [facility] Billing Info Address [address] [place] [address] Care Team Providers Care Brush Cutter Name Role Phone JOSE ALFREDO HORTON Unavailable [phone] Allergies No Known Allergies REASON FOR VISIT [...] Problem Status W/U Status Risk Notes Problem 234612772 Other spondylosis with radiculopathy, lumbar region (M47.26) Active confirmed Vital Signs Height 61 in 12/06/2023 Weight 110 lbs 12/06/2023 BMI 20.78 kg/m2 12/06/2023 Blood pressure systolic 136 mm Hg 12/06/19 24 Blood pressure diastolic 68 mm Hg 024 Heart Rate 62 /min 12/06/2023 Encounters Encounter Location Date Provider Diagnosis [id number] [address] [place] [address] 12/06/2023 JOSE ALFREDO HORTON Chronic pain syndrom [...] and pain management. She is moving to [place], and will not be able to follow-up here. She will look into conservative treatment when she gets to [place]. She understands she can call us at [...] and pain management. She is moving to [place], and will not be able to follow-up here. She will look into conservative treatment when she gets to [place]. She understands she can call us at any time for further questions or concerns or to fax her records. All questions were answered. Next Appt Details Follow Up: prn, Reason: Progress Notes * DOLORES BLANTONOB:[birth year] (83 yo F)Acc No.[id number]:12/06/2023 PROGRESS NOTE Patient: FERMIN VALENZUELA Provider: Carlos HORTON PA-C :1940 A ge:83 Y S ex:Female Date:12/06/2023 C #:[id number] Address:[address] [place], [place] [id number] Subjective: * Chief Complaints: * L umbar [...] extremities Right 5/5 DT, Tri, Bi, WE, lobbyist Left 5/5 DT, Tri, Bi, WE, lobbyist ? Lower extremities Right 5/5 HF, KE, [...] Generated for Jose Angel vitale/Xavier/Nayelyitting on: 0 12/01/2024 02:34 PM CDT History and Physical Notes * HPI [...] extremities Right 5/5 DT, Tri, Bi, WE, lobbyist Left 5/5 DT, Tri, Bi, WE, lobbyist Lower extremities Right 5/5 HF, KE, DF, EHL, KF, PF Left 5/5 HF, KE, DF, EHL, KF, PF Sensation: SILT Reflexes: DTR 2+ normal Pathologic reflexes: Absent Babinski, Graham's and clonus Gait: Steady, independent. Pain Maneuvers: Negative Spurling sign, negative Facet loading test, negative SLR. Psych: affect normal, insight and judgement normal
--- OUTSIDE RECORDS SUMMARY | 2024-12-01 14:34 | XMS_ITS | Patient Health Record ---
Author Organization [facility] Billing Info Address [address] [place] [address] Care Team Providers Care Video Camera Operator Name Role Phone BASHIR GIMENEZ Unavailable [phone] JOSE ALFREDO HORTON Unavailable [phone] Allergies No Known Allergies Reason For Referral No Information Medications Medication [...] Problem Status W/U Status Risk Notes Problem 195773944 Chronic pain syndrome (G89.4) Active confirmed Problem 69364892 Pain in right hi p (M25.551) Active confirmed Problem 94606231 Pain in left hip (M25.552) Active confirmed Problem 273616050 Other spondylosi s with radiculopathy, lumbar region (M47.26) Active confirmed Problem 045452639 Lumbar radiculopathy (M54.16) Active confirmed Problem 277193792 Lumbar back pain (M54.50) Active confirmed Vital Signs Heart Rate 62 /min 12/06/2023 Blood pressure diastolic 68 mm Hg 12/06/2023 Height 61 in 12/06/2023 Blood pressure systolic 136 mm Hg 12/06/2023 Weight 110 lbs 12/06/2023 BMI 20.78 kg/m2 12/06/2023 Encounters Encounter Location Date Provider Diagnosis [id number] [address] [place] [address] 12/13/2023 BASHIR GIMENEZ [id number] [address] [place] [address] 12/06/2023 JOSE ALFREDO CLIFFORD Chronic pain syndrom [...] and pain management. She is moving to [place], and will not be able to follow-up here. She will look into conservative treatment when she gets to [place]. She understands she can call us at [...] Test Name Order Date CT- Lumbar Spine (99529)(STRIC-XLUM) CT- HIP BILAT W/O CONTRAST (34697) 10/29 Insurance Providers Payer Name Payer Address Payer Phone Subscriber Number Group Number Insured Name Patient Relationship to Insured Coverage Start Date Coverage End Date MEDICARE [place] PART B [address] [employer] [id number] FERMIN BLANTON Self - patient is the insured 8 FOR LIFE ALL [facility] [address] [place], [place] [id number] ARASH BLANTON Spouse - patient is the spouse of the insured 8 Medical (General) History Medical History History ICD Code Hypertension Surgical History Surgery Date(Month/Year) diskectomy oblation of nerves x2 insertion of pain stimulator-medtronic nevro battery Hospitalization History Reason Date(Month/Year) same above
--- OUTSIDE RECORDS SUMMARY | 2024-12-01 14:34 | XMS_ITS | Data Portability ---
Author Organization REBECCA Swan, [facility], [facility] Address [address] [place] [address] Care Team Providers Care Entry Level Electrical Engineer Name Role Phone [facility] Primary Care Provider Assessment Encounter Date [...] available 05/17/2022 22:00:02 06/21/2022 06/21/2022 Procedure abandoned [email or web address] Not available 06/22/2022 16:29:35 06/30/2022 06/30/2022 81 [...] to change lumbar SCS to Nevro from [employer]. During previous visit - and attempt was made to proceed with lumbar SCS Nevro trial. There were complications when inserting leads. F/u 1 week telemed to discuss talk with Dr. Weaver. [email or web address] Not available 07/06/2022 14:46:39 07/07/2022 07/07/2022 81 [...] only worsen the symptoms. F/u 1 month. [email or web address] Not available 07/08/2022 11:38:50 08/01/2022 08/01/2022 Patient [...] all patients out on. Romel from [facility] is here today to do a full [...] Details Last Modified Time 07/07/2022 7647 A 10 minute encounter was conducted via telemedicine. The encounter was HIPAA compliant. Governor [place] approved [place] [employer]'s request to temporarily suspend [place] Occupation Code 111.005(a)-(b) and Title 22, Chapter 174.6(a)(2)-(3). The suspension is in affect since August 30, 2019 due to COVID-19. The patient gave Blair Mcginnis MD, [facility] verbal consent prior to starting the video conferencing call. [email or web address] Not available 07/07/2022 15:29:28 Reason for Referral None Reported. Results Created Date Observation Date Name Description Value Unit Range Abnormal Flag Note LastModifiedBy Organization Detail LastModifiedTime 06/15/20 22 06/14/2022 MRI, thora cic spine , w/o contr ast No observ ation record ed. [email or web address] [address], [place], [address], 07/12/2022 15:39:30 06/16/20 22 MRI, lumba r spine , w/o contr ast No observ ation record ed. [facility] [address], [place], [address], 06/16/2022 17:35:03 Result Notes None recorded. Problems Name Problem SNOMED Code Status Onset Date Resolution Date Notes Provider Name and Address Organization Details Recorded Time Low back pain 551183049 Active 2021 MAXIME CORDOBA NP [address], [place], [address], REBECCA MCGINNIS M.D., [facility] 2 10:37:00 Pain of right hip joint 9562565110917 02 Active 2021 MAXIME CORDOBA NP [address], [place], [address], REBECCA MCGINNIS M.D., [facility] 2 10:37:05 Trochanteri c bursitis of right hip 6968201641579 00 Active 2021 MAXIME CORDOBA NP [address], [place], [address], REBECCA MCGINNIS M.D., [facility] 2 10:37:07 Tendinitis of right gluteal tendon 7862018596238 02 Active 2021 MAXIME CORDOBA NP [address], [place], [address], REBECCA MCGINNIS M.D., [facility] 2 10:37:08 Problem Notes None recorded. Procedures Surgical History Date Name Laterality Status Provider Name and Address Organization Details Recorded Time 3 SCS Trial - Lumbar completed Manolo MCGINNIS M.D., [facility] 06/22/2022 16:29:24 3 Sedation completed Colt Camoppeng MCGINNIS M.D., [facility] 06/22/2022 11:11:52 Imaging Results None recorded. Procedure Notes None [...] Updated DateTime 3 160.02 cm 22.7 kg/m2 35191.8 2 g 64 /min 176 mm[Hg] 88 mm[Hg] Edgar Polo M.D., [facility] 3 13:49:43 Date Recorded Body height Body mass index (BMI) Body weight Heart rate Systolic blood pressure Diastolic blood pressure Provider Name and Address Organization Details Last Updated DateTime 3 160.02 cm 22.5 kg/m2 70055.2 3 g 78 /min 149 mm[Hg] 80 mm[Hg] Edgar Polo M.D., [facility] 3 15:24:38 Date Recorded Body height Body mass index (BMI) Body weight Systolic blood pressure Diastolic blood pressure Provider Name and Address Organization Details Last Updated DateTime 08/01/2022 160.02 cm 21.3 kg/m2 87007.08 g 142 mm[Hg] 93 mm[Hg] Baldomero Diehl REBECCA MCGINNIS M.D., [facility] 3 15:43:31 Date Recorded Body height Body mass index (BMI) Body weight Heart rate Systolic blood pressure Diastolic blood pressure Provider Name and Address Organization Details Last Updated DateTime 2 160.02 cm 23 kg/m2 62130.0 1 g 65 /min 141 mm[Hg] 79 [...] Code Diagnosis ICD10 Code Diagnosis Note 3499 Blair Mcginnis MD [facility] [address] [facility] [address] [place] [address] 04/21/2022 10:09:12 05/09/2022 14:01:30 Low back pain 481499755 M54.59 Pain of ri ght hip joint 8339794550 42856 M25.551 Trochanter ic bursitis of right hip 6115737952 66543 M70.61 Tendinitis of right gluteal tendon 0290237147 33000 M76.01 4728 Blair Mcginnis MD [place] [address] [facility] [address] [place] [address] 05/17/2022 11:39:50 05/17/2022 12:42:58 Chronic pain syndrome 981947552 G89.4 Lumbar spondylosis 63225 0009 M47.896 Lumbar radiculopathy 128 905081 M54.16 Spinal isaac nosis of lumbar region 75226131 M48.062 6581 MD Bimal Aguilar [address] [place] [address] 06/21/2022 13:35:48 06/21/2022 16:12:41 Low back pain 313193277 M54.50 Lumbar spondylosis 16939 0009 M47.896 Chronic pain syndrome 37 5848850 G89.4 7299 MD Declan [place] [address] [place] [address] 06/30/2022 14:58:48 06/30/2022 15:58:41 Lumbar radiculopathy 812958107 M54.16 Lumbar spondylosis 76870 0009 M47.26 Neuropathic pain 4693930 09 M79.2 Low back pain 134012838 M54.59 Chronic pain syndrome 37 6727731 G89.4 7647 Blair Mcginnis MD [place] [address] [place] [address] 07/07/2022 14:00:59 07/07/2022 15:23:06 Chronic pain syndrome 277928240 G89.4 Lumbar radiculopathy 128 959918 M54.16 Low back pain 159623390 M54.59 Lumbar spondylosis 75611 0009 M47.26 9011 Blair Mcginnis MD [place] [address] [place] [address] 08/01/2022 15:28:07 08/01/2022 16:44:28 Low back pain 224281124 M54.59 Pain of ri ght hip joint 9472680311 07389 M25.551 Tendinitis of right gluteal tendon 1588923889 91726 M76.01 Trochanter ic bursitis of right hip 2672978990 76167 M70.61 Chronic pain syndrome 37 5855442 G89.4 Health Concerns Section Related Observation LastModified by Organization Detai ls LastModified Time None Recorded Concern Status LastModified by Organization Details LastModified Time None Recorded Advance Directives Directive None Recorded Payers Insurance Date Sequence Insurance Name Policy Number Policy Smith Covered Member ID Smith Member ID Guarantor Name 08/07/2022 2 FOR LIFE ( - MEDICARE SUPPLEMENT) Alberto Cano [id number] Joyce Cano 07/29/2022 1 [place] Joyce Cano [id number] Joyce Cano Notes Date Note Type Note [...] Medical or Medication Changes since Last Visit:none Archana niño, [place] - BLAIR MCGINNIS M.D., [facility] 05/17/2022 22:02:12 3 text/html [...] Last Visit:none Blair Mcginnis MD [address], [place], [address] - BLAIR MCGINNIS M.D., [facility] 07/06/2022 14:46:56 3 [...] Visit:none Blair Mcginnis MD [address], [place], [address], [place] REBECCA MCGINNIS M.D., [facility] 07/08/2022 11:39:18 [...]
--- OUTSIDE RECORDS SUMMARY | 2024-12-01 14:34 | XMS_ITS | Data Portability ---
Author Organization [place] - ZELDA STEEN MD PA [employer] [facility], [facility] Address [address] [place] [address] Care Team Providers [employer] Professional Name Role Phone LUZ MARIA REYNA Spinal [...] relief, reduced use of pain medication, increased [id number]-pi-exsd, and is associated with few complications. Success rate, however, depends on a careful selection of patients. Discussed with pt will repeat lumbar RFA for pt as it may provide further relief. [email or web address] Not available 01/03/2022 11:29:59 01/07/2022 01/07/2022 Patient [...] relief, reduced use of pain medication, increased [id number]-pgsa, and is associated with few complications. Success [...] Imaging MRI, hip, w/o contrast 2021 022 [facility], [address], [place], [address], 09:00:42 Medication Orders None recorded. Patient TargetsNo targets recorded. Patient Instructions Encounter Date Encounter Id Patient Instructions Last Modified By Organization Details Last Modified Time 01/07/2022 [id number] Pt tolerated procedure well. Pt informed to call and go to ER with development of fever, increased pain, weakness, numbness, bowel or bladder incontinence or any other adverse side effects. [email or web address] Not available 01/07/2022 10:45:27 Reason for Referral None Reported. Results Created Date Observation Date Name Description Value Unit Range Abnormal Flag Note LastModifiedBy Organization Detail LastModifiedTime 04/11/2004/11/2022 MR femur , right [facility]iol [facility] [address] [facility], [id number] [phone] ANGEL T: KIMBERLEY RIVERA 272 : 1940 Age: 81 yrs Dept: [id number] Sex: F ACC: [id number]: Too Tang Pat [...] NATALIA GOMEZ M.D. Octobe r 2021 12:40 [facility] [address] [facility] [address], [place], [address], 04/15/2022 10:16:15 04/11/20 22 04/11/2022 MR hip - right [facility] [address] [facility], [address] [phone] PATIEN T: KIMBERLEY RIVERA E [address] : 1940 Age: 81 yrs Dept: [id number] Sex: F ACC: [id number]: Too Tang Status [...] M.D. Report ed by:: NATALIA GOMEZ M.D. [facility] 2021 12:47 [facility] [address] [facility] [address], [place], [address], 04/15/2022 10:16:15 04/11/20 22 04/11/2022 MRI, hip, w/o contr ast No observ ation record ed. [email or web address] [facility] [address], [place], [address], 04/18/2022 15:18:08 04/11/20 22 04/11/2022 MRI, hip, w/o contr ast No observ ation record ed. [email or web address] [facility] [address], [place], [address], 04/18/2022 15:18:23 04/13/20 22 04/13/2022 MRI, hip, w/o contr ast No observ ation record ed. [email or web address] Not Available 2021 13:54:53 Result Notes None recorded. Problems Name Problem SNOMED Code Status Onset Date Resolution Date Notes Provider Name and Address Organization Details Recorded Time Arthropath y of lumbar facet joint 895605916 Active 2020 RE[address] Tejeda MD [facility] 1 12:44:01 Lumbar radiculopa thy 372852233 Active 2020 REBE[address] Tejeda MD [facility] 1 12:44:03 Lumbar spondylosi s 950868196 Active 2020 REBECCA Tejeda MD [facility] 1 12:44:04 Low back pain 993299537 Active 2020 REBECCA Tejeda MD [facility] 1 12:44:05 Hypertensi ve disorder 33241723 Completed 202004/20/[address]21 [address] Tin[address] MD [facility] 1 09:40:47 Pain of sacroiliac joint 707164164 Active 2021 REBECCA Molina MD 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 10:39:09 Sacral back pain 76664390 Active 2021 REBECCA Molina MD [facility] 10:39:09 Problem Notes None recorded. Procedures Surgical History Date Name Laterality Status Provider Name and Address Organization Details Recorded Time 04/13/20 22 Trochanteric Bursa Injection completed Rui RYAN [facility] 04/13/2022 13:23:57 03/21/20 22 Hip Injection completed Colt RYAN [facility] 03/21/2022 16:07:06 02/15/20 22 Piriformis Injection completed Colt RYAN [facility] 02/15/2022 16:45:52 01/08/20 22 Lumbar RFA completed Colt RYAN [facility] 01/11/2022 12:29:02 01/08/20 22 Sedation completed Colt RYAN [facility] 01/11/2022 12:32:12 12/01/19 22 Sacroiliac Joint Steroid Injection Under Fluoroscopy completed Jarrell RYAN [facility] 11/30/2021 09:20:58 11/17/19 22 Lumbar RFA completed Colt RYAN [facility] 11/17/2021 16:37:57 11/17/19 22 Sedation completed Colt RYAN [facility] 11/17/2021 16:56:20 10/08/19 22 Sacroiliac Joint Steroid Injection Under Fluoroscopy completed Colt RYAN [facility] 10/11/2021 17:45:35 08/09/19 22 Sacroiliac Joint Steroid Injection Under Fluoroscopy completed Colt RYAN [facility] 08/11/2021 11:26:21 06/01/20 21 Sacroiliac Joint Steroid Injection Under Fluoroscopy completed Blair Salguero MD [address], [address], [place], [address], [place] REBECCA RYAN [facility] 06/02/2021 14:52:14 04/20/20 21 Lumbar Radiofrequency Ablation completed Blair Salguero MD [address], [address], [place], [address], [place] REBECCA RYAN [facility] 04/23/2021 10:11:43 04/20/20 21 Sedation completed Blair Salguero MD [address], [address], [place], [address], [place] Gretchen RYAN [facility] 04/23/2021 10:11:51 03/30/20 21 Lumbar Medial Branch Block Injection (Facet) completed Colt RYAN [facility] 03/30/2021 17:30:29 03/16/20 21 Lumbar Medial Branch Block Injection (Facet) completed Blair Salguero MD [address], [address], [place], [address], [place] REBECCA RYAN [facility] 03/23/2021 11:41:06 02/27/20 21 Lumbar Transforaminal SATNAM INJ completed Colt RYAN [facility] 03/02/2021 11:10:54 01/20/20 21 Sacroiliac Joint Steroid Injection Under Fluoroscopy completed Colt RYAN [facility] 01/20/2021 12:36:15 12/19/19 21 Sacroiliac Joint Steroid Injection Under Fluoroscopy completed Suki RYAN [facility] 12/18/2020 10:43:53 12/02/19 21 Lumbar Transforaminal SATNAM INJ completed Blair Salguero MD [address], [address], [place], [address], [place] REBECCA RYAN [facility] 12/03/2020 15:43:02 11/18/19 21 Lumbar Transforaminal SATNAM INJ completed Blair Salguero MD [address], [address], [place], [address], [place] REBECCA RYAN [facility] 11/18/2020 12:58:26 10/27/19 21 Lumbar Transforaminal SATNAM INJ completed Colt RYAN [facility] 10/28/2020 11:02:25 07/20/19 21 Lumbar Transforaminal SATNAM INJ completed Blair Salguero MD [address], [address], [place], [address], [place] REBECCA RYAN [facility] 07/21/2020 12:21:49 07/06/19 21 Lumbar Medial Branch Block Injection (Facet) completed Colt RYAN [facility] 07/06/2020 11:39:32 05/25/20 20 Sacroiliac Joint Steroid Injection Under Fluoroscopy completed Manolo RYAN [facility] 05/28/2020 12:43:43 05/07/20 20 Sacroiliac Joint Steroid Injection Under Fluoroscopy completed Colt RYAN [facility] 05/11/2020 10:58:07 04/09/20 18 Lumbar Transforaminal SATNAM INJ completed Linda RYAN [facility] 04/10/2018 10:04:21 09/22/19 18 Lumbar Transforaminal SATNAM INJ completed Zahraa RYAN [facility] 09/21/2017 16:55:27 02/03/20 17 Lumbar Transforaminal SATNAM INJ completed Malgorzata RYAN [facility] 02/02/2017 10:21:38 01/10/20 17 Lumbar Transforaminal SATNAM INJ completed Catherine RYAN [facility] 01/10/2017 13:17:50 12/27/19 17 Lumbar Transforaminal SATNAM INJ completed Artie RYAN [facility] 12/26/2016 18:27:44 Hysterectomy completed Hannah RYAN [facility] 12/26/2016 15:42:34 Imaging Results None [...] Not Available Not Available Fluzone High-Dose Quad 2019-21 (PF) 240 mcg/0.7 mL IM syringe ADM 0.7ML IM UTD active Not Available Not Available No t Available Vitals Date Recorded Body height Heart rate Systolic blood pressure Diastolic blood pressure Provider Name and Address Organization Details Last Updated DateTime 01/03/2022 160.02 cm 84 /min 119 mm[Hg] 90 mm[Hg] Suki RYAN [facility] 01/03/2022 10:59:10 Date Recorded Body height Heart rate Systolic blood pressure Diastolic blood pressure Provider Name and Address Organization Details Last Updated DateTime 01/07/2022 160.02 cm 57 /min 133 mm[Hg] 71 mm[Hg] Yi RYAN [facility] 01/07/2022 10:45:37 Date Recorded Body height Heart rate Systolic blood pressure Diastolic blood pressure Provider Name and Address Organization Details Last Updated DateTime 02/14/2022 160.02 cm 74 /min 155 mm[Hg] 86 mm[Hg] Suki RYAN [facility] 02/14/2022 12:17:15 Date Recorded Body height Heart rate Systolic blood pressure Diastolic blood pressure Provider Name and Address Organization Details Last Updated DateTime 03/21/2022 160.02 cm 82 /min 130 mm[Hg] 67 mm[Hg] Suki RYAN [facility] 03/21/2022 09:58:28 Date Recorded Body height Heart rate Systolic blood pressure Diastolic blood pressure Provider Name and Address Organization Details Last Updated DateTime 04/13/2022 160.02 cm 78 /min 135 mm[Hg] 79 mm[Hg] Suki RYAN [facility] 04/13/2022 11:10:37 Social History Question Answer Notes LastModified by Organizat ion Details LastModified Time Tobacco Smoking Status Never Smoker Not Available [employer] 04/21/2020 03:36:23 Illicit Drug Usage No Information not available 12/26/2016 Tobacco Usage No Information not available 12/26/2016 Alcohol Usage Yes Information not available 12/26/2016 Do You Have Any Children? Yes Information not available 12/26/2016 Are You ? No Information not available 12/26/2016 What Was The Date Of Your Most Recent Tobacco Screening? 04/09/2018 [id number] Information not available 04/21/2020 How Much Tobacco Do You Smoke? No [id number] Information not available 04/21/2020 Sex: Unknown Functional Status Question Answer Note LastModified by Organization D etails LastModified Time What is your level of alcohol consumption? None [email or web address] Information not available 04/20/2021 Mental Status None [...] Weight Loss N High Blood Pressure Y Arthritis Y Bowel or Bladder Problems N Kidney Problems N Sexual Difficulties N Epilepsy/Seizure Disorder Problems N Thyroid Problems N Asthma N Lung Disease N Heart Disease/Heart Attack N Stomach Problems, GI Problems N GOUT N Fibromyalgia N Cancer, what type? N Anemia/blood disorders N Gynecological HistoryNo gynecological history recorded. Obstetrics History GPAL:G 0 P 0 0 0 0 Past Encounters Encounter ID Performer Location Encounter Start Date Encounter Closed Date Diagnosis/Indication Diagnosis SNOMED-CT Code Diagnosis ICD10 Code Diagnosis Note [id number] MD Darrel Aguilar [address] [place] [address] 12/26/2016 15:28:47 12/26/2016 17:28:38 Lumbar radiculopathy 213010312 M54.16 Low back pain 630505271 M54.5 [id number] MD Darrel Aguilar [address] [place] [address] 01/09/2017 13:56:52 01/09/2017 14:38:36 Radicular pain 05516292 M54.16 Low back pain 507876989 M54.5 Lumbar radiculopathy 128 324948 M54.16 Displaceme nt of lumbar intervertebral disc without myelopathy 29837246 M51.26 Lumbar spondylosis 16186 0009 M47.816 [id number] Blair Salguero MD [facility] [address] [place] [address] 02/02/2017 09:03:31 02/02/2017 10:03:44 Radicular pain 53934518 M54.16 Low back pain 806873055 M54.5 Lumbar radiculopathy 128 810804 M54.16 [id number] Blair Salguero MD [facility] [address] [place] [address] 09/21/2017 10:15:56 09/21/2017 12:24:03 Lumbar radiculopathy 883402570 M54.16 Low back pain 971912171 M54.5 Lumbar spondylosis 38606 0009 M47.816 Displaceme nt of lumbar intervertebral disc without myelopathy 16007245 M51.26 [id number] Blair Salguero MD [facility] [address] [place] [address] 04/09/2018 15:39:34 04/09/2018 17:06:35 Lumbar radiculopathy 286556126 M54.16 Displaceme nt of lumbar intervertebral disc without myelopathy 82046739 M51.26 Lumbar spondylosis 93553 0009 M47.816 Low back pain 535354146 M54.5 [id number] SHELBY KATZ [facility] 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 [place] [address] 05/21/2020 16:46:13 05/21/2020 17:59:05 Low back pain 446852206 M54.5 Lumbar radiculopathy 128 728778 M54.16 Pain in ri ght sacroiliac joint 6266072982 2498267 M53.3 Pain in le ft sacroiliac joint 9889176550 8613202 M53.3 [id number] SHELBY KATZ [facility] [address] [place] [address] 05/25/2020 14:31:08 05/25/2020 16:01:56 Inflammation of sacroiliac joint 85215058 M46.1 Pain of sa croiliac joint 849524977 M53.3 Sacral back pain 0856354 3 M54.5 [id number] SHELBY KATZ [facility] 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 [place] [address] 07/06/2020 10:14:38 07/06/2020 11:45:02 Lumbar spondylosis 444579958 M47.816 Arthropath y of lumbar facet joint 477655857 M46.96 Low back pain 565048794 M54.5 [id number] Blair Salguero MD [facility] [address] [place] [address] 07/20/2020 11:59:12 07/20/2020 13:36:02 Radicular pain 22076187 M54.16 Lumbosacra l radiculitis 16815419 M54.17 Low back pain 909268972 M54.5 [id number] SHELBY KATZ [facility] [address] [place] [address] 08/07/2020 12:20:55 08/07/2020 13:08:23 Low back pain 330140775 M54.5 Lumbar spondylosis 01151 0009 M47.896 Lumbar radiculopathy 128 360676 M54.16 Arthropath y of lumbar facet joint 373170976 M46.96 [id number] Blair Salguero MD [facility] [address] [place] [address] 10/26/2020 11:07:40 10/26/2020 13:17:54 Low back pain 047719431 M54.5 Lumbar radiculopathy 128 020372 M54.16 Lumbar spondylosis 17818 0009 M47.896 [id number] Blair Salguero MD [facility] [address] [place] [address] 11/17/2020 14:10:23 11/17/2020 14:58:55 Arthropathy of lumbar facet joint 565904851 M46.96 Low back pain 159202668 M54.5 Lumbar radiculopathy 128 594024 M54.16 Lumbar spondylosis 26167 0009 M47.896 [id number] Blair Salguero MD [facility] [address] [place] [address] 12/01/2020 14:25:45 12/01/2020 15:53:19 Low back pain 776809824 M54.5 Lumbar spondylosis 28822 0009 M47.896 Lumbar radiculopathy 128 752276 M54.16 [id number] Blair Salguero MD [facility] [address] [place] [address] 12/17/2020 11:41:44 12/17/2020 12:57:34 Arthropathy of lumbar facet joint 499341150 M46.96 Low back pain 539029549 M54.5 Lumbar radiculopathy 128 661482 M54.16 Lumbar spondylosis 97204 0009 M47.896 Pain of le ft hip joint 3791277545 57623 M25.552 [id number] MD Darrel Aguilar [address] [address] 12/18/2020 09:58:52 12/18/2020 10:21:03 Pain of hip region 14570547 M25.551 M25.552 M79.18 Pain in le ft sacroiliac joint 5781922985 0934739 M53.3 Sacral back pain 4799385 3 M54.5 Pain of sa croiliac joint 951817762 M53.3 [id number] MD Darrel [facility] [address] [address] 01/19/2021 09:11:59 01/19/2021 10:46:57 Pain of left hip joint 4273131625 82196 M25.552 Pain in le ft sacroiliac joint 3665117460 6410623 M53.3 Sacral back pain 2376143 3 M54.5 Pain of sa croiliac joint 566169990 M53.3 [id number] MD Darrel Aguilar [address] [address] 02/19/2021 09:08:16 02/19/2021 09:46:11 Arthropathy of lumbar facet joint 448779354 M46.96 Low back pain 353736179 M54.5 Lumbar radiculopathy 128 M54.16 Pain of ri ght hip joint 3194278367 84635 M25.551 Pain of le ft hip joint 7492602370 16499 M25.552 Lumbar spondylosis 57192 0009 M47.896 [id number] Blair Salguero MD [facility] [address] [address] 02/26/2021 12:47:40 02/26/2021 14:04:41 Radicular pain 96309841 M54.16 Lumbosacra l radiculitis 02877578 M54.17 Low back pain 481776165 M54.5 [id number] Blair Salguero MD [facility] [address] [place] [address] 03/04/2021 13:51:20 03/04/2021 14:26:34 Low back pain 908478819 M54.5 Lumbar spondylosis 98134 0009 M47.896 Arthropath y of lumbar facet joint 265009348 M46.96 Lumbar fac et joint pain 695485137 M54.5 [id number] Blair Salguero MD [facility] [address] [address] 03/16/2021 09:17:13 03/16/2021 10:40:29 Lumbar spondylosis 477629484 M47.816 Arthropath y of lumbar facet joint 832515546 M46.96 Low back pain 860650734 M54.5 [id number] Blair Salguero MD [facility] [address] [address] 03/30/2021 09:37:22 03/30/2021 10:41:24 Lumbar spondylosis 019559987 M47.816 Pain of facet joint 2473 62790 M25.50 Low back pain 882821074 M54.59 Arthropath y of lumbar facet joint 201665036 M46.96 [id number] Blair Salguero MD [facility] [address] [place] [address] 04/20/2021 09:24:00 04/20/2021 10:20:23 Lumbar spondylosis 092546314 M47.816 Arthropath y of lumbar facet joint 595896865 M46.86 Low back pain 066098210 M54.59 Generalize d anxiety disorder 18690949 F41.1 [id number] Blair Salguero MD [facility] [address] [place] [address] 05/25/2021 12:03:40 05/25/2021 13:40:52 Arthropathy of lumbar facet joint 323341352 M46.86 Low back pain 461777999 M54.59 Lumbar radiculopathy 128 819144 M54.16 Lumbar spondylosis 49994 0009 M47.816 [id number] Blair Salguero MD [facility] [address] [place] [address] 06/01/2021 09:59:51 06/01/2021 10:55:09 Inflammation of sacroiliac joint 36947285 M46.1 Pain of sa croiliac joint 731844463 M53.3 Sacral back pain 7552858 3 M54.59 [id number] Blair Salguero MD [facility] [address] [place] [address] 06/29/2021 10:39:11 06/29/2021 13:00:39 Low back pain 680706997 M54.59 Lumbar spondylosis 72155 0009 M47.816 Arthropath y of lumbar facet joint 462187143 M46.86 [id number] Blair Salguero MD [facility] 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 [place] [address] 10/07/2021 09:01:00 10/07/2021 09:30:59 Inflammation of sacroiliac joint 51449206 M46.1 Pain of sa croiliac joint 384860933 M53.3 Sacral back pain 7034329 3 M54.59 Pain in ri ght sacroiliac joint 0282148338 8756550 M53.3 [id number] Blair Salguero MD [facility] [address] [place] [address] 11/05/2021 10:22:21 11/05/2021 11:25:04 Low back pain 064398900 M54.59 Lumbar spondylosis 60654 0009 M47.816 Arthropath y of lumbar facet joint 442197636 M46.86 Lumbar fac et joint pain 627988522 M54.50 [id number] Blair Salguero MD [facility] [address] [place] [address] 11/16/2021 10:03:47 11/16/2021 12:01:14 Lumbar spondylosis 540426113 M47.816 Arthropath y of lumbar facet joint 037704356 M46.96 Low back pain 590326967 M54.59 Pain of facet joint 2473 81334 M25.50 [id number] Blair Salguero MD [facility] [address] [place] [address] Inflammation of sacroiliac joint 38505143 M46.1 Pain of sa croiliac joint 470913614 M53.3 Sacral back pain 4524064 3 M54.59 Pain in ri ght sacroiliac joint 3905370122 0731315 M53.3 [id number] Blair Salguero MD [facility] [address] [place] [address] 01/03/2022 10:47:30 01/03/2022 11:43:26 Lumbar spondylosis 957704330 M47.816 Pain of facet joint 2473 88612 M25.50 Low back pain 184190186 M54.59 Arthropath y of lumbar facet joint 945439177 M46.96 [id number] Blair Salguero MD [facility] [address] [place] [address] 01/07/2022 10:20:27 01/07/2022 11:25:27 Lumbar spondylosis 388246236 M47.816 Arthropath y of lumbar facet joint 477879367 M46.96 Low back pain 599117875 M54.59 Pain of facet joint 2473 52369 M25.50 [id number] Blair Salguero MD [facility] [address] [place] [address] 02/14/2022 11:06:55 02/14/2022 12:57:54 Right-sided piriformis syndrome 5065256419 39509 M54.31 Low back pain [id number] M54.59 Lumbar spondylosis 38644 0009 M47.816 [id number] Blair Salguero MD [facility] [address] [place] [address] 03/21/2022 09:45:39 03/21/2022 11:15:11 Pain of right hip joint [id number] 28455 M25.551 Osteoarthr itis of right hip joint [id number] 64401 M16.11 Enthesopat hy of right hip [id number] 8975426 M76.891 Low back pain 962242542 M54.59 [id number] Blair Salguero MD Main Office [address] [facility] [place] [address] 04/13/2022 10:51:23 04/13/2022 12:22:35 Pain of right hip joint [id number] 10680 M25.551 Trochanter ic bursitis of right hip 5033460910 64005 M70.61 Tendinitis of right gluteal tendon [id number] 52370 M76.01 Health Concerns Section Related Observation LastModified by Organization Detai ls LastModified Time None Recorded Concern Status LastModified by Organization Details LastModified Time None Recorded Advance Directives Directive None Recorded Payers Insurance Date Sequence Insurance Name Policy Number Policy Smith Covered Member ID Smith Member ID Guarantor Name 03/19/2022 1 [place] Joyce Cano [id number] Joyce Cano 12/26/2016 2 [place] - FOR LIFE - INSTITUTIONAL Joyce Cano [id number] Joyce Cano 04/13/2022 2 FOR LIFE ( - MEDICARE SUPPLEMENT) Alberto Cano [id number] Joyce Cano Notes Date Note Type Note [...] since last visit?none Blair Salguero MD [address] [facility], [address], [place], [address], [facility] - ZELDA STEEN MD [facility] 01/05/2022 15:22:13 2 text/html Follow-up [...] changes since last visit?none REBECCA Tejeda MD [facility] 02/16/2022 11:24:39 2 text/html Follow-up [...] changes since last visit?none REBECCA Tejeda MD [facility] 03/22/2022 08:41:25 2 text/html Follow-up QuestionnaireReported bypatient.Location:right hip(s) Pain Nature:sharp; shooting; burning Pain score in the past wk?:8/10 worst Enjoyment of life interference pain score?:4/10 complete interference General activity interference pain score?:3/10 complete interference Pain is:recurring from time to time (periodic) Procedure(s) [id number]% Relief Pain is worse with:activity Pain is improved with:heat Previous PT:none The following are affected by your pain?activities of daily living Any medical or medication changes since last visit?none REBECCA Tejeda MD [facility] 04/14/2022 09:08:28 OBGyn Episode No OBEpisode recorded.
--- OUTSIDE RECORDS SUMMARY | 2024-12-01 14:35 | XMS_ITS | Data Portability ---
Author Organization [facility] - [facility], Main Office Address [address] [place] [address] Care Team Providers Care Senior Application Security Consultant Name Role Phone TATIANA MOSLEY Primary Care [...] be followed on a as needed basis. Not available 03/20/2019 21:15:58 Plan of Treatment [...] By Organization Details Last Modified Time 03/20/2019 53513 back care and preventing injuries: care instructions [...] Address Organization Details Recorded Time Hypertensive disorder 28402429 Active 2018 REBECCA Gamez MD 9 15:13:04 Pain 38605197 Active 2018 REBECCA Gamez MD 9 15:13:08 Scoliosis deformity of spine 984878626 Active 2018 REBECCA Gamez MD 9 15:14:49 Osteoporosis 49261754 Active 2018 REBECCA Gamez MD 9 15:16:12 [...] % 98 % 91 /min 22.7 kg/m2 09833.1 9 g 145 mm[Hg] 95 mm[Hg] Arpita [...] Head Trauma/Injury N COPD N Pacemaker N Ulcers N Heart Attack (HI) N Problems with Anesthesia N Obstructive Sleep Apnea N Diabetes N Autoimmune disease N Bleeding Disorder N Arthritis Y Cancer N Stroke N Asthma N Epilepsy/Seizures N Aneurysm N Hepatitis N Liver Disease N Heart Disease N Fibromyalgia N Hypertension Y Osteoporosis N Kidney Disease N Gynecological HistoryNo gynecological history recorded. Obstetrics History GPAL:G 0 P 0 0 0 0 Past Encounters Encounter ID Performer Location Encounter Start Date Encounter Closed Date Diagnosis/Indication Diagnosis SNOMED-CT Code Diagnosis ICD10 Code Diagnosis Note [id number] Aureliano Banks MD [facility] [address] [place] [address] [address] [place] [address] 03/20/2019 14:50:42 03/20/2019 16:42:54 Lumbar spondylolisthesis 4644309440 23165 M43.16 Lumbar spondylosis 40537 0009 M47.896 Low back pain 531417793 M54.5 Health Concerns Section Related Observation LastModified by Organization Detai ls LastModified Time None Recorded Concern Status LastModified by Organization Details LastModified Time None Recorded Advance Directives Directive None Recorded Payers Insurance Date Sequence Insurance Name Policy Number Policy Smith Covered Member ID Smith Member ID Guarantor Name 03/19/2019 1 [place] Joyce Cano [id number] Joyce Cano 04/15/2019 2 FOR LIFE ( - MEDICARE SUPPLEMENT) [id number] Joyce Cano [id number] Joyce Cano Notes Date Note Type Note [...] Naproxen); Muscle Relaxant Medications; Narcotic Medication (ie Steen, Percocet, Codeine); Pain Cream; Spinal Injections; no recent pt Hand Dominance:Right Do you have any difficulty with:walkin - mildly limited 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 Shecomplainsof low back pain which [id number] after experiencing a fall. Patient was originally [...] numbness, tingling or bowel bladder dysfunction. Neda Jenkins, JS [address], [address], [place], [address], [place] - Aureliano Banks MD 04/15/2019 11:22:05 OBGyn Episode No OBEpisode recorded.
--- OUTSIDE RECORDS SUMMARY | 2024-12-01 14:35 | XMS_ITS | Data Portability ---
Author Organization [place] - [facility], [facility] Address [address] [address] [place] [address] Assessment No assessment recorded. Plan of Treatment [...] Referral physical therapist referral 2024 025 [facility] (Outpatient Physical Therapy/Work Conditioning) , [address], [place], [address], 11/05/2024 04:07:[address] referral 2024 025 SHANNON Stark MD, [address], [place], [address], 11/26/2024 04:01:[address] referral 2024 025 SHANNON Satrk MD, [address], [address], [place], [address], 10/30/2024 04:04:00 neurologi serena surgeon referral 2024 025 SHANNON Osorio MD, [address], [address], [place], [address], 09/11/2024 15:41:[address] referral 2024 025 SHANNON Stark MD, [address], [address], [place], [address], 09/11/2024 15:40:06 physical therapist referral 2024 025 [email or web address] [facility] (Outpatient Physical Therapy/Work Conditioning) , [address], [place], [address], 08/14/2024 15:00:02 occupatio nal therapist referral 2024 025 [facility], [address], [address], 07/16/2024 04:03:53 Procedures None recorded. Surgeries None recorded. Imaging None recorded. Medication Orders methocarb sri 750 mg tablet 2024 025 [facility], [address] [place] [address], [address], 10/02/2024 12:33:16 tramadol 50 mg tablet 2024 025 [facility], [address] [place] [address], [address], 10/02/2024 12:33:17 methocarb sri 500 mg tablet [email or web address] [place] [address], [address] [place] [address], [address], 10/30/2024 10:31:58 Wellbutri n XL 150 mg 24 hr tablet, extended release 2024 025 [facility], [address] [place] [address], [address], 08/14/2024 15:37:15 escitalop karen 20 mg tablet 2024 025 [facility], [address] [place] [address], [address], 07/17/2024 17:41:48 Patient TargetsNo targets recorded. Patient Instructions Encounter Date Encounter Id Patient Instructions Last Modified By Organization Details Last Modified Time 07/09/2024 [id number] Stress Incontinence: Care Instructions [email or web address] Not available 07/09/2024 18:19:39 I spent a total of _46 minutes (excluding separately reportable procedure time ) in care of this patient. [email or web address] Not available 07/09/2024 18:19:56 07/17/2024 [id number] Stress Incontinence: Care Instructions [email or web address] Not available 07/17/2024 17:41:43 learning about mood disorders Not available 07/17/2024 17:41:43 08/14/2024 [id number] Stress Incontinence: Care Instructions [email or web address] Not available 08/14/2024 15:37:11 learning about mood disorders [email or web address] Not available 08/14/2024 15:37:11 I spent a total of _32 minutes (excluding separately reportable procedure time ) in care of this patient. [email or web address] Not available 08/14/2024 15:36:02 10/02/2024 [id number] Stress Incontinence: Care Instructions [email or web address] Not available 10/02/2024 12:33:14 learning about mood disorders [email or web address] Not available 10/02/2024 12:33:14 I spent a total of ___37___ minutes (excluding separately reportable procedure time ) in care of this patient. [email or web address] Not available 10/02/2024 12:31:46 10/29/2024 [id number] Stress Incontinence: Care Instructions [email or web address] Not available 10/29/2024 17:46:44 learning about mood disorders Not available 10/29/2024 17:46:44 I spent a total of __35____ minutes (excluding separately reportable procedure time ) in care of this patient. [email or web address] Not available 10/29/2024 18:39:34 Reason for Referral [...] Physician: Jose Vergara, Internal Medicine, Encounter Date: 10/29/2024 Results Created Date Observation Date Name Description Value Unit Range Abnormal Flag Note LastModifiedBy Organization Detail LastModifiedTime 07/11/1907/12/2024 LIPID PANEL , STAND JEAN-CLAUDE cholesterol, total 215 mg/dL <200 high Not Available [address] [address] [place], [address], 07/12/2024 10:10:35 07/11/19 25 07/12/2024 LIPID PANEL , STAND JEAN-CLAUDE HDL cholesterol 73 mg/dL > or = 50 normal Not Available [facility] [address] [address] [place], [address], 07/12/2024 10:10:35 07/11/19 25 07/12/2024 LIPID PANEL , STAND JEAN-CLAUDE triglyceride s 78 mg/dL <150 normal Not Available [address] [address] [place], [address], 07/12/2024 10:10:35 07/11/19 25 07/12/2024 LIPID PANEL , STAND JEAN-CLAUDE LDL-choleste rol 125 mg/dL _(serena c) high Refer ence range : <100 Destini able range <100 mg/dL for prima ry preve ntion ; <70 mg/dL for patie nts with CHD or diabe tic patie nts with > or = 2 CHD risk facto rs. LDL-C is now calcu lated using the [facility] n-[facility] calcu nikhil n, which is a valid ated novel metho d provi alexandre woods r accur acy than the Fried saji equat ion in the estim ation of LDL-C . Ana Maria n SS et al. ESTELLA. 2013; 310(1 3): 2061- 2068 (http ://ed ucati on.VISup Mariajose AbbeyPost. com/f aq/FA Q164) Not Available [address] [address] [place], [address], 07/12/2024 10:10:35 07/11/19 25 07/12/2024 LIPID PANEL , STAND JEAN-CLAUDE chol/HDLC ratio 2.9 (calc ) <5.0 normal Not Available [address], [address], 07/12/2024 10:10:35 07/11/19 25 07/12/2024 LIPID PANEL , STAND JEAN-CLAUDE non HDL cholesterol 142 mg/dL _(serena c) <130 high For patie nts with diabe emiliano plus 1 major ASCVD risk facto r, treat ing to a non-H DL-C goal of <100 mg/dL (LDL- C of <70 mg/dL ) is consi dered a thera peuti c optio n. Not Available [address], [address], 07/12/2024 10:10:35 07/11/19 25 07/12/2024 COMPR EHENS REGULO METAB OLIC PANEL glucose 94 mg/dL 65-99 normal Fasti ng refer ence inter saudnra Not Available [facility] [address] [address] [place], [address], 07/12/2024 10:10:36 07/11/19 25 07/12/2024 COMPR EHENS REGULO METAB OLIC PANEL urea nitrogen (BUN) 34 mg/dL 7-25 high Not Available [facility] [address], [address], 07/12/2024 10:10:36 07/11/19 25 07/12/2024 COMPR EHENS REGULO METAB OLIC PANEL creatinine 1.29 mg/dL 0.60-0 .95 high Not Available [address], [address], 07/12/2024 10:10:36 07/11/19 25 07/12/2024 COMPR EHENS REGULO METAB OLIC PANEL eGFR 42 mL/mi n/1.7 3m2 > or = 60 low Not Available [address], [address], 07/12/2024 10:10:36 07/11/19 25 07/12/2024 COMPR EHENS REGULO METAB OLIC PANEL BUN/creatini ne ratio 26 (calc ) 6-22 high Not Available [address], [address], 07/12/2024 10:10:36 07/11/19 25 07/12/2024 COMPR EHENS REGULO METAB OLIC PANEL sodium 135 mmol/ L 135-14 6 normal Not Available [address], [address], 07/12/2024 10:10:36 07/11/19 25 07/12/2024 COMPR EHENS REGULO METAB OLIC PANEL potassium 3.6 mmol/ L 3.5-5. 3 normal Not Available [address], [address], 07/12/2024 10:10:36 07/11/19 25 07/12/2024 COMPR EHENS REGULO METAB OLIC PANEL chloride 96 mmol/ L 98-110 low Not Available [address], [address], 07/12/2024 10:10:36 07/11/19 25 07/12/2024 COMPR EHENS REGULO METAB OLIC PANEL carbon dioxide 30 mmol/ L 20-32 normal Not Available [address], [address], 07/12/2024 10:10:36 07/11/19 25 07/12/2024 COMPR EHENS REGULO METAB OLIC PANEL calcium 10.4 mg/dL 8.6-10 .4 normal Not Available [address], [address], 07/12/2024 10:10:36 07/11/19 25 07/12/2024 COMPR EHENS REGULO METAB OLIC PANEL protein, total 6.9 g/dL 6.1-8. 1 normal Not Available [address], [address], 07/12/2024 10:10:36 07/11/19 25 07/12/2024 COMPR EHENS REGULO METAB OLIC PANEL albumin 4.6 g/dL 3.6-5. 1 normal Not Available [address], [address], 07/12/2024 10:10:36 07/11/19 25 07/12/2024 COMPR EHENS REGULO METAB OLIC PANEL globulin 2.3 g/dL_ (calc ) 1.9-3. 7 normal Not Available [address], [address], 07/12/2024 10:10:36 07/11/19 25 07/12/2024 COMPR EHENS REGULO METAB OLIC PANEL albumin/glob ulin ratio 2.0 (calc ) 1.0-2. 5 normal Not Available [address], [address], 07/12/2024 10:10:36 07/11/19 25 07/12/2024 COMPR EHENS REGULO METAB OLIC PANEL bilirubin, total 0.3 mg/dL 0.2-1. 2 normal Not Available [address], [address], 07/12/2024 10:10:36 07/11/19 25 07/12/2024 COMPR EHENS REGULO METAB OLIC PANEL alkaline phosphatase 53 U/L 37-153 normal Not Available [address], [address], 07/12/2024 10:10:36 07/11/19 25 07/12/2024 COMPR EHENS REGULO METAB OLIC PANEL AST 13 U/L 10-35 normal Not Available [address], [address], 07/12/2024 10:10:36 07/11/19 25 07/12/2024 COMPR EHENS REGULO METAB OLIC PANEL ALT 8 U/L 6-29 normal Not Available [address], [address], 07/12/2024 10:10:36 07/11/19 25 07/12/2024 CBC (INCL UDES DIFF/ PLT) white blood cell count 8.6 thous and/u L 3.8-10 .8 normal Not Available [address], [address], 07/12/2024 10:10:36 07/11/19 25 07/12/2024 CBC (INCL UDES DIFF/ PLT) red blood cell count 4.29 ever on/uL 3.80-5 .10 normal Not Available [address], [address], 07/12/2024 10:10:36 07/11/19 25 07/12/2024 CBC (INCL UDES DIFF/ PLT) hemoglobin 11.2 g/dL 11.7-1 5.5 low Not Available [facility] [address], [address], 07/12/2024 10:10:36 07/11/19 25 07/12/2024 CBC (INCL UDES DIFF/ PLT) hematocrit 36.0 % 35.0-4 5.0 normal Not Available [facility] [address], [address], 07/12/2024 10:10:36 07/11/1907/12/2024 CBC (INCL UDES DIFF/ PLT) MCV 83.9 fL 80.0-1 00.0 normal Not Available [address], [address], 07/12/2024 10:10:36 07/11/1907/12/2024 CBC (INCL UDES DIFF/ PLT) MCH 26.1 pg 27.0-3 3.0 low Not Available [facility] [address], [address], 07/12/2024 10:10:36 07/11/19 25 07/12/2024 CBC (INCL UDES DIFF/ PLT) MCHC 31.1 g/dL 32.0-3 6.0 low For adult s, a sligh t decre ase in the calcu lated MCHC value (in the range of 30 to 32 g/dL) is most likel y not clini ron signi fican t; deepthi er, it shoul d be inter prete d with cauti on in [facility] n with other red cell julian eters and the patie nt's clini serena condi tion. Not Available [address], [address], 07/12/2024 10:10:36 07/11/1907/12/2024 CBC (INCL UDES DIFF/ PLT) RDW 14.1 % 11.0-1 5.0 normal Not Available [facility] [address], [address], 07/12/2024 10:10:36 07/11/19 25 07/12/2024 CBC (INCL UDES DIFF/ PLT) platelet count 386 thous and/u L 140-40 0 normal Not Available [facility] [address], [address], 07/12/2024 10:10:36 07/11/19 25 07/12/2024 CBC (INCL UDES DIFF/ PLT) MPV 10.9 fL 7.5-12 .5 normal Not Available [address], [address], 07/12/2024 10:10:36 07/11/19 25 07/12/2024 CBC (INCL UDES DIFF/ PLT) absolute neutrophils 4782 cells /uL 1500-7 800 normal Not Available [address], [address], 07/12/2024 10:10:36 07/11/19 25 07/12/2024 CBC (INCL UDES DIFF/ PLT) absolute lymphocytes 1901 cells /uL 850-39 00 normal Not Available [address], [address], 07/12/2024 10:10:36 07/11/19 25 07/12/2024 CBC (INCL UDES DIFF/ PLT) absolute monocytes 783 cells /uL 200-95 0 normal Not Available [address], [address], 07/12/2024 10:10:36 07/11/19 25 07/12/2024 CBC (INCL UDES DIFF/ PLT) absolute eosinophils 1041 cells /uL 15-500 high Not Available [address], [address], 07/12/2024 10:10:36 07/11/19 25 07/12/2024 CBC (INCL UDES DIFF/ PLT) absolute basophils 95 cells /uL 0-200 normal Not Available [address], [address], 07/12/2024 10:10:36 07/11/19 25 07/12/2024 CBC (INCL UDES DIFF/ PLT) neutrophils 55.6 % normal Not Available [address], [address], 07/12/2024 10:10:36 07/11/19 25 07/12/2024 CBC (INCL UDES DIFF/ PLT) lymphocytes 22.1 % normal Not Available [address], [address], 07/12/2024 10:10:36 07/11/19 25 07/12/2024 CBC (INCL UDES DIFF/ PLT) monocytes 9.1 % normal Not Available [address], [address], 07/12/2024 10:10:36 07/11/19 25 07/12/2024 CBC (INCL UDES DIFF/ PLT) eosinophils 12.1 % normal Not Available [address], [address], 07/12/2024 10:10:36 07/11/19 25 07/12/2024 CBC (INCL UDES DIFF/ PLT) basophils 1.1 % normal Not Available [address], [address], 07/12/2024 10:10:36 07/11/19 25 07/12/2024 TSH TSH 1.24 mIU/L 0.40-4 .50 normal Not Available [address], [address], 07/12/2024 10:10:37 07/11/19 25 07/12/2024 VITAM IN B12/F OLATE , SERUM PANEL vitamin B12 975 pg/mL 200-11 00 normal Not Available [address], [address], 07/12/2024 10:10:38 07/11/19 25 07/12/2024 VITAM IN B12/F OLATE , SERUM PANEL folate, serum 11.8 NG/mL normal Refer ence Range Low: <3.4 Borde rline : 3.4-5 .4 Bertha l: >5.4 Not Available [facility] [address] [place], [address], 07/12/2024 10:10:38 07/11/19 25 07/12/2024 VITAM IN [...] /MS is recom adelina d: order code 80651 (anthony ents >2yrs ). See Note 1 Note 1 For addit ional infor laura cordova e refer to http: //[facility] fawn mascorro.Que stDia gnost ics.c om/fa q/FAQ 199 (This link is being provi ded for infor digna puente/ tere sumner purpo ses only. ) Not Available [facility] [address] [place], [address], 07/12/2024 10:10:38 07/11/19 25 07/12/2024 HEMOG LOBIN [...] for child dayana. Not Available [facility] [address] [place], [address], 07/12/2024 10:10:39 07/11/19 25 07/12/2024 RPR, BLANCA RITAL W/REF L TITER RPR, premarital w/refl titer NON-RE ACTIVE non-re active normal Not Available [facility] [address] , [place], [address], 07/12/2024 10:10:39 08/13/19 25 08/13/2024 lumba r punct ure (PROC ) No observ ation record ed. [address], [address], 08/14/2024 15:16:44 08/22/19 25 08/21/2024 RF, myelo gram, spine No observ ation record ed. [address], [address], 10/02/2024 12:08:55 08/27/19 25 08/26/2024 CT, cervi serena spine , post- myelo gram No observ ation record ed. [address], [address], 10/02/2024 12:08:55 08/27/19 25 08/26/2024 CT, thora cic spine , post- myelo gram No observ ation record ed. [address]: Pulmonology [address] [place] [address], [address], 10/02/2024 12:08:55 08/27/19 25 08/26/2024 CT, lumba r spine , post- myelo gram No observ ation record ed. [email or web address] [facility] [address] [facility] [place], [address], 10/02/2024 12:08:55 Result Notes None recorded. Problems Name Problem SNOMED Code Status Onset Date Resolution Date Notes Provider Name and Address Organization Details Recorded Time Impairmen t of balance 818281464 Active 2024 Jose Vergara MD [address], [place], [address], [facility] 5 18:14:33 Recurrent falls 306986383 Active 2024 Jose Vergara MD [address], [place], [address], [facility] 5 18:14:40 Abnormal gait 07404403 Active 2024 Caty Woody [facility] 5 13:19:26 Degenerat ion of lumbar intervert ebral disc 54682999 Active 2024 Jose Vergara MD [address], [place], [address], [facility] 5 18:16:26 Scoliosis deformity of spine 555336346 Active 2024 Jose Vergara MD [address], [place], [address], [facility] 5 18:17:10 Urinary incontine nce 926933227 Active 2024 Jose Vergara MD [address], [place], [address], [facility] 5 18:18:33 Minimal cognitive impairmen t 277128244 Active 2024 Jose Vergara MD [address], [place], [address], [facility] 5 18:18:40 Vertigo 586390806 Active 2024 Jose Vergara MD [address], [place], [address], [facility] 5 18:19:44 Depressiv e disorder 03102598 Active 2024 [facility] 5 15:55:10 Mixed hyperlipi demia 410549411 Active 2024 Jose Vergara MD [address], [place], [address], [facility] 5 17:40:40 Spinal cord disease 49886993 Completed 202407/18/2024 [facility] 5 16:33:01 Unsteady when walking 94839387 Active 2024 [facility] 5 11:46:37 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 755670603 Active 2024 Jose Vergara MD [address], [place], [address], [facility] 5 13:16:02 Cyst of kidney 654990404 Active 2024 Jose Vergara MD [address], [place], [address], [facility] 5 13:18:33 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 Procedures Surgical History Date Name Laterality Status Provider Name and Address Organization Details Recorded Time 06/19/18 70 Breast augmentation w/implt completed [facility] 07/09/2024 17:10:23 06/19/18 65 Hysterectomy completed [facility] 07/09/2024 17:10:57 Imaging Results None recorded. Procedure Notes None recorded. Medical Equipment None Reported. Allergies Allergen ID Allergen Name Allergen Category Reaction Reaction Severity Criticality Documentation Date Start Date Code Code System Note Provider Name and Address Organization Details Recorded Time 2585 No known allergy (situatio n) Not available Not available Not available Not available 10/02/2024 78255 6003 SNOMED [facility] 11:39:22 Medications Name Sig Start Date Stop [...] Not Available Not Available Not Avai lable duloxetine 30 mg capsule,del ayed release Take [...] 5 98.4 [degF] 160.02 cm 18.1 kg/m2 29228.4 2 g 106 /min 18 /min 96 % 96 % 130 mm[Hg] 70 mm[Hg] [facility] 5 16:53:31 Date Recorded Body height Body mass index (BMI) Body weight Body temperature Heart rate Respiratory rate Oxygen saturation Oxygen saturation in Arterial blood by Pulse oximetry Systolic blood pressure Diastolic blood pressure Provider Name and Address Organization Details Last Updated DateTime 5 160.02 cm 18.4 kg/m2 43120.6 1 g 96.7 [degF] 57 /min 15 /min 97 % 97 % 157 mm[Hg] 85 mm[Hg] Brionna Myers [facility] 5 15:09:14 Date Recorded Body height Body temperature Body mass index (BMI) Body weight Heart rate Respiratory rate Oxygen saturation Oxygen saturation in Arterial blood by Pulse oximetry Systolic blood pressure Diastolic blood pressure Provider Name and Address Organization Details Last Updated DateTime 5 160.02 cm 97.4 [degF] 18.8 kg/m2 88099.7 9 g 84 /min 18 /min 97 % 97 % 142 mm[Hg] 70 mm[Hg] [facility] 5 11:38:59 Date Recorded Body height Body temperature Body mass index (BMI) Body weight Heart rate Respiratory rate Oxygen saturation Oxygen saturation in Arterial blood by Pulse oximetry Systolic blood pressure Diastolic blood pressure Provider Name and Address Organization Details Last Updated DateTime 5 160.02 cm 97.6 [degF] 19.3 kg/m2 40400.5 7 g 98 /min 18 /min 98 % 98 % 140 mm[Hg] 84 mm[Hg] Caty Woody [place] - [facility] 5 16:32:17 Social History None recorded. Functional Status None recorded. Mental Status None recorded. Family History Nothing Reported Notes:father-hypertension, d iabetes, Medical History No medical history recorded. Gynecological HistoryNo gynecological history recorded. Obstetrics History GPAL:G 0 P 0 0 0 0 Past Encounters Encounter ID Performer Location Encounter Start Date Encounter Closed Date Diagnosis/Indication Diagnosis SNOMED-CT Code Diagnosis ICD10 Code Diagnosis Note [id number] Jose Vergara MD [facility] [address] [place] [address] 07/09/2024 15:40:34 07/09/2024 18:24:06 Impairment of balance 843390320 R26.89 suspect related to peripheral neuropathy ,recent ct head reportedHa s hydrocepha elise howeverThe results are not available for reviewWe will refer to neurologyA lso will refeer to physical therapy and occupation al therapy Recurrent falls 85745256 2 R29.6 Rukhsana PTOTNeurol ogy [facility] Abnormal gait 33289102 R 26.9 Likely due to peripheral neuropathy or related to chronic back pain/lumba r spinal stenosis Degenerati on of lumbar intervertebral disc 81908458 M51.369 Diagnoses of chronic back pain related to lumbar degenerati ve disc diseease and scoliosisS een pain management in the pastStatus post back stimulator a few yearss ago which they are not sure if it is functional Scoliosis deformity of spine 266334316 M41.9 Noted scoliosis of the spine Adult [facility] th examination 582006729 Z00.00 diet and physical activity reviewedva ccines and screening tests reviewedme dication reviewed Hyperlipid emia screening 944271958 Z13.220 Check lipid panel Urinary incontinence 165 491789 R32 On and off urinary incontinen ceHistory of use of oxybutynin which did nnot help Minimal co gnitive impairment 435395592 R41.89 Noted mild cognitive impairment on evaluation Check vitamin B112 and folate check RPRNeurolo gy referralWi th hydrocepha elise will also need to rule out normal Pressure hydrocepha lusParticu larly with history of fallsNeuro logy referral Vertigo 558684135 R42 On and off vertigo reportedCT head with hydrocepha elise will get reports [id number] Jose Vergara MD [facility] [address] [place] [address] 07/17/2024 16:29:36 07/17/2024 17:43:27 Depressive disorder 51338261 F32.A ongoing And worseningS he has been on escitalopr am for a whileNo SI or HIDiscusse d options with the patientWil l increase citalopram to 20 mg daily.She is agreeable with the plan. Impairment of balance 38 9565424 R26.89 suspect related to peripheral neuropathy ,recent ct head reportedHa s hydrocepha elise howeverThe results are not available for reviewRefe rred to neurologyI n going to see tomorrowAl so will refeer to physical therapy and occupation al therapyWe will need to get record of CT headShe is seeing physical therapy now Recurrent falls 72157314 2 R29.6 Ordered PTOTNeurol ogy referralRP R negative vitamin B12 and folate negative Abnormal gait 32496664 R 26.9 Likely due to peripheral neuropathy or related to chronic back pain/lumba r spinal stenosis Degenerati on of lumbar intervertebral disc 28662229 M51.369 Diagnoses of chronic back pain related to lumbar degenerati ve disc diseease and scoliosisS een pain management in the pastStatus post back stimulator a few yearss ago which they are not sure if it is functional Scoliosis deformity of spine 072550299 M41.9 Noted scoliosis of the spine Urinary incontinence 165 794497 R32 On and off urinary incontinen ceHistory of use of oxybutynin which did nnot help Minimal co gnitive impairment 323178073 R41.89 Noted mild cognitive impairment on evaluation Normal vitamin B112 and folate RPRNegativ eNeurology referralWi th hydrocepha elise will also need to rule out normal Pressure hydrocepha lusParticu larly with history of fallsNeuro logy referral Vertigo 158268700 R42 On and off vertigo reportedCT head with hydrocepha elise will get reports Mixed hyperlipidemia 267 362597 E78.2 Lipid profiile with LDL 125 [id number] Jose Vergara MD [facility] [address] [place] [address] 08/14/2024 14:37:17 08/14/2024 15:39:35 Depressive disorder 72341604 F32.A ongoing And worseningS he has been on escitalopr am for a whileNo SI or HIincrease d escitalopr am to 20 mg daily: not helpingnow she want to try wellbutrin .will lower escitalopr am 10 mg daily x one week then stopthen will start wellbutrin 150 mg daily Impairment of balance 38 0508255 R26.89 suspect related to peripheral neuropathy ,recent ct head reportedHa s hydrocepha elise howeverThe results are not available for reviewRefe rred to neurosurge ry: seen and underwent LP tap.physic al therapy currently on holdWe will need to get record of CT headct myelogram also planned Recurrent falls 22726666 2 R29.6 Ordered PTOTNeurol ogy referralRP R negative vitamin B12 and folate negative Abnormal gait 28492533 R 26.9 Likely due to peripheral neuropathy or related to chronic back pain/lumba r spinal stenosispo ssible NPH related as well.lumba r puncture drain performed 07/2024 Degenerati on of lumbar intervertebral disc 85517673 M51.369 Diagnoses of chronic back pain related to lumbar degenerati ve disc diseease and scoliosisS een pain management in the pastStatus post back stimulator a few yearss ago which they are not sure if it is functional add methoarbam ol prn for back pain Scoliosis deformity of spine 644788858 M41.9 Noted scoliosis of the spine Mixed hyperlipidemia 267 502390 E78.2 Lipid profiile with LDL 125 Urinary incontinence 165 243986 R32 On and off urinary incontinen ceHistory of use of oxybutynin which did not help Minimal co gnitive impairment 248461547 R41.89 Noted mild cognitive impairment on evaluation Normal vitamin B112 and folate RPR NegativeNe urology referralWi th hydrocepha elise will also need to rule out normal Pressure hydrocepha elise Particular ly with history of fallsNeuro logy referral Vertigo 399785481 R42 On and off vertigo reportedCT head with hydrocepha elise will get reports [id number] Jose Vergara MD [facility] [address] [place] [address] 10/02/2024 11:14:31 10/02/2024 12:38:11 Depressive disorder 73998710 F32.A ongoing And worseningS he has been on escitalopr am for a whileNo SI or HIincrease d escitalopr am to 20 mg daily: not helpingnow she want to try wellbutrin .will lower escitalopr am 10 mg daily x one week then stopstarte d on wellbutrin 150 mg dailybette r Impairment of balance 38 3879982 R26.89 suspect related to peripheral neuropathy ,recent ct head reportedHa s hydrocepha elise howeverThe results are not available for reviewRefe rred to neurosurge ry: seen and underwent LP tap.physic al therapy currently on holdWe will need to get record of CT headct myelogram reviewed Recurrent falls 84682220 2 R29.6 Ordered PTOTNeurol ogy referralRP R negative vitamin B12 and folate negativect myelogram Abnormal gait 42168632 R 26.9 Likely due to peripheral neuropathy or related to chronic back pain/lumba r spinal stenosispo ssible NPH related as well.lumba r puncture drain performed 07/2024 Degenerati on of lumbar intervertebral disc 87641842 M51.369 Diagnoses of chronic back pain related [...] options of treatment Scoliosis deformity of spine 985207952 M41.9 Noted scoliosis of the spine Mixed hyperlipidemia 267 386932 E78.2 Lipid profiile with LDL 125 Urinary incontinence 165 591203 R32 On and off urinary incontinen ceHistory of use of oxybutynin which did not help Minimal co gnitive impairment 773419485 R41.89 Noted mild cognitive impairment on evaluation Normal vitamin B112 and folate RPR NegativeNe urology referralWi th hydrocepha elise will also need to rule out normal Pressure hydrocepha elise Particular ly with history of fallsNeuro logy referral Vertigo 733927751 R42 On and off vertigo reportedCT head with hydrocepha elise will get reports 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 disc space narrowing at multiple levels. severe bilateral foraminal stenosis Cyst of kidney 135815362 N28.1 ct with multiple indetermin ate to hyperdense renal lesions, compatible with hemorrhagi c or proteinace ous cyst noted. 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 63972914 M51.34 ct myelogram with mdoerate multilevel disc space narrowing [id number] Jose Vergara MD [facility] [address] [place] [address] 10/29/2024 15:50:37 10/29/2024 17:48:58 Degeneration of lumbar intervertebral disc 23681156 M51.369 Diagnoses of chronic back pain related [...] control and options of treatment Depressive disorder 1804 2972 F32.A ongoing And worseningS he has been on escitalopr am for a whileNo SI or HIincrease d escitalopr am to 20 mg daily: not helpingnow she want to try wellbutrin .will lower escitalopr am 10 mg daily x one week then stopstarte d on wellbutrin 150 mg dailybejasper r Impairment of balance 38 7439371 R26.89 suspect related to peripheral neuropathy ,recent ct head reportedHa s hydrocepha elise howeverThe results are not available for reviewRefe rred to neurosurge ry: seen and underwent LP tap.physic al therapy currently on holdct myelogram reviewedth is is worsening. will send referral to physical therapy.ne urology evaluation next month scheduled 12/11 Recurrent falls 38886764 2 R29.6 Ordered PTOTNeurol ogy referralRP R negative vitamin B12 and folate negativect myelogram reviewed Abnormal gait 04487976 R 26.9 Likely due to peripheral neuropathy or related to chronic back pain/lumba r spinal stenosispo ssible NPH related as well.lumba r puncture drain performed 07/2024susp ected lumbar myelopathy Scoliosis deformity of spine 994386453 M41.9 Noted scoliosis of the spine Mixed hyperlipidemia 267 997958 E78.2 Lipid profiile with LDL 125 Urinary incontinence 165 977814 R32 On and off urinary incontinen ceHistory of use of oxybutynin which did not help Minimal co gnitive impairment 844292340 R41.89 Noted mild cognitive impairment on evaluation Normal vitamin B112 and folate RPR NegativeNe urology referralWi th hydrocepha elise will also need to rule out normal Pressure hydrocepha elise Particular ly with history of fallsNeuro logy referral now scheduled for 11/28/2024 Vertigo 384669030 R42 On and off vertigo reportedCT head with hydrocepha elise will get reports 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 disc space narrowing at multiple levels. severe bilateral foraminal stenosis Cyst of kidney 196695828 N28.1 ct with multiple indetermin ate to hyperdense renal lesions, compatible with hemorrhagi c or proteinace ous cyst noted. 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 40679649 M51.34 ct myelogram with moderate multilevel disc space narrowing Health Concerns Section Related Observation LastModified by Organization Detai ls LastModified Time None Recorded Concern Status LastModified by Organization Details LastModified Time None Recorded Advance Directives Directive None Recorded Payers Insurance Date Sequence Insurance Name Policy Number Policy Smith Covered Member ID Smith Member ID Guarantor Name 10/28/2024 1 [place] Joyce Cano [id number] Joyce Cano 10/28/2024 2 FOR LIFE () Alberto Cano [id number] Joyce Cano Notes Date Note Type Note Provider Name and Address Organization Details Recorded Time 5 text/html Pt here to establish care. She is a retired nurse. Pt and recently relocated from [facility]. Pt c/o of being dizzy, unstable gait, brain fog x 6 months. Pt states she had 2 CT scans done-05/2024 in [place] which is reported to have hydrocephalus and 06/29/2024 [facility] ER DX: no hydrocephalus present per [...] Dr. Irene Osorio. Jose Vergara MD [address] [facility] [address], [place], [address], [facility] 07/10/2024 14:55:34 5 text/html TELEVISIT TEMPLATEReported bypatient.Notes:I [...] suicidal or homicidal ideations. MD Colten Coker[address] [facility] [address], [place], [address], [facility] 07/17/2024 17:42:08 5 text/html Patient is here for lab review. BP is high in office today. Patient had a spinal tap procedure at [facility] yesterday and states her BP was high there as well. No SOB, chest pain, dizziness, fever, nausea or diarrhea. she is also getting a ct myelogram planned. her physical therapy is on hold currently pending these tests. Jose Vergara MD [address] [facility] [address], [place], [address], [facility] 08/14/2024 18:00:32 5 text/html Pt here for [...] appt. Jose Vergara MD [address] [facility] [address], [place], [address], [facility] 10/02/2024 13:22:01 5 text/html Pt here for sick visit. Pt and states her gait has worsen in the last month. She is now forgetting to apple picker feet and move forward. On Monday, and his son was assisting pt to bedroom when she had difficulty responding to command to lift foot up. Pt has appt with neurology 11/27/2024. Denies headaches, dizziness, nauseated, vomiting. Jose Vergara MD [address] [facility] [address], [place], [address], [facility] 10/29/2024 18:39:44 OBGyn Episode No OBEpisode recorded.
--- OUTSIDE RECORDS SUMMARY | 2024-12-01 14:35 | XMS_ITS | Data Portability ---
Author Organization [place] - [facility], Diana RYAN Office Address [address] [facility] [address] [place] [address] Care Team Providers Care Material Handler Name Role Phone LEVAR SALGUERO Referring Provider [phone] HIRA MOSLEY Primary Care Provider [phone] Assessment Encounter Date Assessment Date Assessment LastModified [...] By Organization Details Last Modified Time 10/11/2017 [id number] low back arthritis: exercises farrukh Not available 10/16/2017 10:55:11 patient case to s/w John Yeh card to her farrukh Not available 10/11/2017 12:43:17 Reason for Referral None Reported. Results Created Date Observation Date Name Description Value Unit Range Abnormal Flag Note LastModifiedBy Organization Detail LastModifiedTime 10/12/19 18 dental laboratory technician [email or web address]? CMD=OP ENSTUD Y&SUID =1.3.6 .1.4.1 .10474 .2018. 4.25.7 .54.33 .63150 mmina4 [employer] [address], [place], [address], 10/11/2017 13:52:17 Result Notes None recorded. Problems No Known Problems Procedures Surgical History Date Name Laterality Status Provider Name and Address Organization Details Recorded Time Hysterectomy [place] [address] [facility], [place], [address], [place] 10/11/2017 12:27:12 Imaging Results None recorded. [...] Updated DateTime 10/11/2017 162.56 cm 22.7 kg/m2 94439.19 [place] [address] [employer] [facility],[address], [place], [address], [facility], [place] 10/11/2017 12:24:15 Date Recorded Heart rate Systolic blood pressure Diastolic blood pressure Provider Name and Address Organization Details Last Updated DateTime 10/11/2017 90 /min 128 mm[Hg] 74 mm[Hg] Yessy Tracey [place] [facility], [place] 10/11/2017 12:32:09 Social History Question Answer Notes LastModified by Whim Details LastModified Time Tobacco Smoking [place] [address] [facility] [address], [place], [address], [facility], [place] 10/11/2017 12:26:54 Marital Status Informatio n not available 10/11/2017 What Was The Date Of Your Most Recent Tobacco Screening? 10/11/2017 Information n ot available 01/10/2019 Sex: Unknown Functional Status Question Answer Note LastModified by [employer] [facility] Details LastModified Time What is your level [...] Bleeding Disorders N COPD N Depression N Glaucoma N Lung Disease N Thyroid Disorders N Pacemaker N Prostate Problems N Vascular Disease N Congestive Heart Failure N Gastrointestinal Disease N Alcoholism N Obesity N Arthritis N Cancer N Chemical Dependency N Stroke N Gynelogical Problems N Deaf / Hearing-Impaired N Orthopaedic Problems N High Cholesterol N Liver Disease N Fibromyalgia N Headaches N Ulcer N Hiatal Hernia N Kidney Disease N Malignant Hyperthermia N Claustrophobia N Scoliosis N Anxiety N Loss of bladder control N Irregular Heart Rhythm N Migraines N Angina N Reaction to Anesthetic N Anemia N [...] SNOMED-CT Code Diagnosis ICD10 Code Diagnosis Note [id number] Bria Dyson MD [facility] Office [address] [facility] [address] [place] [address] 10/11/2017 11:45:50 10/11/2017 13:18:41 Scoliosis deformity of spine 056177845 M41.9 Lumbosacra l spondylosis without myelopathy 96461898 M47.817 Chronic low back pain 27 8270090 M54.5 Health Concerns Section Related Observation LastModified by Organization Detai ls LastModified Time None Recorded Concern Status LastModified by Organization Details LastModified Time None Recorded Advance Directives Directive None Recorded Payers Insurance Date Sequence Insurance Name Policy Number Policy Smith Covered Member ID Smith Member ID Guarantor Name 10/06/2017 1 [place] Joyce Cano [id number] Joyce Cano 10/24/2017 2 FOR LIFE ( - MEDICARE SUPPLEMENT) Joyce Cano [id number] Joyce Cano Notes Date Note Type Note [...] [place] [address] [facility], [place], [address], [facility], [place] 10/20/2017 10:24:30 OBGyn Episode No OBEpisode recorded.
--- OUTSIDE RECORDS SUMMARY | 2024-12-01 14:35 | XMS_ITS ---
Author Organization [facility] Johan morse Billing Info Address [address] [place], [place] [address] Care Team Providers Care School Health Aide Name Role Phone BASHIR GIMENEZ Unavailable [phone] REASON FOR VISIT Refill Request Medications Medication SIG (Take, Route, Fr equency, Duration) Notes Start Date End Date Status Tramadol HCl 50 MG 1 tablet as needed O rally four times a day for 10 days 12/13/2023 Active Encounters Encounter Location Date Provider Diagnosis [id number] [address] [facility] [address] [place] [address] 12/13/2023 BASHIR GIMENEZ Plan Of Treatment Medication Medication Name Sig Start Date Stop Date Notes Tramadol HCl 50 MG 1 tablet as needed O rally four times a day for 10 days 12/13/2023 Progress Notes * FRANNY YUSUFRAHEELOB:[birth year] (83 yo F)Acc No.[id number]:12/13/2023 Patient: YUSUF VALENZUELAJORIE :1940 A ge:83 Y S ex:Female Address:[address] [place] [address], [address] * Refills Refill Tramadol HCl Tablet, 50 MG, Orally, 40 Tablet, 1 tablet as needed, four times a day, 10 days, Refills=0 * true * Date: Generated for Printi ng/Faxing/eTransmitting on: 0 12/01/2024 02:35 PM CDT
--- OUTSIDE RECORDS SUMMARY | 2024-12-01 14:35 | XMS_ITS | Data Portability ---
Author Organization [facility] JOURDANTON Address [address] [facility] [place] [address] Assessment No assessment recorded. Plan of Treatment Reminders Order Date Submit Date Provider Last Modified By Organization Details Last Modified Time Details Appointments None recorded. Lab None recorded. Referral None recorded. Procedures None recorded. Surgeries None recorded. Imaging US, kidney 2020 022 [facility], [address] [address], [place], [address], 2 12:17:23 CT, abdomen, w/wo contrast 2020 021 SHANNON [facility], [address] [address], [place], [address], 1 14:20:07 Medication Orders None recorded. Patient [...] 02/23/2021 CT, abdom en, w/wo contr ast [facility] [address] [facility], [address] [phone] PATIEN T: KIMBERLEY RIVERA 272 : 1940 Age: 80 yrs Dept: [id number] Sex: F ACC: [id number]: Verona Gross Pat [...] ed by:: KAROL MEADE M.D. Sept2020 13:[address] [facility] [address] [facility] [address], [place], [address], 02/23/2021 17:57:31 03/08/20 22 03/08/2022 , [facility] [address] [facility], [address] [phone] PATIEN T: KIMBERLEY RIVERA 272 : 1940 Age: 81 yrs Dept: [id number] Sex: F ACC: [id number]: Verona Gross Pat [...] M.D. Report ed by:: MADISON PATTERSON M.D. Sept 2021 09:[address] [facility] [address] [facility] [address], [place], [address], 03/15/2022 13:50:23 Result Notes Documentation Provider Name and Address Organization Details Recorded Time Ct, Abdomen, W/wo Contrast : [facility] [address] [facility], [id number] PATIENT: FERMIN CANO : 1940 Age: 80 yrs Dept: [id number] Sex: F ACC: [id number] REQUESTING DR: Omar Gross [facility] Status: O Exam: CT Abdomen wo/w Contrast DATE: 02/23/2021 11:49 AM Acct No: Reason: Neoplasm of uncertain behavior of left kidney FINAL REPORT CT ABDOMEN WITH AND WITHOUT IV CONTRAST DATE: 02/23/2021 11:49 AM HISTORY: Neoplasm of uncertain behavior of left kidney TECHNIQUE: A CT scan of the abdomen is obtained prior to and after the uncomplicated intravenous injection of nonionic contrast. COMPARISON: CT abdomen and pelvis 08/16/2020 and 03/09/2020. FINDINGS: Visualized heart size is normal. There is no pleural effusion. The visualized lung bases are clear. The liver is normal in contour. No suspicious hepatic mass. However, the inferior tip of segment of liver is not included in the bzdnz-yd-zfsb of this scan. There is no calcified gallstone. No intrahepatic biliary ductal dilatation. Portal vein, superior mesenteric vein, and splenic vein are patent. Spleen is normal in size and enhancement. Adrenal glands are normal. Pancreas is normal in enhancement. No duct dilatation. The kidneys enhance normally symmetrically bilaterally. No renal calculus or hydronephrosis. 8 mm high attenuation suspected cyst with hemorrhage at the upper pole of the left kidney at table position 104.5. There are several additional high attenuation cysts with hemorrhage at the lower pole of the left kidney including the 6 mm lesion at table is 174.5 which was identified on the prior CT as suspicious for a solid mass. 1.1 cm cyst with hemorrhage at the lower pole left kidney at table position 169.5. Simple cyst at the lateral interpolar region of left kidney measures 1.3 cm at table position 144.5. The visualized bowel is nondilated. No free air. Abdominal aorta is nonaneurysmal. No adenopathy. There is no ascites. The visualized bony skeleton demonstrates degenerative changes with slight listheses in the lumbar spine. Levoscoliosis. Left flank battery pack with spinal stimulator wires entering the thoracic spinal canal. No suspicious destructive osseous lesion. No acute compression fracture. IMPRESSION: 1. High attenuation nonenhancing cysts with hemorrhage at the left kidney. A 6 mm lesion corresponds to the finding on the prior CT abdomen and pelvis 08/16/2020. Signed on 02/23/2021 1:16 PM by Karol Meade M.D Reported by:: KAROL MEADE M.D. February 23, 2021 13:16 Omar Gross MD [address] [place] [address],[address], [place], [place], [address] [place] [address], [facility] 02/23/2021 17:57:31 Problems Name Problem SNOMED Code Status Onset Date Resolution Date Notes Provider Name and Address Organization Details Recorded Time Neoplasm of uncertain behavior of left kidney 61911320400804 5 Active 2020 Omar Gross MD [address] [place] [address],[address], [place], [address] [place] [address] 9, [facility] 09:56:35 Complex renal cyst Active 2020 Omar Gross MD [address] [place] [address],[address], [place], [address] [place] [address] 9, [facility] 15:39:56 Problem Notes None recorded. Procedures Surgical History Date Name Laterality Status Provider Name and Address Organization Details Recorded Time 06/19/19 Most Recent Mammogram completed Loren [facility] 08/20/2020 09:18:49 total abdominal hysterectomy with bilateral salpingo-oophore ctomy completed Omar Gross MD [address] [place] [address],[address] [facility], [place], [address] [place] [address], [facility] 08/20/2020 09:33:38 Breast Implants completed Omar Gross MD [address] [place] [address],[address] [place] [address], [address] [place] [address], [facility] 08/20/2020 09:33:52 implantation of electronic stimulator of spine completed Omar Gross MD [address] [place] [address],[address] [address], [place], [address] [place] [address], [facility] 08/20/2020 09:34:03 Breast Surgery (Lumpectomy, Biopsy, Implants) completed Marcela Gann [facility] 03/18/2021 15:10:01 Hysterectomy completed Marcela Gann [facility] 03/18/2021 15:10:01 Back Surgery completed Marcela Gann [facility] 03/18/2021 15:10:01 Imaging Results None recorded. Procedure Notes None recorded. Medical Equipment None Reported. Allergies Allergen ID Allergen Name Allergen Category Reaction Reaction Severity Criticality Documentation Date Start Date Code Code System Note Provider Name and Address Organization Details Recorded Time 424562 fire ant environme nt itching Not available Not available 03/17/[address] 15:27:55 397298 POLL[employer] environme nt,medica tion Not available Not available Not available 03/17/2022 [address] 15:27:55 Medications Name Sig Start Date Stop [...] 1 97.7 [degF] 160.02 cm 23.9 kg/m2 34465.9 7 g 67 /min 99 % 99 % 144 mm[Hg] 72 mm[Hg] Loern [facility] 1 09:26:28 Date Recorded Body height Body mass index (BMI) Body weight Systolic blood pressure Diastolic blood pressure Provider Name and Address Organization Details Last Updated DateTime 03/17/2022 160.02 cm 22.7 kg/m2 29302.82 g 120 mm[Hg] 64 mm[Hg] Marcela Gann [facility] 2 15:30:27 Date Recorded Body height Body mass index (BMI) Body weight Heart rate Oxygen saturation Oxygen saturation in Arterial blood by Pulse oximetry Systolic blood pressure Diastolic blood pressure Provider Name and Address Organization Details Last Updated DateTime 1 160.02 cm 23.7 kg/m2 16885.3 8 g 81 /min 98 % 98 % 134 mm[Hg] 70 mm[Hg] Marcela Gann [facility] 1 15:14:10 Social History Question Answer Notes LastModified by Organizat ion Details LastModified Time Tobacco Smoking Status Former Smoker Lorenlucila Mayo [facility] 08/20/2020 09:19:40 Do You Have An Advance [...] Condition Response High Blood Pressure (Hypertension) Y Back/Neck Pain Y Arthritis Y Cancer (If yes, specify type) Y Urinary Problem Y Anxiety Y Gynecological History Statement/Question Response Most Recent Mammogram 06/19/2019 Date of LMP 06/19/1972 Obstetrics History GPAL:G 0 P 0 0 0 0 Past Encounters Encounter ID Performer Location Encounter Start Date Encounter Closed Date Diagnosis/Indication Diagnosis SNOMED-CT Code Diagnosis ICD10 Code Diagnosis Note [id number] MD Jessica Frank [place] [address],[facility] [address] [place] [address] 08/20/2020 08:53:25 08/20/2020 10:05:05 Neoplasm of uncertain behavior of left kidney 8830284310 87799 D41.02 It is a very small lesion. 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 We discussed the options. Those options include observatio n versus partial nephrectom y versus ablation. Due to its tiny size, I would recommend observatio n for a little while. [id number] MD Jessica Frank [place] [address],[facility] [address] [place] [address] 03/18/2021 15:08:23 03/18/2021 15:40:47 Complex renal cyst 5935274180 6941775 N28.1 The lesions appear to be more cystic. I believe we can do an ultrasound in a year. [id number] MD Jessica Frank [place] [address],[facility] [address] [place] [address] 03/17/2022 14:54:48 03/17/2022 15:50:43 Complex renal cyst 7169823845 9019700 N28.1 Lesions appear to be cystic on the most recent ultrasound . These are benign. I think we can safely stop routine imaging Health Concerns Section Related Observation LastModified by Organization Detai ls LastModified Time None Recorded Concern Status LastModified by Organization Details LastModified Time None Recorded Advance Directives Directive Y: Payers Insurance Date Sequence Insurance Name Policy Number Policy Smith Covered Member ID Smith Member ID Guarantor Name 01/09/2023 1 [place] Fermin Cano [id number] Fermin Cano 01/09/2023 2 FOR LIFE ( - MEDICARE SUPPLEMENT) Fermin Cano [id number] Fermin Cano 04/06/2021 2 FOR LIFE ( - MEDICARE SUPPLEMENT) Fermin Cano [id number] Fermin Cano Notes Date Note Type Note Provider [...] to the contrast timing. Omar Gross MD [address] [place] [address],[address], [place], [address], [facility] 08/20/2020 09:57:52 03/18/2021 text/html Is a follow-up visit for renal lesion. She recently had a CT scan. The study was reviewed. She has multiple cysts. They appear to be hemorrhagic type cyst. She has not had flank pain or hematuria. Omar Gross MD [address] [place] [address],[address], [place], [address], [facility] 03/18/2021 15:41:03 03/17/2022 text/html Follow-up visit for renal cyst. She has been doing well. No flank pain or hematuria. No urinary tract infections. No incontinence. Ultrasound was reviewed. Benign cysts in the left kidney Omar Gross MD [address] [place] [address],[address], [place], [address], [facility] 03/17/2022 15:54:29 OBGyn Episode No OBEpisode recorded.
--- OUTSIDE RECORDS SUMMARY | 2024-12-01 14:36 | XMS_ITS | Data Portability ---
Author Organization [facility], [facility] Address [address] [place] [address] Assessment No assessment recorded. Plan of Treatment [...] By Organization Details Last Modified Time 03/14/2018 [id number] high blood pressure: care instructions lor Not available 03/15/2018 08:31:05 hammer toe: care instructions lor Not available 03/14/2018 18:18:17 1. Discussed the clinical and x-ray findings 2. Discussed different types of shoes that she may use, brands and names of shoes were provided to the patient. I also recommended toe gel and bunion gel sleeves and she opted to purchase these on [employer]. Informational educational handout provided to her on [...] Xray, Foot, Sabino, 3V completed Marta Guerra [facility] 03/14/2018 11:33:55 Hysterectomy completed Heike Godinez [facility] 03/14/2018 13:08:47 Breast completed Heike Godinez [facility] 03/14/2018 13:09:06 Imaging Results None [...] Updated DateTime 8 162.56 cm 22.1 kg/m2 03164.4 2 g 77 /min 136 mm[Hg] 81 mm[Hg] Heike Godinez [facility] 8 13:06:42 Social History Question Answer Notes LastModified by Organizat ion Details LastModified Time Tobacco Smoking Status Former Smoker Heike niño [facility] 03/14/2018 13:07:30 Do You Drink [...] Failure N Under the Care of a Case Consultant N Cystic Fibrosis N Cancer N Stroke [...] or are you being seen by a manager trading? N Angina/Chest Pain/Heart Attack N Heart Attack [...] SNOMED-CT Code Diagnosis ICD10 Code Diagnosis Note [id number] Chayito Velasquez DPM [facility] [address] [facility] [address] [place] [address] 03/14/2018 11:17:37 03/14/2018 13:38:42 Hallux valgus 393084286 M20.11 M20.12 Hammer toe 256637611 M20 .41 M20.42 Health Concerns Section Related Observation LastModified by Organization Detai ls LastModified Time None Recorded Concern Status LastModified by Organization Details LastModified Time None Recorded Advance Directives Directive None Recorded Payers Insurance Date Sequence Insurance Name Policy Number Policy Smith Covered Member ID Smith Member ID Guarantor Name 03/14/2018 2 [facility] Joyce Bhatia [id number] Joyce Cano 01/29/2019 1 [place] Joyce Cano [id number] Joyce Cano 01/29/2019 2 FOR LIFE ( - MEDICARE SUPPLEMENT) Joyce Cano [id number] Joyce Cano Notes Date Note Type Note [...] or problematic today. Chayito Velasquez, FLOR [address] [facility] [address], [place], [address], [facility] 03/15/2018 08:31:38 OBGyn Episode No OBEpisode recorded.
--- OUTSIDE RECORDS SUMMARY | 2024-12-01 14:36 | XMS_ITS ---
Author Organization [facility] Johan morse Billing Info Address [address] [place] [address] Care Team Providers Care Transportation Consultant Name Role Phone JOSE ALFREDO HORTON [phone] Encounters Encounter Location Date Provider Diagnosis [id number] [address] [place] [address] 10/30/2023 JOSE ALFREDO HORTON Plan Of Treatment No Information Progress Notes * DOLORES BLANTONOB:[birth year] (83 yo F)Acc No.[id number]:10/30/2023 Patient: YUSUF VALENZUELAJORIE :1940 A ge:83 Y S ex:Female Address:[address] [place], [address] * true * Date: Generated for Printi ng/Faxing/eTransmitting on: 0 12/01/2024 02:35 PM CDT
[2024-12-01 14:40] VITALS: BP 135/84; PULSE 91; RESP 18; TEMP 36.4; O2SAT 97
--- NOTE | 2024-12-01 14:40 | ED_ITS ---
HPI - Extremity Problem General Chief complaint: Extremity Problem,Nontraumatic Stated complaint: RT Wrist Pain Time Seen by Provider: 12/01/24 15:16 Source: patient and RN notes reviewed Mode of arrival: ambulatory Limitations: no limitations History of Present Illness HPI Narrative: 84-year-old female with history of dementia presents with concern for right wrist pain. Patient's family reports she is supervised 09/01 in has not had a fall. Her daughter reports that she slept on that wrist in did not move all night and woke up with pain. Denies decreased sensation, strength, range of motion MD Complaint: extremity pain Related Data Home Medications ?Medication ?Instructions ?Recorded ?Confirmed ?Last Taken ?Type hydrochlorothiazide 25 mg tablet 25 mg PO DAILY 10/13/24 11/08/24 Unknown History methocarbamol 500 mg tablet 500 mg PO HS 10/13/24 11/08/24 Unknown History tramadol 50 mg tablet 25 mg PO ONCE 10/13/24 11/08/24 Unknown History bupropion HCl 150 mg 24 hr tablet, mg PO 11/10/24 Unknown History extended release donepezil 5 mg tablet mg 12/01/24 Unknown History Allergies Allergy/AdvReac Type Severity Reaction Status Date / Time No Known Allergies Allergy Verified 12/01/24 14:34 Review of Systems Review of Systems: CONSTITUTIONAL: Denies malaise, chills, sweats, or fever. SKIN: Denies rash or itching, open skin, laceration, abrasion, redness, warmth, swelling. MUSCULOSKELETAL: Reports right wrist pain NEUROLOGIC: Denies numbness, weakness All systems reviewed & are unremarkable except as noted in HPI and below PMFSH Past Medical History Medical History Left wrist injury Hard of hearing Family History Family History Unknown Arthritis Skin cancer Social History Social History Social History: 1 cup coffee a day Smoking status: Former smoker Alcohol intake: never Occupation/Education: retired Additional occupation/education comments: rn Comments At time of signature, agree with nursing past medical, surgical, social and f amily history. There is no relevant family history pertinent to the presenting complaint Exam Narrative: GENERAL: Well-appearing, well-nourished, and in no acute distress. HEAD: Normocephalic, atraumatic. EYES: PERRLA, conjunctivae clear NECK: Supple. CHEST: Speaks in full sentences. No respiratory distress. HEART: Regular rate and rhythm. Normal and equal peripheral pulses. EXTREMITIES: Right wrist, digits have grossly normal strength and sensation. Mild dorsal wrist edema without erythema or ecchymosis. Normal sensation with sensitivity to light touch and pain. No point tenderness. No open wounds, no skin tenting, no devitalized tissue or atrophy, no trophic changes, no obvious deformity, alignment normal, nearby joints and structures intact. Distal pulses palpable and equal bilaterally, skin warm, dry, pink. Capillary refill less than 3 seconds. SKIN: Warm, dry, no rash. NEURO: Alert and oriented x3. PSYCH: Normal mood and affect Course Course Emergency Course: Patient is aware of diagnosis, understands and agrees to treatment plan. Anticipatory guidance given. Patient agrees to follow-up as directed and is aware of reasons to seek care at the emergency department. Portions of this record may have been created with voice recognition software Level of Care: Express Care Visit Vital Signs Vital signs: Reviewed. MDM - Extremity (Nontraumatic) Imaging Data My impression: Images reviewed, interpreted by radiologist, agree, see report. Radiologist's impression: HISTORY: injury/pain unspecified area COMPARISON: None TECHNIQUE: 4 views of the right wrist were performed. FINDINGS: No acute fracture is identified. The carpal arcs are crowded. Significant degenerative disease within the first carpometacarpal joint space Significant radiocarpal joint space narrowing with sclerosis of the distal radius is present. Trace negative ulnar variance is detected. Bone mineralization is age-appropriate. No significant soft tissue swelling is noted. No radiopaque foreign body is identified. 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 Ice to the area 20-30 minutes 4-6 times a day Elevate above heart Elastic wrap as directed for comfort for the next 5-7 days Tylenol for pain Follow up with your primary care provider if the condition is not improving within 1 week. If the condition worsens with numbness, tingling, decrease sensation with weakness seek treatment in the emergency room immediately. Patient Language: Lithuanian Prescriptions: No Action bupropion HCl 150 mg tablet extended release 24 hr PO bupropion HCl [Wellbutrin XL] 150 mg tablet extended release 24 hr 150 mg PO QAM Qty: 14 0RF donepezil 5 mg tablet methocarbamol 500 mg tablet 500 mg PO HS hydrochlorothiazide 25 mg tablet 25 mg PO DAILY tramadol 50 mg tablet 25 mg PO ONCE Follow-up/Referrals: Jose Vergara MD [Primary Care Provider] - Time of Disposition: 15:26
== END 2024-12-01 15:27 | disposition home or self-care (01) ==
PROVIDERS: Emergency Provider Nurse Practitioner; PCP Internal Medicine
DX: M25.531 Pain in right wrist (principal); Z87.891 Personal history of nicotine dependence
CPT/HCPCS: 73110; 99213; G0463